=== PATIENT | female | born 1935 | race African-American/Black ===

== ENCOUNTER 2016-12-31 16:08 | Inpatient (IN) | payer MEDICARE, MEDICAID ==
[2016-12-31] MEDS ORDERED: NITROGLYCERIN 50 MG/D5W 250 ML IV PRN (16:37)
[2016-12-31] MEDS ORDERED: BUTALB/ACETAMINOPHEN/CAFFEINE 1 TAB EACH PO PRN (16:50)
--- NOTE | 2016-12-31 17:15 | EKG REPORT ---
SEVERITY:- ABNORMAL ECG - SINUS RHYTHM LEFT VENTRICULAR HYPERTROPHY : Confirmed by: Bre De La Torre MD 31-Dec-2016 17:14:42
[2016-12-31 17:29] LABS: ABSOLUTE EOSINOPHILS # (AUTO) 0.2 10^3/uL (0.0-0.6); ABSOLUTE LYMPHOCYTES (AUTO) 1.4 10^3/uL (0.5-4.7); ABSOLUTE MONOCYTES (AUTO) 0.4 10^3/uL (0.1-1.4); ABSOLUTE NEUT (AUTO) 2.6 10^3/uL (1.7-8.2); EOSINOPHILS % (AUTO) 4.3 % (0-6); HEMATOCRIT 36.1 % (36.0-47.0); HEMOGLOBIN 11.5 g/dL (12.0-15.5); HGB HCT DIFFERENCE -1.6; LYMPHOCYTES % (AUTO) 29.5 % (13-45); MEAN CORPUSCULAR HEMOGLOBIN 30.2 pg (27.0-33.4); MEAN CORPUSCULAR HGB CONC 31.9 g/dL (32.0-36.0); MEAN CORPUSCULAR VOLUME 95 fl (80-97); MONOCYTES % (AUTO) 9.2 % (3-13); RED BLOOD COUNT 3.81 10^6/uL (3.72-5.28); RED CELL DISTRIBUTION WIDTH 14.4 % (11.5-14.0); WHITE BLOOD COUNT 4.7 10^3/uL (4.0-10.5)
[2016-12-31 17:43] LABS: ALANINE AMINOTRANSFERASE 30 U/L (9-52); ALBUMIN 4.3 g/dL (3.5-5.0); ALKALINE PHOSPHATASE 54 U/L (38-126); ANION GAP 14 (5-19); ASPARTATE AMINO TRANSFERASE 25 U/L (14-36); BILIRUBIN,DIRECT 0.3 mg/dL (0.0-0.4); BILIRUBIN,TOTAL 0.6 mg/dL (0.2-1.3); BLOOD UREA NITROGEN 27 mg/dL (7-20); CALCIUM 10.5 mg/dL (8.4-10.2); CARBON DIOXIDE 22 mmol/L (22-30); CHLORIDE 108 mmol/L (98-107); CREATININE RESULT 2.45 mg/dL (0.52-1.25); GLUCOSE 75 mg/dL (75-110); POTASSIUM 5.2 mmol/L (3.6-5.0); SODIUM 143.5 mmol/L (137-145); TOTAL PROTEIN 8.3 g/dL (6.3-8.2)
--- NOTE | 2016-12-31 18:08 | RADIOLOGY REPORT (SQ) ---
EXAM DESCRIPTION: CT HEAD WITHOUT COMPLETED DATE/TIME: 12/31/2016 5:39 pm REASON FOR STUDY: hypertensive emergency COMPARISON: 01/24/2016 TECHNIQUE: Axial images acquired through the brain without intravenous contrast. Images reviewed wi th bone, brain and subdural windows. Images stored on PACS. All CT scanners at this facility use dose modulation, iterative reconstruction, and/or weight based d osing when appropriate to reduce radiation dose to as low as reasonably achievable (ALARA). [facility]: Dose Right [facility]: CareDose [facility]: Dose Right [facility]: Teradose 4D [facility]: [place] RADIATION DOSE: 64.61 mGy. LIMITATIONS: None. FINDINGS: VENTRICLES: The ventricles are prominent, but not disproportionate to the degree of atroph y present. CEREBRUM: Cortical atrophy. There are areas of decreased attenuation in the periventricular white m atter. No masses. No hemorrhage. No midline shift. Normal craig/white matter differentiation. No evidence for acute infarction. CEREBELLUM: No masses. No hemorrhage. No alteration of density. No evidence for acute infarction. EXTRAAXIAL SPACES: No fluid collections. No masses. ORBITS AND GLOBE: No intra- or extraconal masses. Normal contour of globe without masses. CALVARIUM: No fracture. PARANASAL SINUSES: No fluid or mucosal thickening. SOFT TISSUES: No mass or hematoma. OTHER: No other significant finding. IMPRESSION: Involutional changes of aging with microvascular ischemic disease and no acute intracran ial pathology. TECHNICAL DOCUMENTATION: JOB ID: [id number] Quality ID # [id number]: Final reports with documentation of one or more dose reduction techniques (e.g., Au tomated exposure control, adjustment of the mA and/or kV according to patient size, use of iterative reconstruction technique) 2010 [employer]- All Rights Reserved
[2016-12-31] MEDS ORDERED: (PENDING PHARMACY ID) (Tramadol Hcl/Acetaminophen [Tramadol-Acetaminophn 37.5-325] 1 TAB) PO PRN (21:51)
[2016-12-31 22:04] LABS: APPEARANCE,URINE CLEAR; BILIRUBIN,URINE NEGATIVE (NEGATIVE); GLUCOSE, URINE NEGATIVE (NEGATIVE); KETONES,URINE NEGATIVE (NEGATIVE); LEUKOCYTE ESTERASE,URINE NEGATIVE (NEGATIVE); NITRITE,URINE NEGATIVE (NEGATIVE); PROTEIN,URINE 30 mg/dL (NEGATIVE); URINE SPECIFIC GRAVITY 1.006; UROBILINOGEN,URINE NEGATIVE mg/dL (<2.0)
[2016-12-31] MEDS: APIXABAN 2.5 MG TABLET PO SCH (22:28)
[2017-01-01 04:54] LABS: ABSOLUTE EOSINOPHILS # (AUTO) 0.2 10^3/uL (0.0-0.6); ABSOLUTE LYMPHOCYTES (AUTO) 1.3 10^3/uL (0.5-4.7); ABSOLUTE MONOCYTES (AUTO) 0.6 10^3/uL (0.1-1.4); ABSOLUTE NEUT (AUTO) 3.2 10^3/uL (1.7-8.2); BASOPHILS % (AUTO) 0.9 % (0-2); EOSINOPHILS % (AUTO) 3.9 % (0-6); HEMATOCRIT 33.2 % (36.0-47.0); HEMOGLOBIN 10.9 g/dL (12.0-15.5); HGB HCT DIFFERENCE -0.5; LYMPHOCYTES % (AUTO) 24.3 % (13-45); MEAN CORPUSCULAR HEMOGLOBIN 30.5 pg (27.0-33.4); MEAN CORPUSCULAR HGB CONC 32.7 g/dL (32.0-36.0); MEAN CORPUSCULAR VOLUME 93 fl (80-97); MONOCYTES % (AUTO) 10.4 % (3-13); RED BLOOD COUNT 3.57 10^6/uL (3.72-5.28); RED CELL DISTRIBUTION WIDTH 14.7 % (11.5-14.0); SEGMENTED NEUTROPHILS % (AUTO) 60.5 % (42-78); WHITE BLOOD COUNT 5.3 10^3/uL (4.0-10.5)
[2017-01-01 05:10] LABS: ANION GAP 11 (5-19); BLOOD UREA NITROGEN 31 mg/dL (7-20); CALCIUM 9.7 mg/dL (8.4-10.2); CARBON DIOXIDE 20 mmol/L (22-30); CHLORIDE 109 mmol/L (98-107); CREATININE RESULT 2.22 mg/dL (0.52-1.25); GLUCOSE 72 mg/dL (75-110); MAGNESIUM 1.7 mg/dL (1.6-2.3); SODIUM 140.3 mmol/L (137-145)
[2017-01-01] MEDS: METOPROLOL SUCCINATE 50 MG TAB.SR.24H PO SCH (09:37)
[2017-01-01] MEDS: APIXABAN 2.5 MG TABLET PO SCH ×2 (09:38→21:35)
[2017-01-01] MEDS: MEGESTROL ACETATE 20 MG TABLET PO SCH ×2 (09:38→17:20)
[2017-01-01] MEDS: PATIROMER 8.4 GM SUSP PACKET PO SCH (09:39)
--- NOTE | 2017-01-01 16:36 | PDOC H&P ---
History of Present Illness Admission Date/PCP: 12/31/16 16:08 VICTORIANO MATTSON MD History of Present Illness: LOU CLEMENTE is a 81 year old female, she has a history of hypertension, chronic kidney disease stage III, she came to the office with multiple complaints including headache, the blood pressure recorded was 220 systolic, she was admitted directly from the office into the hospital for evaluation of hypertensive emergency. She has no chest pain, there is no shortness of breath , there is no syncope. CT of the head was done, it was negative for any acute stroke. She takes metoprolol succinate for the control blood pressure, she did not tolerate ACEI/ARB because of hyperkalemia. She has difficulty tolerating many of the antihypertensive medication because of side effects from many of the classes. She was admitted and she was started on intravenous nitroglycerin infusion Past Medical History Cardiac Medical History: Reports: Atrial Fibrillation, DVT, Hypertension Pulmonary Medical History: Reports: Chronic Obstructive Pulmonary Disease (COPD) Renal/ Medical History: Reports: Chronic Kidney Disease - Chronic kidney disease stage III Musculoskeltal Medical History: Reports: Arthritis Social History Smoking Status: Former Smoker Frequency of Alcohol Use: None Hx Recreational Drug Use: No Drugs: None Hx Prescription Drug Abuse: No Family History Family History: Reviewed & Not Pertinent Parental Family History Reviewed: Yes Children Family History Reviewed: Yes Sibling(s) Family History Reviewed.: Yes Medication/Allergy Home Medications: Patiromer Calcium Sorbitex [Veltassa] 8.4 gm PO DAILY 12/31/16 RX: Apixaban [Eliquis 2.5 mg Tablet] 2.5 mg PO Q12 12/31/16 RX: Megestrol Acetate [Megace 20 mg Tablet] 20 mg PO BID 12/31/16 RX: Metoprolol Succinate [Toprol Xl 50 mg Tab.sr] 50 mg PO DAILY 12/31/16 RX: Tramadol HCl/Acetaminophen [Tramadol-Acetaminophn 37.5-325] 1 tab PO Q6HP PRN 12/31/16 Ferrous Sulfate [Iron] 325 mg PO DAILY 01/01/17 RX: Sodium Bicarbonate 650 mg PO TID 01/01/17 Vit B Cmplx 3/FA/Vit C/Biotin [Miriam-Michelle Rx Tablet] 1 each PO DAILY 01/01/17 Allergies/Adverse Reactions: No Known Allergies Allergy (Verified 01/13/13 15:37) Review of Systems Constitutional: PRESENT: anorexia, fatigue Eyes: ABSENT: visual disturbances Ears: ABSENT: hearing changes Cardiovascular: ABSENT: as per HPI, chest pain, dyspnea on exertion, edema, orthropnea, palpitations, other Respiratory: ABSENT: cough, hemoptysis Gastrointestinal: ABSENT: abdominal pain, constipation, diarrhea, hematemesis, hematochezia, nausea, vomiting Genitourinary: ABSENT: dysuria, hematuria Musculoskeletal: ABSENT: joint swelling Integumentary: ABSENT: rash, wounds Neurological: PRESENT: dizziness, paresthesias Psychiatric: ABSENT: anxiety, depression, homidical ideation, suicidal ideation Endocrine: ABSENT: cold intolerance, heat intolerance, menstrual abnormalities, polydipsia, polyuria Hematologic/Lymphatic: ABSENT: easy bleeding, easy bruising, lymphadenopathy Physical Exam Vital Signs: Temp Pulse Resp BP Pulse Ox 98.3 F 69 18 164/80 H 100 01/01/17 11:52 01/01/17 14:00 01/01/17 11:52 01/01/17 11:52 01/01/17 11:52 Intake & Output 12/31/16 01/01/17 01/02/17 06:59 06:59 06:59 Intake Total 384 554 Output Total 400 200 Balance -16 354 Weight 49.7 kg 49.4 kg General appearance: PRESENT: no acute distress Eye exam: PRESENT: PERRLA Mouth exam: PRESENT: moist Respiratory exam: PRESENT: clear to auscultation alexandro Cardiovascular exam: PRESENT: irregular rhythm, +S1, +S2 GI/Abdominal exam: PRESENT: soft Neurological exam: PRESENT: alert, CN II-XII grossly intact Results Laboratory Results: 01/01/17 04:09 01/01/17 04:09 12/31/16 12/31/16 12/31/16 17:20 17:20 20:30 WBC 4.7 RBC 3.81 Hgb 11.5 L Hct 36.1 MCV 95 MCH 30.2 MCHC 31.9 L RDW 14.4 H Plt Count 149 L Seg Neutrophils % 56.0 Lymphocytes % 29.5 Monocytes % 9.2 Eosinophils % 4.3 Basophils % 1.0 Absolute Neutrophils 2.6 Absolute Lymphocytes 1.4 Absolute Monocytes 0.4 Absolute Eosinophils 0.2 Absolute Basophils 0.0 Sodium 143.5 Potassium 5.2 H Chloride 108 H Carbon Dioxide 22 Anion Gap 14 BUN 27 H Creatinine 2.45 H Est GFR ( Amer) 23 L Est GFR (Non-Af Amer) 19 L Glucose 75 Calcium 10.5 H Magnesium Total Bilirubin 0.6 AST 25 ALT 30 Alkaline Phosphatase 54 Total Protein 8.3 H Albumin 4.3 Urine Color YELLOW Urine Appearance CLEAR Urine pH 7.0 Ur Specific [place] 1.006 Urine Protein 30 H Urine Glucose (UA) NEGATIVE Urine Ketones NEGATIVE Urine Blood MODERATE H Urine Nitrite NEGATIVE Ur Leukocyte Esterase NEGATIVE Urine WBC (Auto) 3 Urine RBC (Auto) 8 01/01/17 01/01/17 04:09 04:09 WBC 5.3 RBC 3.57 L Hgb 10.9 L Hct 33.2 L MCV 93 MCH 30.5 MCHC 32.7 RDW 14.7 H Plt Count 147 L Seg Neutrophils % 60.5 Lymphocytes % 24.3 Monocytes % 10.4 Eosinophils % 3.9 Basophils % 0.9 Absolute Neutrophils 3.2 Absolute Lymphocytes 1.3 Absolute Monocytes 0.6 Absolute Eosinophils 0.2 Absolute Basophils 0.0 Sodium 140.3 Potassium 5.0 Chloride 109 H Carbon Dioxide 20 L Anion Gap 11 BUN 31 H Creatinine 2.22 H Est GFR ( Amer) 26 L Est GFR (Non-Af Amer) 21 L Glucose 72 L Calcium 9.7 Magnesium 1.7 Total Bilirubin AST ALT Alkaline Phosphatase Total Protein Albumin Urine Color Urine Appearance Urine pH Ur Specific [place] Urine Protein Urine Glucose (UA) Urine Ketones Urine Blood Urine Nitrite Ur Leukocyte Esterase Urine WBC (Auto) Urine RBC (Auto) Impressions: Head CT 12/31/16 00:00 IMPRESSION: Involutional changes of aging with microvascular ischemic disease and no acute intracranial pathology. Assessment & Plan - Diagnosis (1) Hypertensive emergency Is this a current diagnosis for this admission?: YesPlan: Patient is admitted for evaluation of hypertensive emergency, she is started on IV nitroglycerin infusion (2) Chronic atrial fibrillation Is this a current diagnosis for this admission?: Yes (3) Chronic kidney disease, stage 3 Is this a current diagnosis for this admission?: Yes
[2017-01-01] MEDS ORDERED: HYDRALAZINE HCL 25 MG TABLET PO PRN (16:37)
--- NOTE | 2017-01-01 16:40 | PDOC PROGRESS REPORT ---
Subjective Progress Note for:: 01/01/17 Subjective:: The blood pressure is elevated but better controlled than yesterday Physical Exam Vital Signs: Temp Pulse Resp BP Pulse Ox 98.0 F 75 18 178/87 H 100 01/01/17 16:17 01/01/17 16:17 01/01/17 16:17 01/01/17 16:17 01/01/17 16:17 Intake & Output 12/31/16 01/01/17 01/02/17 06:59 06:59 06:59 Intake Total 384 554 Output Total 400 200 Balance -16 354 Weight 49.7 kg 49.4 kg General appearance: PRESENT: no acute distress Eye exam: PRESENT: PERRLA Respiratory exam: PRESENT: clear to auscultation alexandro Cardiovascular exam: PRESENT: +S1, +S2 GI/Abdominal exam: PRESENT: soft Results Laboratory Results: 01/01/17 04:09 01/01/17 04:09 12/31/16 12/31/16 12/31/16 17:20 17:20 20:30 WBC 4.7 RBC 3.81 Hgb 11.5 L Hct 36.1 MCV 95 MCH 30.2 MCHC 31.9 L RDW 14.4 H Plt Count 149 L Seg Neutrophils % 56.0 Lymphocytes % 29.5 Monocytes % 9.2 Eosinophils % 4.3 Basophils % 1.0 Absolute Neutrophils 2.6 Absolute Lymphocytes 1.4 Absolute Monocytes 0.4 Absolute Eosinophils 0.2 Absolute Basophils 0.0 Sodium 143.5 Potassium 5.2 H Chloride 108 H Carbon Dioxide 22 Anion Gap 14 BUN 27 H Creatinine 2.45 H Est GFR ( Amer) 23 L Est GFR (Non-Af Amer) 19 L Glucose 75 Calcium 10.5 H Magnesium Total Bilirubin 0.6 AST 25 ALT 30 Alkaline Phosphatase 54 Total Protein 8.3 H Albumin 4.3 Urine Color YELLOW Urine Appearance CLEAR Urine pH 7.0 Ur Specific [place] 1.006 Urine Protein 30 H Urine Glucose (UA) NEGATIVE Urine Ketones NEGATIVE Urine Blood MODERATE H Urine Nitrite NEGATIVE Ur Leukocyte Esterase NEGATIVE Urine WBC (Auto) 3 Urine RBC (Auto) 8 01/01/17 01/01/17 04:09 04:09 WBC 5.3 RBC 3.57 L Hgb 10.9 L Hct 33.2 L MCV 93 MCH 30.5 MCHC 32.7 RDW 14.7 H Plt Count 147 L Seg Neutrophils % 60.5 Lymphocytes % 24.3 Monocytes % 10.4 Eosinophils % 3.9 Basophils % 0.9 Absolute Neutrophils 3.2 Absolute Lymphocytes 1.3 Absolute Monocytes 0.6 Absolute Eosinophils 0.2 Absolute Basophils 0.0 Sodium 140.3 Potassium 5.0 Chloride 109 H Carbon Dioxide 20 L Anion Gap 11 BUN 31 H Creatinine 2.22 H Est GFR ( Amer) 26 L Est GFR (Non-Af Amer) 21 L Glucose 72 L Calcium 9.7 Magnesium 1.7 Total Bilirubin AST ALT Alkaline Phosphatase Total Protein Albumin Urine Color Urine Appearance Urine pH Ur Specific [place] Urine Protein Urine Glucose (UA) Urine Ketones Urine Blood Urine Nitrite Ur Leukocyte Esterase Urine WBC (Auto) Urine RBC (Auto) Impressions: Head CT 12/31/16 00:00 IMPRESSION: Involutional changes of aging with microvascular ischemic disease and no acute intracranial pathology. Assessment & Plan - Diagnosis (1) Hypertensive emergency Is this a current diagnosis for this admission?: YesPlan: start hydralazine 25mg PO Q 8 Hours ,continue the present medication (2) Chronic atrial fibrillation Is this a current diagnosis for this admission?: Yes (3) Chronic kidney disease, stage 3 Is this a current diagnosis for this admission?: Yes
[2017-01-01] MEDS ORDERED: HYDRALAZINE HCL 25 MG TABLET PO ONE (18:15)
--- NOTE | 2017-01-02 05:26 | Physician Advisory Note ---
Physician Advisor ProgressNote .: [facility], I have reviewed the medical record for this patient. Physician Advisor Statement: Very nice documentation of HTN-lane emergency, chr Afib, CKD-3. Please also consider documentin. "underweight with possible mild protein-calorie malnutrition with BMI 19, __ __[?wt loss, (+)appetite loss, ]" [if possible, give specifics on intake, wt loss, loss of SQ fat & muscle mass, diminished hand miller helper strength, & clinical importance such as (A) nutritional assessment ordered, (B) modified diet or supplements ordered, (C) additional labs ordered, (D) prolonged wound healing time, (E) delayed infxn clearance] Thanks! CK
[2017-01-02] MEDS: HYDRALAZINE HCL 25 MG TABLET PO SCH ×3 (05:58→21:25)
[2017-01-02] MEDS: APIXABAN 2.5 MG TABLET PO SCH ×2 (09:40→21:24)
[2017-01-02] MEDS: METOPROLOL SUCCINATE 50 MG TAB.SR.24H PO SCH (09:40)
[2017-01-02] MEDS: PATIROMER 8.4 GM SUSP PACKET PO SCH (09:41)
[2017-01-02] MEDS: MEGESTROL ACETATE 20 MG TABLET PO SCH ×2 (09:41→17:35)
--- NOTE | 2017-01-02 18:52 | PDOC DISCHARGE SUMMARY ---
General - Admit/Disc Date/PCP Admission Date/Primary Care Provider: 12/31/16 16:08 VICTORIANO MATTSON MD Discharge Date: 01/03/17 - Discharge Diagnosis (1) Hypertensive emergency Is this a current diagnosis for this admission?: Yes (2) Chronic atrial fibrillation Is this a current diagnosis for this admission?: Yes (3) Chronic kidney disease, stage 3 Is this a current diagnosis for this admission?: Yes - Additional Information Home Medications: Apixaban [Eliquis 2.5 mg Tablet] 2.5 mg PO Q12 12/31/16 Megestrol Acetate [Megace 20 mg Tablet] 20 mg PO BID 12/31/16 Metoprolol Succinate [Toprol Xl 50 mg Tab.sr] 50 mg PO DAILY 12/31/16 Patiromer Calcium Sorbitex [Veltassa] 8.4 gm PO DAILY 12/31/16 Tramadol HCl/Acetaminophen [Tramadol-Acetaminophn 37.5-325] 1 tab PO Q6HP PRN Ferrous Sulfate [Iron] 325 mg PO DAILY 01/01/17 Sodium Bicarbonate 650 mg PO TID 01/01/17 Vit B Cmplx 3/FA/Vit C/Biotin [Miriam-Michelle Rx Tablet] 1 each PO DAILY 01/01/17 Dextran 70/Hypromellose [Artificial Tears Eye Drops] 30 ml OP TID #1 drops 01/02 Hydralazine HCl [Apresoline 25 mg Tablet] 25 mg PO Q8 #90 tablet 01/02/17 History of Present Illness History of Present Illness: LOU CLEMENTE is a 81 year old female, she has a history of hypertension, chronic kidney disease stage III, she came to the office with multiple complaints including headache, the blood pressure recorded was 220 systolic, she was admitted directly from the office into the hospital for evaluation of hypertensive emergency. She has no chest pain, there is no shortness of breath , there is no syncope. CT of the head was done, it was negative for any acute stroke. She takes metoprolol succinate for the control blood pressure, she did not tolerate ACEI/ARB because of hyperkalemia. She has difficulty tolerating many of the antihypertensive medication because of side effects from many of the classes. She was admitted and she was started on intravenous nitroglycerin infusion Hospital Course Hospital Course: Patient was admitted because of hypertensive emergency, she was treated intravenous nitroglycerin infusion. Medication was adjusted she normally takes metoprolol succinate for the control of the blood pressure, and hydralazine was added to the drug regimen. Physical Exam Vital Signs: Temp Pulse Resp BP Pulse Ox 98.5 F 92 16 146/83 H 100 01/02/17 16:01 01/02/17 16:01 01/02/17 16:01 01/02/17 16:01 01/02/17 16:01 Intake & Output 01/01/17 01/02/17 01/03/17 06:59 06:59 06:59 Intake Total 384 1394 720 Output Total 400 901 750 Balance -16 493 -30 Weight 49.7 kg 48.7 kg General appearance: PRESENT: no acute distress, well-developed, well-nourished Head exam: PRESENT: atraumatic, normocephalic Eye exam: PRESENT: conjunctiva pink, EOMI, PERRLA Ear exam: PRESENT: normal external ear exam Mouth exam: PRESENT: moist, tongue midline Neck exam: PRESENT: full ROM Respiratory exam: PRESENT: clear to auscultation alexandro Cardiovascular exam: PRESENT: RRR, +S1, +S2 Vascular exam: PRESENT: normal capillary refill GI/Abdominal exam: PRESENT: normal bowel sounds, soft Rectal exam: PRESENT: deferred Neurological exam: PRESENT: alert, awake, oriented to person, oriented to place , oriented to time, oriented to situation, CN II-XII grossly intact Psychiatric exam: PRESENT: appropriate affect, normal mood Skin exam: PRESENT: dry, intact, warm. ABSENT: cyanosis, rash Results Laboratory Results: 01/01/17 04:09 01/01/17 04:09 12/31/16 20:30 Clean Catch Midstream Urine Culture - Final NO GROWTH 2 DAYS Impressions: Head CT 12/31/16 00:00 IMPRESSION: Involutional changes of aging with microvascular ischemic disease and no acute intracranial pathology.
[2017-01-03] MEDS: HYDRALAZINE HCL 25 MG TABLET PO SCH (05:49)
[2017-01-03] MEDS: MEGESTROL ACETATE 20 MG TABLET PO SCH (09:39)
[2017-01-03] MEDS: METOPROLOL SUCCINATE 50 MG TAB.SR.24H PO SCH (09:39)
[2017-01-03] MEDS: APIXABAN 2.5 MG TABLET PO SCH (09:39)
[2017-01-03] MEDS: PATIROMER 8.4 GM SUSP PACKET PO SCH (11:30)
[2017-01-03 12:51] VITALS: BP 132/90
== END 2017-01-03 14:03 | disposition home or self-care (01) | DRG 305 ==
LOC: 3N 16:08
PROVIDERS: ADMIT Internal Medicine; ATTEND Internal Medicine
DX: I16.1 Hypertensive emergency (principal); I12.9 Hypertensive chronic kidney disease with stage 1 through stage 4 chronic kidney disease, or unspecified chronic kidney disease; N18.3 Chronic kidney disease, stage 3 (moderate); I48.2 Chronic atrial fibrillation; Z87.891 Personal history of nicotine dependence; Z79.01 Long term (current) use of anticoagulants; Z79.818 Long term (current) use of other agents affecting estrogen receptors and estrogen levels; Z79.899 Other long term (current) drug therapy
CPT/HCPCS: 36415; 70450; 80048; 80076; 81001; 83735; 85025; 87086; 93005; 93010; J3490

== ENCOUNTER → 2017-01-27 | Outpatient (CLI) | payer MEDICARE, MEDICAID ==
--- NOTE | 2017-01-27 14:51 | RADIOLOGY REPORT (SQ) ---
EXAM DESCRIPTION: CT ORBIT/SELLA WITHOUT COMPLETED DATE/TIME: 01/27/2017 2:42 pm REASON FOR STUDY: ORBITAL MYOSITIS, BILATERAL H05.123 ORBITAL MYOSITIS, BILATERAL COMPARISON: None. TECHNIQUE: Noncontrasted images through the orbits windowed for bone and soft tissue. Additional co jennifer and sagittal reconstructed images reviewed. All images stored on PACS. All CT scanners at this facility use dose modulation, iterative reconstruction, and/or weight based d osing when appropriate to reduce radiation dose to as low as reasonably achievable (ALARA). [facility]: Dose Right [facility]: CareDose [facility]: Dose Right [facility]: Teradose 4D [facility]: [employer] RADIATION DOSE: mGy. LIMITATIONS: None. FINDINGS: FACIAL BONES: No fracture or bone lesion. ORBITS: Intact. No fracture. Symmetric intact globes and retroorbital soft tissues. PARANASAL SINUSES: Clear. Bilateral antrectomies. No significant mucosal thickening, mass or fluid. No nasal polyps. Maxillary sinus outlets are patent. SOFT TISSUES: No mass or edema. INFERIOR BRAIN: Limited view. No acute findings. OTHER: No other significant finding. IMPRESSION: NO ACUTE FINDINGS. TECHNICAL DOCUMENTATION: JOB ID: [id number] Quality ID # [id number]: Final reports with documentation of one or more dose reduction techniques (e.g., Au tomated exposure control, adjustment of the mA and/or kV according to patient size, use of iterative reconstruction technique) 2010 [employer]- All Rights Reserved
== END ==
LOC: RAD 13:43
PROVIDERS: ATTEND Internal Medicine
DX: H05.123 Orbital myositis, bilateral (principal)
CPT/HCPCS: 70480; 82565

== ENCOUNTER 2017-02-18 12:33 | Observation (INO) | payer MEDICARE, MEDICAID ==
[2017-02-18] MEDS ORDERED: NITROGLYCERIN 50 MG/D5W 250 ML IV PRN (13:34)
[2017-02-18 13:43] LABS: HEMATOCRIT 34.9 % (36.0-47.0); HEMOGLOBIN 11.4 g/dL (12.0-15.5); HGB HCT DIFFERENCE -0.7; MEAN CORPUSCULAR HEMOGLOBIN 30.4 pg (27.0-33.4); MEAN CORPUSCULAR HGB CONC 32.7 g/dL (32.0-36.0); MEAN CORPUSCULAR VOLUME 93 fl (80-97); RED BLOOD COUNT 3.76 10^6/uL (3.72-5.28); RED CELL DISTRIBUTION WIDTH 15.3 % (11.5-14.0); WHITE BLOOD COUNT 4.1 10^3/uL (4.0-10.5)
[2017-02-18 14:05] LABS: ALANINE AMINOTRANSFERASE 28 U/L (9-52); ALBUMIN 4.3 g/dL (3.5-5.0); ALKALINE PHOSPHATASE 52 U/L (38-126); ANION GAP 14 (5-19); ASPARTATE AMINO TRANSFERASE 28 U/L (14-36); BILIRUBIN,DIRECT 0.4 mg/dL (0.0-0.4); BILIRUBIN,TOTAL 0.8 mg/dL (0.2-1.3); BLOOD UREA NITROGEN 35 mg/dL (7-20); CARBON DIOXIDE 19 mmol/L (22-30); CHLORIDE 110 mmol/L (98-107); CREATININE RESULT 2.33 mg/dL (0.52-1.25); GLUCOSE 77 mg/dL (75-110); POTASSIUM 4.9 mmol/L (3.6-5.0); SODIUM 142.8 mmol/L (137-145); TOTAL PROTEIN 8.3 g/dL (6.3-8.2)
--- NOTE | 2017-02-18 15:24 | RADIOLOGY REPORT (SQ) ---
EXAM DESCRIPTION: MRI HEAD WITHOUT COMPLETED DATE/TIME: 02/18/2017 2:58 pm REASON FOR STUDY: hypertension urgency COMPARISON: CT dated 12/31/2016. MRI dated 02/20/2015. TECHNIQUE: Multiplanar imaging includes non-contrasted T1, T2, FLAIR, and diffusion with ADC map seq uences. Images stored on PACS. LIMITATIONS: None. FINDINGS: ANATOMY: No anomalies. Normal vascular flow voids. Pituitary fossa normal. CSF SPACES: Atrophy induced prominence of ventricles and CSF spaces. Chronic ex vacuo change of the left lateral ventricle. CEREBRUM: High signal intensity lesions scattered throughout the white matter on FLAIR imaging with d istribution suggesting micro-vascular ischemic changes. No evidence of hemorrhage, mass, or extraaxi al fluid collection. POSTERIOR FOSSA: No signal alteration. No hemorrhage. No edema, masses or mass effect. Internal lyly tory canals, cerebello-pontine angles, mastoids normal. DIFFUSION IMAGING: Negative for acute or sub-acute infarction. ORBITS: No masses. Globes normal. PARANASAL SINUSES: No fluid levels. Mucosa normal. OTHER: No other significant finding. IMPRESSION: STABLE CHRONIC FINDINGS. ATROPHY AND CHRONIC MICRO-VASCULAR ISCHEMIC CHANGES. NO ACUTE FINDINGS. EVIDENCE OF ACUTE STROKE: NO. TECHNICAL DOCUMENTATION: JOB ID: [id number] All Rights Reserved
[2017-02-18] MEDS ORDERED: HYDRALAZINE HCL 25 MG TABLET PO SCH (18:00)
[2017-02-18] MEDS ORDERED: MEGESTROL ACETATE 20 MG TABLET PO SCH (18:00)
[2017-02-18] MEDS ORDERED: SODIUM BICARBONATE 650 MG TABLET PO SCH (18:00)
[2017-02-18] MEDS: METOPROLOL SUCCINATE 50 MG TAB.SR.24H PO SCH (18:23)
[2017-02-18] MEDS: SODIUM BICARBONATE 650 MG TABLET PO SCH (18:23)
[2017-02-18] MEDS: HYDRALAZINE HCL 25 MG TABLET PO SCH (21:06)
[2017-02-18] MEDS: MEGESTROL ACETATE 20 MG TABLET PO SCH (21:06)
[2017-02-18] MEDS: APIXABAN 2.5 MG TABLET PO SCH (21:07)
[2017-02-19] MEDS: HYDRALAZINE HCL 25 MG TABLET PO SCH ×3 (06:15→21:37)
[2017-02-19] MEDS ORDERED: (PENDING PHARMACY ID) (Folic Acid/Vitamin B Comp W-C [Renavit Tablet] 0.8 MG) PO SCH (10:00)
[2017-02-19] MEDS: PATIROMER 8.4 GM SUSP PACKET PO SCH (10:08)
[2017-02-19] MEDS: FOLIC ACID/VITAMIN B COMP W-C CAPSULE PO SCH (10:09)
[2017-02-19] MEDS: APIXABAN 2.5 MG TABLET PO SCH ×2 (10:09→21:37)
[2017-02-19] MEDS: MEGESTROL ACETATE 20 MG TABLET PO SCH ×2 (10:10→21:37)
[2017-02-19] MEDS: FERROUS SULFATE 325 MG TABLET PO SCH (10:10)
[2017-02-19] MEDS: SODIUM BICARBONATE 650 MG TABLET PO SCH ×3 (10:10→17:29)
--- NOTE | 2017-02-19 14:28 | Physician Advisory Note ---
Physician Advisor ProgressNote .: Pursuant to the plan for [facility], I have reviewed the medical record for this patient. Physician Advisor Statement: Please consider documentin. "Chronic Kidney Disease stage 4 associated with HTN" 2. "Atherosclerotic cerebrovascular disease" 3. Medical necessity: Pt coming in for HTN, even hypertensive urgency, typically won't be appropriate for Inpatient status initially unless there is something else very concerning going on acutely that is documented well as to why attending would be very concerned about this pt at this time (such as pt's Cr being significantly worse/ARF). (Literature is now recommending outpatient care for hypertensive urgency if no signs/symptoms of acute end-organ disease, which would make it hypertensive emergency.) - H&P is still pending, but suspect pt may be most appropriate for Obs and d/c today, unless there is something else significant that will be documented today. Thanks! CK
--- NOTE | 2017-02-19 16:50 | PDOC H&P ---
History of Present Illness Admission Date/PCP: 02/18/17 12:33 VICTORIANO MATTSON MD History of Present Illness: LOU CLEMENTE is a 81 year old female,She has a history of hypertension, chronic atrial fibrillation, chronic kidney disease stage III, she came to the office without any appointment because of ocular pain, headache, the blood pressure recorded in the office was 220/120 . She complains of eye pain, pressure like sensation in both eyes, because the blood pressure was severely elevated and the fact that she complained of pain in both eyes she was admitted directly from the office into the hospital for evaluation of her symptoms. 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 She was started on intravenous nitroglycerin to help control blood pressure because she has symptomatic hypertension, consistent with hypertensive emergency. Past Medical History Cardiac Medical History: Reports: Atrial Fibrillation, DVT, Hypertension Denies: Myocardial Infarction Pulmonary Medical History: Reports: Chronic Obstructive Pulmonary Disease (COPD) Denies: Asthma, Tuberculosis Renal/ Medical History: Reports: Chronic Kidney Disease - Chronic kidney disease stage III Musculoskeltal Medical History: Reports: Arthritis Social History Smoking Status: Former Smoker Last Time Smoked: 1981 Frequency of Alcohol Use: None Hx Recreational Drug Use: No Drugs: None Hx Prescription Drug Abuse: No Family History Family History: Reviewed & Not Pertinent Parental Family History Reviewed: Yes Children Family History Reviewed: Yes Sibling(s) Family History Reviewed.: Yes Medication/Allergy Home Medications: Apixaban [Eliquis 2.5 mg Tablet] 2.5 mg PO Q12 02/18/17 Ferrous Sulfate [Feosol 325 mg Tablet] 325 mg PO DAILY 02/18/17 Folic Acid/Vitamin B Comp W-C [Renavit Tablet] 0.8 mg PO DAILY 02/18/17 Hydralazine HCl [Apresoline 25 mg Tablet] 25 mg PO TID 02/18/17 Megestrol Acetate [Megace 20 mg Tablet] 20 mg PO BID 02/18/17 Metoprolol Succinate [Toprol Xl 50 mg Tab.sr] 50 mg PO QPM 02/18/17 Patiromer Calcium Sorbitex [Veltassa] 8.4 gm PO DAILY 02/18/17 Sodium Bicarbonate [Antacid] 650 mg PO TID 02/18/17 Allergies/Adverse Reactions: No Known Allergies Allergy (Verified 01/13/13 15:37) Review of Systems Constitutional: PRESENT: headache(s) Eyes: ABSENT: visual disturbances Ears: ABSENT: hearing changes Cardiovascular: ABSENT: chest pain, dyspnea on exertion, edema, orthropnea, palpitations Respiratory: ABSENT: cough, hemoptysis Gastrointestinal: ABSENT: abdominal pain, constipation, diarrhea, hematemesis, hematochezia, nausea, vomiting Genitourinary: ABSENT: dysuria, hematuria Musculoskeletal: ABSENT: joint swelling Integumentary: ABSENT: rash, wounds Neurological: ABSENT: abnormal gait, abnormal speech, confusion, dizziness, focal weakness, syncope Psychiatric: ABSENT: anxiety, depression, homidical ideation, suicidal ideation Endocrine: ABSENT: cold intolerance, heat intolerance, menstrual abnormalities, polydipsia, polyuria Hematologic/Lymphatic: ABSENT: easy bleeding, easy bruising, lymphadenopathy Physical Exam Vital Signs: Temp Pulse Resp BP Pulse Ox 98.3 F 84 18 167/91 H 100 02/19/17 15:45 02/19/17 15:45 02/19/17 15:45 02/19/17 15:45 02/19/17 15:45 Intake & Output 02/18/17 02/19/17 02/20/17 06:59 06:59 06:59 Intake Total 420 236 Output Total 1050 Balance -630 236 Weight 50.8 kg General appearance: PRESENT: no acute distress, well-developed, well-nourished Head exam: PRESENT: atraumatic, normocephalic Eye exam: PRESENT: conjunctiva pink, EOMI, PERRLA. ABSENT: scleral icterus Ear exam: PRESENT: normal external ear exam Mouth exam: PRESENT: moist, tongue midline Neck exam: PRESENT: full ROM Respiratory exam: PRESENT: clear to auscultation alexandro Cardiovascular exam: PRESENT: irregular rhythm, RRR, +S1, +S2 Pulses: PRESENT: normal dorsalis pedis pul, +2 pedal pulses bilateral Vascular exam: PRESENT: normal capillary refill GI/Abdominal exam: PRESENT: normal bowel sounds, soft Rectal exam: PRESENT: deferred Neurological exam: PRESENT: alert, awake, oriented to person, oriented to place , oriented to time, oriented to situation, CN II-XII grossly intact Psychiatric exam: PRESENT: appropriate affect, normal mood Skin exam: PRESENT: dry, intact, warm Results Laboratory Results: 02/18/17 13:34 02/18/17 13:34 Impressions: Head MRI 02/18/17 13:42 IMPRESSION: STABLE CHRONIC FINDINGS. ATROPHY AND CHRONIC MICRO-VASCULAR ISCHEMIC CHANGES. NO ACUTE FINDINGS. EVIDENCE OF ACUTE STROKE: NO. Assessment & Plan - Diagnosis (1) Hypertensive emergency Is this a current diagnosis for this admission?: YesPlan: She is admitted for the management of hypertensive emergency, she will be treated with intravenous nitroglycerin infusion to maintain adequate blood pressure. (2) Chronic kidney disease, stage 3 Is this a current diagnosis for this admission?: Yes (3) Chronic atrial fibrillation Is this a current diagnosis for this admission?: Yes
--- NOTE | 2017-02-19 16:56 | PDOC PROGRESS REPORT ---
Subjective Progress Note for:: 02/19/17 Subjective:: She was admitted yesterday for the management of hypertensive emergency she was seen by the bedside, she is still complaining of eye pain, the MRI of the brain that was done was negative for any acute pathology. She was taken off the IV nitroglycerin and transition to p.o. medication for the control of blood pressure. Physical Exam Vital Signs: Temp Pulse Resp BP Pulse Ox 98.3 F 84 18 167/91 H 100 02/19/17 15:45 02/19/17 15:45 02/19/17 15:45 02/19/17 15:45 02/19/17 15:45 Intake & Output 02/18/17 02/19/17 02/20/17 06:59 06:59 06:59 Intake Total 420 236 Output Total 1050 Balance -630 236 Weight 50.8 kg General appearance: PRESENT: no acute distress Eye exam: PRESENT: PERRLA Respiratory exam: PRESENT: clear to auscultation alexandro Cardiovascular exam: PRESENT: +S1, +S2 GI/Abdominal exam: PRESENT: soft Neurological exam: PRESENT: alert, CN II-XII grossly intact Results Laboratory Results: 02/18/17 13:34 02/18/17 13:34 Impressions: Head MRI 02/18/17 13:42 IMPRESSION: STABLE CHRONIC FINDINGS. ATROPHY AND CHRONIC MICRO-VASCULAR ISCHEMIC CHANGES. NO ACUTE FINDINGS. EVIDENCE OF ACUTE STROKE: NO. Assessment & Plan - Diagnosis (1) Hypertensive emergency Is this a current diagnosis for this admission?: YesPlan: She is presently on PO anti-hypertensive medications she was weaned off the intravenous nitroglycerin infusion this morning the blood pressure is still ranging about 158 to 160 systolic, she may need further adjustment of her medications for the control of the blood pressure, regarding the eyes symptoms she was seen by the study abroad coordinator outpatient for evaluation of her eye symptoms no concrete diagnosis was established as the cause of her symptoms she will be given eyedrops for allergy (2) Chronic kidney disease, stage 3 Is this a current diagnosis for this admission?: Yes (3) Chronic atrial fibrillation Is this a current diagnosis for this admission?: Yes
[2017-02-19] MEDS: METOPROLOL SUCCINATE 50 MG TAB.SR.24H PO SCH (17:29)
[2017-02-19] MEDS: CYCLOSPORINE 0.05% OPH EMULSIO 0.4 ML DROPERETTE OU SCH (18:15)
[2017-02-20] MEDS: HYDRALAZINE HCL 25 MG TABLET PO SCH ×2 (05:49→13:07)
[2017-02-20] MEDS: CYCLOSPORINE 0.05% OPH EMULSIO 0.4 ML DROPERETTE OU SCH ×2 (05:51→17:33)
[2017-02-20] MEDS ORDERED: OLOPATADINE HCL 0.1% OPH SOLN 5 ML OU SCH (10:00)
[2017-02-20] MEDS: FOLIC ACID/VITAMIN B COMP W-C CAPSULE PO SCH (10:41)
[2017-02-20] MEDS: SODIUM BICARBONATE 650 MG TABLET PO SCH ×3 (10:41→17:32)
[2017-02-20] MEDS: FERROUS SULFATE 325 MG TABLET PO SCH (10:42)
[2017-02-20] MEDS: MEGESTROL ACETATE 20 MG TABLET PO SCH (10:42)
[2017-02-20] MEDS: PATIROMER 8.4 GM SUSP PACKET PO SCH (10:44)
[2017-02-20] MEDS: APIXABAN 2.5 MG TABLET PO SCH (10:44)
[2017-02-20] MEDS: METOPROLOL SUCCINATE 50 MG TAB.SR.24H PO SCH (17:32)
[2017-02-20 18:16] VITALS: BP 158/61
--- NOTE | 2017-02-20 19:33 | PDOC DISCHARGE SUMMARY ---
General - Admit/Disc Date/PCP Admission Date/Primary Care Provider: 02/18/17 12:33 VICTORIANO MATTSON MD Discharge Date: 02/20/17 - Discharge Diagnosis (1) Hypertensive emergency Is this a current diagnosis for this admission?: Yes (2) Chronic kidney disease, stage 3 Is this a current diagnosis for this admission?: Yes (3) Chronic atrial fibrillation Is this a current diagnosis for this admission?: Yes - Additional Information Discharge Activity: Activity As Tolerated Home Medications: Apixaban [Eliquis 2.5 mg Tablet] 2.5 mg PO Q12 02/18/17 Ferrous Sulfate [Feosol 325 mg Tablet] 325 mg PO DAILY 02/18/17 Folic Acid/Vitamin B Comp W-C [Renavit Tablet] 0.8 mg PO DAILY 02/18/17 Megestrol Acetate [Megace 20 mg Tablet] 20 mg PO BID 02/18/17 Patiromer Calcium Sorbitex [Veltassa] 8.4 gm PO DAILY 02/18/17 Sodium Bicarbonate [Antacid] 650 mg PO TID 02/18/17 Hydralazine HCl [Apresoline 25 mg Tablet] 75 mg PO Q8 #90 tablet 02/20/17 Metoprolol Succinate [Toprol Xl] 100 mg PO DAILY #90 tab.sr.24h 02/20/17 History of Present Illness History of Present Illness: LOU CLEMENTE is a 81 year old female,She has a history of hypertension, chronic atrial fibrillation, chronic kidney disease stage III, she came to the office without any appointment because of ocular pain, headache, the blood pressure recorded in the office was 220/120 . She complains of eye pain, pressure like sensation in both eyes, because the blood pressure was severely elevated and the fact that she complained of pain in both eyes she was admitted directly from the office into the hospital for evaluation of her symptoms. 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 She was started on intravenous nitroglycerin to help control blood pressure because she has symptomatic hypertension, consistent with hypertensive emergency. Hospital Course Hospital Course: Patient was admitted for the management of hypertensive emergency, she was treated initially with intravenous nitroglycerin infusion for the first 24 hours , subsequently transitioned to p.o. medication for the control blood pressure. MRI brain was done it was negative for any intracranial pathology. She has underlining chronic kidney disease stage IV. Medication was adjusted for the control blood pressure, the metoprolol was increased from 50 mg p.o. daily to 100mg PO daily Physical Exam Vital Signs: Temp Pulse Resp BP Pulse Ox 97.6 F 102 H 17 158/61 H 98 02/20/17 18:14 02/20/17 18:14 02/20/17 18:14 02/20/17 18:14 02/20/17 18:14 Intake & Output 02/19/17 02/20/17 02/21/17 06:59 06:59 06:59 Intake Total 420 1305 468 Output Total 1050 625 0 Balance -630 680 468 Weight 50.8 kg 49.8 kg General appearance: PRESENT: no acute distress, well-developed, well-nourished Head exam: PRESENT: atraumatic, normocephalic Eye exam: PRESENT: PERRLA Ear exam: PRESENT: normal external ear exam Mouth exam: PRESENT: moist, tongue midline Neck exam: PRESENT: full ROM Respiratory exam: PRESENT: clear to auscultation alexandro Cardiovascular exam: PRESENT: RRR, +S1, +S2 Vascular exam: PRESENT: normal capillary refill GI/Abdominal exam: PRESENT: normal bowel sounds, soft Rectal exam: PRESENT: deferred Neurological exam: PRESENT: alert, awake, oriented to person, oriented to place , oriented to time, oriented to situation, CN II-XII grossly intact Psychiatric exam: PRESENT: appropriate affect, normal mood Results Laboratory Results: 02/18/17 13:34 02/18/17 13:34 Impressions: Head MRI 02/18/17 13:42 IMPRESSION: STABLE CHRONIC FINDINGS. ATROPHY AND CHRONIC MICRO-VASCULAR ISCHEMIC CHANGES. NO ACUTE FINDINGS. EVIDENCE OF ACUTE STROKE: NO.
== END 2017-02-20 19:15 | disposition home or self-care (01) ==
LOC: INTOOBSV 12:33 → 3W 12:33
PROVIDERS: ADMIT Internal Medicine; ATTEND Internal Medicine
DX: I16.1 Hypertensive emergency (principal); I12.9 Hypertensive chronic kidney disease with stage 1 through stage 4 chronic kidney disease, or unspecified chronic kidney disease; N18.3 Chronic kidney disease, stage 3 (moderate); I48.2 Chronic atrial fibrillation; H57.13 Ocular pain, bilateral; Z79.02 Long term (current) use of antithrombotics/antiplatelets; Z79.899 Other long term (current) drug therapy; Z87.891 Personal history of nicotine dependence; Z86.718 Personal history of other venous thrombosis and embolism
CPT/HCPCS: 36415; 85027; 80076; 80048; 70551; A9270 ×14; J3490 ×4; G0378; G0379

== ENCOUNTER 2017-03-01 08:30 | Emergency (ER) | payer MEDICARE, MEDICAID ==
[2017-03-01] MEDS ORDERED: NORMAL SALINE 500 ML IV ONE (09:00)
[2017-03-01] MEDS ORDERED: MORPHINE SULFATE 10 MG/ML INJ IV ONE (09:02)
[2017-03-01] MEDS ORDERED: CLONIDINE HCL 0.2 MG TABLET PO ONE (09:02)
[2017-03-01] MEDS ORDERED: ONDANSETRON HCL INJ/PF 4 MG/2 ML SDV IV ONE (09:03)
--- NOTE | 2017-03-01 09:08 | ER Document Report ---
ED General - General Information source: Patient TRAVEL OUTSIDE OF THE [place] IN LAST 30 DAYS: No - HPI Associated symptoms: Other - see above <WALKER PALACIOS - Last Filed: 03/01/17 09:41> <YUDITH GOYAL - Last Filed: 03/01/17 15:35> - General Stated Complaint: RAPID HEART BEAT Time Seen by Provider: 03/01/17 08:47 Notes: Patient is an 81 year old female with a history of hypertension and stage 4 kidney disease presents to the ED with complaints of palpitations, hypertension and a headache. Patient states her blood pressure has been running high intermittently for the past few days. Patient states her headache was sudden onset yesterday. Patient is on Hydrolozine for her blood pressure. She is also on blood thinners from a DVT in the past. Patient denies any blurred or double vision, difficulty with memory or speech, weakness or difficulty ambulating, abdominal or back pain, nausea, vomiting or diarrhea. Patient states she has had a decrease appetite and oral intake but states her urine output is normal. (WALKER PALACIOS) - Related Data Allergies/Adverse Reactions: No Known Allergies Allergy (Verified 01/13/13 15:37) Past Medical History - General Information source: Patient - Social History Smoking Status: Unknown if Ever Smoked Family History: Reviewed & Not Pertinent - Past Medical History Cardiac Medical History: Reports: Hx Atrial Fibrillation, Hx DVT, Hx Hypertension Denies: Hx Heart Attack Pulmonary Medical History: Reports: Hx COPD Denies: Hx Asthma, Hx Tuberculosis Neurological Medical History: Denies: Hx Cerebrovascular Accident, Hx Seizures Renal/ Medical History: Reports: Hx Renal Insufficiency GI Medical History: Denies: Hx Hepatitis, Hx Hiatal Hernia, Hx Ulcer Musculoskeltal Medical History: Reports Hx Arthritis Psychiatric Medical History: Denies: Hx Depression Infectious Medical History: Denies: Hx Hepatitis Past Surgical History: Denies: Hx Hysterectomy, Hx Mastectomy, Hx Open Heart Surgery, Hx Pacemaker - Immunizations Immunizations up to date: Yes Hx Diphtheria, Pertussis, Tetanus Vaccination: Yes Hx Pneumococcal Vaccination: 08/06/12 <WALKER PALACIOS - Last Filed: 03/01/17 09:41> Review of Systems - Review of Systems Constitutional: No symptoms reported. denies: Weakness EENT: No symptoms reported. denies: Blurred vision, Double vision Cardiovascular: See HPI, Palpitations Respiratory: No symptoms reported Gastrointestinal: See HPI, Poor appetite, Poor fluid intake. denies: Abdominal pain, Diarrhea, Nausea, Constipation Genitourinary: No symptoms reported Female Genitourinary: No symptoms reported Musculoskeletal: No symptoms reported. denies: Back pain Skin: No symptoms reported Hematologic/Lymphatic: No symptoms reported Neurological/Psychological: See HPI, Headaches <WALKER PALACIOS - Last Filed: 03/01/17 09:41> Physical Exam - General General appearance: Appears well, Alert In distress: None - HEENT Head: Normocephalic, Atraumatic Eyes: Normal Extraocular movements intact: Yes Pupils: PERRL - Respiratory Respiratory status: No respiratory distress Breath sounds: Normal - Cardiovascular Rhythm: Regular Heart sounds: Normal auscultation Murmur: No Pulses: Normal: Radial - Abdominal Inspection: Normal Distension: No distension Tenderness: Nontender - Back Back: Normal - Extremities General upper extremity: Normal inspection, Normal ROM General lower extremity: Normal inspection, Normal ROM. No: Edema - Neurological Neuro grossly intact: Yes - Psychological Associated symptoms: Normal affect, Normal mood - Skin Skin Temperature: Warm Skin Moisture: Dry Skin Color: Normal <WALKER PALACIOS - Last Filed: 03/01/17 09:41> Course - Laboratory Result Diagrams: 03/01/17 09:00 03/01/17 09:00 <WALKER PALACIOS - Last Filed: 03/01/17 09:41> - Laboratory Result Diagrams: 03/01/17 09:00 03/01/17 09:00 <YUDITH GOYAL - Last Filed: 03/01/17 15:35> - Re-evaluation Re-evalutation: 03/01/17 10:50 03/01/17 10:50 Patient presents emergency department with her family at the chief complaint of rapid heartbeat headache and elevated blood pressure. Patient is an 81-year- old female patient of Dr. Mattson and has chronic hypertension stage IV kidney disease and atrial fibrillation on Eliquis. She was admitted for hypertensive urgency on 12 31 had an uneventful course and was discharged home on hydralazine. The note says that she had trouble tolerating calcium channel blockers and ANDRIY inhibitors. She states that her blood pressures been running high the past few days denies missing any of her medication. Says she has a gradual onset of a headache which is frontal and throbbing in nature since yesterday. It is not the worst headache of her life not associated with trauma. No blurred vision double vision difficulty speaking talking walking or strokelike symptoms. Her gait is normal and she is not off balance. She also felt that her heart was racing. She has had a history of a TIA in the past but no CVA type symptoms today. She denies any chest pain or pressure nausea vomiting dull pain or diarrhea. When asked why she is on Eliquis she stated she was not sure but notes that she had a history of a DVT. She has been taking her Eliquis faithfully. On examination she is awake alert GCS of 15 with a blood pressure of 212/125 tachycardic at 130 afebrile at 98.5 and respiratory rate of 20 with O2 sats of 96% CT of the head is nonacute. Headache is resolved with medication blood pressure significantly improved with clonidine. EKG shows sinus tachycardia but no acute ST segment elevation or depression. Rechecked at the bedside headache is resolved she is no longer tachycardic she is running about 85. She does not feel that fluttering in her chest any longer. In addition to that her blood pressure is significantly improved. She has had great difficulty controlling outpatient blood pressures and intolerance to certain medications. I am going to have her check her blood pressure 3-4 times a day follow-up with her primary care physician on Friday and specifically discussed reasons for ED return sooner (YUDITH GOYAL) - Vital Signs Vital signs: Temp Pulse Resp BP Pulse Ox 98.2 F 88 16 132/89 H 100 03/01/17 08:50 03/01/17 11:32 03/01/17 11:32 03/01/17 11:32 03/01/17 11:32 - Laboratory Laboratory results interpreted by me: 03/01/17 03/01/17 03/01/17 09:00 09:00 09:00 RDW 14.5 H BUN 24 H Creatinine 2.31 H Est GFR ( Amer) 24 L Est GFR (Non-Af Amer) 20 L Calcium 10.6 H NT-Pro-B Natriuret Pep 1500 H Urine Protein Urine Ketones Urine Blood 03/01/17 09:37 RDW BUN Creatinine Est GFR ( Amer) Est GFR (Non-Af Amer) Calcium NT-Pro-B Natriuret Pep Urine Protein 100 H Urine Ketones 20 H Urine Blood SMALL H - EKG Interpretation by Me Additional EKG results interpreted by me: 03/01/17 10:53 EKG interpreted by myself to reveal a sinus tachycardia at 130 bpm with evidence of left ventricular hypertrophy. No acute ST segment elevation or depression is when compared to previous. (YUDITH GOYAL) Discharge <WALKER PALACIOS - Last Filed: 03/01/17 09:41> <YUDITH GOYAL - Last Filed: 03/01/17 15:35> - Discharge Clinical Impression: Acute hypertensive urgency, Cephalgia resolved, Sinus tachycardia resolved, Chronic renal insufficiency Condition: Stable Disposition: HOME, SELF-CARE Additional Instructions: HIGH BLOOD PRESSURE, NOT TREAT: When your blood pressure was taken today it was elevated. Today's reading was . We do not think you need to have your blood pressure treated today. Sometimes, stress or illness causes a temporary elevation of your blood pressure. We suggest that you get your blood pressure measured again during the next few days to see if this elevated blood pressure is more than a temporary abnormality. If your blood pressure is greater than 150/90 on each occasion, you must have treatment. Some simple things you can do to help are: If you have blood pressure medicine but aren't using it regularly, start taking it again. Get some aerobic exercise for at least 20 minutes on a daily basis. (See your doctor before beginning a new exercise program.) Eat a low-fat diet. Lose excess weight. Avoid salty foods and avoid adding salt to any of the foods you eat. Avoid diet pills, decongestants, "energizing" herbs, and other medicines that elevate blood pressure. If left untreated, hypertension greatly enhances your risk for developing heart disease and strokes. Please don't ignore this problem. HIGH BLOOD PRESSURE REQUIRING TREATMENT: Your blood pressure is high. This is called "hypertension." Today's reading was ___212/125 (normal is less than 140/90). Your history and exam suggest that this is not a temporary problem. You need treatment of your blood pressure. If left untreated, high blood pressure greatly increases your risk of heart attack and stroke. Please don't ignore this problem. If you have blood pressure medicine but aren't using it regularly, start taking it again. Some simple things you can do to help are: Get some aerobic exercise for at least 20 minutes on a daily basis. (See your doctor before beginning any new exercise program.) Eat a low-fat diet. Lose excess weight. Avoid salty foods and avoid adding salt to any of the foods you eat. Avoid diet pills, decongestants, "energizing" herbs, and other medicines that elevate blood pressure. There are many different medicines that treat blood pressure. If your medication causes unpleasant side effects, call your doctor. There are others you can try. Treating hypertension is a life-long investment in your health. Headache The physician does not feel that the headache you are experiencing has a serious underlying cause. Most headaches are due to emotional stress, with resultant muscle tension (tension headache). Occasionally, headaches are secondary to changes in the blood vessels of the scalp (vascular headache and migraine headache). Sometimes, a headache is the first symptom of another developing illness, such as a viral infection. You have no evidence of stroke, bleeding, meningitis, or other serious cause of your headache. The treatment of headaches varies with the severity and cause of the pain. Not all headaches need pain shots. In fact, there is evidence that using narcotics for headaches may make them worse in the long run. The physician will determine the therapy that's in your best interest. If you develop a fever, if the headache is different from any you've previously experienced, or if the headache progressively worsens, then call your physician at once or go to the emergency room. FOLLOW-UP CARE: If you have been referred to a physician for follow-up care, call the physician s office for an appointment as you were instructed or within the next two days. If you experience worsening or a significant change in your symptoms, notify the physician immediately or return to the Emergency Department at any time for re-evaluation. Referrals: VICTORIANO MATTSON MD [Primary Care Provider] - (Call his office on Friday for follow-up on Friday or Friday return for increasing worsening or new symptoms) Scribe Attestation: 03/01/17 10:49 I personally performed the services described in the documentation reviewed the documentation recorded by my scribe in my presence and it accurately and completely records my words and actions (YUDITH GOYAL) Scribe Documentation - Scribe Written by Truman:: truman De León, 03/01/2017, 911 acting as scribe for :: Ryan <WALKER PALACIOS - Last Filed: 03/01/17 09:41>
[2017-03-01 09:19] LABS: ABSOLUTE EOSINOPHILS # (AUTO) 0.1 10^3/uL (0.0-0.6); ABSOLUTE LYMPHOCYTES (AUTO) 0.9 10^3/uL (0.5-4.7); ABSOLUTE MONOCYTES (AUTO) 0.6 10^3/uL (0.1-1.4); ABSOLUTE NEUT (AUTO) 3.2 10^3/uL (1.7-8.2); BASOPHILS % (AUTO) 0.5 % (0-2); EOSINOPHILS % (AUTO) 1.3 % (0-6); HEMATOCRIT 37.5 % (36.0-47.0); HEMOGLOBIN 12.5 g/dL (12.0-15.5); LYMPHOCYTES % (AUTO) 18.3 % (13-45); MEAN CORPUSCULAR HEMOGLOBIN 30.7 pg (27.0-33.4); MEAN CORPUSCULAR HGB CONC 33.2 g/dL (32.0-36.0); MEAN CORPUSCULAR VOLUME 92 fl (80-97); MONOCYTES % (AUTO) 12.2 % (3-13); RED BLOOD COUNT 4.07 10^6/uL (3.72-5.28); RED CELL DISTRIBUTION WIDTH 14.5 % (11.5-14.0); SEGMENTED NEUTROPHILS % (AUTO) 67.7 % (42-78); WHITE BLOOD COUNT 4.8 10^3/uL (4.0-10.5)
[2017-03-01 09:32] LABS: ANION GAP 17 (5-19); BLOOD UREA NITROGEN 24 mg/dL (7-20); CALCIUM 10.6 mg/dL (8.4-10.2); CARBON DIOXIDE 24 mmol/L (22-30); CHLORIDE 101 mmol/L (98-107); CREATININE RESULT 2.31 mg/dL (0.52-1.25); GLUCOSE 91 mg/dL (75-110); SODIUM 141.6 mmol/L (137-145)
[2017-03-01 09:43] LABS: CREATINE KINASE MB 0.92 ng/mL (<4.55)
[2017-03-01 09:45] LABS: TROPONIN I 0.093 ng/mL
--- NOTE | 2017-03-01 10:04 | RADIOLOGY REPORT (SQ) ---
EXAM DESCRIPTION: CT HEAD WITHOUT COMPLETED DATE/TIME: 03/01/2017 9:29 am REASON FOR STUDY: hypertension headache COMPARISON: CT brain 03/24/2011, 12/26/2014, 01/24/2016, 12/31/2016 MRI brain 02/20/2015, 02/18/2017 TECHNIQUE: Axial images acquired through the brain without intravenous contrast. Images reviewed wi th bone, brain and subdural windows. Images stored on PACS. All CT scanners at this facility use dose modulation, iterative reconstruction, and/or weight based d osing when appropriate to reduce radiation dose to as low as reasonably achievable (ALARA). [facility]: Dose Right [facility]: CareDose [facility]: Dose Right [facility]: Teradose 4D [facility]: [employer] RADIATION DOSE: Up-to-date CT equipment and radiation dose reduction techniques were employed. CTDIv ol: 64.6 mGy. DLP: 1163 mGy-cm. mGy. LIMITATIONS: None. FINDINGS: VENTRICLES: There is enlargement of the frontal horn/anterior body left lateral ventricle, and atrium left lateral ventricle, stable over the series of exams. No overt hydrocephalus. CEREBRUM: Moderate spotty small vessel ischemic change in the bifrontal and biparietal white matter, stable. No CT evidence of acute large territory ischemic change, acute intracranial hemorrhage, mass effect, or midline shift. CEREBELLUM: No masses. No hemorrhage. No alteration of density. No evidence for acute infarction. EXTRAAXIAL SPACES: No fluid collections. No masses. ORBITS AND GLOBE: No intra- or extraconal masses. Normal contour of globe without masses. CALVARIUM: No fracture. PARANASAL SINUSES: No fluid or mucosal thickening. SOFT TISSUES: No mass or hematoma. OTHER: No other significant finding. IMPRESSION: No acute findings by CT. TECHNICAL DOCUMENTATION: JOB ID: [id number] Quality ID # [id number]: Final reports with documentation of one or more dose reduction techniques (e.g., Au tomated exposure control, adjustment of the mA and/or kV according to patient size, use of iterative reconstruction technique) 2010 [employer]- All Rights Reserved
[2017-03-01 10:14] LABS: APPEARANCE,URINE CLEAR; BILIRUBIN,URINE NEGATIVE (NEGATIVE); GLUCOSE, URINE NEGATIVE (NEGATIVE); KETONES,URINE 20 mg/dL (NEGATIVE); LEUKOCYTE ESTERASE,URINE NEGATIVE (NEGATIVE); NITRITE,URINE NEGATIVE (NEGATIVE); PROTEIN,URINE 100 mg/dL (NEGATIVE); URINE SPECIFIC GRAVITY 1.005; UROBILINOGEN,URINE NEGATIVE mg/dL (<2.0)
[2017-03-01 11:32] VITALS: BP 132/89
--- NOTE | 2017-03-01 16:39 | EKG REPORT ---
SEVERITY:- ABNORMAL ECG - SINUS TACHYCARDIA ATRIAL AND VENTRICULAR PREMATURE COMPLEX PROBABLE LEFT ATRIAL ABNORMALITY LEFT VENTRICULAR HYPERTROPHY : Confirmed by: Sly Pulido MD 01-Mar-2017 16:38:23
== END 2017-03-01 11:35 | disposition home or self-care (01) ==
LOC: ER 08:30
DX: I16.0 Hypertensive urgency (principal); R51 Headache; R00.0 Tachycardia, unspecified; N18.4 Chronic kidney disease, stage 4 (severe); R00.2 Palpitations; I10 Essential (primary) hypertension; R63.0 Anorexia
CPT/HCPCS: 93005; 99285; 96374; 96375; 36415; 82553; 85025; 80048; 81001; 84484; 83880; 70450; 93010; A9270; J2270; J2405; J7040

== ENCOUNTER 2017-03-01 14:28 | Emergency (ER) | payer MEDICARE, MEDICAID ==
--- NOTE | 2017-03-01 14:35 | ER Document Report ---
ED General - General Mode of Arrival: Wheelchair Information source: Patient TRAVEL OUTSIDE OF THE [place] IN LAST 30 DAYS: No - General Chief Complaint: Blood Pressure Problem Stated Complaint: HIGH BLOOD PRESSURE Time Seen by Provider: 03/01/17 14:31 Notes: Patient is an 81 year old female who presents to the ED for a recheck of her troponin. Patient was in the ED this morning with complaints of hypertension, headache and palpitation. Patient was discharged home, after the patient was discharged, the nurse reported that the lab called with an elevated troponin. Patient was contacted and asked to come in for a repeat troponin. (WALKER PALACIOS) - Related Data Allergies/Adverse Reactions: No Known Allergies Allergy (Verified 01/13/13 15:37) Past Medical History - General Information source: Patient - Social History Smoking Status: Unknown if Ever Smoked Family History: Reviewed & Not Pertinent - Past Medical History Cardiac Medical History: Reports: Hx Atrial Fibrillation, Hx DVT, Hx Hypertension Denies: Hx Heart Attack Pulmonary Medical History: Reports: Hx COPD Denies: Hx Asthma, Hx Tuberculosis Neurological Medical History: Denies: Hx Cerebrovascular Accident, Hx Seizures Renal/ Medical History: Reports: Hx Renal Insufficiency GI Medical History: Denies: Hx Hepatitis, Hx Hiatal Hernia, Hx Ulcer Musculoskeltal Medical History: Reports Hx Arthritis Psychiatric Medical History: Denies: Hx Depression Infectious Medical History: Denies: Hx Hepatitis Past Surgical History: Denies: Hx Hysterectomy, Hx Mastectomy, Hx Open Heart Surgery, Hx Pacemaker - Immunizations Immunizations up to date: Yes Hx Diphtheria, Pertussis, Tetanus Vaccination: Yes Hx Pneumococcal Vaccination: 08/06/12 Review of Systems - Review of Systems Constitutional: No symptoms reported EENT: No symptoms reported Cardiovascular: No symptoms reported Respiratory: No symptoms reported Gastrointestinal: No symptoms reported Genitourinary: No symptoms reported Female Genitourinary: No symptoms reported Musculoskeletal: No symptoms reported Skin: No symptoms reported Hematologic/Lymphatic: No symptoms reported Neurological/Psychological: No symptoms reported Physical Exam - General General appearance: Appears well, Alert In distress: None - HEENT Head: Normocephalic, Atraumatic Eyes: Normal Extraocular movements intact: Yes Pupils: PERRL - Respiratory Respiratory status: No respiratory distress - Cardiovascular Rhythm: Regular - Abdominal Distension: No distension - Back Back: Normal - Extremities General upper extremity: Normal inspection, Normal ROM General lower extremity: Normal inspection, Normal ROM - Neurological Neuro grossly intact: Yes - Psychological Associated symptoms: Normal affect, Normal mood - Skin Skin Temperature: Warm Skin Moisture: Dry Skin Color: Normal Course - Re-evaluation Re-evalutation: 03/01/17 15:32 Patient was seen and evaluated by myself earlier discharged with hypertensive urgency and sinus tachycardia. She also had a headache her symptoms were resolved with medication blood pressure is back down to normal tachycardia resolved she denies any chest pain shortness of breath and had no clinical concerns for GA PE or dissection CT of the head was negative with treatment her headache went away. The nurse stated after she left that she was contacted about an abnormal troponin I called the patient back she said she was not having chest pain or shortness of breath past her to come back to the apartment so I can read draw another troponin level. She is here now pending a troponin level blood pressure is stable she is not complaining of any chest pain or shortness of breath. (YUDITH GOYAL) - Vital Signs Vital signs: Temp Pulse Resp BP Pulse Ox 97.6 F 114 H 16 121/71 100 03/01/17 14:32 03/01/17 14:32 03/01/17 14:32 03/01/17 14:32 03/01/17 14:32 Scribe Documentation - Scribe Written by Truman:: truman De León, 03/01/2017, [id number] acting as scribe for :: Ryan
--- NOTE | 2017-03-01 15:41 | ER Document Report ---
Doctor's Note Notes: 03/01/17 15:41 Since troponin is resulted in is lower than the previous she is not having any chest pain or shortness of breath no clinical concerns for RI PE or dissection. Patient will be discharged home follow primary care physician in 1-2 days and discussed reasons for ED return sooner Diagnosis recheck troponin
[2017-03-01 15:59] VITALS: BP 110/71
== END 2017-03-01 15:59 | disposition home or self-care (01) ==
LOC: ER 14:28
DX: I10 Essential (primary) hypertension (principal); R51 Headache; R00.2 Palpitations
CPT/HCPCS: 36415; 84484; 99283

== ENCOUNTER 2017-03-02 13:21 | Observation (INO) | payer MEDICARE, MEDICAID ==
--- NOTE | 2017-03-02 14:32 | ER Document Report ---
ED Medical Screen (RME) - General Chief Complaint: High Blood Pressure Stated Complaint: BACK/HEAD PAIN Time Seen by Provider: 03/02/17 14:12 Mode of Arrival: Wheelchair Information source: Patient Notes: 81-year-old female who was seen here twice yesterday for concerns of elevated troponin presents with complaints of upper back pain and headache. Patient denies any chest pain shortness breath difficulty breathing I have greeted and performed a rapid initial assessment of this patient. A comprehensive ED assessment and evaluation of the patient, analysis of test results and completion of the medical decision making process will be conducted by additional ED providers. PHYSICAL EXAMINATION: GENERAL: Well-appearing, well-nourished and in no acute distress. HEAD: Atraumatic, normocephalic. EYES: Pupils equal round extraocular movements intact, conjunctiva are normal. ENT: Nares patent NECK: Normal range of motion LUNGS: No respiratory distress Musculoskeletal: Normal range of motion NEUROLOGICAL: Normal speech, normal gait. PSYCH: Normal mood, normal affect. SKIN: Warm, Dry, normal turgor, no rashes or lesions noted. TRAVEL OUTSIDE OF THE [place] IN LAST 30 DAYS: No - HPI Onset: Yesterday Onset/Duration: Persistent Quality of pain: Achy - Related Data Allergies/Adverse Reactions: No Known Allergies Allergy (Verified 03/02/17 13:51) Past Medical History - Past Medical History Cardiac Medical History: Reports: Hx Atrial Fibrillation, Hx DVT, Hx Hypertension Denies: Hx Heart Attack Pulmonary Medical History: Reports: Hx COPD Denies: Hx Asthma, Hx Tuberculosis Neurological Medical History: Denies: Hx Cerebrovascular Accident, Hx Seizures Renal/ Medical History: Reports: Hx Renal Insufficiency. Denies: Hx Peritoneal Dialysis GI Medical History: Denies: Hx Hepatitis, Hx Hiatal Hernia, Hx Ulcer Musculoskeltal Medical History: Reports Hx Arthritis Psychiatric Medical History: Denies: Hx Depression Infectious Medical History: Denies: Hx Hepatitis Past Surgical History: Denies: Hx Hysterectomy, Hx Mastectomy, Hx Open Heart Surgery, Hx Pacemaker - Immunizations Immunizations up to date: Yes Hx Diphtheria, Pertussis, Tetanus Vaccination: Yes Physical Exam - Vital signs Vitals: Temp Pulse Resp BP Pulse Ox 98.4 F 117 H 16 181/99 H 97 03/02/17 13:43 03/02/17 13:43 03/02/17 13:43 03/02/17 13:43 03/02/17 13:43 Course - Vital Signs Vital signs: Temp Pulse Resp BP Pulse Ox 98.4 F 117 H 16 181/99 H 97 03/02/17 13:43 03/02/17 13:43 03/02/17 13:43 03/02/17 13:43 03/02/17 13:43
[2017-03-02 15:20] LABS: ABSOLUTE EOSINOPHILS # (AUTO) 0.1 10^3/uL (0.0-0.6); ABSOLUTE LYMPHOCYTES (AUTO) 0.9 10^3/uL (0.5-4.7); ABSOLUTE MONOCYTES (AUTO) 0.6 10^3/uL (0.1-1.4); ABSOLUTE NEUT (AUTO) 3.9 10^3/uL (1.7-8.2); BASOPHILS % (AUTO) 0.5 % (0-2); EOSINOPHILS % (AUTO) 1.3 % (0-6); HEMATOCRIT 35.6 % (36.0-47.0); HEMOGLOBIN 11.8 g/dL (12.0-15.5); HGB HCT DIFFERENCE -0.2; LYMPHOCYTES % (AUTO) 16.3 % (13-45); MEAN CORPUSCULAR HGB CONC 33.2 g/dL (32.0-36.0); MEAN CORPUSCULAR VOLUME 93 fl (80-97); MONOCYTES % (AUTO) 11.1 % (3-13); RED BLOOD COUNT 3.81 10^6/uL (3.72-5.28); RED CELL DISTRIBUTION WIDTH 14.9 % (11.5-14.0); SEGMENTED NEUTROPHILS % (AUTO) 70.8 % (42-78); WHITE BLOOD COUNT 5.5 10^3/uL (4.0-10.5)
[2017-03-02] MEDS ORDERED: METOPROLOL TARTRATE PF/INJ 5 MG/5 ML SDV IV ONE ×2 (15:21→17:18)
--- NOTE | 2017-03-02 15:26 | ER Document Report ---
ED General - General Chief Complaint: High Blood Pressure Stated Complaint: BACK/HEAD PAIN Time Seen by Provider: 03/02/17 14:12 Mode of Arrival: Wheelchair Information source: Patient Notes: This is an 81-year-old female with a history of chronic atrial fibrillation ( apixaban), chronic kidney disease, hypertension. The patient presents to the emergency room with complaints of "just not feeling well for the past week". She states that she has had an ache in the back of her head and then her whole back for the past week. She states she just has not felt well since starting a new medicine for blood pressure (hydralazine). Patient states she can feel her heart beating fast. She denies fever, chills, shortness of breath. Patient denies any abdominal pain. Patient denies any cough. TRAVEL OUTSIDE OF THE [place] IN LAST 30 DAYS: No - HPI Onset: Last week Onset/Duration: Gradual Quality of pain: No pain - 1 Severity: None Associated symptoms: denies: Chest pain, Fever, Shortness of breath Exacerbated by: Denies Relieved by: Denies Similar symptoms previously: Yes Recently seen / treated by doctor: Yes - Related Data Allergies/Adverse Reactions: No Known Allergies Allergy (Verified 03/02/17 13:51) Past Medical History - General Information source: Patient - Social History Smoking Status: Never Smoker Cigarette use (# per day): No Chew tobacco use (# tins/day): No Frequency of alcohol use: None Drug Abuse: None Lives with: Spouse/Significant other Family History: Reviewed & Not Pertinent Patient has suicidal ideation: No Patient has homicidal ideation: No - Past Medical History Cardiac Medical History: Reports: Hx Atrial Fibrillation, Hx DVT, Hx Hypertension Denies: Hx Heart Attack Pulmonary Medical History: Reports: Hx COPD Denies: Hx Asthma, Hx Tuberculosis Neurological Medical History: Denies: Hx Cerebrovascular Accident, Hx Seizures Renal/ Medical History: Reports: Hx Renal Insufficiency. Denies: Hx Peritoneal Dialysis GI Medical History: Denies: Hx Hepatitis, Hx Hiatal Hernia, Hx Ulcer Musculoskeltal Medical History: Reports Hx Arthritis Psychiatric Medical History: Denies: Hx Depression Infectious Medical History: Denies: Hx Hepatitis Past Surgical History: Denies: Hx Hysterectomy, Hx Mastectomy, Hx Open Heart Surgery, Hx Pacemaker - Immunizations Immunizations up to date: Yes Hx Diphtheria, Pertussis, Tetanus Vaccination: Yes Hx Pneumococcal Vaccination: 08/06/12 Review of Systems - Review of Systems Constitutional: denies: Chills, Fever EENT: No symptoms reported Cardiovascular: See HPI Respiratory: No symptoms reported Gastrointestinal: No symptoms reported Genitourinary: No symptoms reported Female Genitourinary: No symptoms reported Musculoskeletal: See HPI Skin: No symptoms reported Hematologic/Lymphatic: No symptoms reported Neurological/Psychological: No symptoms reported Physical Exam - Vital signs Vitals: Temp Pulse Resp BP Pulse Ox 98.4 F 117 H 16 181/99 H 97 03/02/17 13:43 03/02/17 13:43 03/02/17 13:43 03/02/17 13:43 03/02/17 13:43 Notes: Physical exam: GENERAL: 81-year-old female, alert and oriented 2, ambulates to the bathroom without difficulty, no acute distress. She states she "just does not feel good ". She is tachycardic (117) and hypertensive (181/99). She is afebrile and her oxygen saturation is 97% on room air. HEAD: Atraumatic, normocephalic. EYES: Pupils equal round and reactive to light, extraocular movements intact, sclera anicteric, conjunctiva are normal. ENT: TMs normal, nares patent, oropharynx clear without exudates. Moist mucous membranes. NECK: Normal range of motion, supple without lymphadenopathy or JVD. LUNGS: Breath sounds clear to auscultation bilaterally and equal. No wheezes rales or rhonchi. HEART: Regular rate and rhythm without murmurs, rubs or gallops. ABDOMEN: Soft, normoactive bowel sounds. No tenderness to palpation. No guarding, no rebound. No palpable masses appreciated. EXTREMITIES: Normal range of motion, no pitting or edema. No clubbing or cyanosis. NEUROLOGICAL: Cranial nerves II through XII grossly intact. Normal speech, normal gait. She has no photophobia or neck stiffness. There is no Brudzinski' s or Kernig's. There is no focal weakness. PSYCH: Normal mood, normal affect. SKIN: Warm, Dry, normal turgor, no rashes or lesions noted. Course - Vital Signs Vital signs: Temp Pulse Resp BP Pulse Ox 98.4 F 117 H 23 H 176/101 H 99 03/02/17 13:43 03/02/17 13:43 03/02/17 20:01 03/02/17 20:01 03/02/17 20:01 - Laboratory Result Diagrams: 03/02/17 14:50 03/02/17 16:43 Laboratory results interpreted by me: 03/02/17 03/02/17 14:50 16:43 Hgb 11.8 L Hct 35.6 L RDW 14.9 H BUN 27 H Creatinine 2.78 H Est GFR ( Amer) 20 L Est GFR (Non-Af Amer) 16 L Direct Bilirubin 0.5 H - Diagnostic Test Radiology reviewed: Image reviewed, Reports reviewed - Chest x-ray is clear. CT of the head yesterday showed no acute process - EKG Interpretation by Me Rate: Tachycardia Rhythm: NSR - EKG shows sinus tachycardia with a ventricular rate of 127, there is in the left axis deviation, signs of LVH, no acute ST-T wave changes Critical Care Note - Critical Care Note Total time excluding time spent on procedures (mins): 60 Discharge - Discharge Clinical Impression: Uncontrolled hypertension Condition: Stable Disposition: ADMITTED OBSERVATION Admitting Provider: [facility] Admitted: Telemetry
--- NOTE | 2017-03-02 16:03 | RADIOLOGY REPORT (SQ) ---
EXAM DESCRIPTION: CHEST PA/LAT COMPLETED DATE/TIME: 03/02/2017 3:45 pm REASON FOR STUDY: back pain COMPARISON: 01/24/2016. NUMBER OF VIEWS: Two view. TECHNIQUE: Frontal and lateral radiographic views of the chest acquired. LIMITATIONS: None. FINDINGS: LUNGS AND PLEURA: No opacities, masses or pneumothorax. Incidental nipple shadows. No pl eural effusion. Attenuated blood vessels and flattened josy-diaphragms. MEDIASTINUM AND HILAR STRUCTURES: No masses. No contour abnormalities. HEART AND VASCULAR STRUCTURES: Heart normal in size and contour. No evidence for failure. BONES: No acute findings. HARDWARE: None in the chest. OTHER: No other significant finding. IMPRESSION: COPD. NO ACUTE RADIOGRAPHIC FINDING IN THE CHEST. TECHNICAL DOCUMENTATION: JOB ID: [id number] [employer]- All Rights Reserved
--- NOTE | 2017-03-02 16:52 | EKG REPORT ---
SEVERITY:- ABNORMAL ECG - SINUS TACHYCARDIA ATRIAL PREMATURE COMPLEX PROBABLE LEFT ATRIAL ABNORMALITY LEFT AXIS DEVIATION LEFT VENTRICULAR HYPERTROPHY : Confirmed by: Sly Pulido MD 02-Mar-2017 16:51:42
[2017-03-02 17:18] LABS: ALANINE AMINOTRANSFERASE 21 U/L (9-52); ALBUMIN 4.4 g/dL (3.5-5.0); ALKALINE PHOSPHATASE 57 U/L (38-126); ANION GAP 16 (5-19); ASPARTATE AMINO TRANSFERASE 25 U/L (14-36); BILIRUBIN,DIRECT 0.5 mg/dL (0.0-0.4); BILIRUBIN,TOTAL 0.7 mg/dL (0.2-1.3); BLOOD UREA NITROGEN 27 mg/dL (7-20); CALCIUM 9.9 mg/dL (8.4-10.2); CARBON DIOXIDE 22 mmol/L (22-30); CHLORIDE 102 mmol/L (98-107); CREATINE KINASE 119 U/L (30-135); CREATININE RESULT 2.78 mg/dL (0.52-1.25); GLUCOSE 88 mg/dL (75-110); POTASSIUM 4.2 mmol/L (3.6-5.0); SODIUM 139.8 mmol/L (137-145); TOTAL PROTEIN 8.2 g/dL (6.3-8.2)
[2017-03-02] MEDS ORDERED: OXYCODONE-ACETAMINOPHEN 5-325 MG TABLET PO ONE (17:18)
[2017-03-02 17:33] LABS: CREATINE KINASE MB 0.72 ng/mL (<4.55)
[2017-03-02 17:39] LABS: TROPONIN I 0.026 ng/mL
[2017-03-02 17:41] LABS: FREE T3 3.58 pg/mL (2.77-5.27)
[2017-03-02 17:54] LABS: THYROID STIMULATING HORMONE 2.08 uIU/mL (0.47-4.68)
[2017-03-02] MEDS ORDERED: METOPROLOL TARTRATE 100 MG TABLET PO ONE (19:38)
[2017-03-03] MEDS ORDERED: AMLODIPINE BESYLATE 10 MG TABLET PO ONE (05:00)
[2017-03-03 05:18] LABS: HEMATOCRIT 33.4 % (36.0-47.0); HEMOGLOBIN 11.2 g/dL (12.0-15.5); HGB HCT DIFFERENCE 0.2; MEAN CORPUSCULAR HGB CONC 33.6 g/dL (32.0-36.0); MEAN CORPUSCULAR VOLUME 92 fl (80-97); RED BLOOD COUNT 3.62 10^6/uL (3.72-5.28); RED CELL DISTRIBUTION WIDTH 14.8 % (11.5-14.0); WHITE BLOOD COUNT 5.1 10^3/uL (4.0-10.5)
[2017-03-03] MEDS: HYDRALAZINE HCL 25 MG TABLET PO SCH ×3 (05:28→22:10)
[2017-03-03 05:48] LABS: ANION GAP 12 (5-19); BLOOD UREA NITROGEN 26 mg/dL (7-20); CALCIUM 9.4 mg/dL (8.4-10.2); CARBON DIOXIDE 25 mmol/L (22-30); CHLORIDE 101 mmol/L (98-107); CREATININE RESULT 2.32 mg/dL (0.52-1.25); GLUCOSE 87 mg/dL (75-110); POTASSIUM 4.1 mmol/L (3.6-5.0); SODIUM 137.8 mmol/L (137-145)
[2017-03-03] MEDS ORDERED: NITROGLYCERIN/D5W 250 ML IV PRN (08:30)
[2017-03-03] MEDS ORDERED: (PENDING PHARMACY ID) (Folic Acid/Vitamin B Comp W-C [Renavit Tablet] 0.8 MG) PO SCH (10:00)
[2017-03-03] MEDS: APIXABAN 2.5 MG TABLET PO SCH ×2 (10:13→22:11)
[2017-03-03] MEDS: METOPROLOL SUCCINATE 50 MG TAB.SR.24H PO SCH (10:16)
[2017-03-03] MEDS: FOLIC ACID/VITAMIN B COMP W-C CAPSULE PO SCH (10:18)
[2017-03-03] MEDS: SODIUM BICARBONATE 650 MG TABLET PO SCH ×3 (10:31→17:42)
[2017-03-03] MEDS: MEGESTROL ACETATE 20 MG TABLET PO SCH ×2 (10:37→22:11)
[2017-03-03] MEDS ORDERED: ACETAMINOPHEN 325 MG TABLET PO PRN (17:00)
[2017-03-03] MEDS ORDERED: ALPRAZOLAM 0.25 MG TABLET PO PRN (18:30)
--- NOTE | 2017-03-03 20:01 | PDOC H&P ---
History of Present Illness Admission Date/PCP: 03/03/17 01:20 VICTORIANO MATTSON MD History of Present Illness: LOU CLEMENTE is a 81 year old female, She came to the emergency room because of not feeling well, she has had multiple emergency room visits the last 3 days, she was found to have elevated blood pressure with systolic in over 200 range. The last time she was admitted to the hospital she had hypertensive emergency at that time medications were adjusted, she was started on a new medication hydralazine in addition to metoprolol and losartan. She said since she was started on hydralazine she has not felt well.She complains of nonspecific symptoms of a sensation of hotness and coldness of the left flank of the abdomen . Patient clearly is not compliant with her medication apparently she has not took her medication in couple of days that may explain why the blood pressure is severely elevated Past Medical History Cardiac Medical History: Reports: Atrial Fibrillation, DVT, Hypertension Pulmonary Medical History: Reports: Chronic Obstructive Pulmonary Disease (COPD) Musculoskeltal Medical History: Reports: Arthritis Social History Lives with: Spouse/Significant other Smoking Status: Former Smoker Frequency of Alcohol Use: None Hx Recreational Drug Use: No Drugs: None Hx Prescription Drug Abuse: No Family History Family History: Reviewed & Not Pertinent Parental Family History Reviewed: Yes Children Family History Reviewed: Yes Sibling(s) Family History Reviewed.: Yes Medication/Allergy Home Medications: Apixaban [Eliquis 2.5 mg Tablet] 2.5 mg PO Q12 02/18/17 Megestrol Acetate [Megace 20 mg Tablet] 20 mg PO BID 02/18/17 Sodium Bicarbonate [Antacid] 650 mg PO TID 02/18/17 Hydralazine HCl [Apresoline 25 mg Tablet] 75 mg PO Q8 #90 tablet 02/20/17 Metoprolol Succinate [Toprol Xl] 100 mg PO DAILY #90 tab.sr.24h 02/20/17 Vit B Cmplx 3/FA/Vit C/Biotin [Miriam-Michelle Rx Tablet] 1 each PO DAILY 03/03/17 Allergies/Adverse Reactions: No Known Allergies Allergy (Verified 03/02/17 13:51) Review of Systems Constitutional: PRESENT: fatigue, weakness Cardiovascular: ABSENT: as per HPI, chest pain, dyspnea on exertion, edema, orthropnea, palpitations, other Gastrointestinal: ABSENT: as per HPI, abdominal pain, bloating, coffee ground emesis, constipation, diarrhea, dysphagia, heartburn, hematemesis, hematochezia , melena, nausea, vomiting, other Neurological: PRESENT: paresthesias Psychiatric: PRESENT: anxiety Physical Exam Vital Signs: Temp Pulse Resp BP Pulse Ox 98.1 F 84 16 136/70 H 96 03/03/17 16:36 03/03/17 16:36 03/03/17 16:36 03/03/17 16:36 03/03/17 16:36 Intake & Output 03/02/17 03/03/17 03/04/17 06:59 06:59 06:59 Intake Total 5 300 Balance 5 300 Weight 48.8 kg General appearance: PRESENT: no acute distress Eye exam: PRESENT: PERRLA Respiratory exam: PRESENT: clear to auscultation alexandro Cardiovascular exam: PRESENT: +S1, +S2 GI/Abdominal exam: PRESENT: soft Neurological exam: PRESENT: alert, CN II-XII grossly intact Results Laboratory Results: 03/03/17 04:55 03/03/17 04:55 03/03/17 03/03/17 04:55 04:55 WBC 5.1 RBC 3.62 L Hgb 11.2 L Hct 33.4 L MCV 92 MCH 31.0 MCHC 33.6 RDW 14.8 H Plt Count 186 Sodium 137.8 Potassium 4.1 Chloride 101 Carbon Dioxide 25 Anion Gap 12 BUN 26 H Creatinine 2.32 H Est GFR ( Amer) 24 L Est GFR (Non-Af Amer) 20 L Glucose 87 Calcium 9.4 Impressions: Chest X-Ray 03/02/17 14:32 IMPRESSION: COPD. NO ACUTE RADIOGRAPHIC FINDING IN THE CHEST. Assessment & Plan - Diagnosis (1) Hypertensive emergency Plan: The blood pressure is severely elevated most likely due to poor medication adherence. She has non-specific complaint of malaise, paresthesia. The patient is admitted for observation and management
[2017-03-03] MEDS: GABAPENTIN 300 MG CAPSULE PO SCH (22:10)
[2017-03-04] MEDS: GABAPENTIN 300 MG CAPSULE PO SCH ×3 (05:19→22:49)
[2017-03-04] MEDS: HYDRALAZINE HCL 25 MG TABLET PO SCH ×3 (05:20→22:47)
--- NOTE | 2017-03-04 08:27 | Physician Advisory Note ---
Physician Advisor ProgressNote .: Pursuant to the plan for [facility], I have reviewed the medical record for this patient. Physician Advisor Statement: Please consider documentin. "Hypertensive urgency" or "Hypertensive emergency with associated ARF" 2. "ARF - baseline Cr =2.3's" 3. "CKD stage 4, with anemia of chronic kidney dz" 4. Medical necessity - each night pt is kept in hospital needs explicit documentation of clinical reason she still needs to be here / what attending is concerned about. See below. Status: 81yo Medicare pt w/chronic Afib, COPD, CKD stage 4, HTN presented 8/6 PM feeling poorly w/ARF & BPs in HTN urgency/emergency range, up to 206/125. ED gave metoprolol, IV & po. H&P has been begun, but Imp/Plan not yet completed at time of this review. HTN cases are typically most appropriate to start as Outpt Obs (may only take a few hrs to stabilize BP). - This Medicare pt had already required 1MN in ED tx by this time, but it was not clear in AM that she wouldn't be able to be safely d/c'd later in the day. At 00:04, attg ordered hydralazine 75mg q8h (begun as of 06:00) & metoprolol 100mg daily (begun as of 10:00AM). BP was 191/97, & manually 200/100, at 4AM. At 04:21, attg ordered amlodipine 10mg daily (was started @ 05:00). When BP was still high, attg ordered, at 08:30, a NTG gtt. As of 11:44, BP was down to 105/73, which could be rather concerning to attending given the rapidity of the drop in such an elderly pt, who is used to high BPs and likely has stiff arteries, so could develop hypoperfusion of vital organs with such a tremendous acute drop in BP. - If this attending was concerned for this or other ongoing clinical issue, requiring him to keep pt closely monitored in hospital the night of 03/03 to make sure she was hemodynamically stable before she was d/c'd, please document these concerns & may then be appropriate for Inpatient status. Since then, her systolic BP has been mostly reasonable, in the mid 100s, though on 8/8 AM BP is back down to 105/58. Thanks! CK
[2017-03-04] MEDS: APIXABAN 2.5 MG TABLET PO SCH ×2 (11:40→22:49)
[2017-03-04] MEDS: FOLIC ACID/VITAMIN B COMP W-C CAPSULE PO SCH (11:41)
[2017-03-04] MEDS: METOPROLOL SUCCINATE 50 MG TAB.SR.24H PO SCH (11:42)
[2017-03-04] MEDS: AMLODIPINE BESYLATE 10 MG TABLET PO SCH (11:42)
[2017-03-04] MEDS: SODIUM BICARBONATE 650 MG TABLET PO SCH ×3 (11:43→18:32)
[2017-03-04] MEDS: MEGESTROL ACETATE 20 MG TABLET PO SCH ×2 (11:43→22:49)
[2017-03-04 20:52] LABS: ANION GAP 11 (5-19); BLOOD UREA NITROGEN 31 mg/dL (7-20); CALCIUM 9.3 mg/dL (8.4-10.2); CARBON DIOXIDE 25 mmol/L (22-30); CHLORIDE 99 mmol/L (98-107); CREATININE RESULT 2.46 mg/dL (0.52-1.25); GLUCOSE 131 mg/dL (75-110); POTASSIUM 4.4 mmol/L (3.6-5.0)
[2017-03-05] MEDS: HYDRALAZINE HCL 25 MG TABLET PO SCH ×2 (05:23→13:39)
[2017-03-05] MEDS: GABAPENTIN 300 MG CAPSULE PO SCH ×2 (05:26→13:38)
[2017-03-05] MEDS: APIXABAN 2.5 MG TABLET PO SCH (10:10)
[2017-03-05] MEDS: MEGESTROL ACETATE 20 MG TABLET PO SCH (10:11)
[2017-03-05] MEDS: FOLIC ACID/VITAMIN B COMP W-C CAPSULE PO SCH (10:11)
[2017-03-05] MEDS: SODIUM BICARBONATE 650 MG TABLET PO SCH ×3 (10:11→18:06)
[2017-03-05] MEDS: METOPROLOL SUCCINATE 50 MG TAB.SR.24H PO SCH (10:12)
[2017-03-05] MEDS: AMLODIPINE BESYLATE 10 MG TABLET PO SCH (10:13)
[2017-03-05 16:17] LABS: ABSOLUTE EOSINOPHILS # (AUTO) 0.1 10^3/uL (0.0-0.6); ABSOLUTE MONOCYTES (AUTO) 0.7 10^3/uL (0.1-1.4); BASOPHILS % (AUTO) 0.4 % (0-2); HEMATOCRIT 34.1 % (36.0-47.0); HEMOGLOBIN 11.3 g/dL (12.0-15.5); HGB HCT DIFFERENCE -0.2; LYMPHOCYTES % (AUTO) 16.5 % (13-45); MEAN CORPUSCULAR HEMOGLOBIN 30.6 pg (27.0-33.4); MEAN CORPUSCULAR VOLUME 93 fl (80-97); MONOCYTES % (AUTO) 12.8 % (3-13); RED BLOOD COUNT 3.68 10^6/uL (3.72-5.28); RED CELL DISTRIBUTION WIDTH 14.8 % (11.5-14.0); SEGMENTED NEUTROPHILS % (AUTO) 68.3 % (42-78); WHITE BLOOD COUNT 5.8 10^3/uL (4.0-10.5)
[2017-03-05 16:33] LABS: ALANINE AMINOTRANSFERASE 23 U/L (9-52); ALBUMIN 3.9 g/dL (3.5-5.0); ALKALINE PHOSPHATASE 49 U/L (38-126); ANION GAP 12 (5-19); ASPARTATE AMINO TRANSFERASE 20 U/L (14-36); BILIRUBIN,DIRECT 0.5 mg/dL (0.0-0.4); BILIRUBIN,TOTAL 0.5 mg/dL (0.2-1.3); BLOOD UREA NITROGEN 29 mg/dL (7-20); CALCIUM 9.7 mg/dL (8.4-10.2); CARBON DIOXIDE 27 mmol/L (22-30); CHLORIDE 98 mmol/L (98-107); CREATININE RESULT 2.32 mg/dL (0.52-1.25); GLUCOSE 110 mg/dL (75-110); POTASSIUM 4.1 mmol/L (3.6-5.0); SODIUM 137.1 mmol/L (137-145); TOTAL PROTEIN 7.4 g/dL (6.3-8.2)
[2017-03-05 17:32] VITALS: BP 136/72
--- NOTE | 2017-03-05 17:32 | PDOC DISCHARGE SUMMARY ---
General - Admit/Disc Date/PCP Admission Date/Primary Care Provider: 03/03/17 01:20 VICTORIANO MATTSON MD Discharge Date: 03/05/17 - Discharge Diagnosis (1) Hypertensive emergency Is this a current diagnosis for this admission?: Yes (2) Chronic kidney disease, stage 3 Is this a current diagnosis for this admission?: Yes - Additional Information Home Medications: Megestrol Acetate [Megace 20 mg Tablet] 20 mg PO BID 02/18/17 Vit B Cmplx 3/FA/Vit C/Biotin [Miriam-Michelle Rx Tablet] 1 each PO DAILY 03/03/17 Apixaban [Eliquis 2.5 mg Tablet] 2.5 mg PO Q12 #60 tablet 03/05/17 Gabapentin [Neurontin 300 mg Capsule] 300 mg PO Q8 #90 capsule 03/05/17 Hydralazine HCl [Apresoline 25 mg Tablet] 75 mg PO Q8 #90 tablet 03/05/17 Metoprolol Succinate [Toprol Xl] 100 mg PO DAILY #90 tab.sr.24h 03/05/17 Sodium Bicarbonate [Antacid] 650 mg PO TID #90 tablet 03/05/17 History of Present Illness History of Present Illness: LOU CLEMENTE is a 81 year old female, She came to the emergency room because of not feeling well, she has had multiple emergency room visits the last 3 days, she was found to have elevated blood pressure with systolic in over 200 range. The last time she was admitted to the hospital she had hypertensive emergency at that time medications were adjusted, she was started on a new medication hydralazine in addition to metoprolol and losartan. She said since she was started on hydralazine she has not felt well.She complains of nonspecific symptoms of a sensation of hotness and coldness of the left flank of the abdomen Patient clearly is not compliant with her medication apparently she has not took her medication in couple of days that may explain why the blood pressure is severely elevated Hospital Course Hospital Course: Patient was admitted for the management of hypertensive emergency, she complained of a sensation of hotness in the left flank, she has neuropathy this was treated with Neurontin with good result. Part of the problem with this patient is compliant with medication. The blood pressure was well-controlled on p.o. medication in the hospital. She has poor medication adherence at home and that is the problem with the patient Physical Exam Vital Signs: Temp Pulse Resp BP Pulse Ox 98.5 F 85 24 H 103/63 95 03/05/17 03:49 03/05/17 14:00 03/05/17 03:49 03/05/17 03:49 03/05/17 03:49 Intake & Output 03/04/17 03/05/17 03/06/17 06:59 06:59 06:59 Intake Total 310 1635 Output Total 200 1000 Balance 110 635 Weight 47.2 kg 46.8 kg General appearance: PRESENT: no acute distress Head exam: PRESENT: atraumatic, normocephalic Eye exam: PRESENT: conjunctiva pink, EOMI, PERRLA Neck exam: PRESENT: full ROM Respiratory exam: PRESENT: clear to auscultation alexandro Cardiovascular exam: PRESENT: RRR, +S1, +S2 Vascular exam: PRESENT: normal capillary refill GI/Abdominal exam: PRESENT: normal bowel sounds, soft Rectal exam: PRESENT: deferred Neurological exam: PRESENT: alert Psychiatric exam: PRESENT: appropriate affect, normal mood Skin exam: PRESENT: dry, intact, warm Results Laboratory Results: 03/05/17 16:08 03/05/17 16:08 03/04/17 03/05/17 03/05/17 20:33 16:08 16:08 WBC 5.8 RBC 3.68 L Hgb 11.3 L Hct 34.1 L MCV 93 MCH 30.6 MCHC 33.0 RDW 14.8 H Plt Count 197 Seg Neutrophils % 68.3 Lymphocytes % 16.5 Monocytes % 12.8 Eosinophils % 2.0 Basophils % 0.4 Absolute Neutrophils 4.0 Absolute Lymphocytes 1.0 Absolute Monocytes 0.7 Absolute Eosinophils 0.1 Absolute Basophils 0.0 Sodium 135.0 L 137.1 Potassium 4.4 4.1 Chloride 99 98 Carbon Dioxide 25 27 Anion Gap 11 12 BUN 31 H 29 H Creatinine 2.46 H 2.32 H Est GFR ( Amer) 23 L 24 L Est GFR (Non-Af Amer) 19 L 20 L Glucose 131 H 110 Calcium 9.3 9.7 Total Bilirubin 0.5 AST 20 ALT 23 Alkaline Phosphatase 49 Total Protein 7.4 Albumin 3.9 Impressions: Chest X-Ray 03/02/17 14:32 IMPRESSION: COPD. NO ACUTE RADIOGRAPHIC FINDING IN THE CHEST.
== END 2017-03-05 18:27 | disposition home or self-care (01) ==
LOC: ER 13:21 → INTOOBSV 19:43 → EH 19:43 → UNDOADMOB 19:43 → OBSVTOIN 19:43 → EH 22:11 → 3S 22:11 → EH 03-03 01:20 → INTOOBSV 03-03 01:20 → OBSVTOIN 03-03 01:20 → 3S 03-03 01:20
PROVIDERS: ADMIT Internal Medicine; ATTEND Internal Medicine
DX: I16.1 Hypertensive emergency (principal); I48.2 Chronic atrial fibrillation; I12.9 Hypertensive chronic kidney disease with stage 1 through stage 4 chronic kidney disease, or unspecified chronic kidney disease; N18.3 Chronic kidney disease, stage 3 (moderate); F41.9 Anxiety disorder, unspecified; Z79.02 Long term (current) use of antithrombotics/antiplatelets; Z91.14 Patient's other noncompliance with medication regimen; Z86.718 Personal history of other venous thrombosis and embolism; Z87.891 Personal history of nicotine dependence
CPT/HCPCS: 93005; 96376; 99291; 96374; 36415 ×4; 84439; 82553; 82550; 84443; 85025 ×2; 85027; 80048 ×2; 80053 ×2; 84484; 84481; 71020; 93010; G0378 ×4; A9270 ×24; J3490

== ENCOUNTER 2017-03-06 18:20 | Emergency (ER) | payer MEDICARE, MEDICAID ==
--- NOTE | 2017-03-06 19:34 | ER Document Report ---
ED Medical Screen (RME) - General Chief Complaint: Flank Pain Stated Complaint: FLANK PAIN Time Seen by Provider: 03/06/17 19:32 Notes: Patient is complaining of "burning" in her left side for at least the past 2 weeks. She says it will not go away. She was seen here in this emergency department about a week ago because of high blood pressure and she was having that burning pain then. She recalls no injury or unusual activity. It hurts to move or touch the area. Denies any other symptoms, however. Denies nausea or vomiting. Denies urinary tract symptoms or blood in urine. Denies any shortness of breath or difficulty breathing. Denies fever. TRAVEL OUTSIDE OF THE [place] IN LAST 30 DAYS: No - Related Data Allergies/Adverse Reactions: No Known Allergies Allergy (Verified 03/06/17 18:31) Past Medical History - Social History Chew tobacco use (# tins/day): No Frequency of alcohol use: None Drug Abuse: None - Past Medical History Cardiac Medical History: Reports: Hx Atrial Fibrillation, Hx DVT, Hx Hypertension Denies: Hx Heart Attack Pulmonary Medical History: Reports: Hx COPD Denies: Hx Asthma, Hx Tuberculosis Neurological Medical History: Denies: Hx Cerebrovascular Accident, Hx Seizures Renal/ Medical History: Reports: Hx Renal Insufficiency. Denies: Hx Peritoneal Dialysis GI Medical History: Denies: Hx Hepatitis, Hx Hiatal Hernia, Hx Ulcer Musculoskeltal Medical History: Reports Hx Arthritis Psychiatric Medical History: Denies: Hx Depression Infectious Medical History: Denies: Hx Hepatitis Past Surgical History: Denies: Hx Hysterectomy, Hx Mastectomy, Hx Open Heart Surgery, Hx Pacemaker - Immunizations Immunizations up to date: Yes Hx Diphtheria, Pertussis, Tetanus Vaccination: Yes Physical Exam - Vital signs Vitals: Temp Pulse Resp BP Pulse Ox 98.5 F 98 20 139/70 H 97 03/06/17 18:31 03/06/17 18:31 03/06/17 18:31 03/06/17 18:31 03/06/17 18:31 Course - Vital Signs Vital signs: Temp Pulse Resp BP Pulse Ox 98.5 F 98 20 148/80 H 98 03/06/17 18:31 03/06/17 18:31 03/06/17 18:31 03/06/17 21:01 03/06/17 22:00 - Laboratory Result Diagrams: 03/06/17 20:10 03/06/17 19:55 Laboratory results interpreted by me: 03/06/17 03/06/17 19:55 20:10 Hgb 11.9 L RDW 14.4 H Band Neutrophils % 1 L Lymphocytes % (Manual) 7 L Chloride 97 L BUN 37 H Creatinine 2.66 H Est GFR ( Amer) 21 L Est GFR (Non-Af Amer) 17 L Glucose 123 H Direct Bilirubin 0.6 H Total Protein 8.6 H Lipase 451.4 H Doctor's Discharge - Discharge Clinical Impression: Neuropathic pain, Chronic kidney disease, stage 3 Condition: Stable Disposition: HOME, SELF-CARE Additional Instructions: Please use the gabapentin for the burning pain on the left-hand side. You have been given 1 dose tonight, take 2 doses tomorrow and then start taking 3 doses a day on the . We have also put a Lidoderm patch on your left side. Leave it on for 12 hours and then take it off for 12 hours. If you are not feeling any better within 3 days please follow-up with Dr. Mattson. Prescriptions: Lidocaine [Lidoderm 5% (700 mg) Transdermal Patch] 1 patch TP DAILY #14 adh..patch Referrals: VICTORIANO MATTSON MD [Primary Care Provider] - Follow up as needed
[2017-03-06 20:41] LABS: HEMATOCRIT 36.4 % (36.0-47.0); HEMOGLOBIN 11.9 g/dL (12.0-15.5); HGB HCT DIFFERENCE -0.7; MEAN CORPUSCULAR HEMOGLOBIN 30.7 pg (27.0-33.4); MEAN CORPUSCULAR HGB CONC 32.7 g/dL (32.0-36.0); MEAN CORPUSCULAR VOLUME 94 fl (80-97); RED BLOOD COUNT 3.88 10^6/uL (3.72-5.28); RED CELL DISTRIBUTION WIDTH 14.4 % (11.5-14.0); WHITE BLOOD COUNT 6.5 10^3/uL (4.0-10.5)
[2017-03-06 20:54] LABS: BAND NEUTROPHILS % (MANUAL) 1 % (3-5); BASOPHILS % (MANUAL) 0 % (0-2); EOSINOPHILS % (MANUAL) 2 % (0-6); LYMPHOCYTES % (MANUAL) 7 % (13-45); TOTAL CELLS COUNTED 100
[2017-03-06 20:56] LABS: ANISOCYTOSIS SLIGHT; POIKILOCYTOSIS SLIGHT; SCHISTOCYTES SLIGHT
[2017-03-06 21:03] LABS: APPEARANCE,URINE CLEAR; BILIRUBIN,URINE NEGATIVE (NEGATIVE); GLUCOSE, URINE NEGATIVE (NEGATIVE); KETONES,URINE NEGATIVE (NEGATIVE); LEUKOCYTE ESTERASE,URINE NEGATIVE (NEGATIVE); NITRITE,URINE NEGATIVE (NEGATIVE); PROTEIN,URINE NEGATIVE (NEGATIVE); URINE SPECIFIC GRAVITY 1.004; UROBILINOGEN,URINE NEGATIVE mg/dL (<2.0)
[2017-03-06 21:09] LABS: ALANINE AMINOTRANSFERASE 27 U/L (9-52); ALBUMIN 4.4 g/dL (3.5-5.0); ALKALINE PHOSPHATASE 57 U/L (38-126); ANION GAP 14 (5-19); ASPARTATE AMINO TRANSFERASE 30 U/L (14-36); BILIRUBIN,DIRECT 0.6 mg/dL (0.0-0.4); BILIRUBIN,TOTAL 0.6 mg/dL (0.2-1.3); BLOOD UREA NITROGEN 37 mg/dL (7-20); CALCIUM 9.8 mg/dL (8.4-10.2); CARBON DIOXIDE 26 mmol/L (22-30); CHLORIDE 97 mmol/L (98-107); CREATININE RESULT 2.66 mg/dL (0.52-1.25); GLUCOSE 123 mg/dL (75-110); LIPASE 451.4 U/L (23-300); SODIUM 137.3 mmol/L (137-145); TOTAL PROTEIN 8.6 g/dL (6.3-8.2)
--- NOTE | 2017-03-06 21:13 | ER Document Report ---
ED General - General Information source: Patient TRAVEL OUTSIDE OF THE [place] IN LAST 30 DAYS: No - HPI Onset: Other - see above Similar symptoms previously: Yes Recently seen / treated by doctor: Yes <STEPHANIE HARRELL - Last Filed: 03/06/17 23:44> <JEFFERSON ZAPATA - Last Filed: 03/07/17 00:40> - General Chief Complaint: Flank Pain Stated Complaint: FLANK PAIN Time Seen by Provider: 03/06/17 19:32 Notes: Patient is an 81 year old female that presents to the emergency department today with complaints of her "left side burning". Patient states that her pain goes from the top of the left hip and up to the middle of her left flank. Patient was prescribed gabapentin for this by her PCP however she has neglected to take any of this yet. Patient denies any urinary symptoms, change with bowel movements, or any rash. (STEPHANIE HARRELL) - Related Data Allergies/Adverse Reactions: No Known Allergies Allergy (Verified 03/06/17 18:31) Past Medical History - General Information source: Patient - Social History Smoking Status: Former Smoker Cigarette use (# per day): No Chew tobacco use (# tins/day): No Frequency of alcohol use: None Drug Abuse: None Lives with: Family Family History: Reviewed & Not Pertinent Patient has suicidal ideation: No Patient has homicidal ideation: No - Past Medical History Cardiac Medical History: Reports: Hx Atrial Fibrillation, Hx DVT, Hx Hypertension Pulmonary Medical History: Reports: Hx COPD Renal/ Medical History: Reports: Hx Renal Insufficiency Musculoskeltal Medical History: Reports Hx Arthritis Surgical Hx: Negative - Immunizations Immunizations up to date: Yes Hx Diphtheria, Pertussis, Tetanus Vaccination: Yes Hx Pneumococcal Vaccination: 08/06/12 <STEPHANIE HARRELL - Last Filed: 03/06/17 23:44> Review of Systems - Review of Systems Constitutional: No symptoms reported EENT: No symptoms reported Cardiovascular: No symptoms reported Respiratory: No symptoms reported Gastrointestinal: No symptoms reported Genitourinary: Flank pain - Left sided "burning". denies: Dysuria Female Genitourinary: No symptoms reported Musculoskeletal: No symptoms reported Skin: No symptoms reported Hematologic/Lymphatic: No symptoms reported Neurological/Psychological: No symptoms reported -: Yes All other systems reviewed and negative <STEPHANIE HARRELL - Last Filed: 03/06/17 23:44> Physical Exam <STEPHANIE HARRELL - Last Filed: 03/06/17 23:44> <JEFFERSON ZAPATA - Last Filed: 03/07/17 00:40> - Vital signs Vitals: Temp Pulse Resp BP Pulse Ox 98.5 F 98 20 139/70 H 97 03/06/17 18:31 03/06/17 18:31 03/06/17 18:31 03/06/17 18:31 03/06/17 18:31 - Notes Notes: Physical Exam: General: Alert. HEENT: normocephalic. Atraumatic. PERRL, circulus senilis. Extraocular movements intact. Oropharynx clear. Neck: Supple. Non-tender. Respiratory: No respiratory distress. Clear and equal breath sounds bilaterally. Cardiovascular: Regular rate and rhythm. Abdominal: Normal Inspection. Non-tender. No distension. Normal Bowel Sounds. Pain is not reproducible with palpation. Back: Non-tender. No deformity or step off. Extremities: Moves all four extremities. Upper extremities: Normal inspection. Normal ROM. Lower extremities: Normal inspection. No edema. Normal ROM. Pain is not reproducible with movement of LLE. Neurological: Normal cognition. AAOx4. Normal speech. Psychological: Normal affect. Normal Mood. Skin: Warm. Dry. Normal color. No rashes or lesions over area of pain. (STEPHANIE HARRELL) Course - Laboratory Result Diagrams: 03/06/17 20:10 03/06/17 19:55 <STEPHANIE HARRELL - Last Filed: 03/06/17 23:44> - Laboratory Result Diagrams: 03/06/17 20:10 03/06/17 19:55 <JEFFERSON ZAPATA - Last Filed: 03/07/17 00:40> - Re-evaluation Re-evalutation: 03/06/17 21:50 CBC shows mild anemia with a hemoglobin 11.9 otherwise not significant, CMP shows stable renal failure with a BUN of 37 creatinine 2.66, lipase minimally elevated at 451.4, no clinical evidence of pancreatitis, urinalysis unremarkable. Cardiac enzymes negative, EKG nonischemic. This is quite consistent with irritation of a nerve, patient may have shingles without actual lesions or she may have a cutaneous nerve that is irritated either way Lidoderm patch and gabapentin as prescribed by her primary care physician should improve this. Patient will be discharged home with these medications. (JEFFERSON ZAPATA) - Vital Signs Vital signs: Temp Pulse Resp BP Pulse Ox 98.5 F 98 20 148/80 H 98 03/06/17 18:31 03/06/17 18:31 03/06/17 18:31 03/06/17 21:01 03/06/17 22:00 - Laboratory Laboratory results interpreted by me: 03/06/17 03/06/17 19:55 20:10 Hgb 11.9 L RDW 14.4 H Band Neutrophils % 1 L Lymphocytes % (Manual) 7 L Chloride 97 L BUN 37 H Creatinine 2.66 H Est GFR ( Amer) 21 L Est GFR (Non-Af Amer) 17 L Glucose 123 H Direct Bilirubin 0.6 H Total Protein 8.6 H Lipase 451.4 H Discharge <STEPHANIE HARRELL - Last Filed: 03/06/17 23:44> <JEFFERSON ZAPATA - Last Filed: 03/07/17 00:40> - Discharge Clinical Impression: Neuropathic pain, Chronic kidney disease, stage 3 Condition: Stable Disposition: HOME, SELF-CARE Additional Instructions: Please use the gabapentin for the burning pain on the left-hand side. You have been given 1 dose tonight, take 2 doses tomorrow and then start taking 3 doses a day on the . We have also put a Lidoderm patch on your left side. Leave it on for 12 hours and then take it off for 12 hours. If you are not feeling any better within 3 days please follow-up with Dr. Mattson. Prescriptions: Lidocaine [Lidoderm 5% (700 mg) Transdermal Patch] 1 patch TP DAILY #14 adh..patch Referrals: VICTORIANO MATTSON MD [Primary Care Provider] - Follow up as needed Scribe Attestation: 03/07/17 00:40 I personally performed the services described in the documentation, reviewed and edited the documentation which was dictated to the scribe in my presence, and it accurately records my words and actions. (JEFFERSON ZAPATA) Scribe Documentation - Scribe Written by Scribe:: Radha Mishra, 03/06/2017 [id number] acting as scribe for :: Pallavi <STEPHANIE HARRELL - Last Filed: 03/06/17 23:44>
[2017-03-06 21:14] LABS: TROPONIN I < 0.012 ng/mL
[2017-03-06] MEDS ORDERED: GABAPENTIN 300 MG CAPSULE PO ONE (21:48)
[2017-03-06] MEDS ORDERED: LIDOCAINE 5% (700 MG) TRANSDERMAL ADH..PATCH TP ONE (21:48)
[2017-03-06 23:10] VITALS: BP 148/80
--- NOTE | 2017-03-07 12:49 | EKG REPORT ---
SEVERITY:- ABNORMAL ECG - SINUS RHYTHM MULTIPLE VENTRICULAR PREMATURE COMPLEXES LEFT ATRIAL ABNORMALITY LEFT VENTRICULAR HYPERTROPHY : Confirmed by: Taylor Landaverde 07-Mar-2017 12:48:25
== END 2017-03-06 23:10 | disposition home or self-care (01) ==
LOC: ER 18:20
DX: M79.2 Neuralgia and neuritis, unspecified (principal); T42.6X6A Underdosing of other antiepileptic and sedative-hypnotic drugs, initial encounter; Z91.14 Patient's other noncompliance with medication regimen; I12.9 Hypertensive chronic kidney disease with stage 1 through stage 4 chronic kidney disease, or unspecified chronic kidney disease; N18.3 Chronic kidney disease, stage 3 (moderate); J44.9 Chronic obstructive pulmonary disease, unspecified; D64.9 Anemia, unspecified
CPT/HCPCS: 93005; 99284; 36415; 87086; 82553; 83690; 85025; 80053; 81001; 84484; 93010; A9270

== ENCOUNTER 2017-03-09 02:05 | Emergency (ER) | payer MEDICARE, MEDICAID ==
[2017-03-09 02:31] LABS: ABSOLUTE EOSINOPHILS # (AUTO) 0.2 10^3/uL (0.0-0.6); ABSOLUTE LYMPHOCYTES (AUTO) 0.8 10^3/uL (0.5-4.7); ABSOLUTE MONOCYTES (AUTO) 0.7 10^3/uL (0.1-1.4); ABSOLUTE NEUT (AUTO) 4.7 10^3/uL (1.7-8.2); BASOPHILS % (AUTO) 0.4 % (0-2); EOSINOPHILS % (AUTO) 2.4 % (0-6); HEMATOCRIT 31.8 % (36.0-47.0); HEMOGLOBIN 10.7 g/dL (12.0-15.5); HGB HCT DIFFERENCE 0.3; LYMPHOCYTES % (AUTO) 13.1 % (13-45); MEAN CORPUSCULAR HGB CONC 33.5 g/dL (32.0-36.0); MEAN CORPUSCULAR VOLUME 93 fl (80-97); MONOCYTES % (AUTO) 10.3 % (3-13); RED BLOOD COUNT 3.43 10^6/uL (3.72-5.28); RED CELL DISTRIBUTION WIDTH 14.9 % (11.5-14.0); SEGMENTED NEUTROPHILS % (AUTO) 73.8 % (42-78); WHITE BLOOD COUNT 6.4 10^3/uL (4.0-10.5)
[2017-03-09 02:46] LABS: ALANINE AMINOTRANSFERASE 26 U/L (9-52); ALKALINE PHOSPHATASE 55 U/L (38-126); ANION GAP 14 (5-19); ASPARTATE AMINO TRANSFERASE 21 U/L (14-36); BILIRUBIN,DIRECT 0.6 mg/dL (0.0-0.4); BILIRUBIN,TOTAL 0.8 mg/dL (0.2-1.3); BLOOD UREA NITROGEN 29 mg/dL (7-20); CALCIUM 10.3 mg/dL (8.4-10.2); CARBON DIOXIDE 24 mmol/L (22-30); CHLORIDE 100 mmol/L (98-107); CREATININE RESULT 2.26 mg/dL (0.52-1.25); GLUCOSE 94 mg/dL (75-110); POTASSIUM 3.8 mmol/L (3.6-5.0); TOTAL PROTEIN 7.6 g/dL (6.3-8.2)
[2017-03-09 02:58] LABS: CREATINE KINASE MB < 0.22 ng/mL (<4.55); TROPONIN I < 0.012 ng/mL
[2017-03-09 02:59] LABS: APPEARANCE,URINE CLEAR; BILIRUBIN,URINE NEGATIVE (NEGATIVE); GLUCOSE, URINE NEGATIVE (NEGATIVE); KETONES,URINE NEGATIVE (NEGATIVE); LEUKOCYTE ESTERASE,URINE NEGATIVE (NEGATIVE); NITRITE,URINE NEGATIVE (NEGATIVE); PROTEIN,URINE NEGATIVE (NEGATIVE); URINE SPECIFIC GRAVITY 1.003; UROBILINOGEN,URINE NEGATIVE mg/dL (<2.0)
--- NOTE | 2017-03-09 03:10 | RADIOLOGY REPORT (SQ) ---
EXAM DESCRIPTION: RIBS LEFT W/PA CHEST COMPLETED DATE/TIME: 03/09/2017 3:01 am REASON FOR STUDY: rib pain with breathing COMPARISON: Chest radiograph 03/02/2017 TECHNIQUE: Frontal view of the chest and additional views of the left ribs acquired. NUMBER OF VIEWS: Three view. LIMITATIONS: None. FINDINGS: FRONTAL CXR: No pneumothorax. No pleural effusion. No atelectasis or infiltrates. RIBS: No displaced rib fractures. No lytic or blastic bony lesions. OTHER: No other significant finding. IMPRESSION: NO PNEUMOTHORAX. NO DISPLACED RIB FRACTURES. COMMENT: SITE OF TRAUMA/COMPLAINT MARKED/STAMP COMPLETED: No TECHNICAL DOCUMENTATION: JOB ID: [id number] [employer]- All Rights Reserved
[2017-03-09] MEDS ORDERED: ACETAMINOPHEN 325 MG TABLET PO ONE (04:03)
--- NOTE | 2017-03-09 06:26 | ER Document Report ---
ED General - General Mode of Arrival: Medic Information source: Patient TRAVEL OUTSIDE OF THE [place] IN LAST 30 DAYS: No <NICHOLE MSAON - Last Filed: 03/09/17 06:27> <TJ RODRIGUEZ - Last Filed: 03/09/17 09:19> - General Chief Complaint: Flank Pain Stated Complaint: FLANK PAIN Time Seen by Provider: 03/09/17 02:20 Notes: Patient is an 81-year-old female who presents to the ER today for left sided pressure under her ribs that began 2 hours ago while she was trying to sleep. Patient states that it came on all of a sudden and she was unable to sleep through it. She denies chest pain otherwise, shortness of breath, but does state that it hurts worse to take a deep breath. 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 She denies any hormone use or recent long travel, surgery. She also complains of left flank pain but is uncertain if she is trying to say that the pain is radiating into the flank (NICHOLE MASON) - Related Data Allergies/Adverse Reactions: No Known Allergies Allergy (Verified 03/06/17 18:31) Past Medical History - General Information source: Patient - Social History Smoking Status: Unknown if Ever Smoked Family History: Reviewed & Not Pertinent - Past Medical History Cardiac Medical History: Reports: Hx Atrial Fibrillation, Hx DVT, Hx Hypertension Denies: Hx Heart Attack Pulmonary Medical History: Reports: Hx COPD Denies: Hx Asthma, Hx Tuberculosis Neurological Medical History: Denies: Hx Cerebrovascular Accident, Hx Seizures Renal/ Medical History: Reports: Hx Renal Insufficiency. Denies: Hx Peritoneal Dialysis GI Medical History: Denies: Hx Hepatitis, Hx Hiatal Hernia, Hx Ulcer Musculoskeltal Medical History: Reports Hx Arthritis Psychiatric Medical History: Denies: Hx Depression Infectious Medical History: Denies: Hx Hepatitis Past Surgical History: Denies: Hx Hysterectomy, Hx Mastectomy, Hx Open Heart Surgery, Hx Pacemaker - Immunizations Immunizations up to date: Yes Hx Diphtheria, Pertussis, Tetanus Vaccination: Yes Hx Pneumococcal Vaccination: 08/06/12 <NICHOLE MASON - Last Filed: 03/09/17 06:27> Review of Systems - Review of Systems Constitutional: No symptoms reported EENT: No symptoms reported Cardiovascular: See HPI Respiratory: See HPI Gastrointestinal: No symptoms reported Genitourinary: See HPI Female Genitourinary: No symptoms reported Musculoskeletal: No symptoms reported Skin: No symptoms reported Hematologic/Lymphatic: No symptoms reported Neurological/Psychological: No symptoms reported <NICHOLE MASON - Last Filed: 03/09/17 06:27> Physical Exam <NICHOLE MASON - Last Filed: 03/09/17 06:27> <TJ RODRIGUEZ - Last Filed: 03/09/17 09:19> - Vital signs Vitals: Temp Pulse Resp Pulse Ox 98.4 F 110 H 18 97 03/09/17 02:14 03/09/17 02:14 03/09/17 02:14 03/09/17 02:14 - Notes Notes: PHYSICAL EXAMINATION: GENERAL: Elderly, chronically ill-appearing, frail, but in no acute distress. HEAD: Atraumatic, normocephalic. EYES: Pupils equal round and reactive to light, extraocular movements intact, sclera anicteric, conjunctiva are normal. NECK: Normal range of motion, supple without lymphadenopathy LUNGS: nontender over left ribs, CTAB and equal. No wheezes rales or rhonchi. HEART: Tachycardic with regular rhythm without murmurs ABDOMEN: Soft, no tenderness. No guarding, no rebound BACK: no vertebral tenderness, normal ROM GI/: no CVA tenderness EXTREMITIES: Normal range of motion, no pitting edema. No cyanosis. NEUROLOGICAL: Cranial nerves grossly intact. Normal sensory/motor exams. PSYCH: Normal mood, normal affect. SKIN: Warm, Dry, normal turgor, no rashes or lesions noted (NICHOLE MASON) Course - Laboratory Result Diagrams: 03/09/17 02:10 03/09/17 02:10 <NICHOLE MASON - Last Filed: 03/09/17 06:27> - Laboratory Result Diagrams: 03/09/17 02:10 03/09/17 02:10 - Diagnostic Test Radiology reviewed: Image reviewed, Reports reviewed <TJ RODRIGUEZ - Last Filed: 03/09/17 09:19> - Re-evaluation Re-evalutation: 03/09/17 06:25 Patient is nontender to exam, urinalysis does not reveal infection or blood. Patient is tachycardic, sometimes up into the 120s, due to her history of blood clots even though she is on Eliquis and VQ scan was ordered because patient's creatinine is 2.26 and she cannot handle IV dye for CAT scan angiogram.. I am unsure if this is the same pain as what she is describing as flank pain, she is a poor historian. EKG reveals sinus tachycardia without evidence of acute ischemia. 03/09/17 06:27 2 troponins are negative today. (NICHOLE MASON) 03/09/17 08:37 VQ was negative, pt at rest has intermittnet tachycardia, sinus rhythm, Dr Hummel pagedesmond 03/09/17 09:10 Dr Shaheed almeida again 03/09/17 09:12 He states patient is stable , does not wish to admit, notes the tachycardia is chronic , controlled with beta blockets which she refuses to take After performing a Medical Screening Examination, I estimate there is LOW risk for INTRACRANIAL HEMORRHAGE, ISCHEMIC CVA, MALIGNANT DYSRHYTHMIA, ACUTE CORONARY SYNDROME, MENINGITIS, PULMONARY EMBOLISM, or SEPSIS thus I consider the discharge disposition reasonable. I have reevaluated this patient multiple times and no significant life threatening changes are noted. The patient and I have discussed the diagnosis and risks, and we agree with discharging home with close follow-up with the understanding that symptoms and presentations can change. We also discussed returning to the Emergency Department immediately if new or worsening symptoms occur. We have discussed the symptoms which are most concerning (e.g., changing or worsening pain, weakness, vomiting, fever) that necessitate immediate return. (TJ RODRIGUEZ) - Vital Signs Vital signs: Temp Pulse Resp BP Pulse Ox 99.0 F 102 H 12 142/84 H 95 03/09/17 04:05 03/09/17 04:05 03/09/17 07:01 03/09/17 07:01 03/09/17 07:01 - Laboratory Laboratory results interpreted by me: 03/09/17 03/09/17 03/09/17 02:10 02:10 02:29 RBC 3.43 L Hgb 10.7 L Hct 31.8 L RDW 14.9 H BUN 29 H Creatinine 2.26 H Est GFR ( Amer) 25 L Est GFR (Non-Af Amer) 21 L Calcium 10.3 H Direct Bilirubin 0.6 H Lipase 308.1 H Discharge <NICHOLE MASON - Last Filed: 03/09/17 06:27> <TJ RODRIGUEZ - Last Filed: 03/09/17 09:19> - Discharge Clinical Impression: Chronic atrial fibrillation, Tachycardia, Flank pain Condition: Stable Instructions: Abdominal Pain ([facility]) Referrals: VICTORIANO MATTSON MD [Primary Care Provider] - 03/10/17
[2017-03-09] MEDS ORDERED: NORMAL SALINE 1000 ML 1,000 ML IV ONE (06:46)
--- NOTE | 2017-03-09 08:24 | RADIOLOGY REPORT (SQ) ---
EXAM DESCRIPTION: NM LUNG VENT/PERF SCAN COMPLETED DATE/TIME: 03/09/2017 6:29 am REASON FOR STUDY: tachycardia, chest pain, pain with breathing COMPARISON: None. RADIONUCLIDE AND DOSE: 5.37 millicuries TC-99m MAA Intravenous 32.3 millicuries TC-99m DTPA Inhaled aerosol TECHNIQUE: Eight views of the lungs acquired post ventilation of DTPA aerosol. Eight matching views of the lungs acquired following injection of MAA. LIMITATIONS: None. FINDINGS: VENTILATION: Ventilation study is nondiagnostic. Tracer accumulated in the oral cavity. PERFUSION: There is minimal inhomogeneity of the distribution of tracer activity. OTHER: No other significant finding. IMPRESSION: Ventilation study is nondiagnostic. Perfusion study demonstrates low probability for pu lmonary embolic disease TECHNICAL DOCUMENTATION: JOB ID: [id number] [employer]- All Rights Reserved
[2017-03-09 09:17] VITALS: BP 150/84
--- NOTE | 2017-03-09 23:04 | EKG REPORT ---
SEVERITY:- ABNORMAL ECG - SINUS TACHYCARDIA PROBABLE LEFT ATRIAL ABNORMALITY LEFT VENTRICULAR HYPERTROPHY CONSIDER ANTERIOR INFARCT : Confirmed by: Talyor Landaverde 09-Mar-2017 23:04:17
== END 2017-03-09 09:43 | disposition home or self-care (01) ==
LOC: ER 02:05
DX: R10.9 Unspecified abdominal pain (principal); I48.2 Chronic atrial fibrillation; R00.0 Tachycardia, unspecified; T50.996A Underdosing of other drugs, medicaments and biological substances, initial encounter; Z91.128 Patient's intentional underdosing of medication regimen for other reason; Z91.14 Patient's other noncompliance with medication regimen; I10 Essential (primary) hypertension; J44.9 Chronic obstructive pulmonary disease, unspecified; Z86.718 Personal history of other venous thrombosis and embolism; Z79.01 Long term (current) use of anticoagulants
CPT/HCPCS: 93005; 99285; 96360; 36415; 82553; 82550; 83690; 85025; 80053; 81001; 84484; 71101; 78582; 93010; A9540; A9567; A9270; J7030; Q9969

== ENCOUNTER 2017-03-09 17:34 | Emergency (ER) | payer MEDICARE, MEDICAID ==
[2017-03-09 17:40] VITALS: BP 140/85
--- NOTE | 2017-03-09 18:20 | ER Document Report ---
ED General - General Chief Complaint: Flank Pain Stated Complaint: ABDOMINAL PAIN Time Seen by Provider: 03/09/17 18:08 Notes: The patient is an 81-year-old female, past medical history A. fib, presents with 1 week of left flank and upper leg burning sensation. She saw her primary care physician, Dr. Mattson and was started on gabapentin. She was seen in the ER 3 days ago and lidocaine patches were added she did not fill her lidocaine script and she only took one gabapentin. Patient was also seen in the emergency room this morning and had a VQ scan for mild tachypnea and tachycardia, which was negative. She also had urine and lab work, which did not show any acute processes. Patient denies rash, cough, nausea, vomiting, shortness of breath, chest pain, fevers, urinary symptoms or back pain. TRAVEL OUTSIDE OF THE [place] IN LAST 30 DAYS: No - Related Data Allergies/Adverse Reactions: No Known Allergies Allergy (Verified 03/06/17 18:31) Past Medical History - General Information source: Patient - Social History Smoking Status: Never Smoker Family History: Reviewed & Not Pertinent - Past Medical History Cardiac Medical History: Reports: Hx Atrial Fibrillation, Hx DVT, Hx Hypertension Denies: Hx Heart Attack Pulmonary Medical History: Reports: Hx COPD Denies: Hx Asthma, Hx Tuberculosis Neurological Medical History: Denies: Hx Cerebrovascular Accident, Hx Seizures Renal/ Medical History: Reports: Hx Renal Insufficiency. Denies: Hx Peritoneal Dialysis GI Medical History: Denies: Hx Hepatitis, Hx Hiatal Hernia, Hx Ulcer Musculoskeltal Medical History: Reports Hx Arthritis Psychiatric Medical History: Denies: Hx Depression Infectious Medical History: Denies: Hx Hepatitis Past Surgical History: Denies: Hx Hysterectomy, Hx Mastectomy, Hx Open Heart Surgery, Hx Pacemaker - Immunizations Immunizations up to date: Yes Hx Diphtheria, Pertussis, Tetanus Vaccination: Yes Hx Pneumococcal Vaccination: 08/06/12 Review of Systems - Review of Systems Notes: REVIEW OF SYSTEMS: CONSTITUTIONAL: -fevers, -chills EENT: -eye pain, -difficulty swallowing, -nasal congestion CARDIOVASCULAR:-chest pain, -syncope. RESPIRATORY: -cough, -SOB GASTROINTESTINAL: -abdominal pain, - nausea, -vomiting, -diarrhea GENITOURINARY: -dysuria, -hematuria MUSCULOSKELETAL: -back pain, -neck pain SKIN: -rash or skin lesions. HEMATOLOGIC: -easy bruising or bleeding. LYMPHATIC: -swollen, enlarged glands. NEUROLOGICAL: +left flank burning sensation, -altered mental status or loss of consciousness, -headache PSYCHIATRIC: -anxiety, -depression. ALL OTHER SYSTEMS REVIEWED AND NEGATIVE. Physical Exam - Vital signs Vitals: Temp Pulse Resp BP Pulse Ox 98.6 F 100 24 H 140/85 H 96 03/09/17 17:37 03/09/17 17:37 03/09/17 17:37 03/09/17 17:37 03/09/17 17:37 - Notes Notes: PHYSICAL EXAMINATION: GENERAL: Well-appearing, well-nourished and in no acute distress. HEAD: Atraumatic, normocephalic. EYES: Pupils equal round and reactive to light, extraocular movements intact, sclera anicteric, conjunctiva are normal. ENT: nares patent, oropharynx clear without exudates. Moist mucous membranes. NECK: Normal range of motion, supple without lymphadenopathy LUNGS: Breath sounds clear to auscultation bilaterally and equal. No wheezes rales or rhonchi. HEART: Irregularly irregular rhythm ABDOMEN: Soft, nontender, normoactive bowel sounds. No guarding, no rebound. No masses appreciated. EXTREMITIES: Normal range of motion, no pitting or edema. No cyanosis. NEUROLOGICAL: Cranial nerves grossly intact. Normal speech, normal gait. Normal sensory and motor exams. PSYCH: Normal mood, normal affect. SKIN: Warm, Dry, normal turgor, no rashes or lesions noted. Course - Re-evaluation Re-evalutation: Patient seen by her primary care physician last week and twice this week in the emergency room for similar symptoms. She is not taking her gabapentin as prescribed and has not filled her Lidoderm patches for the suspected neuropathy or early shingles. Family at bedside and emphasized the importance of taking the gabapentin and using the Lidoderm patches and they understand. Her labs, urine and VQ scan from this morning are unremarkable. Given return precautions and they understand. - Vital Signs Vital signs: Temp Pulse Resp BP Pulse Ox 98.6 F 100 24 H 140/85 H 96 03/09/17 17:37 03/09/17 17:37 03/09/17 17:37 03/09/17 17:37 03/09/17 17:37 Discharge - Discharge Clinical Impression: Neuropathy Condition: Stable Disposition: HOME, SELF-CARE Additional Instructions: Use the lidocaine patches as instructed. You must take the gabapentin as prescribed to help with your nerve pain and irritation. Follow-up with your primary care physician this week for further evaluation and treatment. Neuropathy Your symptoms are due to neuropathy. Neuropathy is nerve damage. There are many causes, including diabetes, immune disease, alcohol, blood vessel disease, and vitamin deficiency. The usual symptoms are pain and numbness. Neuropathy can occur anywhere, but it's most likely in the "longest" nerves. That's why the feet are most often affected. Sometimes the nerve damage can heal. But if the symptoms have lasted more than a few months, the damage is permanent. To avoid further damage, treat your underlying health problems carefully. If you have diabetes, keep the blood sugar as normal as possible. Avoid alcohol. Treat high blood pressure and high cholesterol. Treating chronic pain can be a problem. Obviously, you don't want to become addicted to pain medicine. Work closely with your doctor on pain management. Your options include antiinflammatory medicine, anti seizure medicine, antidepressants, and pain clinic management. Contact the doctor if there is a significant change. Prescriptions: Lidocaine [Lidoderm 5% (700 mg) Transdermal Patch] 1 patch TP DAILY #30 adh..patch Referrals: VICTORIANO MATTSON MD [ACTIVE STAFF] - Follow up as needed
== END 2017-03-09 18:25 | disposition home or self-care (01) ==
LOC: ER 17:34
DX: G62.9 Polyneuropathy, unspecified (principal); T41.3X6A Underdosing of local anesthetics, initial encounter; T42.6X6A Underdosing of other antiepileptic and sedative-hypnotic drugs, initial encounter; Z91.14 Patient's other noncompliance with medication regimen; I10 Essential (primary) hypertension; J44.9 Chronic obstructive pulmonary disease, unspecified
CPT/HCPCS: 99284

== ENCOUNTER 2017-03-11 02:26 | Emergency (ER) | payer MEDICARE, MEDICAID ==
--- NOTE | 2017-03-11 04:26 | ER Document Report ---
HPI - HPI Pain Level: 4 Notes: Patient is an 81-year-old female with a history of A. fib and hypertension who presents to the ED complaining of weakness and feeling "bad" along with left- sided chest pain with deep inspiration 1 day. Patient states that she was still eating and drinking without any difficulties. Patient states that she is ambulating without any difficulties as well. Patient complains of increased urinary frequency without any burning or hematuria. Patient states that her head feels a little foggy, but denies any other vision changes or changes in mentation. Patient denies any other pains. Her PCM is Dr. Price. Denies any headache, fever, head injury, neck pain/stiffness, changes in vision/speech/ mentation/hearing, URI, sore throat, palpitations, syncope, cough, shortness of breath, wheeze, dyspnea, abdominal pain, nausea/vomiting/diarrhea, urinary retention, dysuria, hematuria, numbness/tingling, muscle paralysis/weakness, or rash. Patient is a former smoker and denies any other illicit drug use. - ROS Notes: REVIEW OF SYSTEMS: CONSTITUTIONAL : Denies fever, chills, or sweats. Denies recent illness. EENT: Denies eye, ear, throat, or mouth pain or symptoms. Denies nasal or sinus congestion or discharge. Denies throat, tongue, or mouth swelling or difficulty swallowing. CARDIOVASCULAR: see hpi RESPIRATORY: Denies cough, cold, or chest congestion. Denies shortness of breath, difficulty breathing, or wheezing. GASTROINTESTINAL: Denies abdominal pain or distention. Denies nausea, vomiting , or diarrhea. Denies blood in vomitus, stools, or per rectum. Denies black, tarry stools. Denies constipation. GENITOURINARY: Denies difficulty urinating, painful urination, burning, frequency, blood in urine, or discharge. MUSCULOSKELETAL: Denies back or neck pain or stiffness. Denies joint pain or swelling. SKIN: Denies rash, lesions or sores. NEUROLOGICAL: Denies confusion or altered mental status. Denies passing out or loss of consciousness. Denies dizziness or lightheadedness. Denies headache. Denies weakness or paralysis or loss of use of either side. Denies problems with gait or speech. Denies sensory loss, numbness, or tingling. Denies seizures. PSYCHIATRIC: Denies anxiety or stress. Denies depression, suicidal ideation, or homicidal ideation. ALL OTHER SYSTEMS REVIEWED AND NEGATIVE. Dictation was performed using [employer] voice recognition software - REPRODUCTIVE Reproductive: DENIES: : - DERM Skin Color: Normal Past Medical History - Social History Smoking Status: Former Smoker Family History: Reviewed & Not Pertinent - Past Medical History Cardiac Medical History: Reports: Hx Atrial Fibrillation, Hx DVT, Hx Hypertension Denies: Hx Heart Attack Pulmonary Medical History: Reports: Hx COPD Denies: Hx Asthma, Hx Tuberculosis Neurological Medical History: Denies: Hx Cerebrovascular Accident, Hx Seizures Renal/ Medical History: Reports: Hx Renal Insufficiency. Denies: Hx Peritoneal Dialysis GI Medical History: Denies: Hx Hepatitis, Hx Hiatal Hernia, Hx Ulcer Musculoskeltal Medical History: Reports Hx Arthritis Psychiatric Medical History: Denies: Hx Depression Infectious Medical History: Denies: Hx Hepatitis Past Surgical History: Denies: Hx Hysterectomy, Hx Mastectomy, Hx Open Heart Surgery, Hx Pacemaker - Immunizations Immunizations up to date: Yes Hx Diphtheria, Pertussis, Tetanus Vaccination: Yes Hx Pneumococcal Vaccination: 08/06/12 Vertical Provider Document - CONSTITUTIONAL Agree With Documented VS: Yes Notes: PHYSICAL EXAMINATION: GENERAL: Well-appearing, well-nourished and in no acute distress. A&Ox3. very communicative. HEAD: Atraumatic, normocephalic. EYES: Pupils equal round and reactive to light, extraocular movements intact, sclera anicteric, conjunctiva are normal. ENT: EAC clear b/l. TM's intact b/l without erythema, fluid, or perforation. Nares patent and without discharge. oropharynx clear without exudates. No tonsilar hypertrophy or erythema. Moist mucous membranes. No sinus tenderness. NECK: Normal range of motion, supple without lymphadenopathy. No rigidity/ meningismus. LUNGS: Breath sounds clear to auscultation bilaterally and equal. No wheezes rales or rhonchi. HEART: Tachycardic and regular rhythm without murmurs, rubs, gallops. ABDOMEN: Soft, nontender, nondistended abdomen. No guarding, no rebound. No masses appreciated. Normal bowel sounds present. No CVA tenderness bilaterally. Musculoskeletal: Ext b/l: FROM to passive/active. Strength 5+/5. No focal deficits noted Extremities: No cyanosis, clubbing, or edema b/l. Peripheral pulses 2+. Capillary refill less than 3 seconds. NEUROLOGICAL: MMSE intact. Cranial nerves grossly intact. Normal speech, normal gait. Normal sensory, motor exams. PSYCH: Normal mood, normal affect. SKIN: Warm, Dry, normal turgor, no rashes or lesions noted. - INFECTION CONTROL TRAVEL OUTSIDE OF THE [place] IN LAST 30 DAYS: No Course - Re-evaluation Re-evalutation: 03/11/17 07:02 Patient is an afebrile, well-hydrated, 81-year-old female who presents the ED with suspected pneumonia on chest x-ray. Vitals showed tachycardia and hypertension with a regular rhythm. PE otherwise unremarkable for any focal neurological deficits. CBC unremarkable. CMP showed stable chronic kidney disease. Cardiac enzymes and urinalysis were unremarkable. EKG was unremarkable for any acute ST-T changes. Rocephin 1 g given in ED today. Reviewed case with Dr. Barragan who recommended patient to be admitted. Consulted with Dr. Lorenzana who is ED admitting provider who declined admission and stated to give medication in the ED and treated as an outpatient. Dr. Barragan/Rhianna do not agree, but we will get another chest XR with pa/lat and give her Hydralazine 25mg PO to see if that helps with her pressure and HR. 03/11/17 07:21 It has been noted that the patient has not frequented the ED needlessly in the past (2-3 times) in 6 years and then in the last 10 days has been to the ED 7 times with a new finding on CXR (small left basilar opacity). Pt continues to say that she "feels bad" but is not able to elaborate beyond that. She c/o mild weakness without any new sob, beyer, abd pain, n/v, or cp at rest. She does continue to have mild CP with deep inspiration to the left side. Reviewed again with Dr. Moctezuma who then recommended Lopressor 5mg IV. Her BP is still 166/106 s /p hydralazine. 03/11/17 08:[address] Moctezuma again as well: Lopressor 5mg IV given. HR improved to 107 and BP 147/94. Reviewed case again with Dr. Lorenzana. I requested admission, but Dr. Lorenzana declined stating that medicare will not cover due to the normal WBC and afebrile. Dr. Lorenzana states that she has a h/o noncompliance with her medications and she runs tachycardic regularly. Pt is also on eliquis. I then requested that he come to the ED to discharge himself, and he declined. I then asked for an appointment for her with him in his office, to which he replied that she can see him tomorrow for a consult but not today. Risks/ benefits understood. EKG x2 negative. 2nd cardiac enzyme pending. Svitlana Gibson PA-C will review prior to discharge (plan to discharge if negative). Pt has not had any recent antibiotics. With her CKD, I will place her on Doxy 100mg PO BID x10 days. Thoroughly reviewed the situation with the patient and that she needs to be taking her home medications as directed. Conservative measures for symptoms otherwise. Recheck tomorrow with Dr. Lorenzana. Return to the ED with any worsening/concerning symptoms otherwise as reviewed discharge. Patient is in agreement. Low suspicion for any ACS, PE, pneumothorax, pericarditis, dissection, sepsis, meningitis, or other systemic urgent/emergent condition at this time. Patient is aware that condition can change from initial presentation and she needs to monitor symptoms closely and seek medical attention if any acute changes. - Laboratory Result Diagrams: 03/11/17 04:31 03/11/17 04:31 Discharge - Discharge Clinical Impression: Opacity of lung on imaging study, Tachycardia Condition: Stable Disposition: HOME, SELF-CARE Instructions: Pneumonia ([facility]), Sinus Tachycardia ([facility]) Additional Instructions: Maintain adequate fluid intake Take home medications as directed Monitor blood pressure closely Low sodium/fat diet. tylenol/ibuprofen as needed over the counter cold medication as needed for symptoms Humidified air may help F/u: with Dr. Lorenzana in his office tomorrow Return to the ED with any worsening symptoms and/or development of fever, changes in mentation/speech/vision/balance, headache, chest pain, palpitations, syncope, shortness of breath, trouble breathing, abdominal pain, n/v/d, blood in stool/urine, loss of control of bowel/bladder, urinary retention, muscle weakness/paralysis, numbness/tingling, or other worsening symptoms that are concerning to you. Prescriptions: Doxycycline Hyclate 100 mg PO BID #20 capsule Forms: Elevated Blood Pressure Referrals: OJEBUOBOH,IBIKUNLE, MD [Primary Care Provider] - Follow up as needed ANGUS LORENZANA MD [ACTIVE STAFF] - Follow up tomorrow
[2017-03-11 05:08] LABS: ABSOLUTE EOSINOPHILS # (AUTO) 0.1 10^3/uL (0.0-0.6); ABSOLUTE LYMPHOCYTES (AUTO) 0.6 10^3/uL (0.5-4.7); ABSOLUTE MONOCYTES (AUTO) 0.6 10^3/uL (0.1-1.4); ABSOLUTE NEUT (AUTO) 5.4 10^3/uL (1.7-8.2); BASOPHILS % (AUTO) 0.4 % (0-2); EOSINOPHILS % (AUTO) 1.7 % (0-6); HEMATOCRIT 31.5 % (36.0-47.0); HEMOGLOBIN 10.4 g/dL (12.0-15.5); HGB HCT DIFFERENCE -0.3; LYMPHOCYTES % (AUTO) 9.4 % (13-45); MEAN CORPUSCULAR HEMOGLOBIN 30.9 pg (27.0-33.4); MEAN CORPUSCULAR HGB CONC 32.9 g/dL (32.0-36.0); MEAN CORPUSCULAR VOLUME 94 fl (80-97); MONOCYTES % (AUTO) 9.1 % (3-13); RED BLOOD COUNT 3.35 10^6/uL (3.72-5.28); RED CELL DISTRIBUTION WIDTH 14.7 % (11.5-14.0); SEGMENTED NEUTROPHILS % (AUTO) 79.4 % (42-78); WHITE BLOOD COUNT 6.7 10^3/uL (4.0-10.5)
[2017-03-11 05:19] LABS: ALANINE AMINOTRANSFERASE 20 U/L (9-52); ALKALINE PHOSPHATASE 59 U/L (38-126); ANION GAP 14 (5-19); ASPARTATE AMINO TRANSFERASE 19 U/L (14-36); BILIRUBIN,DIRECT 0.6 mg/dL (0.0-0.4); BILIRUBIN,TOTAL 0.8 mg/dL (0.2-1.3); BLOOD UREA NITROGEN 27 mg/dL (7-20); CALCIUM 10.2 mg/dL (8.4-10.2); CARBON DIOXIDE 24 mmol/L (22-30); CHLORIDE 102 mmol/L (98-107); CREATINE KINASE 56 U/L (30-135); CREATININE RESULT 2.34 mg/dL (0.52-1.25); GLUCOSE 99 mg/dL (75-110); SODIUM 139.6 mmol/L (137-145); TOTAL PROTEIN 7.9 g/dL (6.3-8.2)
[2017-03-11 05:31] LABS: CREATINE KINASE MB 0.4 ng/mL (<4.55); TROPONIN I 0.015 ng/mL
--- NOTE | 2017-03-11 05:41 | RADIOLOGY REPORT (SQ) ---
EXAM DESCRIPTION: CHEST SINGLE VIEW COMPLETED DATE/TIME: 03/11/2017 5:10 am REASON FOR STUDY: left chest pain with deep breath COMPARISON: None. EXAM PARAMETERS: NUMBER OF VIEWS: One view. TECHNIQUE: Single frontal radiographic view of the chest acquired. RADIATION DOSE: NA LIMITATIONS: None. FINDINGS: LUNGS AND PLEURA: Small streakiness of the left lower lobe. Mildly diminished left lung v olume. MEDIASTINUM AND HILAR STRUCTURES: No masses. Contour normal. HEART AND VASCULAR STRUCTURES: Borderline cardiac silhouette size. BONES: No acute findings. HARDWARE: None in the chest. OTHER: No other significant finding. IMPRESSION: Small-moderate left lower lobar pneumonia and/or atelectasis. TECHNICAL DOCUMENTATION: JOB ID: [id number]
[2017-03-11] MEDS ORDERED: CEFTRIAXONE 1 GM/D5W RTU 50 ML IV ONE (05:59)
[2017-03-11] MEDS ORDERED: HYDRALAZINE HCL 25 MG TABLET PO ONE (06:11)
[2017-03-11] MEDS ORDERED: NORMAL SALINE 500 ML IV ONE ×2 (06:11→07:58)
[2017-03-11 06:40] LABS: APPEARANCE,URINE CLEAR; BILIRUBIN,URINE NEGATIVE (NEGATIVE); GLUCOSE, URINE NEGATIVE (NEGATIVE); KETONES,URINE TRACE mg/dL (NEGATIVE); LEUKOCYTE ESTERASE,URINE NEGATIVE (NEGATIVE); NITRITE,URINE NEGATIVE (NEGATIVE); PROTEIN,URINE NEGATIVE (NEGATIVE); URINE SPECIFIC GRAVITY 1.004; UROBILINOGEN,URINE NEGATIVE mg/dL (<2.0)
--- NOTE | 2017-03-11 07:16 | RADIOLOGY REPORT (SQ) ---
EXAM DESCRIPTION: CHEST PA/LAT COMPLETED DATE/TIME: 03/11/2017 7:07 am REASON FOR STUDY: suspected LLL pneumonia, would like better image COMPARISON: 03/02/2017. EXAM PARAMETERS: NUMBER OF VIEWS: two views TECHNIQUE: Digital Frontal and Lateral radiographic views of the chest acquired. RADIATION DOSE: NA LIMITATIONS: none FINDINGS: LUNGS AND PLEURA: Small left basilar opacity -effusion. Moderate emphysematous hyperinfla tion. MEDIASTINUM AND HILAR STRUCTURES: No masses or contour abnormalities. HEART AND VASCULAR STRUCTURES: Heart normal size. No evidence for failure. BONES: No acute findings. HARDWARE: None in the chest. OTHER: No other significant finding. IMPRESSION: New small left basilar opacity -effusion. TECHNICAL DOCUMENTATION: JOB ID: [id number] [employer]- All Rights Reserved
[2017-03-11] MEDS ORDERED: METOPROLOL TARTRATE PF/INJ 5 MG/5 ML SDV IV ONE (07:33)
--- NOTE | 2017-03-11 07:44 | EKG REPORT ---
SEVERITY:- ABNORMAL ECG - SINUS TACHYCARDIA PROBABLE LEFT ATRIAL ABNORMALITY LEFT VENTRICULAR HYPERTROPHY : Confirmed by: Sly Pulido MD 11-Mar-2017 07:43:20
[2017-03-11 11:26] VITALS: BP 147/93
--- NOTE | 2017-03-11 14:08 | EKG REPORT ---
SEVERITY:- ABNORMAL ECG - SINUS TACHYCARDIA MULTIFORM VENTRICULAR PREMATURE COMPLEXES PROBABLE LEFT ATRIAL ABNORMALITY LEFT VENTRICULAR HYPERTROPHY : Confirmed by: Sly Pulido MD 11-Mar-2017 14:07:59
== END 2017-03-11 11:54 | disposition home or self-care (01) ==
LOC: ER 02:26
DX: R91.8 Other nonspecific abnormal finding of lung field (principal); R00.0 Tachycardia, unspecified; R53.1 Weakness; J44.9 Chronic obstructive pulmonary disease, unspecified; I48.91 Unspecified atrial fibrillation; I10 Essential (primary) hypertension; Z87.891 Personal history of nicotine dependence
CPT/HCPCS: 93005; 99285; 36415; 82553; 82550; 85025; 80053; 81001; 84484; 71020; 71010; 93010; A9270; J3490; J7040; J0696

== ENCOUNTER 2017-03-13 10:02 | Inpatient (IN) | payer MEDICARE, MEDICAID ==
--- NOTE | 2017-03-13 10:25 | ER Document Report ---
ED Medical Screen (RME) - General Chief Complaint: Weakness Stated Complaint: WEAKNESS Time Seen by Provider: 03/13/17 10:24 Notes: Patient is complaining of feeling weak. No other complaints although she does indicate she has some pain in her left side when questioned about it. She is been here several times in the past 10 days and says that she was diagnosed with a pneumonia, treated with an antibiotic as an outpatient. She has slight cough but no phlegm production. No vomiting or diarrhea. Denies UTI symptoms. Patient has a heart rate of 120 and her blood pressure slightly elevated. This is the patient's fifth visit to this emergency department thus far in the month of February. TRAVEL OUTSIDE OF THE [place] IN LAST 30 DAYS: No - Related Data Allergies/Adverse Reactions: No Known Allergies Allergy (Verified 03/13/17 10:11) Past Medical History - Past Medical History Cardiac Medical History: Reports: Hx Atrial Fibrillation, Hx DVT, Hx Hypertension Denies: Hx Heart Attack Pulmonary Medical History: Reports: Hx COPD Denies: Hx Asthma, Hx Tuberculosis Neurological Medical History: Denies: Hx Cerebrovascular Accident, Hx Seizures Renal/ Medical History: Reports: Hx Renal Insufficiency. Denies: Hx Peritoneal Dialysis GI Medical History: Denies: Hx Hepatitis, Hx Hiatal Hernia, Hx Ulcer Musculoskeltal Medical History: Reports Hx Arthritis Psychiatric Medical History: Denies: Hx Depression Infectious Medical History: Denies: Hx Hepatitis Past Surgical History: Denies: Hx Hysterectomy, Hx Mastectomy, Hx Open Heart Surgery, Hx Pacemaker - Immunizations Immunizations up to date: Yes Hx Diphtheria, Pertussis, Tetanus Vaccination: Yes Physical Exam - Vital signs Vitals: Temp Pulse Resp BP Pulse Ox 98.6 F 120 H 20 169/101 H 97 03/13/17 10:09 03/13/17 10:03/13/17 10:03/13/17 10:03/13/17 10:09 Course - Vital Signs Vital signs: Temp Pulse Resp BP Pulse Ox 98.6 F 120 H 20 169/101 H 97 03/13/17 10:09 03/13/17 10:09 03/13/17 10:03/13/17 10:03/13/17 10:09
[2017-03-13 11:11] LABS: ABSOLUTE EOSINOPHILS # (AUTO) 0.1 10^3/uL (0.0-0.6); ABSOLUTE LYMPHOCYTES (AUTO) 0.5 10^3/uL (0.5-4.7); ABSOLUTE MONOCYTES (AUTO) 0.5 10^3/uL (0.1-1.4); ABSOLUTE NEUT (AUTO) 5.9 10^3/uL (1.7-8.2); BASOPHILS % (AUTO) 0.6 % (0-2); EOSINOPHILS % (AUTO) 0.9 % (0-6); HEMATOCRIT 33.7 % (36.0-47.0); HEMOGLOBIN 11.2 g/dL (12.0-15.5); HGB HCT DIFFERENCE -0.1; LYMPHOCYTES % (AUTO) 7.2 % (13-45); MEAN CORPUSCULAR HEMOGLOBIN 30.7 pg (27.0-33.4); MEAN CORPUSCULAR HGB CONC 33.2 g/dL (32.0-36.0); MEAN CORPUSCULAR VOLUME 92 fl (80-97); MONOCYTES % (AUTO) 6.7 % (3-13); RED BLOOD COUNT 3.66 10^6/uL (3.72-5.28); RED CELL DISTRIBUTION WIDTH 14.3 % (11.5-14.0); SEGMENTED NEUTROPHILS % (AUTO) 84.6 % (42-78)
[2017-03-13] MEDS ORDERED: DILTIAZEM HCL INJ 25 MG/5 ML VIAL IV ONE ×2 (11:24→12:17)
[2017-03-13] MEDS ORDERED: DILTIAZEM HCL/D5W 125 MG/125 ML RTUINJ IV PRN (11:24)
--- NOTE | 2017-03-13 11:25 | ER Document Report ---
ED General - General Information source: Patient TRAVEL OUTSIDE OF THE [place] IN LAST 30 DAYS: No - HPI Onset: This morning Associated symptoms: Weakness <WALKER PALACIOS - Last Filed: 03/13/17 11:44> <EDGARD JOHNSON - Last Filed: 03/13/17 16:22> - General Chief Complaint: Weakness Stated Complaint: WEAKNESS Time Seen by Provider: 03/13/17 10:24 Notes: Patient is an 81 year old female who presents to the ED with complaints of generalized weakness and not feeling well with onset this morning. Patient denies any associated chest pain. She states she has been taking all of her daily medication. Patient has been in the ED 8 times since 03/01/17 with 2 visits on 03/01/17, a hospitalization on 03/03/17, a visit on 03/06/17, 2 visits on and the last visit being 03/11/17. She is known to be non compliant with her medication. (WALKER PALACIOS) - Related Data Allergies/Adverse Reactions: No Known Allergies Allergy (Verified 03/13/17 10:11) Past Medical History - General Information source: Patient - Social History Smoking Status: Former Smoker Chew tobacco use (# tins/day): No Frequency of alcohol use: None Drug Abuse: None Family History: Reviewed & Not Pertinent - Past Medical History Cardiac Medical History: Reports: Hx Atrial Fibrillation, Hx DVT, Hx Hypertension Pulmonary Medical History: Reports: Hx COPD Neurological Medical History: Reports: None Endocrine Medical History: Reports: None Renal/ Medical History: Reports: Hx Renal Insufficiency Malignancy Medical History: Reports: None GI Medical History: Reports: None Musculoskeltal Medical History: Reports Hx Arthritis Skin Medical History: Reports None Psychiatric Medical History: Reports: None Traumatic Medical History: Reports: None Infectious Medical History: Reports: None Past Surgical History: Reports: None - Immunizations Immunizations up to date: Yes Hx Diphtheria, Pertussis, Tetanus Vaccination: Yes Hx Pneumococcal Vaccination: 08/06/12 <WALKER PALACIOS - Last Filed: 03/13/17 11:44> Review of Systems - Review of Systems Constitutional: See HPI, Weakness EENT: No symptoms reported Cardiovascular: See HPI. denies: Chest pain Respiratory: No symptoms reported Gastrointestinal: No symptoms reported Genitourinary: No symptoms reported Female Genitourinary: No symptoms reported Musculoskeletal: No symptoms reported Skin: No symptoms reported Hematologic/Lymphatic: No symptoms reported Neurological/Psychological: See HPI, Weakness <WALKER PALACIOS - Last Filed: 03/13/17 11:44> Physical Exam - General General appearance: Alert In distress: None - HEENT Head: Normocephalic, Atraumatic Eyes: Normal Extraocular movements intact: Yes Pupils: PERRL - Respiratory Respiratory status: No respiratory distress Breath sounds: Normal - Cardiovascular Rhythm: Tachycardia Heart sounds: Normal auscultation Murmur: Yes - Abdominal Inspection: Normal Distension: No distension Bowel sounds: Normal Tenderness: Nontender - Back Back: Normal - Extremities General upper extremity: Normal inspection, Normal ROM General lower extremity: Normal inspection, Normal ROM - Neurological Neuro grossly intact: Yes - Psychological Associated symptoms: Normal affect, Normal mood - Skin Skin Temperature: Warm Skin Moisture: Dry Skin Color: Normal <SUZANNEWALKER - Last Filed: 03/13/17 11:44> - Vital signs Vitals: Temp Pulse Resp BP Pulse Ox 98.6 F 120 H 20 169/101 H 97 03/13/17 10:09 03/13/17 10:09 03/13/17 10:09 03/13/17 10:09 03/13/17 10:09 Course - Laboratory Result Diagrams: 03/13/17 10:47 03/13/17 10:47 <WALKER PALACIOS - Last Filed: 03/13/17 11:44> - Laboratory Result Diagrams: 03/13/17 10:47 03/13/17 10:47 - Diagnostic Test Radiology reviewed: Image reviewed, Reports reviewed - Chest x-ray shows stable cardiomegaly nothing acute. - EKG Interpretation by [facility] EKG shows normal: Sinus rhythm, [place], Intervals, QRS Complexes, ST-T Waves Rate: Tachycardia - 146 Rhythm: A.Fib Voltage: Consistant with [facility] - Consults Dr. Lorenzana Time consulted: 16:20 Consulted provider: will see as inpatient - Admit to [facility] to Dr. Price and Dr. Lorenzana will manage her until discharge or Albert returns. <EDGARD JOHNSON - Last Filed: 03/13/17 16:22> - Vital Signs Vital signs: Temp Pulse Resp BP Pulse Ox 98.6 F 120 H 23 H 140/87 H 98 03/13/17 10:09 03/13/17 10:09 03/13/17 16:00 03/13/17 16:00 03/13/17 16:00 - Laboratory Laboratory results interpreted by me: 03/13/17 03/13/17 03/13/17 10:47 10:47 10:47 RBC 3.66 L Hgb 11.2 L Hct 33.7 L RDW 14.3 H Seg Neutrophils % 84.6 H Lymphocytes % 7.2 L BUN 29 H Creatinine 2.27 H Est GFR ( Amer) 25 L Est GFR (Non-Af Amer) 21 L Calcium 10.6 H Direct Bilirubin 0.9 H AST 39 H Total Protein 8.9 H Free T4 2.52 H Urine Protein Urine Ketones 03/13/17 11:10 RBC Hgb Hct RDW Seg Neutrophils % Lymphocytes % BUN Creatinine Est GFR ( Amer) Est GFR (Non-Af Amer) Calcium Direct Bilirubin AST Total Protein Free T4 Urine Protein 100 H Urine Ketones 20 H Critical Care Note - Critical Care Note Total time excluding time spent on procedures (mins): 40 <EDGARD JOHNSON - Last Filed: 03/13/17 16:22> Discharge <WALKER PALACIOS - Last Filed: 03/13/17 11:44> - Discharge Admitting Provider: Albert - Dr. Lorenzana is covering <EDGARD JOHNSON - Last Filed: 03/13/17 16:22> - Discharge Clinical Impression: Chronic atrial fibrillation with RVR, Weakness, Noncompliance with medication regimen, Chronic kidney disease, stage 3 High blood pressure Qualifiers: Hypertension type: essential hypertension Qualified Code(s): I10 - Essential ( primary) hypertension Condition: Stable Disposition: ADMITTED INPATIENT Scribe Attestation: 03/13/17 16:20 I personally performed the services described in the documentation, reviewed and edited the documentation which was dictated to the scribe in my presence, and it accurately records my words and actions. (EDGARD JOHNSON) Scribe Documentation - Scribe Written by Ernstibe:: truman De León, 03/13/2017, 1128 acting as scribe for :: Rhianna <WALKER PALACIOS - Last Filed: 03/13/17 11:44>
[2017-03-13 11:35] LABS: ALANINE AMINOTRANSFERASE 18 U/L (9-52); ALBUMIN 4.4 g/dL (3.5-5.0); ALKALINE PHOSPHATASE 66 U/L (38-126); ANION GAP 15 (5-19); ASPARTATE AMINO TRANSFERASE 39 U/L (14-36); BILIRUBIN,DIRECT 0.9 mg/dL (0.0-0.4); BILIRUBIN,TOTAL 0.9 mg/dL (0.2-1.3); BLOOD UREA NITROGEN 29 mg/dL (7-20); CALCIUM 10.6 mg/dL (8.4-10.2); CARBON DIOXIDE 25 mmol/L (22-30); CHLORIDE 99 mmol/L (98-107); CREATININE RESULT 2.27 mg/dL (0.52-1.25); GLUCOSE 102 mg/dL (75-110); LIPASE 132.1 U/L (23-300); POTASSIUM 3.8 mmol/L (3.6-5.0); SODIUM 138.7 mmol/L (137-145); TOTAL PROTEIN 8.9 g/dL (6.3-8.2)
[2017-03-13 11:45] LABS: CREATINE KINASE MB 0.74 ng/mL (<4.55); TROPONIN I 0.025 ng/mL
[2017-03-13 11:58] LABS: APPEARANCE,URINE CLEAR; BILIRUBIN,URINE NEGATIVE (NEGATIVE); GLUCOSE, URINE NEGATIVE (NEGATIVE); KETONES,URINE 20 mg/dL (NEGATIVE); LEUKOCYTE ESTERASE,URINE NEGATIVE (NEGATIVE); NITRITE,URINE NEGATIVE (NEGATIVE); PROTEIN,URINE 100 mg/dL (NEGATIVE); URINE SPECIFIC GRAVITY 1.015; UROBILINOGEN,URINE NEGATIVE mg/dL (<2.0)
[2017-03-13 12:04] LABS: THYROID STIMULATING HORMONE 1.7 uIU/mL (0.47-4.68)
--- NOTE | 2017-03-13 13:53 | EKG REPORT ---
SEVERITY:- ABNORMAL ECG - ATRIAL FLUTTER/FIBRILLATION, A-RATE 273 LEFT VENTRICULAR HYPERTROPHY : Confirmed by: Sly Pulido MD 13-Mar-2017 13:53:01
[2017-03-13] MEDS ORDERED: APIXABAN 2.5 MG TABLET PO ONE (16:08)
[2017-03-13] MEDS ORDERED: DILTIAZEM HCL INJ 25 MG/5 ML VIAL ONE (16:23)
[2017-03-13 17:50] LABS: CREATINE KINASE MB 0.72 ng/mL (<4.55); TROPONIN I 0.021 ng/mL
--- NOTE | 2017-03-13 17:58 | PDOC H&P ---
History of Present Illness Admission Date/PCP: VICTORIANO MATTSON MD Patient complains of: Generalized weakness History of Present Illness: LOU CLEMENTE is a 81 year old female This is a 81-year-old female with a significant history of the chronic A. fib history of the hypertensions and chronic kidney disease with a very noncompliance of the medicationsWith a several hospital admissions in the several ER visit and patients came in the ER since last several times for the last several weeksAnd came today with the same problem with the weakness not feeling well and patient heart rate was high and patient was put on a Cardizem dripPatient usually taking the Eliquis. And a metro propanolol but as per the mortise patient is a noncompliance and I do not think so patients taking the medication even the son does not know much. Patient's at this point other workup is pretty stable the last ER visit is the concerns about's possible some pneumonia but patient's currently denied any cough or congestionsPatients denied any chest pain Patient heart rate under control with a Cardizem drip will be to admit in the IMCU and further evaluate His blood pressures always running high and according to the pathology but was not patient was very noncompliance with the medications Patients denied any blurry visions no headache Past Medical History Cardiac Medical History: Reports: Atrial Fibrillation, DVT, Hypertension Denies: Myocardial Infarction Pulmonary Medical History: Reports: Chronic Obstructive Pulmonary Disease (COPD) Denies: Asthma, Tuberculosis Neurological Medical History: Reports: None Denies: Seizures Endocrine Medical History: Reports: None Malignancy Medical History: Reports: None GI Medical History: Reports: None Denies: Hepatitis, Hiatal Hernia Musculoskeltal Medical History: Reports: Arthritis Skin Medical History: Reports: None Psychiatric Medical History: Reports: None Denies: Depression Traumatic Medical History: Reports: None Hematology: Denies: Anemia, Sickle Cell Disease Infectious Medical History: Reports: None Past Surgical History Past Surgical History: Reports: None Denies: Amputation, Hysterectomy, Mastectomy, Pacemaker Social History Smoking Status: Former Smoker Frequency of Alcohol Use: None Hx Recreational Drug Use: No Drugs: None Hx Prescription Drug Abuse: No Family History Family History: Reviewed & Not Pertinent Parental Family History Reviewed: Yes Children Family History Reviewed: Yes Sibling(s) Family History Reviewed.: Yes Medication/Allergy Home Medications: Apixaban [Eliquis 2.5 mg Tablet] 2.5 mg PO Q12 #60 tablet 03/05/17 Gabapentin [Neurontin 300 mg Capsule] 300 mg PO Q8 #90 capsule 03/05/17 Sodium Bicarbonate [Antacid] 650 mg PO TID #90 tablet 03/05/17 Hydralazine HCl 25 mg PO TID 03/09/17 Lidocaine [Lidoderm 5% (700 mg) Transdermal Patch] 1 patch TP DAILY #30 adh..patch 03/09/17 Doxycycline Hyclate 100 mg PO BID #20 capsule 03/11/17 Allergies/Adverse Reactions: No Known Allergies Allergy (Verified 03/13/17 10:11) Review of Systems Constitutional: PRESENT: fatigue, weakness. ABSENT: chills, fever(s), headache( s), weight gain, weight loss Eyes: ABSENT: visual disturbances Ears: ABSENT: hearing changes Cardiovascular: ABSENT: chest pain, dyspnea on exertion, edema, orthropnea, palpitations Respiratory: ABSENT: cough, hemoptysis Gastrointestinal: ABSENT: abdominal pain, constipation, diarrhea, hematemesis, hematochezia, nausea, vomiting Genitourinary: ABSENT: dysuria, hematuria Musculoskeletal: ABSENT: joint swelling Integumentary: ABSENT: rash, wounds Neurological: ABSENT: abnormal gait, abnormal speech, confusion, dizziness, focal weakness, syncope Psychiatric: ABSENT: anxiety, depression, homidical ideation, suicidal ideation Endocrine: ABSENT: cold intolerance, heat intolerance, menstrual abnormalities, polydipsia, polyuria Hematologic/Lymphatic: ABSENT: easy bleeding, easy bruising, lymphadenopathy Physical Exam Vital Signs: Temp Pulse Resp BP Pulse Ox 98.6 F 120 H 23 H 140/87 H 98 03/13/17 10:09 03/13/17 10:09 03/13/17 16:00 03/13/17 16:00 03/13/17 16:00 Intake & Output 03/12/17 03/13/17 03/14/17 06:59 06:59 06:59 Weight 46.3 kg General appearance: PRESENT: no acute distress, well-developed, well-nourished Head exam: PRESENT: atraumatic, normocephalic Eye exam: PRESENT: conjunctiva pink, EOMI, PERRLA. ABSENT: scleral icterus Ear exam: PRESENT: normal external ear exam Mouth exam: PRESENT: moist, tongue midline Neck exam: PRESENT: full ROM. ABSENT: carotid bruit, JVD, lymphadenopathy, thyromegaly Respiratory exam: PRESENT: clear to auscultation alexandro Cardiovascular exam: PRESENT: irregular rhythm, +S1, +S2, tachycardia Pulses: PRESENT: normal dorsalis pedis pul, +2 pedal pulses bilateral Vascular exam: PRESENT: normal capillary refill GI/Abdominal exam: PRESENT: normal bowel sounds, soft. ABSENT: distended, guarding, mass, organolmegaly, rebound, tenderness Rectal exam: PRESENT: deferred Neurological exam: PRESENT: alert, awake, oriented to person, oriented to place , oriented to time, oriented to situation. ABSENT: motor sensory deficit Psychiatric exam: PRESENT: appropriate affect, normal mood. ABSENT: homicidal ideation, suicidal ideation Skin exam: PRESENT: dry, intact, warm. ABSENT: cyanosis, rash Results Laboratory Results: 03/13/17 10:47 03/13/17 10:47 03/13/17 03/13/17 03/13/17 10:47 10:47 10:47 WBC 7.0 RBC 3.66 L Hgb 11.2 L Hct 33.7 L MCV 92 MCH 30.7 MCHC 33.2 RDW 14.3 H Plt Count 227 Seg Neutrophils % 84.6 H Lymphocytes % 7.2 L Monocytes % 6.7 Eosinophils % 0.9 Basophils % 0.6 Absolute Neutrophils 5.9 Absolute Lymphocytes 0.5 Absolute Monocytes 0.5 Absolute Eosinophils 0.1 Absolute Basophils 0.0 Sodium 138.7 Potassium 3.8 Chloride 99 Carbon Dioxide 25 Anion Gap 15 BUN 29 H Creatinine 2.27 H Est GFR ( Amer) 25 L Est GFR (Non-Af Amer) 21 L Glucose 102 Calcium 10.6 H Total Bilirubin 0.9 AST 39 H ALT 18 Alkaline Phosphatase 66 Total Protein 8.9 H Albumin 4.4 Lipase 132.1 TSH 1.70 Free T4 2.52 H Urine Color Urine Appearance Urine pH Ur Specific [place] Urine Protein Urine Glucose (UA) Urine Ketones Urine Blood Urine Nitrite Ur Leukocyte Esterase Urine WBC (Auto) Urine RBC (Auto) 03/13/17 11:10 WBC RBC Hgb Hct MCV MCH MCHC RDW Plt Count Seg Neutrophils % Lymphocytes % Monocytes % Eosinophils % Basophils % Absolute Neutrophils Absolute Lymphocytes Absolute Monocytes Absolute Eosinophils Absolute Basophils Sodium Potassium Chloride Carbon Dioxide Anion Gap BUN Creatinine Est GFR ( Amer) Est GFR (Non-Af Amer) Glucose Calcium Total Bilirubin AST ALT Alkaline Phosphatase Total Protein Albumin Lipase TSH Free T4 Urine Color YELLOW Urine Appearance CLEAR Urine pH 6.0 Ur Specific [place] 1.015 Urine Protein 100 H Urine Glucose (UA) NEGATIVE Urine Ketones 20 H Urine Blood NEGATIVE Urine Nitrite NEGATIVE Ur Leukocyte Esterase NEGATIVE Urine WBC (Auto) 2 Urine RBC (Auto) 10 03/13/17 10:47 CK-MB (CK-2) 0.74 Troponin I 0.025 Assessment & Plan - Diagnosis (1) Chronic atrial fibrillation with RVR Is this a current diagnosis for this admission?: Yes Plan: Start the patient on Cardizem drip and continues to Eliquis and consult the cardiology (3) Hypertension Qualifiers: Hypertension type: essential hypertension Qualified Code(s): I10 - Essential (primary) hypertension Is this a current diagnosis for this admission?: Yes Plan: Patient is very noncompliance while the patient in the hospital patient's blood pressure is always under well control and the patient's go home patient's blood pressures go up I think patients need a 7th grade social studies teacher needs to be worked out about the home situations were consult the financial planner (4) Noncompliance with medication regimen Is this a current diagnosis for this admission?: Yes Plan: Discussed with the son about the compliance of the medications (5) Weakness Is this a current diagnosis for this admission?: Yes Plan: We rule out any infectious process get the CT of the head - Time Time Spent: 30 to 50 Minutes Medications reviewed and adjusted accordingly: Yes Anticipated discharge: Home Within: Other - Inpatient Certification Medical Necessity: Need Close Monitoring Due to Risk of Patient Decompensation Post Hospital Care: D/C Call Center Coordinator Documentation - Plan Summary Plan Summary: Admit the patient in IMCU see the MD orders discussed with the patient's family
[2017-03-13] MEDS ORDERED: DEXTROSE 5%-WATER 500 ML with AMIODARONE HCL 900 MG IV PRN ×2 (19:25)
--- NOTE | 2017-03-13 19:37 | PDOC CONSULTATION ---
Consultation Consult Date: 03/13/17 Attending physician:: ANGUS JACOBS Consult reason:: Atrial fibrillation History of Present Illness Admission Date/PCP: 03/13/17 16:17 VICTORIANO MATTSON MD Patient complains of: Shortness of breath and palpitations History of Present Illness: LOU CLEMENTE is a 81 year old female This is a 81-year-old female with a significant history of the paroxysmal A. fib history of the hypertensions and chronic kidney disease with a very noncompliance of the medications with several hospital admissions and several ER visit. patients came in the ER since last several times for the last several weeksAnd came today with the same problem with the weakness not feeling well and patient heart rate was high and patient was put on a Cardizem drip Patient usually taking the Eliquis and metoprolol but as per patient's , the patient is a noncompliance. Patient's at this point other workup is pretty stable. on the last ER visit there is concerns about's possible some pneumonia but patient's currently denied any cough or congestions. Patients denied any chest pain Patient heart rate under control with a Cardizem drip will be to admit in the IMCU and further evaluate Patient's blood pressures always running high and according to the pathology but was not patient was very noncompliance with the medications Patients denied any blurry visions no headache. Patient's previous chart reviewed. Last EKG just 2 days ago showed sinus tachycardia. This history was reviewed, supplemented and confirmed. Past Medical History Cardiac Medical History: Reports: Atrial Fibrillation, DVT, Hypertension Denies: Myocardial Infarction Pulmonary Medical History: Reports: Chronic Obstructive Pulmonary Disease (COPD) Denies: Asthma, Tuberculosis Neurological Medical History: Reports: None Denies: Seizures Endocrine Medical History: Reports: None Malignancy Medical History: Reports: None GI Medical History: Reports: None Denies: Hepatitis, Hiatal Hernia Musculoskeltal Medical History: Reports: Arthritis Skin Medical History: Reports: None Psychiatric Medical History: Reports: None Denies: Depression Traumatic Medical History: Reports: None Hematology: Denies: Anemia, Sickle Cell Disease Infectious Medical History: Reports: None Past Surgical History Past Surgical History: Reports: None Denies: Amputation, Hysterectomy, Mastectomy, Pacemaker Social History Information Source: Patient Smoking Status: Former Smoker Frequency of Alcohol Use: None Hx Recreational Drug Use: No Drugs: None Hx Prescription Drug Abuse: No - Advance Directive Resuscitation Status: Full Code Surrogate healthcare decision maker:: Patient's at the surrogate decision-maker Family History Family History: Reviewed & Not Pertinent Parental Family History Reviewed: Yes Children Family History Reviewed: Yes Sibling(s) Family History Reviewed.: Yes - Negative for premature coronary artery disease or sudden cardiac in the family amongst first degree relatives. Medication/Allergy Home Medications: Apixaban [Eliquis 2.5 mg Tablet] 2.5 mg PO Q12 03/13/17 Doxycycline Hyclate [Vibramycin] 100 mg PO Q12 03/13/17 Hydralazine HCl [Apresoline 25 mg Tablet] 75 mg PO Q8 03/13/17 Megestrol Acetate [Megace 20 mg Tablet] 20 mg PO BID 03/13/17 Metoprolol Succinate [Toprol Xl 50 mg Tab.sr] 50 mg PO QHS 03/13/17 Vit B Cmplx 3/FA/Vit C/Biotin [Vol-Care Rx Tablet] 1 tab PO DAILY 03/13/17 Acetaminophen with Codeine [Tylenol #3 Tablet] 1 each PO Q6HP PRN 03/15/17 Ferrous Sulfate [Iron] 325 mg PO DAILY 03/15/17 Gabapentin [Gabapentin] 300 mg PO Q8 03/15/17 Sodium Bicarbonate [Sodium Bicarbonate 650 mg Tablet] 650 mg PO Q8 03/15/17 Tramadol HCl/Acetaminophen [Tramadol-Acetaminophn 37.5-325] 1 each PO Q8 PRN Allergies/Adverse Reactions: No Known Allergies Allergy (Verified 03/13/17 10:11) Review of Systems Review of Systems: Please see history of present illness and past medical history as wall. Constitutional: No fever or chills reported. Patient describes recent ER visit because of pneumonia. Head : No recent chronic headaches, recent head injury. Eyes: No recent eye pain, diplopia, redness, discharge, acute visual changes. Ears: No recent chronic ear pain, acute hearing loss, ear discharge. Oral cavity: No recent ulcerations, bleeding, oral cavity discomfort. Neck: No recent acute neck pain reported. Hematologic: No recent easy bruising or bleeding or hematologic malignancy reported. Lymphatic: No recent lymphatic malignancy, chronic lymphadenopathy reported yet Cardiovascular system review: See history of present illness. Intermittent palpitations noted but no overt syncope or near syncope. No prior history of myocardial infarction, angina Respiratory system review: No recent chronic cough, hemoptysis, blood clots in the lungs reported. Mild Shortness of breath on exertion Gastrointestinal system review: Negative for any recent acute or chronic abdominal pain, hematemesis, melena, recent change in bowel habits. Genitourinary system review: No recent acute or chronic hematuria, flank pain, UTI etc. reported. Skin system review: Negative for any recent abnormal bruising, no rash, no pruritus reported. Neurologic: No prior history of strokes, mini strokes, seizure disorder. Psychologic: No history of major psychosis or major depression reported. Musculoskeletal: Minor aches and pains reported. No acute joint swelling reported. Endocrine: No recent polyuria, polydipsia, recent heat or cold intolerance. Physical Exam Vital Signs: Temp Pulse Resp BP Pulse Ox 98.6 F 120 H 23 H 140/87 H 98 03/13/17 10:09 03/13/17 10:09 03/13/17 16:00 03/13/17 16:00 03/13/17 16:00 Exam: GENERAL: Thin built and in no acute distress. Alert and oriented x3 HEAD: Atraumatic, normocephalic. EYES: Pupils equal round and reactive to light, extraocular movements intact, sclera anicteric, conjunctiva are normal. ENT: TMs normal, nares patent, oropharynx clear without exudates. Moist mucous membranes. No oral ulcerations or bleeding gums noted NECK: supple without lymphadenopathy. Trachea is central. No cervical or axillary lymphadenopathy noted. Carotids are 2+, JVD WNL LUNGS: Respiration seems nonlabored, no significant accessory muscle action noted. Breath sounds clear to auscultation bilaterally and equal noted. No wheezes rales or rhonchi noted. No significant dullness noted on percussion. CHEST: Palpation of the chest wall shows no significant chest wall tenderness. No other significant abnormalities noted. HEART: [place] [employer]ISTANT, No PSH, 1/6 JAISON aortic area, 1/6 eric systolic murmur mitral area, no rubs, no gallops. ABDOMEN: Soft, no significant tenderness appreciated, normoactive bowel sounds. No guarding, no rebound. No rigidity noted . No masses appreciated. EXTREMITIES: Pedal pulses are 1-2+, no calf tenderness noted. No clubbing or cyanosis.trace pedal edema noted NEUROLOGICAL: Focused neurological exam showed no significant neurologic deficit. Normal speech, no focal weakness appreciated. PSYCH: Normal mood, normal affect. Judgment and insight within normal limits. SKIN: No significant ecchymosis, rash, ulcerations or signs of pruritus noted. MUSCULOSKELETAL EXAM: No significant joint swelling noted. Results Laboratory Results: 03/13/17 03/13/17 17:04 17:04 Creatine Kinase 95 CK-MB (CK-2) 0.72 Troponin I 0.021 EKG Comments: Twelve-lead EKG shows atrial fibrillation with rapid ventricular response. Assessment & Plan - Diagnosis (1) Paroxysmal atrial fibrillation Is this a current diagnosis for this admission?: Yes (2) Chronic kidney disease (CKD) Qualifiers: Chronic kidney disease stage: stage 3 (moderate) Qualified Code(s): N18.3 - Chronic kidney disease, stage 3 (moderate) Is this a current diagnosis for this admission?: Yes (3) Hypertension Qualifiers: Hypertension type: essential hypertension Qualified Code(s): I10 - Essential (primary) hypertension Is this a current diagnosis for this admission?: Yes (4) Congestive heart failure Qualifiers: Congestive heart failure type: unspecified congestive heart failure type Congestive heart failure chronicity: acute on chronic Qualified Code(s): I50.9 - Heart failure, unspecified Is this a current diagnosis for this admission?: Yes - Notes Notes: Paroxysmal atrial fibrillation: Patient seems to be in mild CHF. Will obtain a BNP level. Feel that patient may benefit from maintenance of sinus rhythm. Will start patient on amiodarone. Chronic kidney disease: Currently is stable. May consider nephrology consultation. Hypertension: Blood pressure was high on presentation but currently stable. CHF: Most likely precipitated by atrial fibrillation. Continue to monitor. - Time Time Spent: 30 to 50 Minutes - CODE STATUS was discussed, patient remains full code. Surrogate decision-maker unchanged. Multiple medical problems were addressed. More than 50% of the time spent coordinating care, discussing management plans with involved caregivers. Management plans discussed with involved personnels. Medical decision making was of moderate to high complexity , patient's has multiple comorbidities. Medications reviewed and adjusted accordingly: Yes
[2017-03-13] MEDS ORDERED: AMIODARONE HCL 150 MG in DEXTROSE 5%-WATER 100 ML IV ONE (20:30)
[2017-03-13 23:15] LABS: CREATINE KINASE MB 0.83 ng/mL (<4.55); TROPONIN I 0.026 ng/mL
[2017-03-13] MEDS: CEFTRIAXONE 1 GM/D5W RTU 1 GM/50 ML RTUPB IV SCH (23:48)
[2017-03-14 03:53] LABS: APPEARANCE,URINE CLEAR; BILIRUBIN,URINE NEGATIVE (NEGATIVE); GLUCOSE, URINE NEGATIVE (NEGATIVE); KETONES,URINE NEGATIVE (NEGATIVE); LEUKOCYTE ESTERASE,URINE NEGATIVE (NEGATIVE); NITRITE,URINE NEGATIVE (NEGATIVE); PROTEIN,URINE NEGATIVE (NEGATIVE); URINE SPECIFIC GRAVITY 1.008; UROBILINOGEN,URINE NEGATIVE mg/dL (<2.0)
[2017-03-14 05:04] LABS: ABSOLUTE EOSINOPHILS # (AUTO) 0.2 10^3/uL (0.0-0.6); ABSOLUTE LYMPHOCYTES (AUTO) 0.6 10^3/uL (0.5-4.7); ABSOLUTE MONOCYTES (AUTO) 0.5 10^3/uL (0.1-1.4); ABSOLUTE NEUT (AUTO) 4.3 10^3/uL (1.7-8.2); BASOPHILS % (AUTO) 0.4 % (0-2); EOSINOPHILS % (AUTO) 3.2 % (0-6); HEMATOCRIT 30.1 % (36.0-47.0); HEMOGLOBIN 10.2 g/dL (12.0-15.5); HGB HCT DIFFERENCE 0.5; LYMPHOCYTES % (AUTO) 11.2 % (13-45); MEAN CORPUSCULAR HEMOGLOBIN 30.7 pg (27.0-33.4); MEAN CORPUSCULAR HGB CONC 33.9 g/dL (32.0-36.0); MEAN CORPUSCULAR VOLUME 91 fl (80-97); MONOCYTES % (AUTO) 9.4 % (3-13); RED BLOOD COUNT 3.32 10^6/uL (3.72-5.28); RED CELL DISTRIBUTION WIDTH 14.6 % (11.5-14.0); SEGMENTED NEUTROPHILS % (AUTO) 75.8 % (42-78); WHITE BLOOD COUNT 5.7 10^3/uL (4.0-10.5)
[2017-03-14 05:23] LABS: ANION GAP 10 (5-19); BLOOD UREA NITROGEN 21 mg/dL (7-20); CALCIUM 9.8 mg/dL (8.4-10.2); CARBON DIOXIDE 26 mmol/L (22-30); CHLORIDE 104 mmol/L (98-107); CREATINE KINASE 83 U/L (30-135); CREATININE RESULT 1.87 mg/dL (0.52-1.25); GLUCOSE 103 mg/dL (75-110); MAGNESIUM 1.4 mg/dL (1.6-2.3); POTASSIUM 3.8 mmol/L (3.6-5.0); SODIUM 139.9 mmol/L (137-145)
[2017-03-14 05:31] LABS: CREATINE KINASE MB 0.55 ng/mL (<4.55); TROPONIN I 0.024 ng/mL
[2017-03-14] MEDS: METOPROLOL SUCCINATE 25 MG TAB.SR.24H PO SCH ×2 (09:53→22:02)
--- NOTE | 2017-03-14 15:02 | PDOC PROGRESS REPORT ---
Subjective Progress Note for:: 03/14/17 Subjective:: Patient is currently doing fair patients denied any chest pain that any shortness of the breathPatient was put on amiodarone drip and currently still heart rate is up Physical Exam Vital Signs: Temp Pulse Resp BP Pulse Ox 98.3 F 113 H 18 148/90 H 96 03/14/17 11:06 03/14/17 11:06 03/14/17 11:06 03/14/17 13:00 03/14/17 11:06 Intake & Output 03/13/17 03/14/17 03/15/17 06:59 06:59 06:59 Intake Total 738 375 Output Total 1256 Balance -518 375 Weight 46.3 kg General appearance: PRESENT: no acute distress, well-developed, well-nourished Head exam: PRESENT: atraumatic, normocephalic Eye exam: PRESENT: conjunctiva pink, EOMI, PERRLA. ABSENT: scleral icterus Ear exam: PRESENT: normal external ear exam Mouth exam: PRESENT: moist, tongue midline Neck exam: PRESENT: full ROM. ABSENT: carotid bruit, JVD, lymphadenopathy, thyromegaly Cardiovascular exam: PRESENT: irregular rhythm, tachycardia. ABSENT: diastolic murmur, rubs, systolic murmur Pulses: PRESENT: normal dorsalis pedis pul, +2 pedal pulses bilateral Vascular exam: PRESENT: normal capillary refill GI/Abdominal exam: PRESENT: normal bowel sounds, soft. ABSENT: distended, guarding, mass, organolmegaly, rebound, tenderness Rectal exam: PRESENT: deferred Neurological exam: PRESENT: alert, awake, oriented to person, oriented to place , oriented to time, oriented to situation, CN II-XII grossly intact. ABSENT: motor sensory deficit Psychiatric exam: PRESENT: appropriate affect, normal mood. ABSENT: homicidal ideation, suicidal ideation Skin exam: PRESENT: dry, intact, warm. ABSENT: cyanosis, rash Results Laboratory Results: 03/14/17 04:43 03/14/17 04:43 03/14/17 03/14/17 03/14/17 03:00 04:43 04:43 WBC 5.7 RBC 3.32 L Hgb 10.2 L Hct 30.1 L MCV 91 MCH 30.7 MCHC 33.9 RDW 14.6 H Plt Count 205 Seg Neutrophils % 75.8 Lymphocytes % 11.2 L Monocytes % 9.4 Eosinophils % 3.2 Basophils % 0.4 Absolute Neutrophils 4.3 Absolute Lymphocytes 0.6 Absolute Monocytes 0.5 Absolute Eosinophils 0.2 Absolute Basophils 0.0 Sodium 139.9 Potassium 3.8 Chloride 104 Carbon Dioxide 26 Anion Gap 10 BUN 21 H Creatinine 1.87 H Est GFR ( Amer) 31 L Est GFR (Non-Af Amer) 26 L Glucose 103 Calcium 9.8 Magnesium 1.4 L Urine Color YELLOW Urine Appearance CLEAR Urine pH 7.0 Ur Specific [place] 1.008 Urine Protein NEGATIVE Urine Glucose (UA) NEGATIVE Urine Ketones NEGATIVE Urine Blood SMALL H Urine Nitrite NEGATIVE Ur Leukocyte Esterase NEGATIVE Urine WBC (Auto) 3 Urine RBC (Auto) 3 03/13/17 03/13/17 03/13/17 17:04 17:04 17:04 Creatine Kinase 95 CK-MB (CK-2) 0.72 Troponin I 0.021 NT-Pro-B Natriuret Pep 1560 H 03/13/17 03/13/17 03/14/17 22:38 22:38 04:43 Creatine Kinase 98 83 CK-MB (CK-2) 0.83 Troponin I 0.026 NT-Pro-B Natriuret Pep 03/14/17 04:43 Creatine Kinase CK-MB (CK-2) 0.55 Troponin I 0.024 NT-Pro-B Natriuret Pep Assessment & Plan - Diagnosis (1) Chronic atrial fibrillation with RVR Is this a current diagnosis for this admission?: Yes Plan: Continues to amiodarone drips and restart the metro propanolol (2) Chronic kidney disease, stage 3 Plan: Currently stable (3) Hypertension Qualifiers: Hypertension type: essential hypertension Qualified Code(s): I10 - Essential (primary) hypertension Is this a current diagnosis for this admission?: Yes Plan: Patient is very noncompliance while the patient in the hospital patient's blood pressure is always under well control and the patient's go home patient's blood pressures go up I think patients need a social services specialist needs to be worked out about the home situations were consult the corporate planner (4) Noncompliance with medication regimen Is this a current diagnosis for this admission?: Yes Plan: Discussed with the son about the compliance of the medications (5) Weakness Is this a current diagnosis for this admission?: Yes Plan: We rule out any infectious process get the CT of the head - Time Time Spent with patient: 15-24 minutes Medications reviewed and adjusted accordingly: Yes Anticipated discharge: Home Within: Other - Inpatient Certification Medical Necessity: Need Close Monitoring Due to Risk of Patient Decompensation Post Hospital Care: D/[facility] [employer] Documentation - Plan Summary Plan Summary: Continues current medications
--- NOTE | 2017-03-14 15:06 | RADIOLOGY REPORT (SQ) ---
EXAM DESCRIPTION: CHEST SINGLE VIEW COMPLETED DATE/TIME: 03/13/2017, 1218 hours REASON FOR STUDY: Atrial fibrillation, rapid ventricular rate response COMPARISON: 03/11/2017, 03/02/2017, 01/24/2016 chest films TECHNIQUE: AP portable chest 03/13/2017, 1218 hours LIMITATIONS: None FINDINGS: Minimal left basilar atelectasis or scarring. Lungs are otherwise well inflated and clear . No pleural effusions. No pneumothorax. No pulmonary edema. Stable mild to moderate cardiomegaly. No hilar enlargement. No acute bony changes. IMPRESSION: No acute infiltrates or pulmonary edema. No pleural effusion. Stable mild cardiomegaly
--- NOTE | 2017-03-14 17:07 | RADIOLOGY REPORT (SQ) ---
EXAM DESCRIPTION: CT HEAD WITHOUT COMPLETED DATE/TIME: 03/13/2017 6:33 pm REASON FOR STUDY: weakness COMPARISON: 03/01/2017 EXAM PARAMETERS: TECHNIQUE: Axial images acquired through the brain without intravenous contrast. I mages reviewed with bone, brain and subdural windows. Images stored on PACS. All CT scanners at this facility use dose modulation, iterative reconstruction, and/or weight based d osing when appropriate to reduce radiation dose to as low as reasonably achievable (ALARA). [facility]: Dose Right [facility]: SureCare [facility]: Dose Right [facility]: Teradose 4D [facility]: Dekko RADIATION DOSE: mGy. LIMITATIONS: None. FINDINGS: VENTRICLES: Stable in size and contour. CEREBRUM: No masses. No hemorrhage. No midline shift. Areas of low density in the white matter mos t likely due to chronic micro-vascular ischemic change. No evidence for acute infarction. CEREBELLUM: No masses. No hemorrhage. No alteration of density. No evidence for acute infarction. EXTRAAXIAL SPACES: Age-related involutional change. No fluid collections. No masses. ORBITS AND GLOBE: No intra- or extraconal masses. Normal contour of globe without masses. CALVARIUM: No fracture. PARANASAL SINUSES: No fluid or mucosal thickening. SOFT TISSUES: No mass or hematoma. OTHER: No other significant finding. IMPRESSION: NO ACUTE INTRACRANIAL PROCESS. NO SIGNIFICANT CHANGE FROM PRIOR STUDY PER TECHNICAL DOCUMENTATION: JOB ID: [id number] [facility] [id number]: Final reports with documentation of one or more dose reduction techniques (e.g., Automate d exposure control, adjustment of the mA and/or kV according to patient size, use of iterative recons truction technique) 2010 [employer]- All Rights Reserved
[2017-03-14] MEDS: CEFTRIAXONE 1 GM/D5W RTU 1 GM/50 ML RTUPB IV SCH (18:56)
[2017-03-14] MEDS: AMIODARONE HCL 200 MG TABLET PO SCH (22:01)
--- NOTE | 2017-03-15 00:20 | XCELERA REPORT ---
[address] [address] Transthoracic Echocardiogram Report Name: LOU CLEMENTE Age: 81 yrs Gender: Female : 1935 Patient Status: Inpatient Patient Location: [address] [place] [address] Study Date: 03/14/2017 09:06 AM Height: 63 in Weight: 102 lb BSA: 1.5 m2 Procedure: A complete two-dimensional transthoracic echocardiogram was performed (2D, M-mode, spectral and color flow Doppler). The study was technically adequate with some images being suboptimal in quality. Reason For Study: Gina. [email or web address] Ordering Physician: TAYLOR SORTO Performed By: Charline Loaiza Interpretation Summary The left ventricular ejection fraction is within normal limits. There is mild concentric left ventricular hypertrophy. Doppler measurements suggest pseudonormalized left ventricular relaxation, which is associated with grade II/IV or mild to moderate diastolic dysfunction The left ventricle is grossly normal size. Wall motion cannot be accurately commented on, but no definite regional wall motion abnormalities noted. The right ventricular systolic function is normal. The left atrial size is normal. The right atrium is normal in size There is a mild amount of mitral regurgitation There is no mitral valve stenosis. There is a mild amount of aortic regurgitation There is no aortic valve stenosis There is a trace to mild amount of tricuspid regurgitation There is mild pulmonary hypertension by echo Right ventricular systolic pressure is estimated to be elevated at 30- 40mmHg. The aortic root is not well visualized. The inferior vena cava appeared normal and decreased > 50% with respiration (RAP 5-10 mmHg) Minimal pericardial effusion. MMode/2D Measurements & Calculations RVDd: 2.4 cm LVIDd: 3.9 cm FS: 34.7 % Ao root diam: 3.5 cm IVSd: 1.1 cm LVIDs: 2.6 cm EDV(Teich): 67.2 ml LVPWd: 1.1 cm ESV(Teich): 23.9 ml Ao root area: 9.4 cm2 EF(Teich): 64.5 % LA dimension: 2.6 cm LVOT diam: 1.9 cm LVOT area: 3.0 cm2 Doppler Measurements & Calculations MV E max elizabeth: MV P1/2t max elizabeth: Ao V2 max: AI max elizabeth: 94.8 cm/sec 93.8 cm/sec 119.9 cm/sec 373.3 cm/sec MV P1/2t: 28.0 msec Ao max PG: AI max PG: MVA(P1/2t): 7.9 cm2 5.7 mmHg 55.7 mmHg MV dec slope: ARMANDO(V,D): 2.9 cm2 AI dec slope: 981.3 cm/sec2 289.1 cm/sec2 AI P1/2t: 378.1 msec LV V1 max PG: PA V2 max: TR max elizabeth: 5.4 mmHg 81.4 cm/sec 268.8 cm/sec LV V1 max: PA max P.7 mmHg TR max P.3 cm/sec 28.9 mmHg Left Ventricle The left ventricle is grossly normal size. There is mild concentric left ventricular hypertrophy. The left ventricular ejection fraction is within normal limits. Doppler measurements suggest pseudonormalized left ventricular relaxation, which is associated with grade II/IV or mild to moderate diastolic dysfunction. Wall motion cannot be accurately commented on, but no definite regional wall motion abnormalities noted. Right Ventricle The right ventricle is grossly normal size. There is normal right ventricular wall thickness. The right ventricular systolic function is normal. Atria The right atrium is normal in size. The left atrial size is normal. Interarterial septum not well visualized and not well dopplered. Cannot comment on ASD/PFO presence. Mitral Valve The mitral valve leaflets are sclerotic, but show no functional abnormalities. There is no mitral valve stenosis. There is a mild amount of mitral regurgitation. Aortic Valve The aortic valve is sclerotic, but shows no functional abnormality. There is no aortic valve stenosis. There is a mild amount of aortic regurgitation. Tricuspid Valve The tricuspid valve is not well visualized, but is grossly normal. There is no tricuspid stenosis. There is a trace to mild amount of tricuspid regurgitation. There is mild pulmonary hypertension by echo. Right ventricular systolic pressure is estimated to be elevated at 30-40mmHg. Pulmonic Valve The pulmonic valve is not well visualized. Great Vessels The aortic root is not well visualized. The inferior vena cava appeared normal and decreased > 50% with respiration (RAP 5-10 mmHg). Effusions Minimal pericardial effusion. : TAYLOR SORTO > Taylor Sorto
[2017-03-15 04:51] LABS: ABSOLUTE BASOPHILS # (AUTO) 0.1 10^3/uL (0.0-0.2); ABSOLUTE EOSINOPHILS # (AUTO) 0.2 10^3/uL (0.0-0.6); ABSOLUTE LYMPHOCYTES (AUTO) 0.7 10^3/uL (0.5-4.7); ABSOLUTE MONOCYTES (AUTO) 0.6 10^3/uL (0.1-1.4); ABSOLUTE NEUT (AUTO) 4.5 10^3/uL (1.7-8.2); EOSINOPHILS % (AUTO) 3.2 % (0-6); HEMATOCRIT 31.4 % (36.0-47.0); HEMOGLOBIN 10.3 g/dL (12.0-15.5); HGB HCT DIFFERENCE -0.5; MEAN CORPUSCULAR HEMOGLOBIN 30.2 pg (27.0-33.4); MEAN CORPUSCULAR HGB CONC 32.9 g/dL (32.0-36.0); MEAN CORPUSCULAR VOLUME 92 fl (80-97); MONOCYTES % (AUTO) 9.4 % (3-13); RED BLOOD COUNT 3.42 10^6/uL (3.72-5.28); RED CELL DISTRIBUTION WIDTH 14.3 % (11.5-14.0); SEGMENTED NEUTROPHILS % (AUTO) 74.4 % (42-78)
[2017-03-15 05:11] LABS: ANION GAP 10 (5-19); BLOOD UREA NITROGEN 23 mg/dL (7-20); CALCIUM 10.2 mg/dL (8.4-10.2); CARBON DIOXIDE 24 mmol/L (22-30); CHLORIDE 102 mmol/L (98-107); CREATININE RESULT 1.91 mg/dL (0.52-1.25); GLUCOSE 92 mg/dL (75-110); MAGNESIUM 1.4 mg/dL (1.6-2.3); POTASSIUM 4.2 mmol/L (3.6-5.0); SODIUM 136.4 mmol/L (137-145)
[2017-03-15] MEDS: AMIODARONE HCL 200 MG TABLET PO SCH ×2 (09:50→22:24)
[2017-03-15] MEDS: METOPROLOL SUCCINATE 25 MG TAB.SR.24H PO SCH ×2 (09:51→22:24)
[2017-03-15] MEDS: GABAPENTIN 100 MG CAPSULE PO SCH ×2 (09:51→22:24)
--- NOTE | 2017-03-15 11:51 | PDOC PROGRESS REPORT ---
Subjective Progress Note for:: 03/14/17 Subjective:: Patient was seen yesterday and orders were written in the chart, verbal orders also given to the nurses but somehow note was probably not saved or in advertently deleted. Patient was still noted to be tachycardic. She was on Cardizem drip. Patient to be continued on amiodarone drip. Patient switched over to p.o. amiodarone once drip protocol is over. Patient also was started on Toprol-XL 25 mg p.o. twice daily, to be increased as tolerated. Patient did have a 2D echocardiogram , results were reviewed. Patient does have renal dysfunction. Physical Exam Vital Signs: Temp Pulse Resp BP Pulse Ox 98.1 F 95 20 167/86 H 100 03/15/17 08:00 03/15/17 08:00 03/15/17 08:00 03/15/17 08:00 03/15/17 08:00 Intake & Output 03/14/17 03/15/17 03/16/17 06:59 06:59 06:59 Intake Total 738 1297 Output Total 1256 600 Balance -518 697 Weight 46.3 kg 46.7 kg Exam: GENERAL: well-nourished and in no acute distress. Alert and oriented x3 HEAD: Atraumatic, normocephalic. EYES: Pupils equal round and reactive to light, extraocular movements intact, sclera anicteric, conjunctiva are normal. ENT: TMs normal, nares patent, oropharynx clear without exudates. Moist mucous membranes. No oral ulcerations or bleeding gums noted NECK: supple without lymphadenopathy. Trachea is central. No cervical or axillary lymphadenopathy noted. Carotids are 2+, JVD WNL LUNGS: Respiration seems nonlabored, no significant accessory muscle action noted. Breath sounds clear to auscultation bilaterally and equal noted. No wheezes rales or rhonchi noted. No significant dullness noted on percussion. CHEST: Palpation of the chest wall shows no significant chest wall tenderness. No other significant abnormalities noted. 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 ABDOMEN: Soft, no significant tenderness appreciated, normoactive bowel sounds. No guarding, no rebound. No rigidity noted . No masses appreciated. EXTREMITIES: Pedal pulses are 1-2+, no calf tenderness noted. No clubbing or cyanosis.trace pedal edema noted NEUROLOGICAL: Focused neurological exam showed no significant neurologic deficit. Normal speech, no focal weakness appreciated. PSYCH: Normal mood, normal affect. Judgment and insight within normal limits. SKIN: No significant ecchymosis, rash, ulcerations or signs of pruritus noted. MUSCULOSKELETAL EXAM: No significant joint swelling noted. Results Laboratory Results: 03/15/17 04:29 03/15/17 04:29 03/15/17 03/15/17 04:29 04:29 WBC 6.0 RBC 3.42 L Hgb 10.3 L Hct 31.4 L MCV 92 MCH 30.2 MCHC 32.9 RDW 14.3 H Plt Count 213 Seg Neutrophils % 74.4 Lymphocytes % 12.0 L Monocytes % 9.4 Eosinophils % 3.2 Basophils % 1.0 Absolute Neutrophils 4.5 Absolute Lymphocytes 0.7 Absolute Monocytes 0.6 Absolute Eosinophils 0.2 Absolute Basophils 0.1 Sodium 136.4 L Potassium 4.2 Chloride 102 Carbon Dioxide 24 Anion Gap 10 BUN 23 H Creatinine 1.91 H Est GFR ( Amer) 30 L Est GFR (Non-Af Amer) 25 L Glucose 92 Calcium 10.2 Magnesium 1.4 L 03/13/17 03/13/17 03/13/17 17:04 17:04 17:04 Creatine Kinase 95 CK-MB (CK-2) 0.72 Troponin I 0.021 NT-Pro-B Natriuret Pep 1560 H 03/13/17 03/13/17 03/14/17 22:38 22:38 04:43 Creatine Kinase 98 83 CK-MB (CK-2) 0.83 Troponin I 0.026 NT-Pro-B Natriuret Pep 03/14/17 04:43 Creatine Kinase CK-MB (CK-2) 0.55 Troponin I 0.024 NT-Pro-B Natriuret Pep Impressions: Head CT 03/13/17 00:00 IMPRESSION: NO ACUTE INTRACRANIAL PROCESS. NO SIGNIFICANT CHANGE FROM PRIOR STUDY PER Chest X-Ray 03/13/17 12:08 IMPRESSION: No acute infiltrates or pulmonary edema. No pleural effusion. Stable mild cardiomegaly Assessment & Plan - Diagnosis (1) Paroxysmal atrial fibrillation Is this a current diagnosis for this admission?: Yes (2) Chronic kidney disease (CKD) Qualifiers: Chronic kidney disease stage: stage 3 (moderate) Qualified Code(s): N18.3 - Chronic kidney disease, stage 3 (moderate) Is this a current diagnosis for this admission?: Yes (3) Hypertension Qualifiers: Hypertension type: essential hypertension Qualified Code(s): I10 - Essential (primary) hypertension Is this a current diagnosis for this admission?: Yes (4) Congestive heart failure Qualifiers: Congestive heart failure type: unspecified congestive heart failure type Congestive heart failure chronicity: acute on chronic Qualified Code(s): I50.9 - Heart failure, unspecified Is this a current diagnosis for this admission?: Yes - Notes Notes: Paroxysmal atrial fibrillation: Patient seems to be in mild CHF. Will obtain a BNP level. Feel that patient may benefit from maintenance of sinus rhythm. Will start patient on amiodarone p.o. Will discontinue Cardizem and start patient on metoprolol XL 25 p.o. twice daily. Chronic kidney disease: Currently is stable. May consider nephrology consultation. Hypertension: Blood pressure was high on presentation but currently stable. CHF: Most likely precipitated by atrial fibrillation. Continue to monitor. Symptomatically improved. - Time Time with patient: 15-25 minutes - CODE STATUS was discussed, patient remains full code. Surrogate decision-maker unchanged. Multiple medical problems were addressed. More than 50% of the time spent coordinating care, discussing management plans with involved caregivers. Management plans discussed with involved personnels. Medical decision making was of moderate to high complexity , patient's has multiple comorbidities. Medications reviewed and adjusted accordingly: Yes
--- NOTE | 2017-03-15 11:54 | PDOC PROGRESS REPORT ---
Subjective Progress Note for:: 03/15/17 Subjective:: Patient seems to be doing better with gradual improvement. Pt is denying any chest arm or neck discomfort. Patient denying any PND, orthopnea. Patient denied any sustained palpitations, dizziness, syncope, near syncope. Patient denying any fever chills. Patient denying any other significant discomfort. Patient describes some burning sensation in the left flank area. Patient is maintaining sinus rhythm. Review of systems: Rest review of systems negative. Medications: Medications have been reviewed. Physical Exam Vital Signs: Temp Pulse Resp BP Pulse Ox 98.1 F 95 20 167/86 H 100 03/15/17 08:00 03/15/17 08:00 03/15/17 08:00 03/15/17 08:00 03/15/17 08:00 Intake & Output 03/14/17 03/15/17 03/16/17 06:59 06:59 06:59 Intake Total 738 1297 Output Total 1256 600 Balance -518 697 Weight 46.3 kg 46.7 kg Exam: GENERAL: Thin built and in no acute distress. Alert and oriented x3 HEAD: Atraumatic, normocephalic. EYES: Pupils equal round and reactive to light, extraocular movements intact, sclera anicteric, conjunctiva are normal. ENT: TMs normal, nares patent, oropharynx clear without exudates. Moist mucous membranes. No oral ulcerations or bleeding gums noted NECK: supple without lymphadenopathy. Trachea is central. No cervical or axillary lymphadenopathy noted. Carotids are 2+, JVD WNL LUNGS: Respiration seems nonlabored, no significant accessory muscle action noted. Breath sounds clear to auscultation bilaterally and equal noted. No wheezes rales or rhonchi noted. No significant dullness noted on percussion. CHEST: Palpation of the chest wall shows no significant chest wall tenderness. No other significant abnormalities noted. 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 ABDOMEN: Soft, no significant tenderness appreciated, normoactive bowel sounds. No guarding, no rebound. No rigidity noted . No masses appreciated. EXTREMITIES: Pedal pulses are 1-2+, no calf tenderness noted. No clubbing or cyanosis.trace pedal edema noted NEUROLOGICAL: Focused neurological exam showed no significant neurologic deficit. Normal speech, no focal weakness appreciated. PSYCH: Normal mood, normal affect. Judgment and insight within normal limits. SKIN: No significant ecchymosis, rash, ulcerations or signs of pruritus noted. MUSCULOSKELETAL EXAM: No significant joint swelling noted. Results Laboratory Results: 03/15/17 04:29 03/15/17 04:29 03/15/17 03/15/17 04:29 04:29 WBC 6.0 RBC 3.42 L Hgb 10.3 L Hct 31.4 L MCV 92 MCH 30.2 MCHC 32.9 RDW 14.3 H Plt Count 213 Seg Neutrophils % 74.4 Lymphocytes % 12.0 L Monocytes % 9.4 Eosinophils % 3.2 Basophils % 1.0 Absolute Neutrophils 4.5 Absolute Lymphocytes 0.7 Absolute Monocytes 0.6 Absolute Eosinophils 0.2 Absolute Basophils 0.1 Sodium 136.4 L Potassium 4.2 Chloride 102 Carbon Dioxide 24 Anion Gap 10 BUN 23 H Creatinine 1.91 H Est GFR ( Amer) 30 L Est GFR (Non-Af Amer) 25 L Glucose 92 Calcium 10.2 Magnesium 1.4 L 03/13/17 03/13/17 03/13/17 17:04 17:04 17:04 Creatine Kinase 95 CK-MB (CK-2) 0.72 Troponin I 0.021 NT-Pro-B Natriuret Pep 1560 H 03/13/17 03/13/17 03/14/17 22:38 22:38 04:43 Creatine Kinase 98 83 CK-MB (CK-2) 0.83 Troponin I 0.026 NT-Pro-B Natriuret Pep 03/14/17 04:43 Creatine Kinase CK-MB (CK-2) 0.55 Troponin I 0.024 NT-Pro-B Natriuret Pep EKG Comments: Shows sinus rhythm with intermittent sinus tachycardia Impressions: Head CT 03/13/17 00:00 IMPRESSION: NO ACUTE INTRACRANIAL PROCESS. NO SIGNIFICANT CHANGE FROM PRIOR STUDY PER Chest X-Ray 03/13/17 12:08 IMPRESSION: No acute infiltrates or pulmonary edema. No pleural effusion. Stable mild cardiomegaly Assessment & Plan - Diagnosis (1) Paroxysmal atrial fibrillation Is this a current diagnosis for this admission?: Yes (2) Chronic kidney disease (CKD) Qualifiers: Chronic kidney disease stage: stage 3 (moderate) Qualified Code(s): N18.3 - Chronic kidney disease, stage 3 (moderate) Is this a current diagnosis for this admission?: Yes (3) Hypertension Qualifiers: Hypertension type: essential hypertension Qualified Code(s): I10 - Essential (primary) hypertension Is this a current diagnosis for this admission?: Yes (4) Congestive heart failure Qualifiers: Congestive heart failure type: unspecified congestive heart failure type Congestive heart failure chronicity: acute on chronic Qualified Code(s): I50.9 - Heart failure, unspecified Is this a current diagnosis for this admission?: Yes - Notes Notes: Paroxysmal atrial fibrillation: Currently on amiodarone 200 p.o. twice daily. May consider lowering the dose to 100 milligrams twice daily. Patient told the nurse that there were some vague side effects to amiodarone, this may need to be evaluated further. Other option in view of renal dysfunction is to switch patient to Multaq therapy. Chronic kidney disease: Currently is stable. May consider nephrology consultation. Hypertension: Blood pressure was high on presentation, blood pressure has trended high. Toprol-XL increased to 50 p.o. twice daily. CHF: Most likely precipitated by atrial fibrillation. Currently seems euvolemic and controlled. Paresthesia in left flank, patient started on Neurontin by dispatch specialist. - Time Time with patient: Greater than 35 minutes - CODE STATUS was discussed, patient remains full code. Surrogate decision-maker unchanged. Multiple medical problems were addressed. More than 50% of the time spent coordinating care, discussing management plans with involved caregivers. Management plans discussed with involved personnels. Medical decision making was of moderate to high complexity, patient's has multiple comorbidities. Medications reviewed and adjusted accordingly: Yes
[2017-03-15] MEDS ORDERED: (PENDING PHARMACY ID) (Tramadol Hcl/Acetaminophen [Tramadol-Acetaminophn 37.5-325] 1 EACH) PO PRN (12:19)
[2017-03-15] MEDS ORDERED: DOXYCYCLINE HYCLATE 100 MG TABLET PO ONE (14:00)
[2017-03-15] MEDS: GABAPENTIN 300 MG CAPSULE PO SCH ×2 (14:14→22:24)
[2017-03-15] MEDS: HYDRALAZINE HCL 25 MG TABLET PO SCH ×2 (14:15→22:26)
[2017-03-15] MEDS: SODIUM BICARBONATE 650 MG TABLET PO SCH ×2 (14:19→22:27)
[2017-03-15] MEDS ORDERED: MEGESTROL ACETATE 20 MG TABLET PO SCH (18:00)
[2017-03-15] MEDS: CEFTRIAXONE 1 GM/D5W RTU 1 GM/50 ML RTUPB IV SCH (18:03)
[2017-03-15] MEDS ORDERED: (PENDING PHARMACY ID) (Doxycycline Hyclate [Vibramycin] 100 MG) PO SCH (22:00)
[2017-03-15] MEDS: APIXABAN 2.5 MG TABLET PO SCH (22:28)
[2017-03-15] MEDS: DOXYCYCLINE HYCLATE 100 MG TABLET PO SCH (22:29)
[2017-03-16] MEDS ORDERED: NORMAL SALINE 500 ML IV ONE (00:30)
--- NOTE | 2017-03-16 01:04 | RADIOLOGY REPORT (SQ) ---
EXAM DESCRIPTION: CT HEAD WITHOUT COMPLETED DATE/TIME: 03/16/2017 12:50 am REASON FOR STUDY: Change in Mental Status COMPARISON: CT brain 03/13/2017, 03/01/2017, MRI head 02/18/2017. TECHNIQUE: Axial images acquired through the brain without intravenous contrast. Images reviewed wi th bone, brain and subdural windows. Images stored on PACS. All CT scanners at this facility use dose modulation, iterative reconstruction, and/or weight based d osing when appropriate to reduce radiation dose to as low as reasonably achievable (ALARA). [facility]: Dose Right [facility]: CareDose [facility]: Dose Right [facility]: Teradose 4D [facility]: Smart Fantrotter RADIATION DOSE: Up-to-date CT equipment and radiation dose reduction techniques were employed. CTDIv ol: 64.6 mGy. DLP: 1163 mGy-cm.mGy. LIMITATIONS: None. FINDINGS: VENTRICLES: Prominent. CEREBRUM: No mass effect. No hemorrhage. No midline shift. Areas of low density in the white matte r most likely due to chronic micro-vascular ischemic change. No evidence for acute territorial infar ction. CEREBELLUM: No hemorrhage. No alteration of density. No evidence for acute infarction. EXTRAAXIAL SPACES: Age-related involutional change. No fluid collections. ORBITS AND GLOBE: Symmetrical contour of the globes. CALVARIUM: No depressed fracture. PARANASAL SINUSES: No air-fluid level. SOFT TISSUES: No hematoma. IMPRESSION: No acute intracranial hemorrhage or acute territorial infarct. Chronic changes of atrop hy and microvascular ischemia. TECHNICAL DOCUMENTATION: JOB ID: [id number] [facility] Quality ID # [id number]: Final reports with documentation of one or more dose reduction techniques (e.g., Au tomated exposure control, adjustment of the mA and/or kV according to patient size, use of iterative reconstruction technique) 2010 [employer] ([employer])- All Rights Reserved
[2017-03-16 05:01] LABS: ABSOLUTE BASOPHILS # (AUTO) 0.1 10^3/uL (0.0-0.2); ABSOLUTE EOSINOPHILS # (AUTO) 0.1 10^3/uL (0.0-0.6); ABSOLUTE LYMPHOCYTES (AUTO) 0.6 10^3/uL (0.5-4.7); ABSOLUTE MONOCYTES (AUTO) 0.7 10^3/uL (0.1-1.4); BASOPHILS % (AUTO) 0.8 % (0-2); EOSINOPHILS % (AUTO) 0.8 % (0-6); HEMATOCRIT 31.3 % (36.0-47.0); HEMOGLOBIN 10.3 g/dL (12.0-15.5); HGB HCT DIFFERENCE -0.4; LYMPHOCYTES % (AUTO) 7.2 % (13-45); MEAN CORPUSCULAR HEMOGLOBIN 30.3 pg (27.0-33.4); MEAN CORPUSCULAR HGB CONC 32.9 g/dL (32.0-36.0); MEAN CORPUSCULAR VOLUME 92 fl (80-97); MONOCYTES % (AUTO) 8.5 % (3-13); RED BLOOD COUNT 3.41 10^6/uL (3.72-5.28); RED CELL DISTRIBUTION WIDTH 14.4 % (11.5-14.0); SEGMENTED NEUTROPHILS % (AUTO) 82.7 % (42-78); WHITE BLOOD COUNT 8.5 10^3/uL (4.0-10.5)
[2017-03-16 05:20] LABS: ANION GAP 9 (5-19); BLOOD UREA NITROGEN 27 mg/dL (7-20); CALCIUM 9.7 mg/dL (8.4-10.2); CARBON DIOXIDE 24 mmol/L (22-30); CHLORIDE 101 mmol/L (98-107); CREATININE RESULT 2.01 mg/dL (0.52-1.25); GLUCOSE 94 mg/dL (75-110); MAGNESIUM 1.3 mg/dL (1.6-2.3); SODIUM 134.1 mmol/L (137-145)
[2017-03-16] MEDS: SODIUM BICARBONATE 650 MG TABLET PO SCH ×3 (05:46→21:06)
[2017-03-16] MEDS: GABAPENTIN 300 MG CAPSULE PO SCH ×3 (06:12→21:06)
[2017-03-16] MEDS: HYDRALAZINE HCL 25 MG TABLET PO SCH (06:13)
[2017-03-16] MEDS: FERROUS SULFATE 325 MG TABLET PO SCH (09:20)
[2017-03-16] MEDS: DOXYCYCLINE HYCLATE 100 MG TABLET PO SCH ×2 (09:20→21:06)
[2017-03-16] MEDS: METOPROLOL SUCCINATE 25 MG TAB.SR.24H PO SCH ×2 (09:20→21:05)
[2017-03-16] MEDS: APIXABAN 2.5 MG TABLET PO SCH ×2 (09:21→21:07)
[2017-03-16] MEDS: MAGNESIUM SULFATE/D5W 1 GM/100 ML RTUPB IV SCH ×2 (09:22→10:30)
[2017-03-16] MEDS: AMIODARONE HCL 200 MG TABLET PO SCH (09:25)
--- NOTE | 2017-03-16 09:42 | PDOC PROGRESS REPORT ---
Subjective Progress Note for:: 03/16/17 Subjective:: pt was diaphrotic last night and bp was low and ct head was done and was neg for any acute events pt denied any chest pain no sob Physical Exam Vital Signs: Temp Pulse Resp BP Pulse Ox 99.0 F 83 20 138/73 H 98 03/16/17 03:34 03/16/17 03:34 03/16/17 03:34 03/16/17 03:34 03/16/17 03:34 Intake & Output 03/15/17 03/16/17 03/17/17 06:59 06:59 06:59 Intake Total 1297 1088 Output Total 600 500 Balance 697 588 Weight 46.7 kg 47.9 kg General appearance: PRESENT: no acute distress, well-developed, well-nourished Head exam: PRESENT: atraumatic, normocephalic Eye exam: PRESENT: conjunctiva pink, EOMI, PERRLA. ABSENT: scleral icterus Ear exam: PRESENT: normal external ear exam Mouth exam: PRESENT: moist, tongue midline Neck exam: PRESENT: full ROM. ABSENT: carotid bruit, JVD, lymphadenopathy, thyromegaly Cardiovascular exam: PRESENT: RRR. ABSENT: diastolic murmur, rubs, systolic murmur Pulses: PRESENT: normal dorsalis pedis pul, +2 pedal pulses bilateral Vascular exam: PRESENT: normal capillary refill GI/Abdominal exam: PRESENT: normal bowel sounds, soft. ABSENT: distended, guarding, mass, organolmegaly, rebound, tenderness Rectal exam: PRESENT: deferred Neurological exam: PRESENT: alert, awake, oriented to person, oriented to place , oriented to time, oriented to situation, CN II-XII grossly intact. ABSENT: motor sensory deficit Psychiatric exam: PRESENT: appropriate affect, normal mood. ABSENT: homicidal ideation, suicidal ideation Skin exam: PRESENT: dry, intact, warm. ABSENT: cyanosis, rash Results Laboratory Results: 03/16/17 04:39 03/16/17 04:39 03/16/17 03/16/17 04:39 04:39 WBC 8.5 RBC 3.41 L Hgb 10.3 L Hct 31.3 L MCV 92 MCH 30.3 MCHC 32.9 RDW 14.4 H Plt Count 204 Seg Neutrophils % 82.7 H Lymphocytes % 7.2 L Monocytes % 8.5 Eosinophils % 0.8 Basophils % 0.8 Absolute Neutrophils 7.0 Absolute Lymphocytes 0.6 Absolute Monocytes 0.7 Absolute Eosinophils 0.1 Absolute Basophils 0.1 Sodium 134.1 L Potassium 4.0 Chloride 101 Carbon Dioxide 24 Anion Gap 9 BUN 27 H Creatinine 2.01 H Est GFR ( Amer) 29 L Est GFR (Non-Af Amer) 24 L Glucose 94 Calcium 9.7 Magnesium 1.3 L 03/13/17 03/13/17 03/13/17 17:04 17:04 17:04 Creatine Kinase 95 CK-MB (CK-2) 0.72 Troponin I 0.021 NT-Pro-B Natriuret Pep 1560 H 03/13/17 03/13/17 03/14/17 22:38 22:38 04:43 Creatine Kinase 98 83 CK-MB (CK-2) 0.83 Troponin I 0.026 NT-Pro-B Natriuret Pep 03/14/17 04:43 Creatine Kinase CK-MB (CK-2) 0.55 Troponin I 0.024 NT-Pro-B Natriuret Pep Impressions: Chest X-Ray 03/13/17 12:08 IMPRESSION: No acute infiltrates or pulmonary edema. No pleural effusion. Stable mild cardiomegaly Head CT 03/16/17 00:00 IMPRESSION: No acute intracranial hemorrhage or acute territorial infarct. Chronic changes of atrophy and microvascular ischemia. Assessment & Plan - Diagnosis (1) Chronic atrial fibrillation with RVR Is this a current diagnosis for this admission?: Yes Plan: cont curr med (2) Chronic kidney disease, stage 3 Plan: Currently stable (3) Hypertension Qualifiers: Hypertension type: essential hypertension Qualified Code(s): I10 - Essential (primary) hypertension Is this a current diagnosis for this admission?: Yes Plan: Patient is very noncompliance while the patient in the hospital patient's blood pressure is always under well control and the patient's go home patient's blood pressures go up I think patients need a high school social studies teacher needs to be worked out about the home situations were consult the mission planner (4) Noncompliance with medication regimen Is this a current diagnosis for this admission?: Yes Plan: Discussed with the son about the compliance of the medications (5) Weakness Is this a current diagnosis for this admission?: Yes - Time Time Spent with patient: 15-24 minutes Medications reviewed and adjusted accordingly: Yes Anticipated discharge: Home - Inpatient Certification Medical Necessity: Need Close Monitoring Due to Risk of Patient Decompensation Post Hospital Care: D/C Receiver Bulk System Documentation - Plan Summary Plan Summary: cont f/u with cardilogy
[2017-03-16] MEDS ORDERED: BIOTIN PO SCH (10:00)
[2017-03-16] MEDS ORDERED: VIT B CMPLX PO SCH (10:00)
[2017-03-16] MEDS ORDERED: [UNRECOGNIZED DRUG - OTHER] PO SCH (10:00)
--- NOTE | 2017-03-16 13:03 | PDOC PROGRESS REPORT ---
Subjective Progress Note for:: 03/16/17 Subjective:: No significant change in patient's condition. Patient was noted to be somewhat hypotensive and diaphoretic last night. Patient's medications has been adjusted. Has been placed on hold. Hydralazine with discontinued. Patient is maintaining sinus rhythm. Review of systems: Rest review of systems negative. Medications: Medications have been reviewed. Physical Exam Vital Signs: Temp Pulse Resp BP Pulse Ox 98.8 F 74 19 124/67 100 03/16/17 11:46 03/16/17 11:46 03/16/17 11:46 03/16/17 11:46 03/16/17 11:46 Intake & Output 03/15/17 03/16/17 03/17/17 06:59 06:59 06:59 Intake Total 1297 1088 Output Total 600 500 Balance 697 588 Weight 46.7 kg 47.9 kg Exam: GENERAL: Thin built and in no acute distress. Alert and oriented x3 HEAD: Atraumatic, normocephalic. EYES: Pupils equal round and reactive to light, extraocular movements intact, sclera anicteric, conjunctiva are normal. ENT: TMs normal, nares patent, oropharynx clear without exudates. Moist mucous membranes. No oral ulcerations or bleeding gums noted NECK: supple without lymphadenopathy. Trachea is central. No cervical or axillary lymphadenopathy noted. Carotids are 2+, JVD WNL LUNGS: Respiration seems nonlabored, no significant accessory muscle action noted. Breath sounds clear to auscultation bilaterally and equal noted. No wheezes rales or rhonchi noted. No significant dullness noted on percussion. CHEST: Palpation of the chest wall shows no significant chest wall tenderness. No other significant abnormalities noted. HEART: [place] [employer]ER, No PSH, 1/6 JAISON aortic area, 1/6 eric systolic murmur mitral area, no rubs, no gallops. ABDOMEN: Soft, no significant tenderness appreciated, normoactive bowel sounds. No guarding, no rebound. No rigidity noted . No masses appreciated. EXTREMITIES: Pedal pulses are 1-2+, no calf tenderness noted. No clubbing or cyanosis.trace pedal edema noted NEUROLOGICAL: Focused neurological exam showed no significant neurologic deficit. Normal speech, no focal weakness appreciated. PSYCH: Normal mood, normal affect. Judgment and insight within normal limits. SKIN: No significant ecchymosis, rash, ulcerations or signs of pruritus noted. MUSCULOSKELETAL EXAM: No significant joint swelling noted. Results Laboratory Results: 03/16/17 04:39 03/16/17 04:39 03/16/17 03/16/17 04:39 04:39 WBC 8.5 RBC 3.41 L Hgb 10.3 L Hct 31.3 L MCV 92 MCH 30.3 MCHC 32.9 RDW 14.4 H Plt Count 204 Seg Neutrophils % 82.7 H Lymphocytes % 7.2 L Monocytes % 8.5 Eosinophils % 0.8 Basophils % 0.8 Absolute Neutrophils 7.0 Absolute Lymphocytes 0.6 Absolute Monocytes 0.7 Absolute Eosinophils 0.1 Absolute Basophils 0.1 Sodium 134.1 L Potassium 4.0 Chloride 101 Carbon Dioxide 24 Anion Gap 9 BUN 27 H Creatinine 2.01 H Est GFR ( Amer) 29 L Est GFR (Non-Af Amer) 24 L Glucose 94 Calcium 9.7 Magnesium 1.3 L 03/13/17 03/13/17 03/13/17 17:04 17:04 17:04 Creatine Kinase 95 CK-MB (CK-2) 0.72 Troponin I 0.021 NT-Pro-B Natriuret Pep 1560 H 03/13/17 03/13/17 03/14/17 22:38 22:38 04:43 Creatine Kinase 98 83 CK-MB (CK-2) 0.83 Troponin I 0.026 NT-Pro-B Natriuret Pep 03/14/17 04:43 Creatine Kinase CK-MB (CK-2) 0.55 Troponin I 0.024 NT-Pro-B Natriuret Pep EKG Comments: Telemetry strips shows sinus rhythm. Impressions: Chest X-Ray 03/13/17 12:08 IMPRESSION: No acute infiltrates or pulmonary edema. No pleural effusion. Stable mild cardiomegaly Head CT 03/16/17 00:00 IMPRESSION: No acute intracranial hemorrhage or acute territorial infarct. Chronic changes of atrophy and microvascular ischemia. Assessment & Plan - Diagnosis (1) Paroxysmal atrial fibrillation Is this a current diagnosis for this admission?: Yes (2) Chronic kidney disease (CKD) Qualifiers: Chronic kidney disease stage: stage 3 (moderate) Qualified Code(s): N18.3 - Chronic kidney disease, stage 3 (moderate) Is this a current diagnosis for this admission?: Yes (3) Hypertension Qualifiers: Hypertension type: essential hypertension Qualified Code(s): I10 - Essential (primary) hypertension Is this a current diagnosis for this admission?: Yes (4) Congestive heart failure Qualifiers: Congestive heart failure type: unspecified congestive heart failure type Congestive heart failure chronicity: acute on chronic Qualified Code(s): I50.9 - Heart failure, unspecified Is this a current diagnosis for this admission?: Yes - Notes Notes: Paroxysmal atrial fibrillation: Currently off amiodarone because of perceived side effects by the patient. Continue with Toprol-XL and chronic anticoagulation. Chronic kidney disease: Currently is stable. May consider nephrology consultation. Hypertension: Blood pressure noted to be low yesterday, hydralazine was stopped. Toprol-XL increased to 50 p.o. twice daily. CHF: Most likely precipitated by atrial fibrillation. Currently seems euvolemic and controlled. Paresthesia in left flank, patient started on Neurontin by oil filters inspector yesterday and today patient did not complain of. - Time Time with patient: 15-25 minutes - CODE STATUS was discussed, patient remains full code. Surrogate decision-maker unchanged. Multiple medical problems were addressed. More than 50% of the time spent coordinating care, discussing management plans with involved caregivers. Management plans discussed with involved personnels. Medical decision making was of moderate to high complexity , patient's has multiple comorbidities. Patient reasonably stable from cardiac standpoint. After discussion with Dr. Lorenzana, will sign off. Please reconsult if needed. Medications reviewed and adjusted accordingly: Yes
[2017-03-16] MEDS: CEFTRIAXONE 1 GM/D5W RTU 1 GM/50 ML RTUPB IV SCH (18:09)
[2017-03-17 05:29] LABS: ABSOLUTE EOSINOPHILS # (AUTO) 0.2 10^3/uL (0.0-0.6); ABSOLUTE MONOCYTES (AUTO) 0.8 10^3/uL (0.1-1.4); ABSOLUTE NEUT (AUTO) 4.9 10^3/uL (1.7-8.2); BASOPHILS % (AUTO) 0.6 % (0-2); EOSINOPHILS % (AUTO) 2.9 % (0-6); HEMATOCRIT 28.4 % (36.0-47.0); HEMOGLOBIN 9.5 g/dL (12.0-15.5); HGB HCT DIFFERENCE 0.1; LYMPHOCYTES % (AUTO) 13.8 % (13-45); MEAN CORPUSCULAR HEMOGLOBIN 30.8 pg (27.0-33.4); MEAN CORPUSCULAR HGB CONC 33.6 g/dL (32.0-36.0); MEAN CORPUSCULAR VOLUME 92 fl (80-97); MONOCYTES % (AUTO) 11.2 % (3-13); RED CELL DISTRIBUTION WIDTH 14.4 % (11.5-14.0); SEGMENTED NEUTROPHILS % (AUTO) 71.5 % (42-78); WHITE BLOOD COUNT 6.9 10^3/uL (4.0-10.5)
[2017-03-17 05:58] LABS: ANION GAP 9 (5-19); BLOOD UREA NITROGEN 28 mg/dL (7-20); CALCIUM 9.7 mg/dL (8.4-10.2); CARBON DIOXIDE 23 mmol/L (22-30); CHLORIDE 103 mmol/L (98-107); GLUCOSE 88 mg/dL (75-110); POTASSIUM 4.4 mmol/L (3.6-5.0); SODIUM 135.1 mmol/L (137-145)
[2017-03-17] MEDS: GABAPENTIN 300 MG CAPSULE PO SCH ×3 (06:00→21:06)
[2017-03-17] MEDS: ACETAMINOPHEN 325 MG TABLET PO PRN ×3 (06:03→18:21)
[2017-03-17] MEDS: SODIUM BICARBONATE 650 MG TABLET PO SCH ×3 (06:03→21:07)
--- NOTE | 2017-03-17 08:37 | EKG REPORT ---
SEVERITY:- ABNORMAL ECG - SINUS RHYTHM LEFT VENTRICULAR HYPERTROPHY : Confirmed by: Taylor Landaverde 17-Mar-2017 08:36:45
[2017-03-17] MEDS: DOXYCYCLINE HYCLATE 100 MG TABLET PO SCH (09:35)
[2017-03-17] MEDS: APIXABAN 2.5 MG TABLET PO SCH ×2 (09:35→21:06)
[2017-03-17] MEDS: FERROUS SULFATE 325 MG TABLET PO SCH (09:35)
[2017-03-17] MEDS: METOPROLOL SUCCINATE 25 MG TAB.SR.24H PO SCH ×2 (09:36→21:08)
--- NOTE | 2017-03-17 12:46 | PDOC PROGRESS REPORT ---
Subjective Progress Note for:: 03/17/17 Subjective:: Patient is currently doing well. Patient's denied any chest pain denied any shortness of the breath.Patient's blood pressures under well control and a heart rate is also under control Physical Exam Vital Signs: Temp Pulse Resp BP Pulse Ox 98.3 F 73 16 139/61 H 99 03/17/17 07:26 03/17/17 07:26 03/17/17 07:26 03/17/17 07:26 03/17/17 07:26 Intake & Output 03/16/17 03/17/17 03/18/17 06:59 06:59 06:59 Intake Total 1088 1523 Output Total 500 600 Balance 588 923 Weight 47.9 kg 47.4 kg General appearance: PRESENT: no acute distress, well-developed, well-nourished Head exam: PRESENT: atraumatic, normocephalic Eye exam: PRESENT: conjunctiva pink, EOMI, PERRLA. ABSENT: scleral icterus Ear exam: PRESENT: normal external ear exam Mouth exam: PRESENT: moist, tongue midline Neck exam: PRESENT: full ROM. ABSENT: carotid bruit, JVD, lymphadenopathy, thyromegaly Respiratory exam: PRESENT: clear to auscultation alexandro Cardiovascular exam: PRESENT: RRR. ABSENT: diastolic murmur, rubs, systolic murmur Pulses: PRESENT: normal dorsalis pedis pul, +2 pedal pulses bilateral Vascular exam: PRESENT: normal capillary refill GI/Abdominal exam: PRESENT: normal bowel sounds, soft. ABSENT: distended, guarding, mass, organolmegaly, rebound, tenderness Rectal exam: PRESENT: deferred Neurological exam: PRESENT: alert, awake, oriented to person, oriented to place , oriented to time, oriented to situation, CN II-XII grossly intact. ABSENT: motor sensory deficit Psychiatric exam: PRESENT: appropriate affect, normal mood. ABSENT: homicidal ideation, suicidal ideation Skin exam: PRESENT: dry, intact, warm. ABSENT: cyanosis, rash Results Laboratory Results: 03/17/17 04:45 03/17/17 04:45 03/17/17 03/17/17 04:45 04:45 WBC 6.9 RBC 3.10 L Hgb 9.5 L Hct 28.4 L MCV 92 MCH 30.8 MCHC 33.6 RDW 14.4 H Plt Count 214 Seg Neutrophils % 71.5 Lymphocytes % 13.8 Monocytes % 11.2 Eosinophils % 2.9 Basophils % 0.6 Absolute Neutrophils 4.9 Absolute Lymphocytes 1.0 Absolute Monocytes 0.8 Absolute Eosinophils 0.2 Absolute Basophils 0.0 Sodium 135.1 L Potassium 4.4 Chloride 103 Carbon Dioxide 23 Anion Gap 9 BUN 28 H Creatinine 2.00 H Est GFR ( Amer) 29 L Est GFR (Non-Af Amer) 24 L Glucose 88 Calcium 9.7 03/13/17 03/13/17 03/13/17 17:04 17:04 17:04 Creatine Kinase 95 CK-MB (CK-2) 0.72 Troponin I 0.021 NT-Pro-B Natriuret Pep 1560 H 03/13/17 03/13/17 03/14/17 22:38 22:38 04:43 Creatine Kinase 98 83 CK-MB (CK-2) 0.83 Troponin I 0.026 NT-Pro-B Natriuret Pep 03/14/17 04:43 Creatine Kinase CK-MB (CK-2) 0.55 Troponin I 0.024 NT-Pro-B Natriuret Pep Impressions: Chest X-Ray 03/13/17 12:08 IMPRESSION: No acute infiltrates or pulmonary edema. No pleural effusion. Stable mild cardiomegaly Head CT 03/16/17 00:00 IMPRESSION: No acute intracranial hemorrhage or acute territorial infarct. Chronic changes of atrophy and microvascular ischemia. Assessment & Plan - Diagnosis (1) Chronic atrial fibrillation with RVR Is this a current diagnosis for this admission?: Yes Plan: Currently all stable with the beta-breanna and currently on Eliquis (2) Chronic kidney disease, stage 3 Plan: Currently stable (3) Hypertension Qualifiers: Hypertension type: essential hypertension Qualified Code(s): I10 - Essential (primary) hypertension Is this a current diagnosis for this admission?: Yes Plan: Currently well under control (4) Noncompliance with medication regimen Is this a current diagnosis for this admission?: Yes Plan: Discussed with the son about the compliance of the medications (5) Weakness Is this a current diagnosis for this admission?: Yes - Time Time Spent with patient: 15-24 minutes Medications reviewed and adjusted accordingly: Yes Anticipated discharge: Home Within: within 24 hours - Inpatient Certification Medical Necessity: Need Close Monitoring Due to Risk of Patient Decompensation Post Hospital Care: D/C Group Art Supervisor Documentation - Plan Summary Plan Summary: Patient is currently doing well if he remained stable for next 24 hours patient will be discharged
[2017-03-17] MEDS: TRAMADOL HCL 50 MG TABLET PO PRN (21:07)
[2017-03-18] MEDS: GABAPENTIN 300 MG CAPSULE PO SCH ×3 (05:11→21:18)
[2017-03-18] MEDS: SODIUM BICARBONATE 650 MG TABLET PO SCH ×3 (05:11→21:17)
[2017-03-18 05:52] LABS: ANION GAP 9 (5-19); BLOOD UREA NITROGEN 35 mg/dL (7-20); CARBON DIOXIDE 22 mmol/L (22-30); CHLORIDE 103 mmol/L (98-107); CREATININE RESULT 1.85 mg/dL (0.52-1.25); GLUCOSE 82 mg/dL (75-110); POTASSIUM 4.5 mmol/L (3.6-5.0); SODIUM 134.2 mmol/L (137-145)
[2017-03-18] MEDS: APIXABAN 2.5 MG TABLET PO SCH ×2 (09:38→21:18)
[2017-03-18] MEDS: FERROUS SULFATE 325 MG TABLET PO SCH (09:39)
[2017-03-18] MEDS: METOPROLOL SUCCINATE 25 MG TAB.SR.24H PO SCH ×2 (09:39→21:17)
--- NOTE | 2017-03-18 13:09 | PDOC PROGRESS REPORT ---
Subjective Progress Note for:: 03/18/17 Subjective:: Patient is currently doing well denied any chest pain denied any shortness of the breath patient heart rate under well control Physical Exam Vital Signs: Temp Pulse Resp BP Pulse Ox 98.5 F 67 19 136/80 H 100 03/18/17 11:32 03/18/17 11:32 03/18/17 11:32 03/18/17 11:32 03/18/17 11:32 Intake & Output 03/17/17 03/18/17 03/19/17 06:59 06:59 06:59 Intake Total 1523 707 200 Output Total 600 750 Balance 923 -43 200 Weight 47.4 kg 47 kg General appearance: PRESENT: no acute distress, well-developed, well-nourished Head exam: PRESENT: atraumatic, normocephalic Eye exam: PRESENT: conjunctiva pink, EOMI, PERRLA. ABSENT: scleral icterus Ear exam: PRESENT: normal external ear exam Mouth exam: PRESENT: moist, tongue midline Neck exam: PRESENT: full ROM. ABSENT: carotid bruit, JVD, lymphadenopathy, thyromegaly Respiratory exam: PRESENT: clear to auscultation alexandro Cardiovascular exam: PRESENT: RRR. ABSENT: diastolic murmur, rubs, systolic murmur Pulses: PRESENT: normal dorsalis pedis pul, +2 pedal pulses bilateral Vascular exam: PRESENT: normal capillary refill GI/Abdominal exam: PRESENT: normal bowel sounds, soft. ABSENT: distended, guarding, mass, organolmegaly, rebound, tenderness Rectal exam: PRESENT: deferred Neurological exam: PRESENT: alert, awake, oriented to person, oriented to place , oriented to time, oriented to situation, CN II-XII grossly intact. ABSENT: motor sensory deficit Psychiatric exam: PRESENT: appropriate affect, normal mood. ABSENT: homicidal ideation, suicidal ideation Skin exam: PRESENT: dry, intact, warm. ABSENT: cyanosis, rash Results Laboratory Results: 03/17/17 04:45 03/18/17 05:00 03/18/17 05:00 Sodium 134.2 L Potassium 4.5 Chloride 103 Carbon Dioxide 22 Anion Gap 9 BUN 35 H Creatinine 1.85 H Est GFR ( Amer) 32 L Est GFR (Non-Af Amer) 26 L Glucose 82 Calcium 10.0 03/13/17 03/13/1703/13/17 17:04 17:04 17:04 Creatine Kinase 95 CK-MB (CK-2) 0.72 Troponin I 0.021 NT-Pro-B Natriuret Pep 1560 H 03/13/17 03/13/17 03/14/17 22:38 22:38 04:43 Creatine Kinase 98 83 CK-MB (CK-2) 0.83 Troponin I 0.026 NT-Pro-B Natriuret Pep 03/14/17 04:43 Creatine Kinase CK-MB (CK-2) 0.55 Troponin I 0.024 NT-Pro-B Natriuret Pep Impressions: Chest X-Ray 03/13/17 12:08 IMPRESSION: No acute infiltrates or pulmonary edema. No pleural effusion. Stable mild cardiomegaly Head CT 03/16/17 00:00 IMPRESSION: No acute intracranial hemorrhage or acute territorial infarct. Chronic changes of atrophy and microvascular ischemia. Assessment & Plan - Diagnosis (1) Chronic atrial fibrillation with RVR Is this a current diagnosis for this admission?: Yes Plan: Currently all stable with the beta-breanna and currently on Eliquis (2) Chronic kidney disease, stage 3 Plan: Currently stable (3) Hypertension Qualifiers: Hypertension type: essential hypertension Qualified Code(s): I10 - Essential (primary) hypertension Is this a current diagnosis for this admission?: Yes Plan: Currently well under control (4) Noncompliance with medication regimen Is this a current diagnosis for this admission?: Yes Plan: Discussed with the son about the compliance of the medications (5) Weakness Is this a current diagnosis for this admission?: Yes - Time Time Spent with patient: 15-24 minutes Medications reviewed and adjusted accordingly: Yes Anticipated discharge: Home Within: within 24 hours - Inpatient Certification Medical Necessity: Need Close Monitoring Due to Risk of Patient Decompensation Post Hospital Care: D/C Research Laboratory Specialist Documentation - Plan Summary Plan Summary: Continues current medication
[2017-03-18] MEDS: TRAMADOL HCL 50 MG TABLET PO PRN (23:51)
[2017-03-19] MEDS: GABAPENTIN 300 MG CAPSULE PO SCH ×2 (05:00→13:15)
[2017-03-19] MEDS: SODIUM BICARBONATE 650 MG TABLET PO SCH ×2 (05:00→13:15)
[2017-03-19 05:15] LABS: ANION GAP 12 (5-19); BLOOD UREA NITROGEN 35 mg/dL (7-20); CALCIUM 9.6 mg/dL (8.4-10.2); CARBON DIOXIDE 24 mmol/L (22-30); CHLORIDE 101 mmol/L (98-107); CREATININE RESULT 1.75 mg/dL (0.52-1.25); GLUCOSE 85 mg/dL (75-110); POTASSIUM 4.6 mmol/L (3.6-5.0); SODIUM 136.5 mmol/L (137-145)
[2017-03-19] MEDS: APIXABAN 2.5 MG TABLET PO SCH (09:29)
[2017-03-19] MEDS: METOPROLOL SUCCINATE 25 MG TAB.SR.24H PO SCH (09:29)
[2017-03-19] MEDS: FERROUS SULFATE 325 MG TABLET PO SCH (09:29)
--- NOTE | 2017-03-19 16:25 | PDOC DISCHARGE SUMMARY ---
General - Admit/Disc Date/PCP Admission Date/Primary Care Provider: 03/13/17 16:17 VICTORIANO MATTSON MD Discharge Date: 03/19/17 - Discharge Diagnosis (1) Hypertensive emergency Is this a current diagnosis for this admission?: Yes (2) Neuropathy Is this a current diagnosis for this admission?: Yes (3) Chronic atrial fibrillation Is this a current diagnosis for this admission?: Yes (4) Chronic kidney disease, stage 3 Is this a current diagnosis for this admission?: Yes (5) Urinary tract infection Is this a current diagnosis for this admission?: Yes - Additional Information Resuscitation Status: Full Code Discharge Diet: As Tolerated, Cardiac Discharge Activity: Activity As Tolerated, Balance Activity w/Rest Home Medications: Apixaban [Eliquis 2.5 mg Tablet] 2.5 mg PO Q12 03/13/17 Megestrol Acetate [Megace 20 mg Tablet] 20 mg PO BID 03/13/17 Vit B Cmplx 3/FA/Vit C/Biotin [Vol-Care Rx Tablet] 1 tab PO DAILY 03/13/17 Ferrous Sulfate [Iron] 325 mg PO DAILY 03/15/17 Doxepin HCl [Silenor] 3 mg PO QHS #30 tablet 03/19/17 Gabapentin 300 mg PO Q8 #90 capsule 03/19/17 Hydralazine HCl [Apresoline 25 mg Tablet] 75 mg PO Q8 #90 tablet 03/19/17 Metoprolol Succinate [Toprol Xl] 100 mg PO DAILY #90 tab.sr.24h 03/19/17 Sodium Bicarbonate [Sodium Bicarbonate 650 mg Tablet] 650 mg PO Q8 #90 tablet History of Present Illness History of Present Illness: LOU CLEMENTE is a 81 year old female, she presented to the emergency room for evaluation of uncontrolled hypertension, unspecified burning sensation of the left flank and concern for urinary tract infection. Hospital Course Hospital Course: Patient was admitted into the hospital for the management of hypertensive emergency, urinary tract infection and unspecified neuropathy affecting the left flank of the abdomen. She was empirically treated with IV antibiotic Rocephin for UTI, she also had p.o. medication for the control blood pressure, part of the problem for the elevated blood pressure is the fact that patient is not compliant with her medication. She usually will stop her medication for the control blood pressure whenever she experiences any symptom, she tends to attribute as symptom to the medication that she uses for the control blood pressure. When she was admitted the systolic blood pressure was over 200 and she was symptomatic with a headache and flank pain. The last time she was admitted in the hospital that was for observation at that time she also presented in a similar fashion, this time she was admitted by Dr. Lorenzana. She also complained of insomnia. She has a history of chronic kidney disease stage III she did not tolerate ACEI/ARB because of hyperkalemia, she is presently on beta-breanna metoprolol succinate and also hydralazine. Physical Exam Vital Signs: Temp Pulse Resp BP Pulse Ox 98.8 F 64 19 162/73 H 100 03/19/17 15:09 03/19/17 15:09 03/19/17 15:09 03/19/17 15:09 03/19/17 15:09 Intake & Output 03/18/17 03/19/17 03/20/17 06:59 06:59 06:59 Intake Total 707 817 237 Output Total 750 750 150 Balance -43 67 87 Weight 47 kg 48.3 kg General appearance: PRESENT: no acute distress Head exam: PRESENT: atraumatic, normocephalic Eye exam: PRESENT: conjunctiva pink, EOMI, PERRLA Neck exam: PRESENT: full ROM Respiratory exam: PRESENT: clear to auscultation alexandro Cardiovascular exam: PRESENT: RRR, +S1, +S2 Pulses: PRESENT: normal dorsalis pedis pul, +2 pedal pulses bilateral Vascular exam: PRESENT: normal capillary refill GI/Abdominal exam: PRESENT: normal bowel sounds, soft Rectal exam: PRESENT: deferred Neurological exam: PRESENT: alert, awake, oriented to person, oriented to place , oriented to time, oriented to situation, CN II-XII grossly intact Psychiatric exam: PRESENT: appropriate affect, normal mood Skin exam: PRESENT: dry, intact, warm Results Laboratory Results: 03/17/17 04:45 03/19/17 04:10 03/19/17 04:10 Sodium 136.5 L Potassium 4.6 Chloride 101 Carbon Dioxide 24 Anion Gap 12 BUN 35 H Creatinine 1.75 H Est GFR ( Amer) 34 L Est GFR (Non-Af Amer) 28 L Glucose 85 Calcium 9.6 03/13/17 03/13/17 03/13/17 17:04 17:04 17:04 Creatine Kinase 95 CK-MB (CK-2) 0.72 Troponin I 0.021 NT-Pro-B Natriuret Pep 1560 H 03/13/17 03/13/17 03/14/17 22:38 22:38 04:43 Creatine Kinase 98 83 CK-MB (CK-2) 0.83 Troponin I 0.026 NT-Pro-B Natriuret Pep 03/14/17 04:43 Creatine Kinase CK-MB (CK-2) 0.55 Troponin I 0.024 NT-Pro-B Natriuret Pep Impressions: Chest X-Ray 03/13/17 12:08 IMPRESSION: No acute infiltrates or pulmonary edema. No pleural effusion. Stable mild cardiomegaly Head CT 03/16/17 00:00 IMPRESSION: No acute intracranial hemorrhage or acute territorial infarct. Chronic changes of atrophy and microvascular ischemia.
[2017-03-19 16:37] VITALS: BP 152/72
== END 2017-03-19 17:08 | disposition home or self-care (01) | DRG 305 ==
LOC: ER 10:02 → EH 16:17 → UNDOADMIN 17:36 → 3W 20:19
PROVIDERS: ADMIT Internal Medicine; ATTEND Internal Medicine
DX: I16.1 Hypertensive emergency (principal); N39.0 Urinary tract infection, site not specified; I13.0 Hypertensive heart and chronic kidney disease with heart failure and stage 1 through stage 4 chronic kidney disease, or unspecified chronic kidney disease; I50.9 Heart failure, unspecified; N18.3 Chronic kidney disease, stage 3 (moderate); I48.2 Chronic atrial fibrillation; E87.5 Hyperkalemia; J44.9 Chronic obstructive pulmonary disease, unspecified; G62.9 Polyneuropathy, unspecified; M19.90 Unspecified osteoarthritis, unspecified site; G47.00 Insomnia, unspecified; Z79.899 Other long term (current) drug therapy; Z79.02 Long term (current) use of antithrombotics/antiplatelets; Z86.718 Personal history of other venous thrombosis and embolism; Z91.14 Patient's other noncompliance with medication regimen
CPT/HCPCS: 36415; 70450; 71010; 71020; 80048; 80053; 81001; 82550; 82553; 82962; 83690; 83735; 83880; 84439; 84443; 84484; 85025; 87040; 87086; 93005; 93010; 93306; 96374; 96376; 99291; G8978-GP; G8979-GP; G8980-GP; J0282; J0696; J3475; J3490; J7060

== ENCOUNTER 2017-03-20 22:29 | Emergency (ER) | payer MEDICARE, MEDICAID ==
--- NOTE | 2017-03-20 22:53 | ER Document Report ---
ED General - General Chief Complaint: left side pain Stated Complaint: LEFT SIDE FEELS HOT Time Seen by Provider: 03/20/17 22:32 TRAVEL OUTSIDE OF THE [place] IN LAST 30 DAYS: No - HPI Similar symptoms previously: Yes Notes: 81-year-old female history of chronic kidney disease, neuropathy per records as well as atrial fibrillation and hypertension presents with persisting left- sided upper/mid back pain she describes as a "hot feeling. This is been ongoing , she is been seen approximately 8 times in the emergency department in the last month and has had admissions for hypertensive issues during this period of time. She apparently is taking the gabapentin but still is having the persisting problem. She has refused the Lidoderm patches as they do not help. There really is no change at all but she is bewildered that no one can tell her what the cause is though she has been told it is neuropathic in nature. She denies a history of rash in this region or shingles. She does have some similar feeling tingling in her feet as well. No other new symptoms. No dysuria or hematuria. No cough cold symptoms rhinorrhea or sore throat. She has been a little constipated but last bowel movement has been in the last day or so. Denies abdominal pain. Pain is isolated to her left posterior thoracic region. - Related Data Allergies/Adverse Reactions: No Known Allergies Allergy (Verified 03/13/17 10:11) Past Medical History - Social History Smoking Status: Unknown if Ever Smoked Family History: Reviewed & Not Pertinent Patient has suicidal ideation: No Patient has homicidal ideation: No - Past Medical History Cardiac Medical History: Reports: Hx Atrial Fibrillation, Hx DVT, Hx Hypertension Denies: Hx Heart Attack Pulmonary Medical History: Reports: Hx COPD Denies: Hx Asthma, Hx Tuberculosis Neurological Medical History: Denies: Hx Cerebrovascular Accident, Hx Seizures Renal/ Medical History: Reports: Hx Renal Insufficiency. Denies: Hx Peritoneal Dialysis GI Medical History: Denies: Hx Hepatitis, Hx Hiatal Hernia, Hx Ulcer Musculoskeltal Medical History: Reports Hx Arthritis Psychiatric Medical History: Denies: Hx Depression Infectious Medical History: Denies: Hx Hepatitis Past Surgical History: Denies: Hx Hysterectomy, Hx Mastectomy, Hx Open Heart Surgery, Hx Pacemaker - Immunizations Immunizations up to date: Yes Hx Diphtheria, Pertussis, Tetanus Vaccination: Yes Hx Pneumococcal Vaccination: 08/06/12 Review of Systems - Review of Systems -: Yes All other systems reviewed and negative Physical Exam - Vital signs Vitals: Temp Pulse Resp BP Pulse Ox 98.9 F 85 18 135/58 H 96 03/20/17 22:34 03/20/17 22:34 03/20/17 22:34 03/20/17 22:34 03/20/17 22:34 Interpretation: Hypertensive - Notes Notes: GENERAL: VS as per nursing doc. Well-appearing, thin female in no acute distress. HEAD: Atraumatic, normocephalic. EYES: Pupils equal round and reactive to light, extraocular movements intact, sclera anicteric, no conjunctival injection or discharge. ENT: Nares patent, oropharynx clear without exudates, moist mucous membranes. NECK: Normal range of motion, supple without lymphadenopathy. LUNGS: Breath sounds clear to auscultation bilaterally and equal. No wheezes rales or rhonchi. HEART: Regular rate and rhythm without murmurs. ABDOMEN: Soft, non-tender, normoactive bowel sounds. No masses noted BACK: No CVA tenderness. Area of pain appears to be above the left CVA region more left posterior thoracic region approximately of the left lateral scapular region to the left lower ribs. There is no rash or deformity and noted but she does apparently have scoliosis by exam. EXTREMITIES: Normal range of motion, no calf tenderness, no edema. NEUROLOGICAL: Cranial nerves grossly intact. Normal speech. No overlying decreased sensation PSYCH: Normal mood, normal affect. SKIN: Warm, dry, no shingles rash. Course - Re-evaluation Re-evalutation: 03/21/17 00:04 I reviewed findings with the patient. She has had a slow decrease in her hemoglobin but she is not having any bleeding. Her kidney function continues to be fairly poor and will need another recheck. Her GFR is still in the 20s though. No signs of UTI though. I suspect a lot of this is her chronic kidney disease though her pain does not seem related to her kidney. I discussed with her the need for follow-up with her primary care physician for further management of this chronic condition as well as recheck of her laboratory studies. - Vital Signs Vital signs: Temp Pulse Resp BP Pulse Ox 98.9 F 85 18 135/58 H 96 03/20/17 22:34 03/20/17 22:34 03/20/17 22:34 03/20/17 22:34 03/20/17 22:34 - Laboratory Result Diagrams: 03/20/17 23:06 03/20/17 23:06 Laboratory results interpreted by me: 03/20/17 03/20/17 23:06 23:06 RBC 2.95 L Hgb 9.1 L Hct 26.7 L RDW 14.9 H Seg Neutrophils % 81.8 H Lymphocytes % 10.7 L Sodium 134.5 L BUN 40 H Creatinine 2.33 H Est GFR ( Amer) 24 L Est GFR (Non-Af Amer) 20 L Discharge - Discharge Clinical Impression: Back pain, Anemia, Chronic kidney disease (CKD) Condition: Good Disposition: HOME, SELF-CARE Additional Instructions: Please contact your primary care physician for recheck next week as well as follow-up on your chronic lab abnormalities including anemia and kidney function. Return otherwise for emergency. Referrals: VICTORIANO MATTSON MD [ACTIVE STAFF] - Follow up in 3-5 days
[2017-03-20 23:31] LABS: APPEARANCE,URINE SLIGHTLY-CLOUDY; BILIRUBIN,URINE NEGATIVE (NEGATIVE); GLUCOSE, URINE NEGATIVE (NEGATIVE); KETONES,URINE NEGATIVE (NEGATIVE); LEUKOCYTE ESTERASE,URINE NEGATIVE (NEGATIVE); NITRITE,URINE NEGATIVE (NEGATIVE); PROTEIN,URINE NEGATIVE (NEGATIVE); URINE SPECIFIC GRAVITY 1.011; UROBILINOGEN,URINE NEGATIVE mg/dL (<2.0)
[2017-03-20 23:34] LABS: ABSOLUTE EOSINOPHILS # (AUTO) 0.1 10^3/uL (0.0-0.6); ABSOLUTE LYMPHOCYTES (AUTO) 0.7 10^3/uL (0.5-4.7); ABSOLUTE MONOCYTES (AUTO) 0.3 10^3/uL (0.1-1.4); ABSOLUTE NEUT (AUTO) 5.1 10^3/uL (1.7-8.2); BASOPHILS % (AUTO) 0.3 % (0-2); EOSINOPHILS % (AUTO) 1.8 % (0-6); HEMATOCRIT 26.7 % (36.0-47.0); HEMOGLOBIN 9.1 g/dL (12.0-15.5); HGB HCT DIFFERENCE 0.6; LYMPHOCYTES % (AUTO) 10.7 % (13-45); MEAN CORPUSCULAR HGB CONC 34.2 g/dL (32.0-36.0); MEAN CORPUSCULAR VOLUME 91 fl (80-97); MONOCYTES % (AUTO) 5.4 % (3-13); RED BLOOD COUNT 2.95 10^6/uL (3.72-5.28); RED CELL DISTRIBUTION WIDTH 14.9 % (11.5-14.0); SEGMENTED NEUTROPHILS % (AUTO) 81.8 % (42-78); WHITE BLOOD COUNT 6.3 10^3/uL (4.0-10.5)
[2017-03-20 23:44] LABS: ANION GAP 11 (5-19); BLOOD UREA NITROGEN 40 mg/dL (7-20); CALCIUM 9.8 mg/dL (8.4-10.2); CARBON DIOXIDE 23 mmol/L (22-30); CHLORIDE 101 mmol/L (98-107); CREATININE RESULT 2.33 mg/dL (0.52-1.25); GLUCOSE 98 mg/dL (75-110); POTASSIUM 4.3 mmol/L (3.6-5.0); SODIUM 134.5 mmol/L (137-145)
[2017-03-21 00:42] VITALS: BP 149/67
== END 2017-03-21 00:30 | disposition home or self-care (01) ==
LOC: ER 22:29
DX: M54.9 Dorsalgia, unspecified (principal); N18.9 Chronic kidney disease, unspecified; D64.9 Anemia, unspecified; I48.91 Unspecified atrial fibrillation; I10 Essential (primary) hypertension; Z79.899 Other long term (current) drug therapy
CPT/HCPCS: 36415; 80048; 81001; 85025; 99283

== ENCOUNTER 2017-04-01 15:29 | Inpatient (IN) | payer MEDICARE, MEDICAID ==
[2017-04-01 16:04] LABS: ABSOLUTE EOSINOPHILS # (AUTO) 0.2 10^3/uL (0.0-0.6); ABSOLUTE LYMPHOCYTES (AUTO) 0.7 10^3/uL (0.5-4.7); ABSOLUTE MONOCYTES (AUTO) 0.5 10^3/uL (0.1-1.4); ABSOLUTE NEUT (AUTO) 3.9 10^3/uL (1.7-8.2); BASOPHILS % (AUTO) 0.6 % (0-2); EOSINOPHILS % (AUTO) 3.3 % (0-6); HEMATOCRIT 28.1 % (36.0-47.0); HEMOGLOBIN 9.5 g/dL (12.0-15.5); HGB HCT DIFFERENCE 0.4; LYMPHOCYTES % (AUTO) 12.8 % (13-45); MEAN CORPUSCULAR HEMOGLOBIN 30.4 pg (27.0-33.4); MEAN CORPUSCULAR HGB CONC 33.7 g/dL (32.0-36.0); MEAN CORPUSCULAR VOLUME 90 fl (80-97); MONOCYTES % (AUTO) 9.4 % (3-13); RED BLOOD COUNT 3.12 10^6/uL (3.72-5.28); RED CELL DISTRIBUTION WIDTH 15.3 % (11.5-14.0); SEGMENTED NEUTROPHILS % (AUTO) 73.9 % (42-78); WHITE BLOOD COUNT 5.3 10^3/uL (4.0-10.5)
[2017-04-01] MEDS ORDERED: NORMAL SALINE 1000 ML 1,000 ML IV ONE ×2 (16:09→18:48)
[2017-04-01 16:10] LABS: APPEARANCE,URINE CLEAR; BILIRUBIN,URINE NEGATIVE (NEGATIVE); GLUCOSE, URINE NEGATIVE (NEGATIVE); KETONES,URINE NEGATIVE (NEGATIVE); LEUKOCYTE ESTERASE,URINE NEGATIVE (NEGATIVE); NITRITE,URINE NEGATIVE (NEGATIVE); PROTEIN,URINE NEGATIVE (NEGATIVE); URINE SPECIFIC GRAVITY 1.008; UROBILINOGEN,URINE NEGATIVE mg/dL (<2.0)
[2017-04-01 16:25] LABS: ALANINE AMINOTRANSFERASE 18 U/L (9-52); ALKALINE PHOSPHATASE 65 U/L (38-126); ANION GAP 13 (5-19); ASPARTATE AMINO TRANSFERASE 29 U/L (14-36); BILIRUBIN,DIRECT 0.7 mg/dL (0.0-0.4); BILIRUBIN,TOTAL 0.7 mg/dL (0.2-1.3); BLOOD UREA NITROGEN 20 mg/dL (7-20); CALCIUM 10.2 mg/dL (8.4-10.2); CARBON DIOXIDE 23 mmol/L (22-30); CHLORIDE 103 mmol/L (98-107); CREATININE RESULT 2.28 mg/dL (0.52-1.25); GLUCOSE 93 mg/dL (75-110); POTASSIUM 4.5 mmol/L (3.6-5.0); SODIUM 138.9 mmol/L (137-145)
[2017-04-01] MEDS ORDERED: METOPROLOL TARTRATE 25 MG TABLET PO ONE ×2 (16:44→17:47)
[2017-04-01] MEDS ORDERED: HYDRALAZINE HCL 50 MG TABLET PO ONE (17:47)
--- NOTE | 2017-04-01 18:56 | ER Document Report ---
ED General - General Chief Complaint: General Weakness Stated Complaint: BODY WEAKNESS Time Seen by Provider: 04/01/17 15:42 TRAVEL OUTSIDE OF THE [place] IN LAST 30 DAYS: No - HPI Patient complains to provider of: Generalized fatigue Notes: Patient is coming in for generalized fatigue and not feeling well. States ongoing for greater than a week. Patient has had multiple recent visits to the ER for similar complaints. Denies any recent infections or antibiotic use. Patient states that she has not been eating all that well for the last few weeks. Patient also has not been compliant with her medication states that her son may or not I gave her all of her medication today. Is noted patient is tachycardic with elevated blood pressure. Patient is on metoprolol and other antihypertensive. Upon my evaluation patient alert and oriented 3 moving all 4 extremities no signs of obvious distress. - Related Data Allergies/Adverse Reactions: No Known Allergies Allergy (Verified 03/13/17 10:11) Home Medications: Current Home Medications Olopatadine HCl [Pataday] 1 drop OU DAILY 04/01/17 [History] Valacyclovir HCl [Valtrex] 1,000 mg PO Q12 04/01/17 [History] Past Medical History - Social History Smoking Status: Unknown if Ever Smoked Family History: Reviewed & Not Pertinent - Past Medical History Cardiac Medical History: Reports: Hx Atrial Fibrillation, Hx DVT, Hx Hypertension Denies: Hx Heart Attack Pulmonary Medical History: Reports: Hx COPD Denies: Hx Asthma, Hx Tuberculosis Neurological Medical History: Denies: Hx Cerebrovascular Accident, Hx Seizures Renal/ Medical History: Reports: Hx Renal Insufficiency. Denies: Hx Peritoneal Dialysis GI Medical History: Denies: Hx Hepatitis, Hx Hiatal Hernia, Hx Ulcer Musculoskeltal Medical History: Reports Hx Arthritis Psychiatric Medical History: Denies: Hx Depression Infectious Medical History: Denies: Hx Hepatitis Past Surgical History: Denies: Hx Hysterectomy, Hx Mastectomy, Hx Open Heart Surgery, Hx Pacemaker - Immunizations Immunizations up to date: Yes Hx Diphtheria, Pertussis, Tetanus Vaccination: Yes Hx Pneumococcal Vaccination: 08/06/12 Review of Systems - Review of Systems Constitutional: Weakness EENT: No symptoms reported Cardiovascular: No symptoms reported Respiratory: No symptoms reported Gastrointestinal: No symptoms reported Genitourinary: No symptoms reported Female Genitourinary: No symptoms reported Musculoskeletal: No symptoms reported Skin: No symptoms reported Hematologic/Lymphatic: No symptoms reported Neurological/Psychological: No symptoms reported -: Yes All other systems reviewed and negative Physical Exam - Vital signs Vitals: Temp Pulse Resp BP Pulse Ox 98.7 F 121 H 16 188/94 H 99 04/01/17 15:55 04/01/17 15:55 04/01/17 15:55 04/01/17 15:55 04/01/17 15:55 Interpretation: Hypertensive, Tachycardic - General General appearance: Appears well, Alert - HEENT Head: Normocephalic, Atraumatic Eyes: Normal Pupils: PERRL - Respiratory Respiratory status: No respiratory distress Chest status: Nontender Breath sounds: Normal Chest palpation: Normal - Cardiovascular Rhythm: Tachycardia Heart sounds: Normal auscultation Murmur: No - Abdominal Inspection: Normal Distension: No distension Bowel sounds: Normal Tenderness: Nontender Organomegaly: No organomegaly - Back Back: Normal, Nontender - Extremities General upper extremity: Normal inspection, Nontender, Normal color, Normal ROM , Normal temperature General lower extremity: Normal inspection, Nontender, Normal color, Normal ROM , Normal temperature, Normal weight bearing. No: Galina's sign - Neurological Neuro grossly intact: Yes Cognition: Normal Orientation: AAOx4 Abran Coma Scale Eye Opening: Spontaneous Abran Coma Scale Verbal: Oriented Abran Coma Scale Motor: Obeys Commands Abran Coma Scale Total: 15 Speech: Normal Motor strength normal: LUE, RUE, LLE, RLE Sensory: Normal - Psychological Associated symptoms: Normal affect, Normal mood - Skin Skin Temperature: Warm Skin Moisture: Dry Skin Color: Normal Course - Re-evaluation Re-evalutation: 04/01/17 22:37 Lab work does not show any acute abnormalities. Discussed with PCP concern is that the patient although vital signs have improved not taking her medication appropriately and basically having failure to thrive. Requesting admission to medical floor for further evaluation. Discussed with family members - Vital Signs Vital signs: Temp Pulse Resp BP Pulse Ox 97.9 F 97 18 178/95 H 100 04/01/17 22:05 04/01/17 22:05 04/01/17 22:05 04/01/17 22:05 04/01/17 22:05 - Laboratory Result Diagrams: 04/01/17 15:42 04/01/17 15:42 Laboratory results interpreted by me: 04/01/17 04/01/17 15:42 15:42 RBC 3.12 L Hgb 9.5 L Hct 28.1 L RDW 15.3 H Lymphocytes % 12.8 L Creatinine 2.28 H Est GFR ( Amer) 25 L Est GFR (Non-Af Amer) 21 L Direct Bilirubin 0.7 H Discharge - Discharge Clinical Impression: Chronic kidney disease, stage 3, Weakness, Uncontrolled hypertension Condition: Good Disposition: ADMITTED INPATIENT [facility]mitting [facility] Unit Admitted: Medical Floor
--- NOTE | 2017-04-01 19:11 | EKG REPORT ---
SEVERITY:- ABNORMAL ECG - SINUS TACHYCARDIA MULTIPLE VENTRICULAR PREMATURE COMPLEXES PROBABLE LEFT ATRIAL ABNORMALITY LEFT AXIS DEVIATION LEFT VENTRICULAR HYPERTROPHY CONSIDER ANTERIOR INFARCT : Confirmed by: Sly Pulido MD 01-Apr-2017 19:10:41
[2017-04-01] MEDS ORDERED: NITROGLYCERIN/D5W 50 MG/250 ML RTUINJ IV PRN (20:00)
[2017-04-01] MEDS: NORMAL SALINE 1000 ML 1,000 ML IV PRN (21:05)
[2017-04-01 21:30] LABS: PROTHROMBIN TIME 13.5 SEC (11.4-15.4)
[2017-04-01 21:31] LABS: PARTIAL THROMBOPLASTIN TIME 33.6 SEC (23.5-35.8)
[2017-04-01 21:54] LABS: CREATINE KINASE MB 0.74 ng/mL (<4.55); TROPONIN I 0.02 ng/mL
[2017-04-01 22:13] LABS: LIPASE 156.9 U/L (23-300); MAGNESIUM 1.6 mg/dL (1.6-2.3); PHOSPHORUS 2.9 mg/dL (2.5-4.5); THYROID STIMULATING HORMONE 2.75 uIU/mL (0.47-4.68)
[2017-04-02] MEDS: HEPARIN SOD (PORCINE) 5,000 UNIT/ML 1 ML SYRINGE SUBCUT SCH ×4 (00:16→22:07)
[2017-04-02 00:27] LABS: APPEARANCE,URINE CLEAR; BILIRUBIN,URINE NEGATIVE (NEGATIVE); GLUCOSE, URINE NEGATIVE (NEGATIVE); KETONES,URINE NEGATIVE (NEGATIVE); LEUKOCYTE ESTERASE,URINE NEGATIVE (NEGATIVE); NITRITE,URINE NEGATIVE (NEGATIVE); PROTEIN,URINE NEGATIVE (NEGATIVE); URINE SPECIFIC GRAVITY 1.005; UROBILINOGEN,URINE NEGATIVE mg/dL (<2.0)
[2017-04-02 00:48] LABS: URINE BARBITURATES SCREEN NEGATIVE; URINE METHADONE SCREEN NEGATIVE; URINE OPIATES LOW NEGATIVE; URINE PHENCYCLIDINE SCREEN NEGATIVE
[2017-04-02 03:41] LABS: CREATINE KINASE MB 0.69 ng/mL (<4.55); TROPONIN I 0.016 ng/mL
[2017-04-02 10:54] LABS: CREATINE KINASE MB 0.65 ng/mL (<4.55); TROPONIN I 0.014 ng/mL
--- NOTE | 2017-04-02 17:14 | PDOC H&P ---
History of Present Illness Admission Date/PCP: 04/01/17 19:56 VICTORIANO MATTSON MD History of Present Illness: LOU CLEMENTE is a 81 year old female, she has a history of hypertension, chronic kidney disease stage IV she came to the emergency room for evaluation of generalized weakness, she was found to have severely elevated blood pressure , she was recently discharged from this hospital on 03/19/2017 when she presented in a similar fashion. She is not compliant with her medications she lives with family, spouse and son, decision was supposed to ensure compliance with medication but is seems that this is not happening. She has had many ED visits recently and also many office visit and urgent care visits. She also have a history of chronic atrial fibrillation on anticoagulation, because of the severely elevated blood pressure on because she was symptomatic in the setting of chronic kidney disease stage IV hospital admission was advised for this patient. Hospital Past Medical History Cardiac Medical History: Reports: Atrial Fibrillation, DVT, Hypertension Pulmonary Medical History: Reports: Chronic Obstructive Pulmonary Disease (COPD) Musculoskeltal Medical History: Reports: Arthritis Social History Smoking Status: Former Smoker Last Time Smoked: 35 years ago Frequency of Alcohol Use: None Hx Recreational Drug Use: No Drugs: None Hx Prescription Drug Abuse: No - Advance Directive Resuscitation Status: Full Code Family History Family History: Reviewed & Not Pertinent Parental Family History Reviewed: Yes Children Family History Reviewed: Yes Sibling(s) Family History Reviewed.: Yes Medication/Allergy Home Medications: Apixaban [Eliquis 2.5 mg Tablet] 2.5 mg PO Q12 03/13/17 Megestrol Acetate [Megace 20 mg Tablet] 20 mg PO BID 03/13/17 Vit B Cmplx 3/FA/Vit C/Biotin [Vol-Care Rx Tablet] 1 tab PO DAILY 03/13/17 Gabapentin 300 mg PO Q8 #90 capsule 03/19/17 Hydralazine HCl [Apresoline 25 mg Tablet] 75 mg PO Q8 #90 tablet 03/19/17 Metoprolol Succinate [Toprol Xl] 100 mg PO DAILY #90 tab.sr.24h 03/19/17 Sodium Bicarbonate [Sodium Bicarbonate 650 mg Tablet] 650 mg PO Q8 #90 tablet Olopatadine HCl [Pataday] 1 drop OU DAILY 04/01/17 Valacyclovir HCl [Valtrex] 1,000 mg PO DAILY 04/01/17 Patiromer Calcium Sorbitex [Veltassa] 8.4 gm PO DAILY 04/02/17 Allergies/Adverse Reactions: No Known Allergies Allergy (Verified 03/13/17 10:11) Review of Systems Constitutional: PRESENT: anorexia Eyes: PRESENT: visual disturbances Ears: PRESENT: hearing changes Cardiovascular: ABSENT: chest pain, dyspnea on exertion, edema, orthropnea, palpitations Respiratory: ABSENT: cough, hemoptysis Gastrointestinal: ABSENT: abdominal pain, constipation, diarrhea, hematemesis, hematochezia, nausea, vomiting Genitourinary: ABSENT: dysuria, hematuria Musculoskeletal: ABSENT: joint swelling Integumentary: ABSENT: rash, wounds Neurological: ABSENT: as per HPI, abnormal gait, abnormal movements, abnormal speech, confusion, convulsions, dizziness, focal weakness, frequent falls, lack of coordination, memory loss, numbness, paresthesias, restless legs, syncope, tingling, tremor(s), vertigo, weakness, other Psychiatric: ABSENT: anxiety, depression, homidical ideation, suicidal ideation Endocrine: ABSENT: cold intolerance, heat intolerance, menstrual abnormalities, polydipsia, polyuria Hematologic/Lymphatic: ABSENT: easy bleeding, easy bruising, lymphadenopathy Physical Exam Vital Signs: Temp Pulse Resp BP Pulse Ox 98.7 F 90 19 126/80 H 100 04/02/17 15:56 04/02/17 15:56 04/02/17 15:56 04/02/17 16:00 04/02/17 15:56 Intake & Output 04/01/17 04/02/17 04/03/17 06:59 06:59 06:59 Intake Total 210 358 Output Total 250 Balance -40 358 Weight 48.3 kg General appearance: PRESENT: no acute distress Head exam: PRESENT: atraumatic, normocephalic Eye exam: PRESENT: conjunctiva pink, EOMI, PERRLA Ear exam: PRESENT: normal external ear exam Mouth exam: PRESENT: moist, tongue midline Neck exam: PRESENT: full ROM Respiratory exam: PRESENT: clear to auscultation alexandro Cardiovascular exam: PRESENT: RRR, +S1, +S2 Pulses: PRESENT: normal dorsalis pedis pul, +2 pedal pulses bilateral Vascular exam: PRESENT: normal capillary refill GI/Abdominal exam: PRESENT: normal bowel sounds, soft Rectal exam: PRESENT: deferred Neurological exam: PRESENT: alert, CN II-XII grossly intact Psychiatric exam: PRESENT: appropriate affect, normal mood Skin exam: PRESENT: dry, intact, warm Results Laboratory Results: 04/01/17 04/01/17 04/01/17 21:10 21:10 21:10 Phosphorus 2.9 Magnesium 1.6 Ammonia 13.9 Amylase 111 H Lipase 156.9 TSH 2.75 Free T4 1.76 Urine Color Urine Appearance Urine pH Ur Specific [place] Urine Protein Urine Glucose (UA) Urine Ketones Urine Blood Urine Nitrite Ur Leukocyte Esterase Urine WBC (Auto) Urine RBC (Auto) 04/01/17 23:50 Phosphorus Magnesium Ammonia Amylase Lipase TSH Free T4 Urine Color STRAW Urine Appearance CLEAR Urine pH 8.0 Ur Specific [place] 1.005 Urine Protein NEGATIVE Urine Glucose (UA) NEGATIVE Urine Ketones NEGATIVE Urine Blood SMALL H Urine Nitrite NEGATIVE Ur Leukocyte Esterase NEGATIVE Urine WBC (Auto) 1 Urine RBC (Auto) 7 04/01/17 04/01/17 04/01/17 21:10 21:10 21:10 Creatine Kinase 67 CK-MB (CK-2) 0.74 Troponin I 0.020 NT-Pro-B Natriuret Pep 999 H 04/02/17 04/02/17 04/02/17 03:05 03:05 09:32 Creatine Kinase 67 68 CK-MB (CK-2) 0.69 Troponin I 0.016 NT-Pro-B Natriuret Pep 04/02/17 09:32 Creatine Kinase CK-MB (CK-2) 0.65 Troponin I 0.014 NT-Pro-B Natriuret Pep Assessment & Plan - Diagnosis (1) Hypertensive emergency Is this a current diagnosis for this admission?: Yes Plan: Patient is admitted for the management of hypertensive emergency, she be started on intravenous nitroglycerin infusion. (2) Chronic kidney disease, stage 4 (severe) Is this a current diagnosis for this admission?: Yes
[2017-04-03 05:28] LABS: ABSOLUTE EOSINOPHILS # (AUTO) 0.2 10^3/uL (0.0-0.6); ABSOLUTE LYMPHOCYTES (AUTO) 1.1 10^3/uL (0.5-4.7); ABSOLUTE MONOCYTES (AUTO) 0.5 10^3/uL (0.1-1.4); ABSOLUTE NEUT (AUTO) 2.5 10^3/uL (1.7-8.2); BASOPHILS % (AUTO) 0.7 % (0-2); EOSINOPHILS % (AUTO) 5.4 % (0-6); HEMATOCRIT 25.3 % (36.0-47.0); HEMOGLOBIN 8.2 g/dL (12.0-15.5); HGB HCT DIFFERENCE -0.7; LYMPHOCYTES % (AUTO) 25.1 % (13-45); MEAN CORPUSCULAR HEMOGLOBIN 29.8 pg (27.0-33.4); MEAN CORPUSCULAR HGB CONC 32.4 g/dL (32.0-36.0); MEAN CORPUSCULAR VOLUME 92 fl (80-97); MONOCYTES % (AUTO) 11.5 % (3-13); RED BLOOD COUNT 2.74 10^6/uL (3.72-5.28); SEGMENTED NEUTROPHILS % (AUTO) 57.3 % (42-78); WHITE BLOOD COUNT 4.4 10^3/uL (4.0-10.5)
[2017-04-03] MEDS: HEPARIN SOD (PORCINE) 5,000 UNIT/ML 1 ML SYRINGE SUBCUT SCH (05:38)
[2017-04-03 05:47] LABS: ANION GAP 9 (5-19); BLOOD UREA NITROGEN 20 mg/dL (7-20); CALCIUM 9.5 mg/dL (8.4-10.2); CARBON DIOXIDE 22 mmol/L (22-30); CHLORIDE 106 mmol/L (98-107); CREATININE RESULT 2.02 mg/dL (0.52-1.25); GLUCOSE 81 mg/dL (75-110); POTASSIUM 4.3 mmol/L (3.6-5.0); SODIUM 137.1 mmol/L (137-145)
[2017-04-03] MEDS: NORMAL SALINE 1000 ML 1,000 ML IV PRN (06:07)
--- NOTE | 2017-04-03 09:39 | Physician Advisory Note ---
Physician Advisor ProgressNote .: Pursuant to the plan for [facility], I have reviewed the medical record for this patient. Physician Advisor Statement: Please consider documentin. Signs/symptoms that support dx of Hypertensive Emergency [?"ARF" or ...] - without signs/symptoms caused by the high BP, pt would have "Hypertensive Urgency", but not "Hypertensive Emergency". 2. ? - "ARF, likely due to , w/baseline Cr of ___" [HTN-lane Emergency?] 3. Medical Necessity: Pt was brought in with Hypertensive Emergency/Urgency range BPs & generalized weakness, adult FTT. H&P explains need for 1st night of hospital care (04/01), but chart needs attending documentation of reason pt still needed hospital care & monitoring the 2nd night, 04/02, & any further nights. 4. "Weakness, likely due to ____" 5. ?"Underweight w/___ [mild/mod/sev] Malnutrition"? Thanks! CK
[2017-04-03] MEDS ORDERED: APIXABAN 2.5 MG TABLET PO ONE (12:15)
[2017-04-03] MEDS ORDERED: METOPROLOL SUCCINATE 50 MG TAB.SR.24H PO ONE (12:30)
[2017-04-03] MEDS: HYDRALAZINE HCL 25 MG TABLET PO SCH ×2 (13:19→21:13)
[2017-04-03] MEDS: SODIUM BICARBONATE 650 MG TABLET PO SCH ×2 (13:21→21:13)
[2017-04-03] MEDS: GABAPENTIN 300 MG CAPSULE PO SCH ×2 (13:22→21:13)
[2017-04-03] MEDS: MEGESTROL ACETATE 20 MG TABLET PO SCH (18:34)
[2017-04-03] MEDS: APIXABAN 2.5 MG TABLET PO SCH (21:13)
--- NOTE | 2017-04-03 21:15 | PDOC PROGRESS REPORT ---
Subjective Progress Note for:: 04/03/17 Subjective:: Patient was seen by the bedside, she was admitted yesterday because of severely elevated blood pressure, hypertensive emergency, CKD stage IV acute on chronic kidney disease. She is also on IV fluid, kidney function slightly improved suggesting a prerenal component of the worsening serum creatinine Physical Exam Vital Signs: Temp Pulse Resp BP Pulse Ox 97.5 F 84 19 140/73 H 100 04/03/17 19:37 04/03/17 19:37 04/03/17 19:37 04/03/17 19:37 04/03/17 19:37 Intake & Output 04/02/17 04/03/17 04/04/17 06:59 06:59 06:59 Intake Total 210 1653 504 Output Total 250 400 250 Balance -40 1253 254 Weight 48.3 kg General appearance: PRESENT: no acute distress Eye exam: PRESENT: PERRLA Respiratory exam: PRESENT: clear to auscultation alexandro Cardiovascular exam: PRESENT: +S1, +S2 GI/Abdominal exam: PRESENT: soft Neurological exam: PRESENT: alert Results Laboratory Results: 04/03/17 04:30 04/03/17 04:30 04/03/17 04/03/17 04:30 04:30 WBC 4.4 RBC 2.74 L Hgb 8.2 L Hct 25.3 L MCV 92 MCH 29.8 MCHC 32.4 RDW 15.0 H Plt Count 190 Seg Neutrophils % 57.3 Lymphocytes % 25.1 Monocytes % 11.5 Eosinophils % 5.4 Basophils % 0.7 Absolute Neutrophils 2.5 Absolute Lymphocytes 1.1 Absolute Monocytes 0.5 Absolute Eosinophils 0.2 Absolute Basophils 0.0 Sodium 137.1 Potassium 4.3 Chloride 106 Carbon Dioxide 22 Anion Gap 9 BUN 20 Creatinine 2.02 H Est GFR ( Amer) 29 L Est GFR (Non-Af Amer) 24 L Glucose 81 Calcium 9.5 04/01/17 04/01/17 04/01/17 21:10 21:10 21:10 Creatine Kinase 67 CK-MB (CK-2) 0.74 Troponin I 0.020 NT-Pro-B Natriuret Pep 999 H 04/02/17 04/02/17 04/02/17 03:05 03:05 09:32 Creatine Kinase 67 68 CK-MB (CK-2) 0.69 Troponin I 0.016 NT-Pro-B Natriuret Pep 04/02/17 09:32 Creatine Kinase CK-MB (CK-2) 0.65 Troponin I 0.014 NT-Pro-B Natriuret Pep Assessment & Plan - Diagnosis (1) Hypertensive emergency Is this a current diagnosis for this admission?: Yes (2) Chronic kidney disease, stage 4 (severe) Is this a current diagnosis for this admission?: Yes (3) Acute kidney injury Is this a current diagnosis for this admission?: Yes
[2017-04-04 04:55] LABS: ABSOLUTE BASOPHILS # (AUTO) 0.1 10^3/uL (0.0-0.2); ABSOLUTE EOSINOPHILS # (AUTO) 0.2 10^3/uL (0.0-0.6); ABSOLUTE LYMPHOCYTES (AUTO) 0.8 10^3/uL (0.5-4.7); ABSOLUTE MONOCYTES (AUTO) 0.5 10^3/uL (0.1-1.4); ABSOLUTE NEUT (AUTO) 4.1 10^3/uL (1.7-8.2); BASOPHILS % (AUTO) 1.1 % (0-2); EOSINOPHILS % (AUTO) 3.9 % (0-6); HEMATOCRIT 29.2 % (36.0-47.0); HEMOGLOBIN 9.8 g/dL (12.0-15.5); HGB HCT DIFFERENCE 0.2; MEAN CORPUSCULAR HEMOGLOBIN 30.8 pg (27.0-33.4); MEAN CORPUSCULAR HGB CONC 33.6 g/dL (32.0-36.0); MEAN CORPUSCULAR VOLUME 92 fl (80-97); MONOCYTES % (AUTO) 9.3 % (3-13); RED BLOOD COUNT 3.19 10^6/uL (3.72-5.28); RED CELL DISTRIBUTION WIDTH 15.2 % (11.5-14.0); SEGMENTED NEUTROPHILS % (AUTO) 71.7 % (42-78); WHITE BLOOD COUNT 5.8 10^3/uL (4.0-10.5)
[2017-04-04 05:16] LABS: ANION GAP 11 (5-19); BLOOD UREA NITROGEN 19 mg/dL (7-20); CALCIUM 9.5 mg/dL (8.4-10.2); CARBON DIOXIDE 24 mmol/L (22-30); CHLORIDE 103 mmol/L (98-107); CREATININE RESULT 1.94 mg/dL (0.52-1.25); GLUCOSE 141 mg/dL (75-110); POTASSIUM 3.8 mmol/L (3.6-5.0); SODIUM 138.3 mmol/L (137-145)
[2017-04-04] MEDS: HYDRALAZINE HCL 25 MG TABLET PO SCH ×3 (05:30→22:08)
[2017-04-04] MEDS: GABAPENTIN 300 MG CAPSULE PO SCH ×3 (05:30→22:09)
[2017-04-04] MEDS: SODIUM BICARBONATE 650 MG TABLET PO SCH ×3 (05:30→22:08)
[2017-04-04] MEDS ORDERED: [UNRECOGNIZED DRUG - OTHER] PO SCH (10:00)
[2017-04-04] MEDS ORDERED: PATIROMER 8.4 GM SUSP PACKET PO SCH (10:00)
[2017-04-04] MEDS ORDERED: BIOTIN PO SCH (10:00)
[2017-04-04] MEDS ORDERED: VIT B CMPLX PO SCH (10:00)
[2017-04-04] MEDS ORDERED: (PENDING PHARMACY ID) (Valacyclovir Hcl [Valtrex] 1,000 MG) PO SCH (10:00)
[2017-04-04] MEDS ORDERED: VALACYCLOVIR HCL 500 MG TABLET PO SCH (10:00)
[2017-04-04] MEDS: METOPROLOL SUCCINATE 50 MG TAB.SR.24H PO SCH (10:39)
[2017-04-04] MEDS: MEGESTROL ACETATE 20 MG TABLET PO SCH ×2 (10:41→18:17)
[2017-04-04] MEDS: PRENATAL VITAMIN W-O CA NO5/FE FUMARATE/FA CAPSULE PO SCH (10:41)
[2017-04-04] MEDS: APIXABAN 2.5 MG TABLET PO SCH ×2 (10:43→22:08)
[2017-04-04] MEDS: PATIROMER 8.4 GM SUSP PACKET PO SCH (18:21)
--- NOTE | 2017-04-04 21:19 | PDOC PROGRESS REPORT ---
Subjective Progress Note for:: 04/04/17 Subjective:: I explained to the patient and the patient's son that she we need to be transferred to the long term for rehabilitation after discharge from the hospital Physical Exam Vital Signs: Temp Pulse Resp BP Pulse Ox 98.9 F 79 18 141/75 H 100 04/04/17 19:27 04/04/17 19:27 04/04/17 19:27 04/04/17 19:27 04/04/17 19:27 Intake & Output 04/03/17 04/04/17 04/05/17 06:59 06:59 06:59 Intake Total 1653 1391 1107 Output Total 400 250 525 Balance 1253 1141 582 Weight 48.2 kg General appearance: PRESENT: no acute distress Eye exam: PRESENT: PERRLA Respiratory exam: PRESENT: clear to auscultation alexandro Cardiovascular exam: PRESENT: +S1, +S2 GI/Abdominal exam: PRESENT: soft Results Laboratory Results: 04/04/17 04:14 04/04/17 04:14 04/04/17 04/04/17 04:14 04:14 WBC 5.8 RBC 3.19 L Hgb 9.8 L Hct 29.2 L MCV 92 MCH 30.8 MCHC 33.6 RDW 15.2 H Plt Count 232 Seg Neutrophils % 71.7 Lymphocytes % 14.0 Monocytes % 9.3 Eosinophils % 3.9 Basophils % 1.1 Absolute Neutrophils 4.1 Absolute Lymphocytes 0.8 Absolute Monocytes 0.5 Absolute Eosinophils 0.2 Absolute Basophils 0.1 Sodium 138.3 Potassium 3.8 Chloride 103 Carbon Dioxide 24 Anion Gap 11 BUN 19 Creatinine 1.94 H Est GFR ( Amer) 30 L Est GFR (Non-Af Amer) 25 L Glucose 141 H Calcium 9.5 04/01/17 23:50 Clean Catch Midstream Urine Culture - Final Enterococcus Faecalis(Group D) 04/01/17 04/01/17 04/01/17 21:10 21:10 21:10 Creatine Kinase 67 CK-MB (CK-2) 0.74 Troponin I 0.020 NT-Pro-B Natriuret Pep 999 H 04/02/17 04/02/17 04/02/17 03:05 03:05 09:32 Creatine Kinase 67 68 CK-MB (CK-2) 0.69 Troponin I 0.016 NT-Pro-B Natriuret Pep 04/02/17 09:32 Creatine Kinase CK-MB (CK-2) 0.65 Troponin I 0.014 NT-Pro-B Natriuret Pep Assessment & Plan - Diagnosis (1) Hypertensive emergency Is this a current diagnosis for this admission?: Yes (2) Chronic kidney disease, stage 4 (severe) Is this a current diagnosis for this admission?: Yes (3) Acute kidney injury Is this a current diagnosis for this admission?: Yes
[2017-04-05] MEDS: NORMAL SALINE 1000 ML 1,000 ML IV PRN (00:55)
[2017-04-05] MEDS: HYDRALAZINE HCL 25 MG TABLET PO SCH ×3 (05:15→21:36)
[2017-04-05] MEDS: GABAPENTIN 300 MG CAPSULE PO SCH ×3 (05:16→21:36)
[2017-04-05] MEDS: SODIUM BICARBONATE 650 MG TABLET PO SCH ×3 (05:16→21:36)
[2017-04-05] MEDS: MEGESTROL ACETATE 20 MG TABLET PO SCH ×2 (09:55→17:30)
[2017-04-05] MEDS: METOPROLOL SUCCINATE 50 MG TAB.SR.24H PO SCH (09:56)
[2017-04-05] MEDS: PRENATAL VITAMIN W-O CA NO5/FE FUMARATE/FA CAPSULE PO SCH (09:56)
[2017-04-05] MEDS: APIXABAN 2.5 MG TABLET PO SCH ×2 (09:58→21:36)
--- NOTE | 2017-04-05 15:33 | PDOC PROGRESS REPORT ---
Subjective Progress Note for:: 04/05/17 Subjective:: Recommended that patient should go to the long-term for rehabilitation but she refused she wants to go home. She has had multiple hospital admission for uncontrolled hypertension but whenever she is admitted the blood pressure is controlled in the hospital suggesting that she is not adherent with medication at home. She will be discharged home with home health for medication management and also physical therapy in the morning. Physical Exam Vital Signs: Temp Pulse Resp BP Pulse Ox 98.3 F 79 16 121/67 97 04/05/17 12:29 04/05/17 14:00 04/05/17 12:29 04/05/17 12:29 04/05/17 12:29 Intake & Output 04/04/17 04/05/17 04/06/17 06:59 06:59 06:59 Intake Total 1391 2152 250 Output Total 250 675 300 Balance 1141 1477 -50 Weight 48.2 kg 50.7 kg General appearance: PRESENT: no acute distress Eye exam: PRESENT: PERRLA Respiratory exam: PRESENT: clear to auscultation alexandro Cardiovascular exam: PRESENT: +S1, +S2 GI/Abdominal exam: PRESENT: soft Neurological exam: PRESENT: alert Results Laboratory Results: 04/04/17 04:14 04/04/17 04:14 04/01/17 04/01/17 04/01/17 21:10 21:10 21:10 Creatine Kinase 67 CK-MB (CK-2) 0.74 Troponin I 0.020 NT-Pro-B Natriuret Pep 999 H 04/02/17 04/02/17 04/02/17 03:05 03:05 09:32 Creatine Kinase 67 68 CK-MB (CK-2) 0.69 Troponin I 0.016 NT-Pro-B Natriuret Pep 04/02/17 09:32 Creatine Kinase CK-MB (CK-2) 0.65 Troponin I 0.014 NT-Pro-B Natriuret Pep Assessment & Plan - Diagnosis (1) Hypertensive emergency Is this a current diagnosis for this admission?: Yes (2) Chronic kidney disease, stage 4 (severe) Is this a current diagnosis for this admission?: Yes (3) Acute kidney injury Is this a current diagnosis for this admission?: Yes
[2017-04-05] MEDS: PATIROMER 8.4 GM SUSP PACKET PO SCH (17:30)
[2017-04-06] MEDS: HYDRALAZINE HCL 25 MG TABLET PO SCH (05:54)
[2017-04-06] MEDS: SODIUM BICARBONATE 650 MG TABLET PO SCH (05:54)
[2017-04-06] MEDS: GABAPENTIN 300 MG CAPSULE PO SCH (05:55)
[2017-04-06 08:10] VITALS: BP 152/76
[2017-04-06] MEDS: PRENATAL VITAMIN W-O CA NO5/FE FUMARATE/FA CAPSULE PO SCH (09:40)
[2017-04-06] MEDS: MEGESTROL ACETATE 20 MG TABLET PO SCH (09:40)
[2017-04-06] MEDS: METOPROLOL SUCCINATE 50 MG TAB.SR.24H PO SCH (09:41)
[2017-04-06] MEDS: APIXABAN 2.5 MG TABLET PO SCH (09:41)
--- NOTE | 2017-04-06 15:23 | PDOC DISCHARGE SUMMARY ---
General - Admit/Disc Date/PCP Admission Date/Primary Care Provider: 04/01/17 19:56 VICTORIANO MATTSON MD Discharge Date: 04/06/17 - Discharge Diagnosis (1) Hypertensive emergency Is this a current diagnosis for this admission?: Yes (2) Chronic kidney disease, stage 4 (severe) Is this a current diagnosis for this admission?: Yes (3) Acute kidney injury Is this a current diagnosis for this admission?: Yes - Additional Information Resuscitation Status: Full Code Discharge Diet: Cardiac Discharge Activity: Activity As Tolerated Home Medications: Apixaban [Eliquis 2.5 mg Tablet] 2.5 mg PO Q12 03/13/17 Megestrol Acetate [Megace 20 mg Tablet] 20 mg PO BID 03/13/17 Vit B Cmplx 3/FA/Vit C/Biotin [Vol-Care Rx Tablet] 1 tab PO DAILY 03/13/17 Gabapentin 300 mg PO Q8 #90 capsule 03/19/17 Hydralazine HCl [Apresoline 25 mg Tablet] 75 mg PO Q8 #90 tablet 03/19/17 Metoprolol Succinate [Toprol Xl] 100 mg PO DAILY #90 tab.sr.24h 03/19/17 Sodium Bicarbonate [Sodium Bicarbonate 650 mg Tablet] 650 mg PO Q8 #90 tablet Olopatadine HCl [Pataday] 1 drop OU DAILY 04/01/17 Patiromer Calcium Sorbitex [Veltassa] 8.4 gm PO DAILY 04/02/17 History of Present Illness History of Present Illness: LOU CLEMENTE is a 81 year old female, she has a history of hypertension, chronic kidney disease stage IV she came to the emergency room for evaluation of generalized weakness, she was found to have severely elevated blood pressure , she was recently discharged from this hospital on 03/19/2017 when she presented in a similar fashion. She is not compliant with her medications she lives with family, spouse and son, decision was supposed to ensure compliance with medication but is seems that this is not happening. She has had many ED visits recently and also many office visit and urgent care visits. She also have a history of chronic atrial fibrillation on anticoagulation, because of the severely elevated blood pressure on because she was symptomatic in the setting of chronic kidney disease stage IV hospital admission was advised for this patient. Hospital Hospital Course Hospital Course: Patient was admitted because of uncontrolled hypertension, acute kidney injury on a pre-existing chronic kidney disease therefore, headache and generalized weakness. Patient is not compliant with her medication intake, she was admitted and treated initially with intravenous nitro glycerin infusion this was ultimately transitioned to p.o. medications for the control blood pressure. I suggested to the patient and thw son about rehab in the half-way but they declined. Patient has recently had multiple hospital admission for same medication of poorly controlled hypertension, symptomatic with acute kidney injury. Physical Exam Vital Signs: Temp Pulse Resp BP Pulse Ox 99.1 F 76 18 152/76 H 95 04/06/17 08:08 04/06/17 08:08 04/06/17 08:08 04/06/17 08:08 04/06/17 08:08 Intake & Output 04/05/17 04/06/17 04/07/17 06:59 06:59 06:59 Intake Total 2152 2042 Output Total 675 300 Balance 1477 1742 Weight 50.7 kg 49 kg General appearance: PRESENT: no acute distress Eye exam: PRESENT: PERRLA Respiratory exam: PRESENT: clear to auscultation alexandro Cardiovascular exam: PRESENT: +S1, +S2 GI/Abdominal exam: PRESENT: soft Neurological exam: PRESENT: alert, CN II-XII grossly intact Results Laboratory Results: 04/04/17 04:14 04/04/17 04:14 04/01/17 04/01/17 04/01/17 21:10 21:10 21:10 Creatine Kinase 67 CK-MB (CK-2) 0.74 Troponin I 0.020 NT-Pro-B Natriuret Pep 999 H 04/02/17 04/02/17 04/02/17 03:05 03:05 09:32 Creatine Kinase 67 68 CK-MB (CK-2) 0.69 Troponin I 0.016 NT-Pro-B Natriuret Pep 04/02/17 09:32 Creatine Kinase CK-MB (CK-2) 0.65 Troponin I 0.014 NT-Pro-B Natriuret Pep
== END 2017-04-06 10:00 | disposition home health service (06) | DRG 305 ==
LOC: ER 15:29 → UNDOADMIN 19:22 → EH 19:22 → 5 21:30 → 3W 22:57
PROVIDERS: ADMIT Internal Medicine; ATTEND Internal Medicine
DX: I16.1 Hypertensive emergency (principal); N18.4 Chronic kidney disease, stage 4 (severe); N17.9 Acute kidney failure, unspecified; I12.9 Hypertensive chronic kidney disease with stage 1 through stage 4 chronic kidney disease, or unspecified chronic kidney disease; I48.91 Unspecified atrial fibrillation; J44.9 Chronic obstructive pulmonary disease, unspecified; M19.90 Unspecified osteoarthritis, unspecified site; Z79.01 Long term (current) use of anticoagulants; Z79.899 Other long term (current) drug therapy; Z86.718 Personal history of other venous thrombosis and embolism; Z87.891 Personal history of nicotine dependence; Z91.14 Patient's other noncompliance with medication regimen
CPT/HCPCS: 36415; 80048; 80053; 80307; 81001; 82140; 82150; 82550; 82553; 83605; 83690; 83735; 83880; 84100; 84439; 84443; 84484; 85025; 85610; 85730; 87040; 87086; 87088; 87186; 93005; 93010; 96360; 99285; J1644; J3490; J7030

== ENCOUNTER → 2017-10-01 | Outpatient (CLI) | payer MEDICARE, MEDICAID ==
--- NOTE | 2017-10-01 12:14 | RADIOLOGY REPORT (SQ) ---
EXAM DESCRIPTION: MRI HEAD WITHOUT COMPLETED DATE/TIME: 10/01/2017 11:46 am REASON FOR STUDY: HEADACHE R51 HEADACHE COMPARISON: 03/16/2017. TECHNIQUE: Multiplanar imaging includes non-contrasted T1, T2, FLAIR, and diffusion with ADC map seq uences. Images stored on PACS. LIMITATIONS: None. FINDINGS: ANATOMY: No anomalies. Normal vascular flow voids. Pituitary fossa normal. CSF SPACES: Atrophy induced prominence of ventricles and CSF spaces. CEREBRUM: High signal intensity lesions scattered throughout the white matter on FLAIR imaging with d istribution suggesting micro-vascular ischemic changes. Focal encephalomalacia in the white matter o f the left frontal lobe with ex vacuo change in the lateral ventricle. Similar findings in the left occipital lobe. 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 No evidence of hemorrhage, mass, or extraaxial fluid col lection. POSTERIOR FOSSA: No signal alteration. No hemorrhage. No edema, masses or mass effect. Internal lyly tory canals, cerebello-pontine angles, mastoids normal. DIFFUSION IMAGING: Negative for acute or sub-acute infarction. ORBITS: No masses. Globes normal. PARANASAL SINUSES: No fluid levels. Mucosa normal. OTHER: No other significant finding. IMPRESSION: ATROPHY AND CHRONIC MICRO-VASCULAR ISCHEMIC CHANGES. 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 NO ACUTE FINDINGS. EVIDENCE OF ACUTE STROKE: NO. TECHNICAL DOCUMENTATION: JOB ID: [id number] [employer]- All Rights Reserved Reading location - IP/workstation name: [facility]-[email or web address]
== END ==
LOC: RAD 10:57
PROVIDERS: ATTEND Internal Medicine
DX: R51 Headache (principal); G31.9 Degenerative disease of nervous system, unspecified
CPT/HCPCS: 70551

== ENCOUNTER 2018-02-20 09:11 | Emergency (ER) | payer MEDICARE, MEDICAID ==
[2018-02-20] MEDS ORDERED: KETOROLAC TROMETHAMINE INJ/PF 30 MG/1 ML SDV IV ONE (09:54)
[2018-02-20] MEDS ORDERED: MAGNESIUM SULFATE/D5W 1 GM/100 ML RTUPB IV ONE (09:55)
[2018-02-20] MEDS ORDERED: FENTANYL CITRATE INJ/PF 100 MCG/2 ML AMPUL IV ONE (09:58)
[2018-02-20] MEDS ORDERED: CLONIDINE HCL 0.1 MG TABLET PO ONE (09:59)
--- NOTE | 2018-02-20 09:59 | ER Document Report ---
ED Headache - General Chief Complaint: Headache Stated Complaint: STIFF NECK Time Seen by Provider: 02/20/18 09:37 Notes: 82-year-old female patient to the emergency department complaining of neck pain. States that 3 days ago she began to have some pain on the right side of her neck. Radiates down into her right trapezius muscle. Occasional headache. Most of the pain is in her neck. States that she "slept wrong". Has frequent headaches. Has high blood pressure. Followed by Dr. Mattson. Took some of her headache medication but it did not help. Denies any fever, chills, sweats. Denies any nausea or vomiting. Headache is described as mild. Most of the pain is on the neck and shoulder area. The right side. TRAVEL OUTSIDE OF THE [place] IN LAST 30 DAYS: No - HPI Patient complains to provider of: Headache, Other - Neck pain Patient reports: Hx chronic headaches Onset: Other - 3 days ago Onset was: Gradual. denies: Abrupt, Cannot pinpoint, Thunderclap, While turning head Timing: Worse Quality of pain: Cramping, Dull Severity: Moderate Pain Level: 3 - Related Data Allergies/Adverse Reactions: No Known Allergies Allergy (Verified 02/20/18 09:39) Past Medical History - General Information source: Patient, Relative - Social History Smoking Status: Never Smoker Chew tobacco use (# tins/day): No Frequency of alcohol use: None Drug Abuse: None Lives with: Family Family History: Reviewed & Not Pertinent Patient has suicidal ideation: No Patient has homicidal ideation: No - Past Medical History Cardiac Medical History: Reports: Hx Atrial Fibrillation, Hx DVT, Hx Hypertension Denies: Hx Heart Attack Pulmonary Medical History: Reports: Hx COPD Denies: Hx Asthma, Hx Tuberculosis Neurological Medical History: Denies: Hx Cerebrovascular Accident, Hx Seizures Renal/ Medical History: Reports: Hx Renal Insufficiency. Denies: Hx Peritoneal Dialysis GI Medical History: Denies: Hx Hepatitis, Hx Hiatal Hernia, Hx Ulcer Musculoskeletal Medical History: Reports Hx Arthritis Psychiatric Medical History: Denies: Hx Depression Infectious Medical History: Denies: Hx Hepatitis Past Surgical History: Denies: Hx Hysterectomy, Hx Mastectomy, Hx Open Heart Surgery, Hx Pacemaker - Immunizations Immunizations up to date: Yes Hx Diphtheria, Pertussis, Tetanus Vaccination: Yes Hx Pneumococcal Vaccination: 08/06/12 Review of Systems - Review of Systems Constitutional: denies: Fever, Malaise, Weakness EENT: denies: Blurred vision, Difficulty swallowing, Mouth pain Cardiovascular: denies: Chest pain, Palpitations, Heart racing Respiratory: denies: Cough, Hurts to breathe, Short of breath, Wheezing Gastrointestinal: denies: Abdominal pain, Diarrhea, Nausea, Vomiting Genitourinary: denies: Dysuria, Discharge, Urgency Musculoskeletal: Muscle pain, Muscle stiffness, Neck pain. denies: Back pain, Joint pain, Deformity, Leg swelling Skin: denies: Change in color, Dryness, Lesions, Lumps, Rash Hematologic/Lymphatic: denies: Anemia, Blood clots, Easy bleeding, Easy bruising Neurological/Psychological: denies: Confusion, Weakness, Numbness Physical Exam - Vital signs Vitals: Temp Pulse Resp BP Pulse Ox 98.8 F 100 16 183/101 H 98 02/20/18 09:16 02/20/18 09:16 02/20/18 09:16 02/20/18 09:16 02/20/18 09:16 Interpretation: Hypertensive, Tachycardic - General General appearance: Alert In distress: None - HEENT Head: Normocephalic, Atraumatic Eyes: Normal Pupils: PERRL Neck: Supple. No: Brudzinski, Lymphadenopathy, Meningismus, Neck mass, Subcutaneous emphysema, Thyromegally - Respiratory Respiratory status: No respiratory distress Chest status: Nontender Breath sounds: Normal Chest palpation: Normal - Cardiovascular Rhythm: Regular Heart sounds: Normal auscultation Murmur: No - Abdominal Inspection: Normal Distension: No distension Bowel sounds: Normal Tenderness: Nontender Organomegaly: No organomegaly - Extremities General upper extremity: Normal inspection, Nontender, Normal color, Normal ROM , Normal temperature General lower extremity: Normal inspection, Nontender, Normal color, Normal ROM , Normal temperature, Normal weight bearing. No: Galina's sign - Neurological Neuro grossly intact: Yes Cognition: Normal Orientation: AAOx4 [place] Coma Scale Eye Opening: Spontaneous Abran Coma Scale Verbal: Oriented [place] Coma Scale Motor: Obeys Commands [place] Coma Scale Total: 15 Speech: Normal Motor strength normal: LUE, RUE, LLE, RLE Sensory: Normal - Skin Skin Temperature: Warm Skin Moisture: Dry Skin Color: Normal Course - Re-evaluation Re-evalutation: 02/20/18 10:04 Patient complaining of neck pain. Not necessarily at this time complaining of headache but does have a headache. Describes most of the pain in her neck is located on the right sternocleidomastoid area radiating down into the right trapezius area. Hurts to turn her head to the left. At this time will give some pain medication. Does have some hypertension so we will give her some clonidine at this time as well. 02/20/18 12:54 Patient feeling much better at this time. Able to move her neck freely. Still do not think this represents a stroke or worsening conditions. Patient would like to try to go home. Blood pressure is slightly elevated but better than before. Will DC at this time. Strict instructions were given to patient as well as patient's family member to return if symptoms are getting worse. - Vital Signs Vital signs: Temp Pulse Resp BP Pulse Ox 98.8 F 100 16 183/101 H 98 02/20/18 09:16 02/20/18 09:16 02/20/18 09:16 02/20/18 09:16 02/20/18 09:16 - Laboratory Result Diagrams: 02/20/18 11:11 02/20/18 11:11 Laboratory results interpreted by me: 02/20/18 02/20/18 11:11 11:11 WBC 3.9 L Hgb 11.7 L Hct 34.4 L RDW 15.2 H Sodium 145.2 H BUN 27 H Creatinine 2.32 H Est GFR ( Amer) 24 L Est GFR (Non-Af Amer) 20 L Discharge - Discharge Clinical Impression: Right torticollis Condition: Good Disposition: HOME, SELF-CARE Instructions: Torticollis ([facility]) Prescriptions: Tramadol HCl [Ultram 50 mg Tablet] 50 mg PO Q6HP PRN 5 Days #20 tablet PRN Reason: Referrals: VICTORIANO MATTSON MD [Primary Care Provider] - Follow up in 3-5 days
[2018-02-20 11:31] LABS: ABSOLUTE EOSINOPHILS # (AUTO) 0.1 10^3/uL (0.0-0.6); ABSOLUTE LYMPHOCYTES (AUTO) 0.8 10^3/uL (0.5-4.7); ABSOLUTE MONOCYTES (AUTO) 0.4 10^3/uL (0.1-1.4); ABSOLUTE NEUT (AUTO) 2.5 10^3/uL (1.7-8.2); BASOPHILS % (AUTO) 0.8 % (0-2); EOSINOPHILS % (AUTO) 3.7 % (0-6); HEMATOCRIT 34.4 % (36.0-47.0); HEMOGLOBIN 11.7 g/dL (12.0-15.5); LYMPHOCYTES % (AUTO) 20.5 % (13-45); MEAN CORPUSCULAR HEMOGLOBIN 29.8 pg (27.0-33.4); MEAN CORPUSCULAR VOLUME 88 fl (80-97); MONOCYTES % (AUTO) 9.4 % (3-13); PLATELET COUNT 171 10^3/uL (150-450); RED BLOOD COUNT 3.92 10^6/uL (3.72-5.28); RED CELL DISTRIBUTION WIDTH 15.2 % (11.5-14.0); SEGMENTED NEUTROPHILS % (AUTO) 65.6 % (42-78); TOTAL CELLS COUNTED % (AUTO) 100 %; WHITE BLOOD COUNT 3.9 10^3/uL (4.0-10.5)
[2018-02-20 11:55] LABS: ANION GAP 14 (5-19); BLOOD UREA NITROGEN 27 mg/dL (7-20); CALCIUM 9.6 mg/dL (8.4-10.2); CARBON DIOXIDE 24 mmol/L (22-30); CHLORIDE 107 mmol/L (98-107); GLUCOSE 75 mg/dL (75-110); POTASSIUM 3.8 mmol/L (3.6-5.0); SODIUM 145.2 mmol/L (137-145)
[2018-02-20 13:15] VITALS: BP 183/90
== END 2018-02-20 13:19 | disposition home or self-care (01) ==
LOC: ER 09:11
DX: M43.6 Torticollis (principal); I10 Essential (primary) hypertension; M54.2 Cervicalgia; R51 Headache; M25.519 Pain in unspecified shoulder
CPT/HCPCS: 99283; 96375; 96365; 36415; 85025; 80048; A9270; J3010; J1885; J3475

== ENCOUNTER 2018-03-26 12:17 | Emergency (ER) | payer MEDICARE, MEDICAID ==
[2018-03-26] MEDS ORDERED: HYDROCODONE/ACETAMINOPHEN 5-325 MG TABLET PO ONE (12:44)
[2018-03-26] MEDS ORDERED: BACLOFEN 20 MG TABLET PO ONE (12:44)
--- NOTE | 2018-03-26 13:00 | ER Document Report ---
ED Neck/Back Problem - General Chief Complaint: Neck and Upper Back Pain Stated Complaint: NECK PAIN Time Seen by Provider: 03/26/18 12:44 Mode of Arrival: Ambulatory Information source: Patient Notes: Chief complaint: Neck pain History of complain:( obtained from----patient) 82 years old female presents today with right sided neck pain for the last 2-3 days. Woke up 3 days ago with pain. Since then pain is persistent. Each time she moves her neck the pain is increased in intensity. Denies any obvious injury. Denies any constitutional symptoms 3 days ago Onset: 3 days ago Duration: Gradual Severity: Moderate Quality: Sharp Context: Sprain Exacerbating factor and relieving factors: Movement of the neck REVIEW OF SYSTEMS: CONSTITUTIONAL : Denies fever, chills, or sweats. Denies recent illness. EENT: Denies eye, ear, throat, or mouth pain or symptoms. Denies nasal or sinus congestion or discharge. Denies throat, tongue, or mouth swelling or difficulty swallowing. CARDIOVASCULAR: Denies chest pain. Denies palpitations or racing or irregular heart beat. Denies ankle edema. RESPIRATORY: Denies cough, cold, or chest congestion. Denies shortness of breath, difficulty breathing, or wheezing. GASTROINTESTINAL: Denies distention. Denies nausea, vomiting, or diarrhea. Denies blood in vomitus, stools, or per rectum. Denies black, tarry stools. Denies constipation. GENITOURINARY: Denies difficulty urinating, painful urination, burning, frequency, blood in urine, or discharge. FEMALE GENITOURINARY: Denies vaginal bleeding, heavy or abnormal periods, irregular periods. Denies vaginal discharge or odor. MUSCULOSKELETAL: Denies back or neck pain or stiffness. Denies joint pain or swelling. SKIN: Denies rash, lesions or sores. HEMATOLOGIC : Denies easy bruising or bleeding. LYMPHATIC: Denies swollen, enlarged glands. NEUROLOGICAL: Denies confusion or altered mental status. Denies passing out or loss of consciousness. Denies dizziness or lightheadedness. Denies headache. Denies weakness or paralysis or loss of use of either side. Denies problems with gait or speech. Denies sensory loss, numbness, or tingling. Denies seizures. PSYCHIATRIC: Denies anxiety or stress. Denies depression, suicidal ideation, or homicidal ideation. ALL OTHER SYSTEMS REVIEWED AND NEGATIVE. PHYSICAL EXAMINATION: GENERAL: Well-appearing, well-nourished and in no acute distress. Lean female HEAD: Atraumatic, normocephalic. EYES: Pupils equal round and reactive to light, extraocular movements intact, conjunctiva are normal. ENT: Right-sided paraspinal muscles and sternocleidomastoid muscles were extremely tender on palpation. She could not do right lateral movement of the neck due to pain. Nares patent, oropharynx clear without exudates. Moist mucous membranes. NECK: Normal range of motion, supple without lymphadenopathy LUNGS: Breath sounds clear to auscultation bilaterally and equal. No wheezes rales or rhonchi. HEART: Regular rate and rhythm without murmurs ABDOMEN: Soft, nontender, nondistended abdomen. No guarding, no rebound. No masses appreciated. Examination of genitals-deferred Musculoskeletal: Normal range of motion, no pitting or edema. No cyanosis. NEUROLOGICAL: Cranial nerves grossly intact. Normal speech, normal gait. Normal sensory, motor exams PSYCH: Normal mood, normal affect. SKIN: Warm, Dry, normal turgor, no rashes or lesions noted. Dictation was performed using [employer] voice recognition software TRAVEL OUTSIDE OF THE [place] IN LAST 30 DAYS: No - Related Data Allergies/Adverse Reactions: No Known Allergies Allergy (Verified 03/26/18 12:21) Past Medical History - Social History Smoking Status: Former Smoker Frequency of alcohol use: None Drug Abuse: None Family History: Reviewed & Not Pertinent Patient has suicidal ideation: No Patient has homicidal ideation: No - Past Medical History Cardiac Medical History: Reports: Hx Atrial Fibrillation, Hx DVT, Hx Hypertension Denies: Hx Heart Attack Pulmonary Medical History: Reports: Hx COPD Denies: Hx Asthma, Hx Tuberculosis Neurological Medical History: Denies: Hx Cerebrovascular Accident, Hx Seizures Renal/ Medical History: Reports: Hx Renal Insufficiency. Denies: Hx Peritoneal Dialysis GI Medical History: Denies: Hx Hepatitis, Hx Hiatal Hernia, Hx Ulcer Musculoskeletal Medical History: Reports Hx Arthritis Psychiatric Medical History: Denies: Hx Depression Infectious Medical History: Denies: Hx Hepatitis Past Surgical History: Denies: Hx Hysterectomy, Hx Mastectomy, Hx Open Heart Surgery, Hx Pacemaker - Immunizations Immunizations up to date: Yes Hx Diphtheria, Pertussis, Tetanus Vaccination: Yes Hx Pneumococcal Vaccination: 08/06/12 Review of Systems - Review of Systems Notes: Dictated Physical Exam - Vital signs Vitals: Temp Pulse Resp BP Pulse Ox 98.5 F 113 H 18 178/96 H 98 03/26/18 12:31 03/26/18 12:31 03/26/18 12:31 03/26/18 12:31 03/26/18 12:31 - Notes Notes: Dictated Course - Re-evaluation Re-evalutation: 03/26/18 13:49 Given pain medication - Vital Signs Vital signs: Temp Pulse Resp BP Pulse Ox 98.5 F 113 H 18 178/96 H 98 03/26/18 12:31 03/26/18 12:31 03/26/18 12:31 03/26/18 12:31 03/26/18 12:31 - Diagnostic Test Radiology reviewed: Reports reviewed - X-ray of the cervical spine shows spondylosis, Discharge - Discharge Clinical Impression: Sprain of cervical neck Qualifiers: Encounter type: initial encounter Qualified Code(s): S13.9XXA - Sprain of joints and ligaments of unspecified parts of neck, initial encounter Condition: Fair Disposition: HOME, SELF-CARE Instructions: Sprain ([facility]) Prescriptions: Baclofen [Baclofen 10 mg Tablet] 10 mg PO TID #30 tab Hydrocodone/Acetaminophen [Hydrocodon-Acetaminophen 5-325] 1 each PO TID #14 tablet Referrals: VICTORIANO MATTSON MD [Primary Care Provider] - Follow up as needed
--- NOTE | 2018-03-26 13:26 | RADIOLOGY REPORT (SQ) ---
EXAM DESCRIPTION: CERV SP 4 OR 5 VIEWS COMPLETED DATE/TIME: 03/26/2018 1:16 pm REASON FOR STUDY: Neck pain COMPARISON: None. NUMBER OF VIEWS: Five views including obliques. TECHNIQUE: AP, lateral, obliques and odontoid radiographic images acquired of the cervical spine. LIMITATIONS: None. FINDINGS: MINERALIZATION: Normal. SEGMENTATION: Normal. ALIGNMENT: Normal. VERTEBRAE: Maintained height. No fracture or worrisome bone lesion. DISCS: Multilevel disc space narrowing with osteophytes. POSTERIOR ELEMENTS: Pedicles and facets are intact. No posterior arch defects. Facet arthropathy is present. FORAMINA: Narrowed at the levels of maximal disc and facet disease. HARDWARE: None in the spine. PARASPINAL SOFT TISSUES: Normal. OTHER: No other significant finding. IMPRESSION: SPONDYLOSIS WITHOUT BONE LESION OR FRACTURE. TECHNICAL DOCUMENTATION: JOB ID: [id number] [employer]- All Rights Reserved Reading location - IP/workstation name: [email or web address]
[2018-03-26 14:07] VITALS: BP 187/101
== END 2018-03-26 14:00 | disposition home or self-care (01) ==
LOC: ER 12:17
DX: S13.9XXA Sprain of joints and ligaments of unspecified parts of neck, initial encounter (principal); X58.XXXA Exposure to other specified factors, initial encounter; M47.9 Spondylosis, unspecified; M54.2 Cervicalgia; I10 Essential (primary) hypertension; J44.9 Chronic obstructive pulmonary disease, unspecified; Z87.891 Personal history of nicotine dependence
CPT/HCPCS: 99283; 72050; A9270 ×2; J3490

== ENCOUNTER 2018-04-15 23:29 | Inpatient (IN) | payer MEDICARE, MEDICAID ==
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
--- NOTE | 2018-04-16 00:54 | RADIOLOGY REPORT (SQ) ---
EXAM DESCRIPTION: Single view chest COMPLETED DATE/TME: 04/16/2018 00:00 CLINICAL HISTORY: 83 years Female AMS COMPARISON: 03/13/2017. FINDINGS: The cardiomediastinal silhouette appears unremarkable. No consolidating infiltrates or pleural effusions. No pneumothorax. IMPRESSION: No acute abnormality is identified.
[2018-04-16 01:25] LABS: ABSOLUTE EOSINOPHILS # (AUTO) 0.1 10^3/uL (0.0-0.6); ABSOLUTE LYMPHOCYTES (AUTO) 0.8 10^3/uL (0.5-4.7); ABSOLUTE MONOCYTES (AUTO) 0.7 10^3/uL (0.1-1.4); ABSOLUTE NEUT (AUTO) 5.5 10^3/uL (1.7-8.2); BASOPHILS % (AUTO) 0.4 % (0-2); EOSINOPHILS % (AUTO) 1.1 % (0-6); HEMOGLOBIN 11.6 g/dL (12.0-15.5); LYMPHOCYTES % (AUTO) 11.2 % (13-45); MEAN CORPUSCULAR HEMOGLOBIN 29.1 pg (27.0-33.4); MEAN CORPUSCULAR HGB CONC 33.2 g/dL (32.0-36.0); MEAN CORPUSCULAR VOLUME 88 fl (80-97); MONOCYTES % (AUTO) 10.4 % (3-13); PLATELET COUNT 151 10^3/uL (150-450); RED CELL DISTRIBUTION WIDTH 15.7 % (11.5-14.0); SEGMENTED NEUTROPHILS % (AUTO) 76.9 % (42-78); TOTAL CELLS COUNTED % (AUTO) 100 %; WHITE BLOOD COUNT 7.1 10^3/uL (4.0-10.5)
[2018-04-16 01:38] LABS: ALANINE AMINOTRANSFERASE 12 U/L (9-52); ALBUMIN 3.9 g/dL (3.5-5.0); ALKALINE PHOSPHATASE 52 U/L (38-126); ANION GAP 12 (5-19); ASPARTATE AMINO TRANSFERASE 24 U/L (14-36); BILIRUBIN,DIRECT 0.6 mg/dL (0.0-0.4); BLOOD UREA NITROGEN 33 mg/dL (7-20); CALCIUM 10.2 mg/dL (8.4-10.2); CARBON DIOXIDE 19 mmol/L (22-30); CHLORIDE 106 mmol/L (98-107); GLUCOSE 98 mg/dL (75-110); POTASSIUM 4.6 mmol/L (3.6-5.0); SODIUM 136.5 mmol/L (137-145)
[2018-04-16 01:39] LABS: ALCOHOL < 10 mg/dL (NONE DETECTED)
--- NOTE | 2018-04-16 01:45 | RADIOLOGY REPORT (SQ) ---
EXAM DESCRIPTION: CT HEAD WITHOUT IV CONTRAST COMPLETED DATE/TME: 04/16/2018 00:00 CLINICAL HISTORY: confusion, on eliquis COMPARISON: None available TECHNIQUE: Axial CT of the head obtained from the skull apex to the skull base without contrast. FINDINGS: No acute intracranial hemorrhage identified. No mass, mass effect, shift of the midline, abnormal extra-axial fluid collection or CT evidence of acute ischemic change identified. The ventricular system and sulcal spaces are mildly enlarged compatible with mild cerebral atrophy. Scattered areas of hypodensity throughout the supratentorial white matter are nonspecific and may be related to chronic small vessel ischemic change. Encephalomalacia involving the left cerebral hemisphere likely related to remote infarction. The visualized paranasal sinuses and the mastoids are clear. No skull fracture identified. Visualized orbits and globes are unremarkable. Atherosclerotic calcification of the intracranial internal carotid arteries. DLP: 910.77 mGy-cm IMPRESSION: 1. No acute intracranial abnormality by CT criteria. This exam was performed according to our departmental dose-optimization program, which includes automated exposure control, adjustment of the mA and/or kV according to patient size and/or use of iterative reconstruction technique.
[2018-04-16] MEDS ORDERED: NORMAL SALINE 1000 ML 500 ML IV ONE (02:26)
[2018-04-16] MEDS ORDERED: NORMAL SALINE 1000 ML 1,000 ML IV PRN (02:27)
[2018-04-16 03:34] LABS: APPEARANCE,URINE CLEAR; BILIRUBIN,URINE NEGATIVE (NEGATIVE); COLOR,URINE YELLOW; GLUCOSE, URINE NEGATIVE (NEGATIVE); KETONES,URINE NEGATIVE (NEGATIVE); LEUKOCYTE ESTERASE,URINE NEGATIVE (NEGATIVE); NITRITE,URINE NEGATIVE (NEGATIVE); PROTEIN,URINE 100 mg/dL (NEGATIVE); URINE SPECIFIC GRAVITY 1.012; UROBILINOGEN,URINE NEGATIVE mg/dL (<2.0)
[2018-04-16 10:03] LABS: CREATINE KINASE MB 0.61 ng/mL (<4.55); TROPONIN I 0.033 ng/mL
--- NOTE | 2018-04-16 13:44 | EKG REPORT ---
SEVERITY:- ABNORMAL ECG - SINUS RHYTHM LEFT VENTRICULAR HYPERTROPHY : Confirmed by: Bre De La Torre MD 16-Apr-2018 13:44:02
[2018-04-16] MEDS ORDERED: HEPARIN SOD (PORCINE) 5,000 UNIT/ML 1 ML SYRINGE SUBCUT SCH (14:00)
[2018-04-16] MEDS: NORMAL SALINE 1000 ML 1,000 ML IV PRN (15:13)
[2018-04-16 15:25] LABS: CREATINE KINASE MB 0.64 ng/mL (<4.55); TROPONIN I 0.032 ng/mL
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
[2018-04-16] MEDS ORDERED: BEPOTASTINE BESILATE OU SCH (21:00)
[2018-04-16 21:45] LABS: CREATINE KINASE MB 0.58 ng/mL (<4.55); TROPONIN I 0.033 ng/mL
[2018-04-16] MEDS: HYDRALAZINE HCL 25 MG TABLET PO SCH (21:49)
[2018-04-16] MEDS: SODIUM BICARBONATE 650 MG TABLET PO SCH (21:49)
[2018-04-16] MEDS: APIXABAN 2.5 MG TABLET PO SCH (21:52)
[2018-04-17] MEDS: NORMAL SALINE 1000 ML 1,000 ML IV PRN ×2 (03:35→17:10)
[2018-04-17 06:39] LABS: ABSOLUTE EOSINOPHILS # (AUTO) 0.1 10^3/uL (0.0-0.6); ABSOLUTE LYMPHOCYTES (AUTO) 0.8 10^3/uL (0.5-4.7); ABSOLUTE MONOCYTES (AUTO) 0.5 10^3/uL (0.1-1.4); ABSOLUTE NEUT (AUTO) 3.3 10^3/uL (1.7-8.2); EOSINOPHILS % (AUTO) 2.9 % (0-6); HEMATOCRIT 32.1 % (36.0-47.0); HEMOGLOBIN 10.9 g/dL (12.0-15.5); LYMPHOCYTES % (AUTO) 17.6 % (13-45); MEAN CORPUSCULAR HEMOGLOBIN 28.9 pg (27.0-33.4); MEAN CORPUSCULAR HGB CONC 33.9 g/dL (32.0-36.0); MEAN CORPUSCULAR VOLUME 85 fl (80-97); MONOCYTES % (AUTO) 10.2 % (3-13); PLATELET COUNT 150 10^3/uL (150-450); RED BLOOD COUNT 3.77 10^6/uL (3.72-5.28); RED CELL DISTRIBUTION WIDTH 15.7 % (11.5-14.0); SEGMENTED NEUTROPHILS % (AUTO) 68.3 % (42-78); TOTAL CELLS COUNTED % (AUTO) 100 %; WHITE BLOOD COUNT 4.8 10^3/uL (4.0-10.5)
[2018-04-17 06:58] LABS: ALANINE AMINOTRANSFERASE 19 U/L (9-52); ALBUMIN 3.2 g/dL (3.5-5.0); ALKALINE PHOSPHATASE 55 U/L (38-126); ANION GAP 7 (5-19); ASPARTATE AMINO TRANSFERASE 17 U/L (14-36); BILIRUBIN,DIRECT 0.4 mg/dL (0.0-0.4); BILIRUBIN,TOTAL 0.6 mg/dL (0.2-1.3); BLOOD UREA NITROGEN 22 mg/dL (7-20); CALCIUM 9.8 mg/dL (8.4-10.2); CARBON DIOXIDE 23 mmol/L (22-30); CHLORIDE 109 mmol/L (98-107); GLUCOSE 91 mg/dL (75-110); POTASSIUM 3.8 mmol/L (3.6-5.0); SODIUM 139.2 mmol/L (137-145); TOTAL PROTEIN 6.6 g/dL (6.3-8.2)
[2018-04-17] MEDS: APIXABAN 2.5 MG TABLET PO SCH ×2 (09:32→17:08)
[2018-04-17] MEDS: SODIUM BICARBONATE 650 MG TABLET PO SCH ×3 (09:32→17:08)
[2018-04-17] MEDS: HYDRALAZINE HCL 25 MG TABLET PO SCH ×3 (09:32→17:08)
[2018-04-17] MEDS ORDERED: ADENOSINE INJ/PF 6 MG/2 ML SDV IV ONE (10:40)
[2018-04-17] MEDS ORDERED: DILTIAZEM HCL INJ 25 MG/5 ML VIAL ONE (10:42)
[2018-04-17] MEDS ORDERED: DILTIAZEM HCL INJ 25 MG/5 ML VIAL IV ONE (12:15)
[2018-04-17] MEDS: DILTIAZEM HCL/D5W 125 MG/125 ML RTUINJ IV PRN ×2 (14:55→21:32)
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
[2018-04-17] MEDS: METOPROLOL SUCCINATE 50 MG TAB.SR.24H PO SCH (21:27)
[2018-04-18 05:49] LABS: ABSOLUTE EOSINOPHILS # (AUTO) 0.1 10^3/uL (0.0-0.6); ABSOLUTE LYMPHOCYTES (AUTO) 0.6 10^3/uL (0.5-4.7); ABSOLUTE MONOCYTES (AUTO) 0.6 10^3/uL (0.1-1.4); ABSOLUTE NEUT (AUTO) 3.5 10^3/uL (1.7-8.2); BASOPHILS % (AUTO) 0.6 % (0-2); EOSINOPHILS % (AUTO) 2.7 % (0-6); HEMATOCRIT 29.7 % (36.0-47.0); HEMOGLOBIN 10.1 g/dL (12.0-15.5); LYMPHOCYTES % (AUTO) 13.1 % (13-45); MEAN CORPUSCULAR HEMOGLOBIN 29.2 pg (27.0-33.4); MEAN CORPUSCULAR VOLUME 86 fl (80-97); MONOCYTES % (AUTO) 11.5 % (3-13); PLATELET COUNT 144 10^3/uL (150-450); RED BLOOD COUNT 3.46 10^6/uL (3.72-5.28); RED CELL DISTRIBUTION WIDTH 16.2 % (11.5-14.0); SEGMENTED NEUTROPHILS % (AUTO) 72.1 % (42-78); TOTAL CELLS COUNTED % (AUTO) 100 %; WHITE BLOOD COUNT 4.8 10^3/uL (4.0-10.5)
[2018-04-18] MEDS: DILTIAZEM HCL/D5W 125 MG/125 ML RTUINJ IV PRN (06:02)
[2018-04-18] MEDS: NORMAL SALINE 1000 ML 1,000 ML IV PRN ×2 (06:02→21:07)
[2018-04-18] MEDS: SODIUM BICARBONATE 650 MG TABLET PO SCH ×3 (10:13→17:19)
[2018-04-18] MEDS: METOPROLOL SUCCINATE 50 MG TAB.SR.24H PO SCH (10:13)
[2018-04-18] MEDS: HYDRALAZINE HCL 25 MG TABLET PO SCH ×3 (10:13→17:18)
[2018-04-18] MEDS: APIXABAN 2.5 MG TABLET PO SCH ×2 (10:20→17:18)
[2018-04-18] MEDS: MEGESTROL ACETATE 20 MG TABLET PO SCH (17:19)
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
[2018-04-18] MEDS ORDERED: MONTELUKAST SODIUM 10 MG TABLET PO SCH (18:00)
[2018-04-19 06:15] LABS: ABSOLUTE EOSINOPHILS # (AUTO) 0.2 10^3/uL (0.0-0.6); ABSOLUTE LYMPHOCYTES (AUTO) 0.8 10^3/uL (0.5-4.7); ABSOLUTE MONOCYTES (AUTO) 0.5 10^3/uL (0.1-1.4); ABSOLUTE NEUT (AUTO) 3.8 10^3/uL (1.7-8.2); BASOPHILS % (AUTO) 0.8 % (0-2); EOSINOPHILS % (AUTO) 3.6 % (0-6); HEMATOCRIT 31.6 % (36.0-47.0); HEMOGLOBIN 10.7 g/dL (12.0-15.5); LYMPHOCYTES % (AUTO) 15.1 % (13-45); MEAN CORPUSCULAR HEMOGLOBIN 29.3 pg (27.0-33.4); MEAN CORPUSCULAR VOLUME 86 fl (80-97); MONOCYTES % (AUTO) 9.6 % (3-13); PLATELET COUNT 139 10^3/uL (150-450); RED BLOOD COUNT 3.66 10^6/uL (3.72-5.28); SEGMENTED NEUTROPHILS % (AUTO) 70.9 % (42-78); TOTAL CELLS COUNTED % (AUTO) 100 %; WHITE BLOOD COUNT 5.4 10^3/uL (4.0-10.5)
[2018-04-19 08:46] LABS: ANION GAP 8 (5-19); BLOOD UREA NITROGEN 16 mg/dL (7-20); CALCIUM 9.6 mg/dL (8.4-10.2); CARBON DIOXIDE 22 mmol/L (22-30); CHLORIDE 110 mmol/L (98-107); GLUCOSE 94 mg/dL (75-110); POTASSIUM 3.7 mmol/L (3.6-5.0); SODIUM 139.6 mmol/L (137-145)
[2018-04-19] MEDS: HYDRALAZINE HCL 25 MG TABLET PO SCH ×2 (09:14→13:44)
[2018-04-19] MEDS: METOPROLOL SUCCINATE 50 MG TAB.SR.24H PO SCH (09:15)
[2018-04-19] MEDS: MEGESTROL ACETATE 20 MG TABLET PO SCH (09:15)
[2018-04-19] MEDS: SODIUM BICARBONATE 650 MG TABLET PO SCH ×2 (09:15→13:44)
[2018-04-19] MEDS: APIXABAN 2.5 MG TABLET PO SCH (09:15)
[2018-04-19] MEDS: NORMAL SALINE 1000 ML 1,000 ML IV PRN (13:29)
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
[2018-04-19 17:00] VITALS: BP 166/90
== END 2018-04-19 17:04 | disposition home or self-care (01) | DRG 684 ==
LOC: ER 23:29 → EH 04-16 04:04 → UNDOADMOB 04-16 04:04 → 3S 04-16 14:55 → EH 04-16 14:55 → OBSVTOIN 04-18 13:25
PROVIDERS: ADMIT Internal Medicine; ATTEND Internal Medicine
DX: N17.9 Acute kidney failure, unspecified (principal); E86.0 Dehydration; I48.2 Chronic atrial fibrillation; I12.9 Hypertensive chronic kidney disease with stage 1 through stage 4 chronic kidney disease, or unspecified chronic kidney disease; T42.75XA Adverse effect of unspecified antiepileptic and sedative-hypnotic drugs, initial encounter; N18.3 Chronic kidney disease, stage 3 (moderate); M19.90 Unspecified osteoarthritis, unspecified site; J44.9 Chronic obstructive pulmonary disease, unspecified; F44.9 Dissociative and conversion disorder, unspecified; G62.9 Polyneuropathy, unspecified; Z79.01 Long term (current) use of anticoagulants; Z79.899 Other long term (current) drug therapy; Z65.5 Exposure to disaster, war and other hostilities; Z86.718 Personal history of other venous thrombosis and embolism
CPT/HCPCS: 36415; 70450; 71045; 80048; 80053; 80307; 81001; 82550; 82553; 84484; 85025; 93005; 93010; 96360; 96361; 96372; 99285; G0378; J0153; J1644; J3490

== ENCOUNTER 2018-04-24 18:17 | Emergency (ER) | payer MEDICARE, MEDICAID ==
[2018-04-24] MEDS ORDERED: CLONIDINE HCL 0.2 MG TABLET PO ONE (18:55)
[2018-04-24 20:12] LABS: ABSOLUTE EOSINOPHILS # (AUTO) 0.1 10^3/uL (0.0-0.6); ABSOLUTE LYMPHOCYTES (AUTO) 0.7 10^3/uL (0.5-4.7); ABSOLUTE MONOCYTES (AUTO) 0.5 10^3/uL (0.1-1.4); BASOPHILS % (AUTO) 0.5 % (0-2); EOSINOPHILS % (AUTO) 1.4 % (0-6); HEMOGLOBIN 9.8 g/dL (12.0-15.5); MEAN CORPUSCULAR HEMOGLOBIN 29.2 pg (27.0-33.4); MEAN CORPUSCULAR HGB CONC 33.7 g/dL (32.0-36.0); MEAN CORPUSCULAR VOLUME 87 fl (80-97); MONOCYTES % (AUTO) 9.4 % (3-13); PLATELET COUNT 172 10^3/uL (150-450); RED BLOOD COUNT 3.35 10^6/uL (3.72-5.28); RED CELL DISTRIBUTION WIDTH 16.3 % (11.5-14.0); SEGMENTED NEUTROPHILS % (AUTO) 75.7 % (42-78); TOTAL CELLS COUNTED % (AUTO) 100 %; WHITE BLOOD COUNT 5.3 10^3/uL (4.0-10.5)
--- NOTE | 2018-04-24 20:14 | RADIOLOGY REPORT (SQ) ---
EXAM DESCRIPTION: CHEST SINGLE VIEW COMPLETED DATE/TIME: 04/24/2018 7:58 pm REASON FOR STUDY: sob COMPARISON: 04/16/2018 EXAM PARAMETERS: NUMBER OF VIEWS: One view. TECHNIQUE: Single frontal radiographic view of the chest acquired. RADIATION DOSE: NA LIMITATIONS: None. FINDINGS: LUNGS AND PLEURA: No opacities, masses or pneumothorax. No pleural effusion. MEDIASTINUM AND HILAR STRUCTURES: No masses. Contour normal. HEART AND VASCULAR STRUCTURES: Borderline cardiomegaly. Normal vasculature. BONES: No acute findings. HARDWARE: None in the chest. OTHER: No other significant finding. IMPRESSION: NO ACUTE RADIOGRAPHIC FINDING IN THE CHEST. TECHNICAL DOCUMENTATION: JOB ID: [id number] [employer]- All Rights Reserved Reading location - IP/workstation name: [email or web address]
[2018-04-24 20:28] LABS: APPEARANCE,URINE CLEAR; BILIRUBIN,URINE NEGATIVE (NEGATIVE); COLOR,URINE YELLOW; GLUCOSE, URINE NEGATIVE (NEGATIVE); KETONES,URINE TRACE mg/dL (NEGATIVE); LEUKOCYTE ESTERASE,URINE NEGATIVE (NEGATIVE); NITRITE,URINE NEGATIVE (NEGATIVE); PROTEIN,URINE 100 mg/dL (NEGATIVE); URINE SPECIFIC GRAVITY 1.019; UROBILINOGEN,URINE NEGATIVE mg/dL (<2.0)
[2018-04-24 20:28] LABS: ANION GAP 8 (5-19); BLOOD UREA NITROGEN 26 mg/dL (7-20); CALCIUM 9.4 mg/dL (8.4-10.2); CARBON DIOXIDE 26 mmol/L (22-30); CHLORIDE 104 mmol/L (98-107); GLUCOSE 103 mg/dL (75-110); POTASSIUM 3.3 mmol/L (3.6-5.0); SODIUM 137.6 mmol/L (137-145)
--- NOTE | 2018-04-24 20:51 | ER Document Report ---
ED General - General Chief Complaint: High Blood Pressure Stated Complaint: BLURRY VISION Time Seen by Provider: 04/24/18 18:55 Notes: Patient is an 83-year-old female with a past medical history of chronic kidney disease, chronic anemia, essential hypertension who presents with concerns of 3 days of blurred vision as well as hypertension. She was seen in her primary care doctor's office today, referred to the emergency department due to her elevated blood pressure. She reports that she has been compliant with her blood pressure medications. She describes a blurring of vision as being constant although states this resolved when she wears her glasses that are prescribed. She denies any chest pain, shortness of breath, headache, neck pain , focal weakness or numbness. Nothing has been noted to worsen or improve her blood pressure. She denies a history of such severe hypertension in the past. She does note that she has been under a large amount of stress recently related to the of her and son. She currently denies any symptoms of any kind, states she feels quite well. TRAVEL OUTSIDE OF THE [place] IN LAST 30 DAYS: No - Related Data Allergies/Adverse Reactions: No Known Allergies Allergy (Verified 04/24/18 18:19) Past Medical History - General Information source: Patient - Social History Smoking Status: Never Smoker Chew tobacco use (# tins/day): No Frequency of alcohol use: None Drug Abuse: None Lives with: Family Family History: Reviewed & Not Pertinent Patient has suicidal ideation: No Patient has homicidal ideation: No - Past Medical History Cardiac Medical History: Reports: Hx Atrial Fibrillation, Hx DVT, Hx Hypertension Denies: Hx Heart Attack Pulmonary Medical History: Reports: Hx COPD Denies: Hx Asthma, Hx Tuberculosis Neurological Medical History: Denies: Hx Cerebrovascular Accident, Hx Seizures Renal/ Medical History: Reports: Hx Renal Insufficiency. Denies: Hx Peritoneal Dialysis GI Medical History: Denies: Hx Hepatitis, Hx Hiatal Hernia, Hx Ulcer Musculoskeletal Medical History: Reports Hx Arthritis Psychiatric Medical History: Denies: Hx Depression Infectious Medical History: Denies: Hx Hepatitis Past Surgical History: Denies: Hx Hysterectomy, Hx Mastectomy, Hx Open Heart Surgery, Hx Pacemaker - Immunizations Immunizations up to date: Yes Hx Diphtheria, Pertussis, Tetanus Vaccination: Yes Hx Pneumococcal Vaccination: 08/06/12 Review of Systems - Review of Systems Notes: Constitutional: Negative for fever. HENT: Negative for sore throat. Eyes: Positive for visual changes. Cardiovascular: Negative for chest pain. Respiratory: Negative for shortness of breath. Gastrointestinal: Negative for abdominal pain, vomiting or diarrhea. Genitourinary: Negative for dysuria. Musculoskeletal: Negative for back pain. Skin: Negative for rash. Neurological: Negative for headaches, weakness or numbness. 10 point ROS negative except as marked above and in HPI. Physical Exam - Vital signs Vitals: Temp Pulse Resp BP Pulse Ox 98.7 F 105 H 18 184/92 H 99 04/24/18 18:45 04/24/18 18:45 04/24/18 18:45 04/24/18 18:45 04/24/18 18:45 Interpretation: Tachycardic Notes: PHYSICAL EXAMINATION: GENERAL: Well-appearing, well-nourished and in no acute distress. HEAD: Atraumatic, normocephalic. EYES: Pupils equal round and reactive to light, extraocular movements intact, sclera anicteric, conjunctiva are normal. ENT: nares patent, oropharynx clear without exudates. Moist mucous membranes. NECK: Normal range of motion, supple without lymphadenopathy LUNGS: Breath sounds clear to auscultation bilaterally and equal. No wheezes rales or rhonchi. HEART: Regular rate and rhythm without murmurs ABDOMEN: Soft, nontender, normoactive bowel sounds. No guarding, no rebound. No masses appreciated. EXTREMITIES: Normal range of motion, no pitting or edema. No cyanosis. NEUROLOGICAL: Face symmetric. Tongue protrudes midline. Extraocular motions intact. Pupils are 2 mm and equally reactive. Normal speech, normal gait. 5 out of 5 strength in both the distal and proximal upper and lower extremities bilaterally. Sensation is grossly intact throughout. Finger to nose testing normal. Pronator drift normal. PSYCH: Normal mood, normal affect. SKIN: Warm, Dry, normal turgor, no rashes or lesions noted. Course - Re-evaluation Re-evalutation: 04/24/18 20:48 Patient is an 83-year-old female who presents due to essential hypertension. The patient reports that she is also had 3 days of blurring of vision although this does go away when she wears her glasses that are prescribed to her. The patient denies any complaints, states she feels quite well. She has no focal neurology deficits on examination. She denies any chest pain or shortness of breath. No headache, neck pain or confusion. Family states she is acting at her baseline. Her labs today show chronic kidney disease, relatively consistent with when she was discharged although slightly worse of which the patient and family have been informed. Her anemia is likewise chronic in nature , similar to labs obtained throughout the summer. I do not see an indication for hospitalization at this point. Patient is already on multiple blood pressure medications, has been dealing with the of both a son and her within the past 2 weeks. I have advised that they should follow closely with the primary care physician for determination of any additional blood pressure medication adjustments should be made. Family is in agreement with this plan. At this time will discharge with return precautions and follow- up recommendations. Verbal discharge instructions given a the bedside and opportunity for questions given. Medication warnings reviewed. Patient is in agreement with this plan and has verbalized understanding of return precautions and the need for primary care follow-up in the next 24-72 hours. - Vital Signs Vital signs: Temp Pulse Resp BP Pulse Ox 97.7 F 105 H 22 H 137/79 H 99 04/24/18 21:02 04/24/18 18:45 04/24/18 21:00 04/24/18 21:00 04/24/18 21:00 - Laboratory Result Diagrams: 04/24/18 19:56 04/24/18 19:56 Laboratory results interpreted by me: 04/24/18 04/24/18 04/24/18 19:56 19:56 20:10 RBC 3.35 L Hgb 9.8 L Hct 29.0 L RDW 16.3 H Potassium 3.3 L BUN 26 H Creatinine 2.08 H Est GFR ( Amer) 27 L Est GFR (Non-Af Amer) 23 L Urine Protein 100 H Urine Ketones TRACE H Urine Blood MODERATE H - Diagnostic Test Radiology reviewed: Image reviewed, Reports reviewed Radiology results interpreted by me: 04/24/18 20:49 Chest x-ray: No acute infiltrate or pneumothorax Discharge - Discharge Clinical Impression: Essential hypertension, Chronic kidney disease, stage 3, Blurred vision Condition: Stable Disposition: HOME, SELF-CARE Additional Instructions: Please follow-up with your general doctor regarding your chronic blood pressure management. Your kidney functions are overall consistent with how they have been in the past although are slightly higher than when you were discharged home. I would not make any immediate blood pressure medication changes at this time. Please return to the emergency room immediately if you experience any concerning symptoms including high fevers, severe headache, chest pain, difficulty breathing, abdominal pain, slurred speech, numbness or weakness in your arms or legs, or any other symptom that concerns you. Referrals: VICTORIANO MATTSON MD [Primary Care Provider] - Follow up tomorrow
--- NOTE | 2018-04-24 20:53 | EKG REPORT ---
SEVERITY:- ABNORMAL ECG - SINUS RHYTHM LEFT VENTRICULAR HYPERTROPHY : Confirmed by: Bre De La Torre MD 24-Apr-2018 20:53:02
[2018-04-24 21:02] VITALS: BP 137/79
== END 2018-04-24 21:13 | disposition home or self-care (01) ==
LOC: ER 18:17
DX: I12.9 Hypertensive chronic kidney disease with stage 1 through stage 4 chronic kidney disease, or unspecified chronic kidney disease (principal); N18.3 Chronic kidney disease, stage 3 (moderate); H53.8 Other visual disturbances; I48.91 Unspecified atrial fibrillation
CPT/HCPCS: 93005; 99284; 36415; 85025; 80048; 81001; 84484; 71045; 93010; A9270

== ENCOUNTER 2018-06-15 13:22 | Emergency (ER) | payer MEDICARE, MEDICAID ==
--- NOTE | 2018-06-15 14:11 | ER Document Report ---
ED Medical Screen (RME) - General Chief Complaint: Eye Problem Stated Complaint: EYE PAIN Time Seen by Provider: 06/15/18 13:56 Notes: Patient is a 83-year-old female that presents to the emergency department for chief complaint of left eye pain. Patient reports that for 2 weeks she has had foreign body sensation in her left eye. ROS: Other than noted above, the 12 point review of systems was reviewed with the patient and were negative, all pertinent findings are included in the HPI. PHYSICAL EXAMINATION: Vital signs reviewed. GENERAL: Well-appearing, well-nourished and in no acute distress. HEAD: Atraumatic, normocephalic. EYES: Pupils equal round extraocular movements intact, mild left conjunctival injection. ENT: Nares patent NECK: Normal range of motion CV: Heart regular rate and rhythm LUNGS: No respiratory distress Musculoskeletal: Normal range of motion NEUROLOGICAL: Normal speech PSYCH: Normal mood, normal affect. MDM: Patient seen and examined for rapid initial assessment. Vital signs reviewed. A comprehensive ED assessment and evaluation of the patient, analysis of test results and completion of the medical decision making process will be conducted by additional ED providers. *Note is created using voice recognition software and may contain spelling, syntax or grammatical errors. TRAVEL OUTSIDE OF THE [place] IN LAST 30 DAYS: No - Related Data Allergies/Adverse Reactions: No Known Allergies Allergy (Verified 04/24/18 18:19) Past Medical History - Social History Chew tobacco use (# tins/day): No Frequency of alcohol use: None Drug Abuse: None - Past Medical History Cardiac Medical History: Reports: Hx Atrial Fibrillation, Hx DVT, Hx Hypertension Denies: Hx Heart Attack Pulmonary Medical History: Reports: Hx COPD Denies: Hx Asthma, Hx Tuberculosis Neurological Medical History: Denies: Hx Cerebrovascular Accident, Hx Seizures Renal/ Medical History: Reports: Hx Renal Insufficiency. Denies: Hx Peritoneal Dialysis GI Medical History: Denies: Hx Hepatitis, Hx Hiatal Hernia, Hx Ulcer Musculoskeltal Medical History: Reports Hx Arthritis Psychiatric Medical History: Denies: Hx Depression Infectious Medical History: Denies: Hx Hepatitis Past Surgical History: Denies: Hx Hysterectomy, Hx Mastectomy, Hx Open Heart Surgery, Hx Pacemaker - Immunizations Immunizations up to date: Yes Hx Diphtheria, Pertussis, Tetanus Vaccination: Yes Physical Exam - Vital signs Vitals: Temp Pulse Resp BP Pulse Ox 98.2 F 114 H 16 144/92 H 100 06/15/18 13:39 06/15/18 13:39 06/15/18 13:39 06/15/18 13:39 06/15/18 13:39 Course - Vital Signs Vital signs: Temp Pulse Resp BP Pulse Ox 98.2 F 114 H 16 144/92 H 100 06/15/18 13:39 06/15/18 13:39 06/15/18 13:39 06/15/18 13:39 06/15/18 13:39 Doctor's Discharge - Discharge Referrals: VICTORIANO MATTSON MD [Primary Care Provider] - Follow up as needed
[2018-06-15] MEDS ORDERED: TETRACAINE HCL 0.5% OPH SOLN 4 ML OS ONE (14:51)
[2018-06-15] MEDS ORDERED: POLYMYXIN B SULFATE/TMP OPH SOLN (10 ML/ER DISP) OS PRN (16:33)
--- NOTE | 2018-06-15 17:08 | ER Document Report ---
ED General - General Chief Complaint: Eye Problem Stated Complaint: EYE PAIN Time Seen by Provider: 06/15/18 13:56 TRAVEL OUTSIDE OF THE [place] IN LAST 30 DAYS: No - HPI Patient complains to provider of: Left eye discomfort Notes: Patient coming in for left eye discomfort ongoing for the last 2 weeks. Patient states feels like something is in her eye. Patient does endorse a minimal amount of purulent drainage in her left eye early in the morning. Patient states she also having decreased vision does have a history of cataract surgery performed by Dr. Horowitz patient otherwise denies any trauma to the eye patient otherwise resting comfortably upon my evaluation patient does not have her glasses with her - Related Data Allergies/Adverse Reactions: No Known Allergies Allergy (Verified 04/24/18 18:19) Past Medical History - Social History Smoking Status: Never Smoker Chew tobacco use (# tins/day): No Frequency of alcohol use: None Drug Abuse: None Family History: Reviewed & Not Pertinent Patient has suicidal ideation: No Patient has homicidal ideation: No - Past Medical History Cardiac Medical History: Reports: Hx Atrial Fibrillation, Hx DVT, Hx Hypertension Denies: Hx Heart Attack Pulmonary Medical History: Reports: Hx COPD Denies: Hx Asthma, Hx Tuberculosis Neurological Medical History: Denies: Hx Cerebrovascular Accident, Hx Seizures Renal/ Medical History: Reports: Hx Renal Insufficiency. Denies: Hx Peritoneal Dialysis GI Medical History: Denies: Hx Hepatitis, Hx Hiatal Hernia, Hx Ulcer Musculoskeletal Medical History: Reports Hx Arthritis Psychiatric Medical History: Denies: Hx Depression Infectious Medical History: Denies: Hx Hepatitis Past Surgical History: Denies: Hx Hysterectomy, Hx Mastectomy, Hx Open Heart Surgery, Hx Pacemaker - Immunizations Immunizations up to date: Yes Hx Diphtheria, Pertussis, Tetanus Vaccination: Yes Hx Pneumococcal Vaccination: 08/06/12 Review of Systems - Review of Systems Constitutional: No symptoms reported EENT: Eye pain, Eye discharge Cardiovascular: No symptoms reported Respiratory: No symptoms reported Gastrointestinal: No symptoms reported Genitourinary: No symptoms reported Female Genitourinary: No symptoms reported Musculoskeletal: No symptoms reported Skin: No symptoms reported Hematologic/Lymphatic: No symptoms reported Neurological/Psychological: No symptoms reported -: Yes All other systems reviewed and negative Physical Exam - Vital signs Vitals: Temp Pulse Resp BP Pulse Ox 98.2 F 114 H 16 144/92 H 100 06/15/18 13:39 06/15/18 13:39 06/15/18 13:39 06/15/18 13:39 06/15/18 13:39 Interpretation: Normal - General General appearance: Appears well, Alert - HEENT Head: Normocephalic, Atraumatic Eyes: Normal Conjunctiva: Injected, Purulent discharge - Scant amount Cornea: Normal Pupils: PERRL Visual acuity- Right eye: 20-100 Visual acuity- Left eye: 20-200 Visual acuity- Both eyes: 20*100 Corrective lenses worn: No Left intraocular pressure: 16 and 20 Anterior chamber: Normal Fundascopic: Normal - Respiratory Respiratory status: No respiratory distress Chest status: Nontender Breath sounds: Normal Chest palpation: Normal - Cardiovascular Rhythm: Regular Heart sounds: Normal auscultation Murmur: No - Abdominal Inspection: Normal Distension: No distension Bowel sounds: Normal Tenderness: Nontender Organomegaly: No organomegaly - Back Back: Normal, Nontender - Extremities General upper extremity: Normal inspection, Nontender, Normal color, Normal ROM , Normal temperature General lower extremity: Normal inspection, Nontender, Normal color, Normal ROM , Normal temperature, Normal weight bearing. No: Galina's sign - Neurological Neuro grossly intact: Yes Cognition: Normal Orientation: AAOx4 Woden Coma Scale Eye Opening: Spontaneous Woden Coma Scale Verbal: Oriented Abran Coma Scale Motor: Obeys Commands Abran Coma Scale Total: 15 Speech: Normal Motor strength normal: LUE, RUE, LLE, RLE Sensory: Normal - Psychological Associated symptoms: Normal affect, Normal mood - Skin Skin Temperature: Warm Skin Moisture: Dry Skin Color: Normal Course - Re-evaluation Re-evalutation: 06/15/18 22:59 Patient evaluation does show a 20/200 vision vision in the left with 2100 both eyes. Patient does not have a corrective lenses available. Patient had tetracaine instilled with floor seen to look for any concerns or corneal abrasions which was negative. The discussed the patient's patient was scant amount of purulent drainage possible early conjunctivitis will give the patient Polytrim drops. 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 Otherwise your eye pressures were normal funduscopic exam or examination of the back your eye is normal I do not see any signs of any foreign body. I highly recommend she follow-up with your restaurant crew person for further evaluation. Please use the eyedrops that we gave you here in the ER 1 drop in the left eye 4 times a day Referrals: VICTORIANO MATTSON MD [Primary Care Provider] - Follow up as needed
[2018-06-15 17:11] VITALS: BP 174/98
== END 2018-06-15 17:25 | disposition home or self-care (01) ==
LOC: ER 13:22
DX: H57.12 Ocular pain, left eye (principal)
CPT/HCPCS: 99283; J3490 ×2

== ENCOUNTER → 2018-07-10 | Outpatient (CLI) | payer MEDICARE, MEDICAID ==
--- NOTE | 2018-07-10 15:30 | RADIOLOGY REPORT (SQ) ---
EXAM DESCRIPTION: MRI HEAD WITHOUT COMPLETED DATE/TIME: 07/10/2018 2:49 pm REASON FOR STUDY: CEREBROVASCULAR DISEASE (I67.9) I67.9 CEREBROVASCULAR DISEASE, UNSPECIFIED COMPARISON: CT brain 04/16/2018, 03/16/2017 MRI brain 10/01/2017, 02/18/2017, 02/20/2015, 03/20/2011 TECHNIQUE: Multiplanar imaging includes non-contrasted T1, T2, FLAIR, and diffusion with ADC map seq uences. Images stored on PACS. LIMITATIONS: None. FINDINGS: ANATOMY: No developmental anomalies. Normal vascular flow voids. Pituitary fossa normal. CSF SPACES: Normal in size and contour. No hemorrhage. CEREBRUM: No MR evidence of acute ischemic change. No acute intracranial hemorrhage, mass effect, or midline shift. FLAIR and T2 weighted images demonstrate an old left frontal deep periventricular white matter infarc t with enlargement of the frontal horn left ventricle, and mild to moderate spotty bifrontal and bipa rietal small vessel ischemic change with increased FLAIR/ T2 signal in the white matter. POSTERIOR FOSSA: No signal alteration. No hemorrhage. No edema, masses or mass effect. Internal lyly tory canals, cerebello-pontine angles, mastoids normal. DIFFUSION IMAGING: Negative for acute or sub-acute infarction. ORBITS: Bilateral cataract surgery PARANASAL SINUSES: No fluid levels. Mucosa normal. OTHER: No other significant finding. IMPRESSION: Old white matter disease. No acute findings. EVIDENCE OF ACUTE STROKE: NO. TECHNICAL DOCUMENTATION: JOB ID: [id number] [employer]- All Rights Reserved Reading location - IP/workstation name: [email or web address]
== END ==
LOC: RAD 12:57
PROVIDERS: ATTEND Internal Medicine
DX: I67.9 Cerebrovascular disease, unspecified (principal); B37.0 Candidal stomatitis
CPT/HCPCS: 70551

== ENCOUNTER 2018-08-21 14:20 | Inpatient (IN) | payer MEDICARE ==
[2018-08-21 15:41] LABS: ABSOLUTE EOSINOPHILS # (AUTO) 0.2 10^3/uL (0.0-0.6); ABSOLUTE LYMPHOCYTES (AUTO) 1.1 10^3/uL (0.5-4.7); ABSOLUTE MONOCYTES (AUTO) 0.4 10^3/uL (0.1-1.4); ABSOLUTE NEUT (AUTO) 3.6 10^3/uL (1.7-8.2); BASOPHILS % (AUTO) 0.6 % (0-2); EOSINOPHILS % (AUTO) 2.9 % (0-6); HEMATOCRIT 28.7 % (36.0-47.0); HEMOGLOBIN 9.6 g/dL (12.0-15.5); LYMPHOCYTES % (AUTO) 20.4 % (13-45); MEAN CORPUSCULAR HEMOGLOBIN 29.1 pg (27.0-33.4); MEAN CORPUSCULAR HGB CONC 33.4 g/dL (32.0-36.0); MEAN CORPUSCULAR VOLUME 87 fl (80-97); MONOCYTES % (AUTO) 7.2 % (3-13); PLATELET COUNT 222 10^3/uL (150-450); RED BLOOD COUNT 3.29 10^6/uL (3.72-5.28); RED CELL DISTRIBUTION WIDTH 16.3 % (11.5-14.0); SEGMENTED NEUTROPHILS % (AUTO) 68.9 % (42-78); TOTAL CELLS COUNTED % (AUTO) 100 %; WHITE BLOOD COUNT 5.2 10^3/uL (4.0-10.5)
[2018-08-21 15:43] LABS: INTERNATIONAL RATION (INR) 1.16; PROTHROMBIN TIME 15.4 SEC (11.4-15.4)
[2018-08-21 15:44] LABS: PARTIAL THROMBOPLASTIN TIME 36.8 SEC (23.5-35.8)
--- NOTE | 2018-08-21 15:50 | RADIOLOGY REPORT (SQ) ---
EXAM DESCRIPTION: CHEST SINGLE VIEW COMPLETED DATE/TIME: 08/21/2018 3:40 pm REASON FOR STUDY: blurry vision, dizziness COMPARISON: Chest films 03/11/2017, 03/02/2017, 01/24/2016 EXAM PARAMETERS: NUMBER OF VIEWS: One view. TECHNIQUE: Single frontal radiographic view of the chest acquired. RADIATION DOSE: NA LIMITATIONS: None. FINDINGS: LUNGS AND PLEURA: 2 cm nodule at the left lung base just above the hemidiaphragm. CT ches t is recommended for followup. Lungs are otherwise well inflated and free of focal infiltrates. No pleural effusion or pneumothorax . MEDIASTINUM AND HILAR STRUCTURES: No masses. Contour normal. HEART AND VASCULAR STRUCTURES: Stable mild cardiomegaly BONES: No acute findings. HARDWARE: None in the chest. OTHER: No other significant finding. IMPRESSION: 2 cm left basilar lung nodule. Chest CT recommended for follow-up TECHNICAL DOCUMENTATION: JOB ID: [id number] [employer]- All Rights Reserved Reading location - IP/workstation name: [email or web address]
--- NOTE | 2018-08-21 15:53 | RADIOLOGY REPORT (SQ) ---
EXAM DESCRIPTION: CT HEAD WITHOUT COMPLETED DATE/TIME: 08/21/2018 3:42 pm REASON FOR STUDY: blurry vision, dizziness COMPARISON: MRI brain 07/10/2018 CT brain 04/16/2018, 03/16/2017, 01/24/2016, 12/26/2014, 01/24/2014 TECHNIQUE: Axial images acquired through the brain without intravenous contrast. Images reviewed wi th bone, brain and subdural windows. Additional sagittal and coronal reconstructions were generated. Images stored on PACS. All CT scanners at this facility use dose modulation, iterative reconstruction, and/or weight based d osing when appropriate to reduce radiation dose to as low as reasonably achievable (ALARA). [facility]: Dose Right [facility]: CareDose [facility]: Dose Right [facility]: Teradose 4D [facility]: Altar RADIATION DOSE: CT Rad equipment meets quality standard of care and radiation dose reduction techniq ues were employed. CTDIvol: 53.2 mGy. DLP: 911 mGy-cm. mGy. LIMITATIONS: None. FINDINGS: VENTRICLES: Stable dilatation of left frontal horn lateral ventricle as compared to the pr evious exams. CEREBRUM: No masses. No hemorrhage. No midline shift. No evidence for acute infarction. Mild bifro ntal and biparietal age-appropriate small vessel ischemic change in the hemispheric white matter. CEREBELLUM: No masses. No hemorrhage. No alteration of density. No evidence for acute infarction. EXTRAAXIAL SPACES: No fluid collections. No masses. ORBITS AND GLOBE: No intra- or extraconal masses. Post bilateral cataract surgery. CALVARIUM: No fracture. PARANASAL SINUSES: No fluid or mucosal thickening. SOFT TISSUES: No mass or hematoma. OTHER: No other significant finding. IMPRESSION: No acute findings. EVIDENCE OF ACUTE STROKE: NO. COMMENT: Quality ID # [id number]: Final reports with documentation of one or more dose reduction techniques (e.g., Automated exposure control, adjustment of the mA and/or kV according to patient size, use of iterative reconstruction technique) TECHNICAL DOCUMENTATION: JOB ID: [id number] [employer]- All Rights Reserved Reading location - IP/workstation name: [email or web address]-
[2018-08-21] MEDS ORDERED: NORMAL SALINE 1000 ML 1,000 ML IV ONE (15:55)
--- NOTE | 2018-08-21 15:55 | ER Document Report ---
ED General - General Chief Complaint: Dizziness Stated Complaint: DIZZINES/BLURRED VISION Time Seen by Provider: 08/21/18 15:06 Primary Care Provider: DMITRY MANJARREZ JR, MD [NO LOCAL MD] - Follow up as needed TRAVEL OUTSIDE OF THE [place] IN LAST 30 DAYS: No - HPI Notes: Patient is an 83-year-old female with a history of hypertension, A. fib (on Eliquis), chronic anemia, chronic kidney disease who presents emergency department complaining of left eye blurriness over the last several weeks as well as some dizziness and lightheadedness which began over the last week. Patient states that she is still able to ambulate without difficulties. Patient states that her dizziness is worse in the mornings and improves throughout the day. She is eating and drinking without difficulties. She is urinating normally and having normal bowel movements. Patient states that she did have cataract surgery in the past and was recently evaluated about a few months ago with her eye doctor. Denies any drug allergies. She has no other concerns or complaints. Denies any headache, fever, head injury, neck pain, changes in speech/mentation/hearing, URI, sore throat, chest pain, palpitations, syncope, cough, shortness of breath, wheeze, dyspnea, abdominal pain, nausea/vomiting/diarrhea, urinary retention, dysuria, hematuria, loss of control of bowel or bladder, numbness/tingling, saddle anesthesia, muscle paralysis/weakness, or rash. - Related Data Allergies/Adverse Reactions: No Known Allergies Allergy (Verified 08/21/18 14:22) Past Medical History - Social History Smoking Status: Former Smoker Family History: Reviewed & Not Pertinent Patient has suicidal ideation: No Patient has homicidal ideation: No - Past Medical History Cardiac Medical History: Reports: Hx Atrial Fibrillation, Hx DVT, Hx Hypertension Denies: Hx Heart Attack Pulmonary Medical History: Reports: Hx COPD Denies: Hx Asthma, Hx Tuberculosis Neurological Medical History: Denies: Hx Cerebrovascular Accident, Hx Seizures Renal/ Medical History: Reports: Hx Renal Insufficiency. Denies: Hx Peritoneal Dialysis GI Medical History: Denies: Hx Hepatitis, Hx Hiatal Hernia, Hx Ulcer Musculoskeletal Medical History: Reports Hx Arthritis Psychiatric Medical History: Denies: Hx Depression Infectious Medical History: Denies: Hx Hepatitis Past Surgical History: Denies: Hx Hysterectomy, Hx Mastectomy, Hx Open Heart Surgery, Hx Pacemaker - Immunizations Immunizations up to date: Yes Hx Diphtheria, Pertussis, Tetanus Vaccination: Yes Hx Pneumococcal Vaccination: 08/06/12 Review of Systems - Review of Systems -: Yes All other systems reviewed and negative Physical Exam - Vital signs Vitals: Temp Pulse Resp BP Pulse Ox 98.9 F 108 H 20 186/95 H 97 08/21/18 14:47 08/21/18 14:47 08/21/18 14:47 08/21/18 14:47 08/21/18 14:47 - Notes Notes: PHYSICAL EXAMINATION: GENERAL: Well-appearing, well-nourished and in no acute distress. A&Ox4. Answers questions appropriately. HEAD: Atraumatic, normocephalic. Non-tender. EYES: Pupils equal round and reactive to light, extraocular movements intact, sclera anicteric, conjunctiva are normal. No nystagmus. vis clemons intact. + Arcus Senilis. ENT: EAC clear b/l. TM's intact b/l without erythema, fluid, or perforation. Nares patent and without discharge. oropharynx clear without exudates. No tonsilar hypertrophy or erythema. Moist mucous membranes. No sinus tenderness. NECK: Normal range of motion, supple without lymphadenopathy. No rigidity/meningismus. No midline tenderness. LUNGS: Breath sounds clear to auscultation bilaterally and equal. No wheezes rales or rhonchi. HEART: Regular rate and rhythm without murmurs, rubs, gallops. ABDOMEN: Soft, nontender, nondistended abdomen. No guarding, no rebound. Normal bowel sounds present. No CVA tenderness bilaterally. Musculoskeletal: Ext's b/l: FROM to passive/active. Strength 5+/5. No deficits noted. No bony tenderness of extremities. Extremities: No cyanosis, clubbing, or edema b/l. Peripheral pulses 2+. Capillary refill less than 2 seconds. NEUROLOGICAL: NIH 0. GCS 15. Cranial nerves grossly intact. Normal speech, normal gait with aide of SPC. Normal sensory, motor exams. Reflexes 2+ b/l. CALEB's negative. Pronator drift negative. Heel/moura, finger/nose wnl. Rhomberg neg. Pt ambulated to the bathroom and back right after my eval w/o difficulty, witnessed by myself. PSYCH: Normal mood, normal affect. SKIN: Warm, Dry, normal turgor, no rashes or lesions noted. Course - Re-evaluation Re-evalutation: 08/21/18 16:[address] Lomas who is in agreemend with admit/plan: Patient is an afebrile, well-hydrated, 83-year-old female who presents emergency department acute kidney injury, dizziness, and a lung nodule on chest x-ray. Vitals are acceptable although her blood pressure is mildly elevated. She does not have any other significant tachycardia, tachypnea, or hypoxia. She is nontoxic-appearing and is tolerating p.o. without difficulty. See lab results. CT of the chest is pending. I did speak with Dr. Price who accepted patient for admission to the telemetry floor. - Vital Signs Vital signs: Temp Pulse Resp BP Pulse Ox 98.9 F 97 18 186/95 H 97 08/21/18 14:47 08/21/18 16:20 08/21/18 16:20 08/21/18 16:20 08/21/18 16:20 - Laboratory Result Diagrams: 08/21/18 15:27 08/21/18 15:27 Laboratory results interpreted by me: 08/21/18 08/21/18 08/21/18 15:27 15:27 15:27 RBC 3.29 L Hgb 9.6 L Hct 28.7 L RDW 16.3 H APTT 36.8 H BUN 37 H Creatinine 3.31 H Est GFR ( Amer) 16 L Est GFR (Non-Af Amer) 13 L ALT < 6 L Total Protein 8.9 H Discharge - Discharge Clinical Impression: Dizziness, Lung nodule, Acute kidney injury Condition: Stable Disposition: ADMITTED INPATIENT Admitting Provider: [facility] Admitted: Telemetry Referrals: DMITRY MANJARREZ JR, MD [NO LOCAL MD] - Follow up as needed
[2018-08-21 16:02] LABS: ALANINE AMINOTRANSFERASE < 6 U/L (9-52); ALBUMIN 4.6 g/dL (3.5-5.0); ALKALINE PHOSPHATASE 67 U/L (38-126); ANION GAP 10 (5-19); ASPARTATE AMINO TRANSFERASE 24 U/L (14-36); BILIRUBIN,DIRECT 0.4 mg/dL (0.0-0.4); BILIRUBIN,TOTAL 0.5 mg/dL (0.2-1.3); BLOOD UREA NITROGEN 37 mg/dL (7-20); CALCIUM 10.2 mg/dL (8.4-10.2); CARBON DIOXIDE 25 mmol/L (22-30); CHLORIDE 106 mmol/L (98-107); CREATINE KINASE 74 U/L (30-135); GLUCOSE 83 mg/dL (75-110); POTASSIUM 4.9 mmol/L (3.6-5.0); SODIUM 140.9 mmol/L (137-145); TOTAL PROTEIN 8.9 g/dL (6.3-8.2)
[2018-08-21 16:20] LABS: CREATINE KINASE MB 0.29 ng/mL (<4.55); TROPONIN I 0.014 ng/mL
--- NOTE | 2018-08-21 16:36 | ER Document Report ---
Entered by STEPHANIE HARRELL SCRIBE 08/21/18 1539 Acting as scribe for:JEFFERSON ZAPATA DO ED Medical Screen (RME) - General Chief Complaint: Dizziness Stated Complaint: DIZZINES/BLURRED VISION Time Seen by Provider: 08/21/18 15:06 Primary Care Provider: DMITRY MANJARREZ JR, MD [Primary Care Provider] - Follow up as needed Notes: 83-year-old female who presents to the emergency department today with complaints of blurry vision and dizziness. Patient states she has had these symptoms for "a good while". Patient describes her dizziness as feeling off balance. Patient also complains of associated headache. Patient denies any chest pain or shortness of breath. Patient states she had cataract surgery 2-3 years ago. I have greeted and performed a rapid initial assessment of this patient. A comprehensive ED assessment and evaluation of the patient, analysis of test results, and completion of the medical decision making process will be conducted by additional ED providers. Review of systems: Constitutional: No symptoms reported EENT: Blurry vision. Cardiovascular: Dizziness. Denies chest pain. Respiratory: Denies shortness of breath. Gastrointestinal: No symptoms reported Genitourinary: No symptoms reported Musculoskeletal: No symptoms reported Skin: No symptoms reported Hematologic/Lymphatic: No symptoms reported Neurological/Psychological: No symptoms reported Yes All other systems reviewed and negative PHYSICAL EXAM GENERAL: Alert, interacts well. No acute distress. HEAD: Normocephalic, atraumatic. EYES: Pupils equal, round, and reactive to light. Extraocular movements intact. Arcus senilis. No visual field cuts ENT: Oral mucosa moist, tongue midline. NECK: Full range of motion. Supple. Trachea midline. LUNGS: No respiratory distress. EXTREMITIES: Moves all 4 extremities spontaneously. NEUROLOGICAL: Alert and oriented x3. Normal speech. 5 out of 5 muscular strength in all 4 extremities. No pronator drift. PSYCH: Normal affect, normal mood. SKIN: Warm and dry. TRAVEL OUTSIDE OF THE [place] IN LAST 30 DAYS: No - Related Data Allergies/Adverse Reactions: No Known Allergies Allergy (Verified 08/21/18 14:22) Past Medical History - Past Medical History Cardiac Medical History: Reports: Hx Atrial Fibrillation, Hx DVT, Hx Hypertension Denies: Hx Heart Attack Pulmonary Medical History: Reports: Hx COPD Denies: Hx Asthma, Hx Tuberculosis Neurological Medical History: Denies: Hx Cerebrovascular Accident, Hx Seizures Renal/ Medical History: Reports: Hx Renal Insufficiency. Denies: Hx Peritoneal Dialysis GI Medical History: Denies: Hx Hepatitis, Hx Hiatal Hernia, Hx Ulcer Musculoskeltal Medical History: Reports Hx Arthritis Psychiatric Medical History: Denies: Hx Depression Infectious Medical History: Denies: Hx Hepatitis Past Surgical History: Denies: Hx Hysterectomy, Hx Mastectomy, Hx Open Heart Surgery, Hx Pacemaker - Immunizations Immunizations up to date: Yes Hx Diphtheria, Pertussis, Tetanus Vaccination: Yes Physical Exam - Vital signs Vitals: Temp Pulse Resp BP Pulse Ox 98.9 F 108 H 20 186/95 H 97 08/21/18 14:47 08/21/18 14:47 08/21/18 14:47 08/21/18 14:47 08/21/18 14:47 Course - Vital Signs Vital signs: Temp Pulse Resp BP Pulse Ox 98.9 F 97 18 186/95 H 97 08/21/18 14:47 08/21/18 16:20 08/21/18 16:20 08/21/18 16:20 08/21/18 16:20 - Laboratory Result Diagrams: 08/21/18 15:27 08/21/18 15:27 Laboratory results interpreted by me: 08/21/18 08/21/18 08/21/18 15:27 15:27 15:27 RBC 3.29 L Hgb 9.6 L Hct 28.7 L RDW 16.3 H APTT 36.8 H BUN 37 H Creatinine 3.31 H Est GFR ( Amer) 16 L Est GFR (Non-Af Amer) 13 L ALT < 6 L Total Protein 8.9 H Doctor's Discharge - Discharge Referrals: DMITRY MANJARREZ JR, MD [Primary Care Provider] - Follow up as needed I personally performed the services described in the documentation, reviewed and edited the documentation which was dictated to the scribe in my presence, and it accurately records my words and actions.
--- NOTE | 2018-08-21 18:43 | RADIOLOGY REPORT (SQ) ---
EXAM DESCRIPTION: CT CHEST WITHOUT COMPLETED DATE/TIME: 08/21/2018 5:40 pm REASON FOR STUDY: lung nodule on XR COMPARISON: Chest x-ray 08/21/2018 CT chest 03/19/2011 TECHNIQUE: CT scan performed of the chest without intravenous contrast. Images reviewed with lung, soft tissue and bone windows. Reconstructed coronal and sagittal MPR images reviewed. All images st ored on PACS. All CT scanners at this facility use dose modulation, iterative reconstruction, and/or weight based d osing when appropriate to reduce radiation dose to as low as reasonably achievable (ALARA). [facility]: Dose Right [facility]: CareDose [facility]: Dose Right [facility]: Teradose 4D [facility]: Smart Oree RADIATION DOSE: CT Rad equipment meets quality standard of care and radiation dose reduction techniq ues were employed. CTDIvol: 5.0 mGy. DLP: 201 mGy-cm. mGy. LIMITATIONS: No technical limitations. FINDINGS: LUNGS AND PLEURA: There is mild pleural/ parenchymal scarring medial to the dome of the le ft hemidiaphragm. There is also pleural/parenchymal scarring in the left costophrenic angle. No def inable mass is present. HILAR AND MEDIASTINAL STRUCTURES: No identified masses or abnormal nodes. No obvious aneurysm. HEART AND VASCULAR STRUCTURES: No aneurysm. No pericardial effusion. UPPER ABDOMEN: No significant findings. Limited exam. THYROID AND OTHER SOFT TISSUES: No masses. No adenopathy. BONES: No significant finding. HARDWARE: None in the chest. OTHER: No other significant findings. IMPRESSION: There are areas of pleural/parenchymal scarring in the left base. No definable mass is seen. TECHNICAL DOCUMENTATION: JOB ID: [id number] Quality ID # [id number]: Final reports with documentation of one or more dose reduction techniques (e.g., Au tomated exposure control, adjustment of the mA and/or kV according to patient size, use of iterative reconstruction technique) 2010 [employer]- All Rights Reserved Reading location - IP/workstation name: [email or web address]
[2018-08-21] MEDS: HYDRALAZINE HCL 25 MG TABLET PO SCH (22:43)
[2018-08-21] MEDS: APIXABAN 2.5 MG TABLET PO SCH (22:43)
--- NOTE | 2018-08-21 22:55 | EKG REPORT ---
SEVERITY:- ABNORMAL ECG - SINUS TACHYCARDIA LEFT VENTRICULAR HYPERTROPHY : Confirmed by: Bre De La Torre MD 21-Aug-2018 22:55:10
[2018-08-21] MEDS: MEGESTROL ACETATE 20 MG TABLET PO SCH (23:31)
[2018-08-22] MEDS: MONTELUKAST SODIUM 10 MG TABLET PO SCH ×2 (00:22→17:37)
[2018-08-22] MEDS: METOPROLOL SUCCINATE 50 MG TAB.SR.24H PO SCH ×2 (00:23→09:06)
[2018-08-22] MEDS: DEXTROSE 5%-1/4 NORMAL SALINE 1,000 ML IV PRN ×3 (00:29→23:34)
[2018-08-22] MEDS: HYDRALAZINE HCL 25 MG TABLET PO SCH ×3 (05:38→21:42)
[2018-08-22 07:11] LABS: ABSOLUTE EOSINOPHILS # (AUTO) 0.2 10^3/uL (0.0-0.6); ABSOLUTE LYMPHOCYTES (AUTO) 0.7 10^3/uL (0.5-4.7); ABSOLUTE MONOCYTES (AUTO) 0.3 10^3/uL (0.1-1.4); ABSOLUTE NEUT (AUTO) 2.1 10^3/uL (1.7-8.2); BASOPHILS % (AUTO) 0.8 % (0-2); EOSINOPHILS % (AUTO) 5.6 % (0-6); HEMATOCRIT 23.5 % (36.0-47.0); LYMPHOCYTES % (AUTO) 19.8 % (13-45); MEAN CORPUSCULAR HEMOGLOBIN 28.9 pg (27.0-33.4); MEAN CORPUSCULAR HGB CONC 33.1 g/dL (32.0-36.0); MEAN CORPUSCULAR VOLUME 87 fl (80-97); MONOCYTES % (AUTO) 10.4 % (3-13); PLATELET COUNT 164 10^3/uL (150-450); RED BLOOD COUNT 2.68 10^6/uL (3.72-5.28); RED CELL DISTRIBUTION WIDTH 16.2 % (11.5-14.0); SEGMENTED NEUTROPHILS % (AUTO) 63.4 % (42-78); TOTAL CELLS COUNTED % (AUTO) 100 %; WHITE BLOOD COUNT 3.3 10^3/uL (4.0-10.5)
[2018-08-22 07:17] LABS: HEMOGLOBIN 7.8 g/dL (12.0-15.5)
[2018-08-22 07:23] LABS: ANION GAP 6 (5-19); BLOOD UREA NITROGEN 34 mg/dL (7-20); CALCIUM 9.2 mg/dL (8.4-10.2); CARBON DIOXIDE 23 mmol/L (22-30); CHLORIDE 108 mmol/L (98-107); GLUCOSE 155 mg/dL (75-110); POTASSIUM 4.6 mmol/L (3.6-5.0); SODIUM 136.6 mmol/L (137-145)
[2018-08-22] MEDS: MEGESTROL ACETATE 20 MG TABLET PO SCH ×2 (09:06→21:43)
[2018-08-22] MEDS: APIXABAN 2.5 MG TABLET PO SCH ×2 (09:06→21:43)
[2018-08-22] MEDS ORDERED: SERTRALINE HCL 12.5 MG PO SCH (10:00)
[2018-08-22] MEDS: SERTRALINE HCL 50 MG TABLET PO SCH ×2 (12:06→12:14)
[2018-08-22 13:30] LABS: ABSOLUTE RETICS # 0.031 10^6/uL (0.028-0.122); RETICULOCYTE COUNT (AUTO) 1.15 % (0.66-2.85)
[2018-08-22 14:10] LABS: ALANINE AMINOTRANSFERASE 18 U/L (9-52); ALBUMIN 3.8 g/dL (3.5-5.0); ALKALINE PHOSPHATASE 54 U/L (38-126); ASPARTATE AMINO TRANSFERASE 18 U/L (14-36); BILIRUBIN,DIRECT 0.2 mg/dL (0.0-0.4); BILIRUBIN,TOTAL 0.5 mg/dL (0.2-1.3); IRON(TIBC) 63.2 ug/dL (37-170); TOTAL PROTEIN 6.9 g/dL (6.3-8.2)
[2018-08-22 15:16] LABS: FOLATE 6.04 ng/mL (>2.76)
--- NOTE | 2018-08-22 17:35 | PDOC H&P ---
History of Present Illness Admission Date/PCP: 08/21/18 17:10 VICTORIANO MATTSON MD History of Present Illness: LOU CLEMENTE is a 83 year old female, Patient is well-known to me, she has h istory of chronic kidney disease with a baseline creatinine of 2 ,She complain of dizziness, blurry vision, this is chronic for this patient, she was evaluated extensively for possible etiology of the symptoms in the past without any cause identified. Blood work was drawn in the emergency room she was found to have serum creatinine of 3.3 which is significantly different from the baseline serum creatinine. The elevated serum creatinine could represent acute kidney injury or progression of chronic kidney disease. Physically she looks dehydrated it also seems that she has lost weight, she will be admitted she will be hydrated kidney function to be followed very closely the azotemia could be prerenal in nature if it is prerenal from dehydration IV fluid will correct that, if the serum creatinine remains elevated it could represent worsening kidney function from CKD or ATN or other causes of acute kidney injury. Past Medical History Cardiac Medical History: Reports: Atrial Fibrillation, DVT, Hypertension Pulmonary Medical History: Reports: Chronic Obstructive Pulmonary Disease (COPD) Renal/ Medical History: Reports: Chronic Kidney Disease, Other - Chronic kidney disease stage III Musculoskeltal Medical History: Reports: Arthritis Social History Smoking Status: Former Smoker Frequency of Alcohol Use: Rare Hx Recreational Drug Use: No Drugs: None Hx Prescription Drug Abuse: No - Advance Directive Resuscitation Status: Full Code Family History Family History: Reviewed & Not Pertinent Parental Family History Reviewed: Yes Children Family History Reviewed: Yes Sibling(s) Family History Reviewed.: Yes Medication/Allergy Home Medications: Apixaban [Eliquis 2.5 mg Tablet] 2.5 mg PO BID #180 tablet 04/19/18 Megestrol Acetate [Megace 20 mg Tablet] 20 mg PO BID #30 tablet 04/19/18 Metoprolol Succinate [Toprol XL 100 mg Tablet] 100 mg PO DAILY #90 tab.sr.24h 04/19/18 Montelukast Sodium [Singulair 10 mg Tablet] 10 mg PO QPM #90 tablet 04/19/18 Hydralazine HCl [Apresoline 25 mg Tablet] 75 mg PO Q8 08/21/18 Sertraline HCl [Zoloft] 12.5 mg PO DAILY 08/21/18 Allergies/Adverse Reactions: No Known Allergies Allergy (Verified 08/21/18 14:22) Review of Systems Constitutional: PRESENT: weight loss Eyes: ABSENT: visual disturbances Ears: ABSENT: hearing changes Cardiovascular: ABSENT: chest pain, dyspnea on exertion, edema, orthropnea, palpitations Respiratory: ABSENT: cough, hemoptysis Gastrointestinal: ABSENT: abdominal pain, constipation, diarrhea, hematemesis, hematochezia, nausea, vomiting Genitourinary: ABSENT: dysuria, hematuria Musculoskeletal: ABSENT: joint swelling Integumentary: ABSENT: rash, wounds Neurological: PRESENT: dizziness. ABSENT: abnormal gait, abnormal speech, confusion, focal weakness, syncope Psychiatric: ABSENT: anxiety, depression, homidical ideation, suicidal ideation Endocrine: ABSENT: cold intolerance, heat intolerance, menstrual abnormalities, polydipsia, polyuria Hematologic/Lymphatic: ABSENT: easy bleeding, easy bruising, lymphadenopathy Physical Exam Vital Signs: Temp Pulse Resp BP Pulse Ox 98.0 F 70 16 143/64 H 100 08/22/18 16:01 08/22/18 16:01 08/22/18 16:01 08/22/18 16:01 08/22/18 16:01 Intake & Output 08/21/18 08/22/18 08/23/18 06:59 06:59 06:59 Intake Total 1000 555 Balance 1000 555 Weight 43.9 kg General appearance: PRESENT: thin Eye exam: PRESENT: PERRLA Respiratory exam: PRESENT: clear to auscultation alexandro Cardiovascular exam: PRESENT: +S1, +S2 GI/Abdominal exam: PRESENT: soft Neurological exam: PRESENT: alert, CN II-XII grossly intact Results Laboratory Results: 08/22/18 06:40 08/22/18 06:40 08/22/18 08/22/18 08/22/18 06:40 06:40 06:40 WBC 3.3 L RBC 2.68 L Hgb 7.8 L Hct 23.5 L MCV 87 MCH 28.9 MCHC 33.1 RDW 16.2 H Plt Count 164 Seg Neutrophils % 63.4 Lymphocytes % 19.8 Monocytes % 10.4 Eosinophils % 5.6 Basophils % 0.8 Absolute Neutrophils 2.1 Absolute Lymphocytes 0.7 Absolute Monocytes 0.3 Absolute Eosinophils 0.2 Absolute Basophils 0.0 Retic Count (auto) 1.15 Absolute Retic 0.031 Sodium 136.6 L Potassium 4.6 Chloride 108 H Carbon Dioxide 23 Anion Gap 6 BUN 34 H Creatinine 2.86 H Est GFR ( Amer) 19 L Est GFR (Non-Af Amer) 16 L Glucose 155 H Calcium 9.2 Iron TIBC % Saturation Ferritin Total Bilirubin AST ALT Alkaline Phosphatase Total Protein Albumin Vitamin B12 Folate 08/22/18 13:29 WBC RBC Hgb Hct MCV MCH MCHC RDW Plt Count Seg Neutrophils % Lymphocytes % Monocytes % Eosinophils % Basophils % Absolute Neutrophils Absolute Lymphocytes Absolute Monocytes Absolute Eosinophils Absolute Basophils Retic Count (auto) Absolute Retic Sodium Potassium Chloride Carbon Dioxide Anion Gap BUN Creatinine Est GFR ( Amer) Est GFR (Non-Af Amer) Glucose Calcium Iron 63.2 TIBC 277 % Saturation 23 Ferritin 71.70 Total Bilirubin 0.5 AST 18 ALT 18 Alkaline Phosphatase 54 Total Protein 6.9 Albumin 3.8 Vitamin B12 > 1000.0 H Folate 6.04 08/21/18 08/21/18 15:27 15:27 Creatine Kinase 74 CK-MB (CK-2) 0.29 Troponin I 0.014 Impressions: Chest X-Ray 08/21/18 15:14 IMPRESSION: 2 cm left basilar lung nodule. Chest CT recommended for follow-up Head CT 08/21/18 15:14 IMPRESSION: No acute findings. EVIDENCE OF ACUTE STROKE: NO. Chest CT 08/21/18 16:54 IMPRESSION: There are areas of pleural/parenchymal scarring in the left base. No definable mass is seen. Assessment & Plan - Diagnosis (1) Acute kidney injury Is this a current diagnosis for this admission?: Yes Plan: The differential diagnosis includes ATN, interstitial nephritis, ATN, prerenal azotemia, the clinical setting does not favor ATN as the potential etiology of the acute kidney injury this is probably prerenal azotemia she will be treated with IV fluid, the clinical setting does not favor acute interstitial nephritis. (2) Undernutrition Is this a current diagnosis for this admission?: Yes (3) Chronic atrial fibrillation Is this a current diagnosis for this admission?: Yes (4) Chronic kidney disease, stage 3 Is this a current diagnosis for this admission?: Yes Plan: She has baseline chronic kidney disease stage III with a baseline serum creatinine of about 2, the worsening serum creatinine could represent progressi on of the CKD or acute on chronic kidney disease. (5) Hypertensive urgency Is this a current diagnosis for this admission?: Yes Plan: The blood pressure is in the hypertensive urgency range associated with acute kidney injury
--- NOTE | 2018-08-22 17:47 | PDOC PROGRESS REPORT ---
Subjective Progress Note for:: 08/22/18 Subjective:: Patient was seen by the bedside, the blood work from today's lab revealed hemoglobin of 7.8 there is no evidence of blood loss this is most likely dilutional and not a true anemia, the iron indices came back all normal the B12 was normal there is no evidence of hemolysis or underproduction of red blood cells there is no indication for blood transfusion, will continue to monitor patient Reason For Visit: ACUTE KIDNEY INJURY,DIZZINESS,LUNG NODULE Physical Exam Vital Signs: Temp Pulse Resp BP Pulse Ox 98.0 F 70 16 143/64 H 100 08/22/18 16:01 08/22/18 16:01 08/22/18 16:01 08/22/18 16:01 08/22/18 16:01 Intake & Output 08/21/18 08/22/18 08/23/18 06:59 06:59 06:59 Intake Total 1000 555 Balance 1000 555 Weight 43.9 kg General appearance: PRESENT: no acute distress Eye exam: PRESENT: PERRLA Respiratory exam: PRESENT: clear to auscultation alexandro Cardiovascular exam: PRESENT: +S1, +S2 GI/Abdominal exam: PRESENT: soft Neurological exam: PRESENT: alert Results Laboratory Results: 08/22/18 06:40 08/22/18 06:40 08/22/18 08/22/18 08/22/18 06:40 06:40 06:40 WBC 3.3 L RBC 2.68 L Hgb 7.8 L Hct 23.5 L MCV 87 MCH 28.9 MCHC 33.1 RDW 16.2 H Plt Count 164 Seg Neutrophils % 63.4 Lymphocytes % 19.8 Monocytes % 10.4 Eosinophils % 5.6 Basophils % 0.8 Absolute Neutrophils 2.1 Absolute Lymphocytes 0.7 Absolute Monocytes 0.3 Absolute Eosinophils 0.2 Absolute Basophils 0.0 Retic Count (auto) 1.15 Absolute Retic 0.031 Sodium 136.6 L Potassium 4.6 Chloride 108 H Carbon Dioxide 23 Anion Gap 6 BUN 34 H Creatinine 2.86 H Est GFR ( Amer) 19 L Est GFR (Non-Af Amer) 16 L Glucose 155 H Calcium 9.2 Iron TIBC % Saturation Ferritin Total Bilirubin AST ALT Alkaline Phosphatase Total Protein Albumin Vitamin B12 Folate 08/22/18 13:29 WBC RBC Hgb Hct MCV MCH MCHC RDW Plt Count Seg Neutrophils % Lymphocytes % Monocytes % Eosinophils % Basophils % Absolute Neutrophils Absolute Lymphocytes Absolute Monocytes Absolute Eosinophils Absolute Basophils Retic Count (auto) Absolute Retic Sodium Potassium Chloride Carbon Dioxide Anion Gap BUN Creatinine Est GFR ( Amer) Est GFR (Non-Af Amer) Glucose Calcium Iron 63.2 TIBC 277 % Saturation 23 Ferritin 71.70 Total Bilirubin 0.5 AST 18 ALT 18 Alkaline Phosphatase 54 Total Protein 6.9 Albumin 3.8 Vitamin B12 > 1000.0 H Folate 6.04 08/21/18 08/21/18 15:27 15:27 Creatine Kinase 74 CK-MB (CK-2) 0.29 Troponin I 0.014 Impressions: Chest X-Ray 08/21/18 15:14 IMPRESSION: 2 cm left basilar lung nodule. Chest CT recommended for follow-up Head CT 08/21/18 15:14 IMPRESSION: No acute findings. EVIDENCE OF ACUTE STROKE: NO. Chest CT 08/21/18 16:54 IMPRESSION: There are areas of pleural/parenchymal scarring in the left base. No definable mass is seen. Assessment & Plan - Diagnosis (1) Acute kidney injury Is this a current diagnosis for this admission?: Yes Plan: The serum creatinine is improved suggesting this is probably prerenal azotemia, will continue hydration to achieve baseline creatinine (2) Undernutrition Is this a current diagnosis for this admission?: Yes (3) Chronic atrial fibrillation Is this a current diagnosis for this admission?: Yes (4) Chronic kidney disease, stage 3 Is this a current diagnosis for this admission?: Yes (5) Hypertensive urgency Is this a current diagnosis for this admission?: Yes (6) Anemia Qualifiers: Anemia type: unspecified type Qualified Code(s): D64.9 - Anemia, unspecified Is this a current diagnosis for this admission?: Yes Plan: This is probably from dilution there is no evidence of acute blood loss, the iron indices was normal, B12 was normal, there is no evidence of hemolysis, there is no evidence of under production of red blood cells
[2018-08-23] MEDS: HYDRALAZINE HCL 25 MG TABLET PO SCH ×2 (05:56→14:28)
[2018-08-23] MEDS: MEGESTROL ACETATE 20 MG TABLET PO SCH (10:13)
[2018-08-23] MEDS: METOPROLOL SUCCINATE 50 MG TAB.SR.24H PO SCH (10:13)
[2018-08-23] MEDS: SERTRALINE HCL 50 MG TABLET PO SCH (10:13)
[2018-08-23] MEDS: APIXABAN 2.5 MG TABLET PO SCH (10:13)
[2018-08-23 13:51] LABS: ABSOLUTE EOSINOPHILS # (AUTO) 0.2 10^3/uL (0.0-0.6); ABSOLUTE LYMPHOCYTES (AUTO) 0.8 10^3/uL (0.5-4.7); ABSOLUTE MONOCYTES (AUTO) 0.5 10^3/uL (0.1-1.4); ABSOLUTE NEUT (AUTO) 3.1 10^3/uL (1.7-8.2); BASOPHILS % (AUTO) 0.9 % (0-2); HEMOGLOBIN 8.9 g/dL (12.0-15.5); LYMPHOCYTES % (AUTO) 17.2 % (13-45); MEAN CORPUSCULAR HEMOGLOBIN 28.2 pg (27.0-33.4); MEAN CORPUSCULAR HGB CONC 32.9 g/dL (32.0-36.0); MEAN CORPUSCULAR VOLUME 86 fl (80-97); PLATELET COUNT 217 10^3/uL (150-450); RED BLOOD COUNT 3.15 10^6/uL (3.72-5.28); RED CELL DISTRIBUTION WIDTH 15.9 % (11.5-14.0); SEGMENTED NEUTROPHILS % (AUTO) 65.9 % (42-78); TOTAL CELLS COUNTED % (AUTO) 100 %; WHITE BLOOD COUNT 4.6 10^3/uL (4.0-10.5)
[2018-08-23 14:01] LABS: ALANINE AMINOTRANSFERASE 11 U/L (9-52); ALBUMIN 3.9 g/dL (3.5-5.0); ALKALINE PHOSPHATASE 54 U/L (38-126); ANION GAP 7 (5-19); ASPARTATE AMINO TRANSFERASE 18 U/L (14-36); BILIRUBIN,DIRECT 0.2 mg/dL (0.0-0.4); BILIRUBIN,TOTAL 0.4 mg/dL (0.2-1.3); BLOOD UREA NITROGEN 33 mg/dL (7-20); CALCIUM 9.6 mg/dL (8.4-10.2); CARBON DIOXIDE 25 mmol/L (22-30); CHLORIDE 106 mmol/L (98-107); GLUCOSE 88 mg/dL (75-110); SODIUM 138.3 mmol/L (137-145); TOTAL PROTEIN 7.3 g/dL (6.3-8.2)
--- NOTE | 2018-08-23 17:21 | PDOC DISCHARGE SUMMARY ---
General - Admit/Disc Date/PCP Admission Date/Primary Care Provider: 08/21/18 17:10 VICTORIANO MATTSON MD Discharge Date: 08/23/18 - Discharge Diagnosis (1) Acute kidney injury Is this a current diagnosis for this admission?: Yes (2) Undernutrition Is this a current diagnosis for this admission?: Yes (3) Chronic atrial fibrillation Is this a current diagnosis for this admission?: Yes (4) Hypertensive urgency Is this a current diagnosis for this admission?: Yes (5) Chronic kidney disease, stage 4 (severe) Is this a current diagnosis for this admission?: Yes (6) Anemia in chronic kidney disease Is this a current diagnosis for this admission?: Yes - Additional Information Resuscitation Status: Full Code Home Medications: Apixaban [Eliquis 2.5 mg Tablet] 2.5 mg PO BID #180 tablet 04/19/18 Megestrol Acetate [Megace 20 mg Tablet] 20 mg PO BID #30 tablet 04/19/18 Metoprolol Succinate [Toprol XL 100 mg Tablet] 100 mg PO DAILY #90 tab.sr.24h 04/19/18 Montelukast Sodium [Singulair 10 mg Tablet] 10 mg PO QPM #90 tablet 04/19/18 Hydralazine HCl [Apresoline 25 mg Tablet] 75 mg PO Q8 08/21/18 Sertraline HCl [Zoloft] 12.5 mg PO DAILY 08/21/18 History of Present Illness History of Present Illness: LOU CLEMENTE is a 83 year old female, Patient is well-known to me, she has history of chronic kidney disease with a baseline creatinine of 2 ,She complain of dizziness, blurry vision, this is chronic for this patient, she was evaluated extensively for possible etiology of the symptoms in the past without any cause identified. Blood work was drawn in the emergency room she was found to have serum creatinine of 3.3 which is significantly different from the baseline serum creatinine. The elevated serum creatinine could represent acute kidney injury or progression of chronic kidney disease. Physically she looks dehydrated it also seems that she has lost weight, she will be admitted she will be hydrated kidney function to be followed very closely the azotemia could be prerenal in nature if it is prerenal from dehydration IV fluid will correct that, if the serum creatinine remains elevated it could represent worsening kidney function from CKD or ATN or other causes of acute kidney injury. Hospital Course Hospital Course: Patient was admitted because of concern for acute kidney injury she was treated with IV fluid, there was slight improvement in the serum creatinine that suggest a prerenal component, but today the serum creatinine is back to 3.1 suggesting a new baseline for the chronic kidney disease. The azotemia is probably due to progression of her CKD there is no immediate indication for renal Replacement therapy at this time she will follow outpatient with nephrology, I am not sure she wants to be on chronic hemodialysis, she expressed desire in the past not to be on chronic hemodialysis this is what she also need to discuss with database reporting consultant outpatient. She will be discharged home She has anemia of chronic kidney disease, the iron studies, B12 level all came back normal suggesting that the anemia is of chronic kidney disease Physical Exam Vital Signs: Temp Pulse Resp BP Pulse Ox 97.6 F 74 16 150/75 H 100 08/23/18 12:24 08/23/18 14:00 08/23/18 12:24 08/23/18 12:24 08/23/18 12:24 Intake & Output 08/22/18 08/23/18 08/24/18 06:59 06:59 06:59 Intake Total 1000 2392 Balance 1000 2392 Weight 43.9 kg General appearance: PRESENT: no acute distress Head exam: PRESENT: atraumatic, normocephalic Eye exam: PRESENT: PERRLA Ear exam: PRESENT: normal external ear exam Neck exam: PRESENT: full ROM Respiratory exam: PRESENT: clear to auscultation alexandro Cardiovascular exam: PRESENT: RRR, +S1, +S2 Vascular exam: PRESENT: normal capillary refill GI/Abdominal exam: PRESENT: normal bowel sounds, soft Rectal exam: PRESENT: deferred Neurological exam: PRESENT: alert, CN II-XII grossly intact Skin exam: PRESENT: dry, intact, warm Results Laboratory Results: 08/23/18 13:08 08/23/18 13:08 08/23/18 08/23/18 13:08 13:08 WBC 4.6 RBC 3.15 L Hgb 8.9 L Hct 27.0 L MCV 86 MCH 28.2 MCHC 32.9 RDW 15.9 H Plt Count 217 Seg Neutrophils % 65.9 Lymphocytes % 17.2 Monocytes % 11.0 Eosinophils % 5.0 Basophils % 0.9 Absolute Neutrophils 3.1 Absolute Lymphocytes 0.8 Absolute Monocytes 0.5 Absolute Eosinophils 0.2 Absolute Basophils 0.0 Sodium 138.3 Potassium 5.0 Chloride 106 Carbon Dioxide 25 Anion Gap 7 BUN 33 H Creatinine 3.13 H Est GFR ( Amer) 17 L Est GFR (Non-Af Amer) 14 L Glucose 88 Calcium 9.6 Total Bilirubin 0.4 AST 18 ALT 11 Alkaline Phosphatase 54 Total Protein 7.3 Albumin 3.9 08/21/18 08/21/18 15:27 15:27 Creatine Kinase 74 CK-MB (CK-2) 0.29 Troponin I 0.014 Impressions: Chest X-Ray 08/21/18 15:14 IMPRESSION: 2 cm left basilar lung nodule. Chest CT recommended for follow-up Head CT 08/21/18 15:14 IMPRESSION: No acute findings. EVIDENCE OF ACUTE STROKE: NO. Chest CT 08/21/18 16:54 IMPRESSION: There are areas of pleural/parenchymal scarring in the left base. No definable mass is seen. Qualifiers - * PATIENT BEING DISCHARGED WITH ANY OF THE FOLLOWING DIAGNOSIS: No
[2018-08-23] MEDS: MONTELUKAST SODIUM 10 MG TABLET PO SCH (18:14)
[2018-08-23 18:40] VITALS: BP 139/64
== END 2018-08-23 19:00 | disposition home or self-care (01) | DRG 683 ==
LOC: ER 14:20 → OBSVTOIN 17:10 → INTOOBSV 17:10 → EH 17:10 → 4S 08-22 02:24
PROVIDERS: ADMIT Internal Medicine; ATTEND Internal Medicine
DX: N17.0 Acute kidney failure with tubular necrosis (principal); E46 Unspecified protein-calorie malnutrition; I48.2 Chronic atrial fibrillation; I16.0 Hypertensive urgency; I12.9 Hypertensive chronic kidney disease with stage 1 through stage 4 chronic kidney disease, or unspecified chronic kidney disease; N18.4 Chronic kidney disease, stage 4 (severe); D63.1 Anemia in chronic kidney disease; M19.90 Unspecified osteoarthritis, unspecified site; Z86.718 Personal history of other venous thrombosis and embolism; Z87.891 Personal history of nicotine dependence; Z79.899 Other long term (current) drug therapy; Z79.01 Long term (current) use of anticoagulants
CPT/HCPCS: 36415; 70450; 71045; 71250; 80048; 80053; 80076; 82550; 82553; 82607; 82728; 82746; 82962; 83010; 83540; 83550; 83615; 84484; 85025; 85045; 85610; 85730; 93005; 93010; 96360; 99285; G0378; J7030

== ENCOUNTER → 2018-08-31 | Outpatient (CLI) | payer MEDICARE ==
[2018-08-31 13:48] LABS: IRON(TIBC) 36.4 ug/dL (37-170)
[2018-09-01 16:38] LABS: A/G RATIO 0.9 (0.7-1.7); ALBUMIN 2 3.4 g/dL (2.9-4.4); ALPHA-2-GLOBULIN 2 0.9 g/dL (0.4-1.0); BETA GLOBULINS 0.9 g/dL (0.7-1.3); GAMMA GLOBULIN 1.8 g/dL (0.4-1.8); GLOBULIN TOTAL 3.8 g/dL (2.2-3.9); MONOCLONAL SPIKE Not Observed g/dL (Not Observ); PROTEIN TOTAL SERUM 7.2 g/dL (6.0-8.5)
== END ==
LOC: OD 11:45
PROVIDERS: ATTEND Physician Assistant Medical
DX: I12.9 Hypertensive chronic kidney disease with stage 1 through stage 4 chronic kidney disease, or unspecified chronic kidney disease (principal); N18.4 Chronic kidney disease, stage 4 (severe); R80.9 Proteinuria, unspecified; D64.9 Anemia, unspecified
CPT/HCPCS: 36415; 82728; 83540; 83550; 84165

== ENCOUNTER 2018-09-08 11:41 | Outpatient (CLI) | payer MEDICARE ==
[~2018-09-08 11:41] MED LIST: FERRIC CARBOXYMALTOSE 750 MG in NORMAL SALINE 250 ML IV PRN
[2018-09-08 12:14] VITALS: BP 134/69
== END 2018-09-08 13:43 | disposition home or self-care (01) ==
LOC: II 11:41 → 5TH 11:45 → II 13:43
PROVIDERS: ATTEND Internal Medicine Nephrology
PROC: 3E033GC Introduction of Other Therapeutic Substance into Peripheral Vein, Percutaneous Approach (ICD-10-PCS; principal; 2018-09-08)
DX: D50.8 Other iron deficiency anemias (principal)
CPT/HCPCS: 96365; J7050; J1439

== ENCOUNTER 2018-09-15 11:44 | Outpatient (CLI) | payer MEDICARE ==
[2018-09-15 12:12] VITALS: BP 145/80
== END 2018-09-15 13:55 | disposition home or self-care (01) ==
LOC: II 11:44 → 5TH 11:54 → II 13:55
PROVIDERS: ATTEND Internal Medicine Nephrology
PROC: 3E033GC Introduction of Other Therapeutic Substance into Peripheral Vein, Percutaneous Approach (ICD-10-PCS; principal; 2018-09-15)
DX: D50.8 Other iron deficiency anemias (principal)
CPT/HCPCS: 96367; J7050; J1439; 96365

== ENCOUNTER → 2018-10-14 | Outpatient (CLI) | payer MEDICARE ==
[~2018-10-14] MED LIST changes: +ALBUTEROL SULFATE 0.083% NEB 2.5 MG/3 ML AMPUL NEB ONE; -FERRIC CARBOXYMALTOSE 750 MG in NORMAL SALINE 250 ML IV PRN
== END ==
LOC: RT 10:26
PROVIDERS: ATTEND Specialist
DX: J44.9 Chronic obstructive pulmonary disease, unspecified (principal)
CPT/HCPCS: 94729; 94727; 94060; A9270

== ENCOUNTER 2018-10-17 15:58 | Emergency (ER) | payer MEDICARE ==
--- NOTE | 2018-10-17 16:53 | ER Document Report ---
ED Medical Screen (RME) - General Chief Complaint: Dizziness Stated Complaint: BLOOD PRESSURE ISSUE, DIZZY Time Seen by Provider: 10/17/18 16:52 Primary Care Provider: VICTORIANO MATTSON MD [Primary Care Provider] - Follow up as needed Mode of Arrival: Wheelchair Information source: Patient, Relative TRAVEL OUTSIDE OF THE [place] IN LAST 30 DAYS: No - HPI Patient complains to provider of: weakness; dizziness Onset: Yesterday - pt with c/o weakness and dizziness for the past day. Feels her BP has not been normal - Related Data Allergies/Adverse Reactions: No Known Allergies Allergy (Verified 10/17/18 16:03) Past Medical History - Past Medical History Cardiac Medical History: Reports: Hx Atrial Fibrillation, Hx DVT, Hx Hypertension Denies: Hx Heart Attack Pulmonary Medical History: Reports: Hx COPD Denies: Hx Asthma, Hx Tuberculosis Neurological Medical History: Denies: Hx Cerebrovascular Accident, Hx Seizures Renal/ Medical History: Reports: Hx Renal Insufficiency. Denies: Hx Peritoneal Dialysis GI Medical History: Denies: Hx Hepatitis, Hx Hiatal Hernia, Hx Ulcer Musculoskeltal Medical History: Reports Hx Arthritis Psychiatric Medical History: Denies: Hx Depression Infectious Medical History: Denies: Hx Hepatitis Past Surgical History: Denies: Hx Hysterectomy, Hx Mastectomy, Hx Open Heart Surgery, Hx Pacemaker - Immunizations Immunizations up to date: Yes Hx Diphtheria, Pertussis, Tetanus Vaccination: Yes History of Influenza Vaccine for 04/2017 - 09/2017 Season: No Physical Exam - Vital signs Vitals: Temp Pulse Resp BP Pulse Ox 98.6 F 79 17 129/78 H 98 10/17/18 16:08 10/17/18 16:08 10/17/18 16:08 10/17/18 16:08 10/17/18 16:08 Course - Vital Signs Vital signs: Temp Pulse Resp BP Pulse Ox 98.6 F 79 17 129/78 H 98 10/17/18 16:08 10/17/18 16:08 10/17/18 16:08 10/17/18 16:08 10/17/18 16:08 Doctor's Discharge - Discharge Referrals: VICTORIANO MATTSON MD [Primary Care Provider] - Follow up as needed
[2018-10-17 18:22] LABS: ABSOLUTE EOSINOPHILS # (AUTO) 0.1 10^3/uL (0.0-0.6); ABSOLUTE LYMPHOCYTES (AUTO) 0.9 10^3/uL (0.5-4.7); ABSOLUTE MONOCYTES (AUTO) 0.5 10^3/uL (0.1-1.4); ABSOLUTE NEUT (AUTO) 3.2 10^3/uL (1.7-8.2); EOSINOPHILS % (AUTO) 2.9 % (0-6); HEMATOCRIT 28.6 % (36.0-47.0); HEMOGLOBIN 9.7 g/dL (12.0-15.5); LYMPHOCYTES % (AUTO) 18.4 % (13-45); MEAN CORPUSCULAR HEMOGLOBIN 30.9 pg (27.0-33.4); MEAN CORPUSCULAR HGB CONC 33.9 g/dL (32.0-36.0); MEAN CORPUSCULAR VOLUME 91 fl (80-97); PLATELET COUNT 171 10^3/uL (150-450); RED BLOOD COUNT 3.13 10^6/uL (3.72-5.28); RED CELL DISTRIBUTION WIDTH 20.1 % (11.5-14.0); SEGMENTED NEUTROPHILS % (AUTO) 66.7 % (42-78); TOTAL CELLS COUNTED % (AUTO) 100 %; WHITE BLOOD COUNT 4.9 10^3/uL (4.0-10.5)
[2018-10-17 18:29] LABS: APPEARANCE,URINE SLIGHTLY-CLOUDY; BILIRUBIN,URINE NEGATIVE (NEGATIVE); COLOR,URINE YELLOW; GLUCOSE, URINE NEGATIVE (NEGATIVE); KETONES,URINE NEGATIVE (NEGATIVE); LEUKOCYTE ESTERASE,URINE NEGATIVE (NEGATIVE); NITRITE,URINE NEGATIVE (NEGATIVE); PROTEIN,URINE >=500 mg/dL (NEGATIVE); URINE SPECIFIC GRAVITY 1.016; UROBILINOGEN,URINE NEGATIVE mg/dL (<2.0)
[2018-10-17 18:39] LABS: ALANINE AMINOTRANSFERASE 22 U/L (9-52); ALBUMIN 3.9 g/dL (3.5-5.0); ALKALINE PHOSPHATASE 66 U/L (38-126); ANION GAP 11 (5-19); ASPARTATE AMINO TRANSFERASE 19 U/L (14-36); BILIRUBIN,DIRECT 0.2 mg/dL (0.0-0.4); BILIRUBIN,TOTAL 0.2 mg/dL (0.2-1.3); BLOOD UREA NITROGEN 51 mg/dL (7-20); CALCIUM 9.9 mg/dL (8.4-10.2); CARBON DIOXIDE 19 mmol/L (22-30); CHLORIDE 109 mmol/L (98-107); GLUCOSE 105 mg/dL (75-110); POTASSIUM 5.8 mmol/L (3.6-5.0); SODIUM 139.3 mmol/L (137-145); TOTAL PROTEIN 7.6 g/dL (6.3-8.2)
[2018-10-17] MEDS ORDERED: NORMAL SALINE 1000 ML 500 ML IV ONE (19:00)
[2018-10-17] MEDS ORDERED: SODIUM POLYSTYRENE SULFONATE 15 GM/60 ML PO ONE (19:07)
[2018-10-17] MEDS ORDERED: FUROSEMIDE INJ/PF 20 MG/2 ML SDV IV ONE (19:07)
[2018-10-17] MEDS ORDERED: NORMAL SALINE 1000 ML 1,000 ML IV ONE (19:07)
--- NOTE | 2018-10-17 19:09 | ER Document Report ---
ED General - General Chief Complaint: Dizziness Stated Complaint: BLOOD PRESSURE ISSUE, DIZZY Time Seen by Provider: 10/17/18 16:52 Primary Care Provider: VICTORIANO MATTSON MD [Primary Care Provider] - Follow up as needed Mode of Arrival: Wheelchair Notes: Patient is an 83-year-old female with a past medical history of chronic kidney disease, hypertension, presents due to concerns of recurrent dizziness. The patient has a long-standing history of dizziness and/or lightheadedness. She has been evaluated extensively for this, has had it for at least 3-4 years, no etiology has been able to be identified. She notes that nothing is a so a new or different regarding her dizziness today but that because it was bothering her she decided to come to the hospital. She is actually asking to go home as soon as I walked into the room. She has not noted that he seems to improve or worsen her symptoms. Again, the symptoms are long-standing in nature and not necessarily different today. She has not seen her primary doctor regarding today's concerns. She denies any chest pain, shortness of breath, abdominal pain, weakness, numbness, headache or confusion. No falls or trauma. TRAVEL OUTSIDE OF THE [place] IN LAST 30 DAYS: No - Related Data Allergies/Adverse Reactions: No Known Allergies Allergy (Verified 10/17/18 16:03) Past Medical History - General Information source: Patient, Relative - Social History Smoking Status: Never Smoker Chew tobacco use (# tins/day): No Frequency of alcohol use: None Drug Abuse: None Lives with: Family Family History: Reviewed & Not Pertinent Patient has suicidal ideation: No Patient has homicidal ideation: No - Past Medical History Cardiac Medical History: Reports: Hx Atrial Fibrillation, Hx DVT, Hx Hypertension Denies: Hx Heart Attack Pulmonary Medical History: Reports: Hx COPD Denies: Hx Asthma, Hx Tuberculosis Neurological Medical History: Denies: Hx Cerebrovascular Accident, Hx Seizures Renal/ Medical History: Reports: Hx Renal Insufficiency. Denies: Hx Peritoneal Dialysis GI Medical History: Denies: Hx Hepatitis, Hx Hiatal Hernia, Hx Ulcer Musculoskeletal Medical History: Reports Hx Arthritis Psychiatric Medical History: Denies: Hx Depression Infectious Medical History: Denies: Hx Hepatitis Past Surgical History: Denies: Hx Hysterectomy, Hx Mastectomy, Hx Open Heart Surgery, Hx Pacemaker - Immunizations Immunizations up to date: Yes Hx Diphtheria, Pertussis, Tetanus Vaccination: Yes Hx Pneumococcal Vaccination: 08/06/12 Review of Systems - Review of Systems Notes: Constitutional: Negative for fever. Positive for chronic dizziness HENT: Negative for sore throat. Eyes: Negative for visual changes. Cardiovascular: Negative for chest pain. Respiratory: Negative for shortness of breath. Gastrointestinal: Negative for abdominal pain, vomiting or diarrhea. Genitourinary: Negative for dysuria. Musculoskeletal: Negative for back pain. Skin: Negative for rash. Neurological: Negative for headaches, weakness or numbness. 10 point ROS negative except as marked above and in HPI. Physical Exam - Vital signs Vitals: Temp Pulse Resp BP Pulse Ox 98.6 F 79 17 129/78 H 98 10/17/18 16:08 10/17/18 16:08 10/17/18 16:08 10/17/18 16:08 10/17/18 16:08 Interpretation: Normal Notes: PHYSICAL EXAMINATION: GENERAL: Somewhat frail, elderly female in no acute distress HEAD: Atraumatic, normocephalic. EYES: Pupils equal round and reactive to light, extraocular movements intact, sclera anicteric, conjunctiva are normal. ENT: nares patent, oropharynx clear without exudates. Moderately dry mucous membranes. NECK: Normal range of motion, supple without lymphadenopathy LUNGS: Breath sounds clear to auscultation bilaterally and equal. No wheezes rales or rhonchi. HEART: Regular rate and rhythm without murmurs ABDOMEN: Soft, nontender, normoactive bowel sounds. No guarding, no rebound. No masses appreciated. EXTREMITIES: Normal range of motion, no pitting or edema. No cyanosis. NEUROLOGICAL: Face symmetric. Tongue protrudes midline. Extraocular motions intact. Pupils are 2 mm and equally reactive. Normal speech. 5 out of 5 strength in both the distal and proximal upper and lower extremities bilaterally. Sensation is grossly intact throughout. Finger to nose testing normal. Pronator drift normal. PSYCH: Normal mood, normal affect. SKIN: Warm, Dry, normal turgor, no rashes or lesions noted. Course - Re-evaluation Re-evalutation: 10/17/18 19:11 Patient presents with chronic vertigo, unchanged from baseline. She is asking to leave immediately upon my evaluation stating that the vertigo has resolved and she would like to go home. I am however slightly alarmed regarding her elevated potassium at 5.8 as well as slight worsening renal dysfunction. Her EKG is without concerning changes. Patient was given 1 L of normal saline as w ell as 20 mg of intravenous furosemide as well as 15 g of Kayexalate. I did also discuss with the patient's primary care physician Dr. Mattson who is in agreement with the patient's preference to be discharged home which I also think is reasonable given the absence of EKG changes. She will go to the office on Friday for recheck of her potassium. At this time will discharge with return precautions and follow-up recommendations. Verbal discharge instructions given a the bedside and opportunity for questions given. Medication warnings reviewed. Patient is in agreement with this plan and has verbalized understanding of return precautions and the need for primary care follow-up on Friday. - Vital Signs Vital signs: Temp Pulse Resp BP Pulse Ox 98.6 F 79 17 129/78 H 98 10/17/18 16:08 10/17/18 16:08 10/17/18 16:08 10/17/18 16:08 10/17/18 16:08 - Laboratory Result Diagrams: 10/17/18 18:10 10/17/18 18:10 Laboratory results interpreted by me: 10/17/18 10/17/18 10/17/18 17:45 18:10 18:10 RBC 3.13 L Hgb 9.7 L Hct 28.6 L RDW 20.1 H Potassium 5.8 H Chloride 109 H Carbon Dioxide 19 L BUN 51 H Creatinine 3.62 H Est GFR ( Amer) 14 L Est GFR (Non-Af Amer) 12 L Urine Protein >=500 H Urine Blood MODERATE H Discharge - Discharge Clinical Impression: Chronic kidney disease, stage 3, Dizziness, Hyperkalemia Anemia Qualifiers: Anemia type: unspecified type Qualified Code(s): D64.9 - Anemia, unspecified Anemia in chronic kidney disease Qualifiers: Chronic kidney disease stage: unspecified stage Qualified Code(s): N18.9 - Chronic kidney disease, unspecified; D63.1 - Anemia in chronic kidney disease Condition: Good Disposition: HOME, SELF-CARE Additional Instructions: You were seen today for lightheadedness/dizziness. The exact cause of your symptoms is unclear but your workup here is reassuring. As we discussed, your kidney function has worsened slightly and your potassium is higher than it should be. You received medicines to lower this potassium here in the emergency department. I did discuss with Dr. Mattson and he and I are in agreement that she needs to follow-up in the office on Friday for recheck of your potassium levels. Return if you pass out, have additional episodes of lightheadedness, develop weakness/numbness, have persistent vomiting, chest pain, shortness of breath or any other symptoms that are concerning to you Referrals: VICTORIANO MATTSON MD [Primary Care Provider] - 10/19/18
[2018-10-17] MEDS ORDERED: SODIUM POLYSTYRENE SULFONATE 15 GM/60 ML ONE (21:11)
[2018-10-17 22:07] VITALS: BP 134/74
--- NOTE | 2018-10-17 22:07 | EKG REPORT ---
SEVERITY:- ABNORMAL ECG - SINUS RHYTHM LEFT VENTRICULAR HYPERTROPHY : Confirmed by: Taylor Landaverde 17-Oct-2018 22:05:57
== END 2018-10-17 22:17 | disposition home or self-care (01) ==
LOC: ER 15:58
DX: R42 Dizziness and giddiness (principal); I12.9 Hypertensive chronic kidney disease with stage 1 through stage 4 chronic kidney disease, or unspecified chronic kidney disease; N18.3 Chronic kidney disease, stage 3 (moderate); D63.1 Anemia in chronic kidney disease; E87.5 Hyperkalemia; I48.91 Unspecified atrial fibrillation; Z86.718 Personal history of other venous thrombosis and embolism
CPT/HCPCS: 93005; 99284; 96361; 96374; 36415; 85025; 80053; 81001; 93010; J1940; J7030

== ENCOUNTER → 2018-10-19 | Outpatient (CLI) | payer MEDICARE ==
--- NOTE | 2018-10-19 17:08 | RADIOLOGY REPORT (SQ) ---
EXAM DESCRIPTION: CT HEAD WITHOUT COMPLETED DATE/TIME: 10/19/2018 5:01 pm REASON FOR STUDY: I63.9 CEREBRAL INFARCTION, UNSPECIFIED I63.9 CEREBRAL INFARCTION, UNSPECIFIED COMPARISON: 08/21/2018 TECHNIQUE: Axial images acquired through the brain without intravenous contrast. Images reviewed wi th bone, brain and subdural windows. Additional sagittal and coronal reconstructions were generated. Images stored on PACS. All CT scanners at this facility use dose modulation, iterative reconstruction, and/or weight based d osing when appropriate to reduce radiation dose to as low as reasonably achievable (ALARA). [facility]: Dose Right [facility]: CareDose [facility]: Dose Right [facility]: Teradose 4D [facility]: Smart [employer] RADIATION DOSE: CT Rad equipment meets quality standard of care and radiation dose reduction techniq ues were employed. CTDIvol: 53.2 mGy. DLP: 937 mGy-cm. mGy. LIMITATIONS: None. FINDINGS: VENTRICLES: Prominent ventricles secondary to involutional atrophy. CEREBRUM: Cortical atrophy. No masses. No hemorrhage. No midline shift. No evidence for acute inf arction. Few scattered areas of low density in the white matter most likely chronic small vessel isch emic changes. CEREBELLUM: No masses. No hemorrhage. No alteration of density. No evidence for acute infarction. EXTRAAXIAL SPACES: No fluid collections. No masses. ORBITS AND GLOBE: No intra- or extraconal masses. Normal contour of globe without masses. CALVARIUM: No fracture. PARANASAL SINUSES: No fluid or mucosal thickening. SOFT TISSUES: No mass or hematoma. OTHER: No other significant finding. IMPRESSION: MICROVASCULAR ISCHEMIA AND GENERALIZED ATROPHY. NO ACUTE IMAGING FINDINGS IN THE BRAIN EVIDENCE OF ACUTE STROKE: NO. COMMENT: Quality ID # [id number]: Final reports with documentation of one or more dose reduction techniques (e.g., Automated exposure control, adjustment of the mA and/or kV according to patient size, use of iterative reconstruction technique) TECHNICAL DOCUMENTATION: JOB ID: [id number] [employer]- All Rights Reserved Reading location - IP/workstation name: [email or web address]
== END ==
LOC: RAD 18:31
PROVIDERS: ATTEND Internal Medicine
DX: I63.9 Cerebral infarction, unspecified (principal)
CPT/HCPCS: 70450

== ENCOUNTER → 2018-10-26 | Outpatient (CLI) | payer MEDICARE ==
--- NOTE | 2018-10-26 13:46 | RADIOLOGY REPORT (SQ) ---
EXAM DESCRIPTION: U/S RETROPERITON (RENAL/AORTA) COMPLETED DATE/TIME: 10/26/2018 1:37 pm REASON FOR STUDY: HTN W/CKD (I12.9) I47.1 SUPRAVENTRICULAR TACHYCARDIA I12.9 HYPERTENSIVE CHRONIC KIDNEY DISEASE W STG 1-4/UNSP CHR COMPARISON: 08/01/2013 TECHNIQUE: Dynamic and static grayscale images acquired of the kidneys and bladder and recorded on P ACS. Additional selected color Doppler and spectral images recorded. LIMITATIONS: None. FINDINGS: RIGHT KIDNEY: The right kidney measures 9.6 x 4.1 x 6.3 cm, normal size. Multiple cysts are again identified with one of the largest measuring 3.6 x 3.2 x 2.9 cm. On the prior examination one of the largest measured 2.7 x 2.1 x 2.3 cm. Diffuse increased echogenicity suggests medical henrry l disease, stable finding. No hydronephrosis. No calcifications. LEFT KIDNEY: The left kidney measures 10.1 x 3.3 x 3.9 cm, normal size. Diffuse increased echogenic ity of the kidney, suggests medical renal disease, unchanged finding. Multiple cysts are again ident ified. One of the largest measures 3.7 x 2.5 x 4.0 cm. One of the largest on the prior examination measured 2.7 x 1.9 x 2.2 cm. No hydronephrosis. No calcifications. BLADDER: No masses. Right ureteral jet visualized. OTHER FINDINGS: No other significant finding. IMPRESSION: 1. As on the prior examination dated 08/01/2013, bilateral multiple renal cysts. Several of the cysts appear to have slightly increased in size in the interval. 2. Diffuse increased echogenicity of the kidneys, suggests medical renal disease. This finding is s table since the prior examination. 3. No evidence of hydronephrosis. TECHNICAL DOCUMENTATION: JOB ID: [id number] [employer]- All Rights Reserved Reading location - IP/workstation name: [email or web address]
--- NOTE | 2018-10-28 01:16 | XCELERA REPORT ---
[address] [address] Transthoracic Echocardiogram Report Name: LOU CLEMENTE Age: 83 yrs Gender: Female : 1935 Patient Status: Outpatient Patient Location: Study Date: 10/26/2018 01:29 PM Height: 63 in Weight: 101 lb BSA: 1.4 m2 Procedure: A two-dimensional transthoracic echocardiogram with color flow Doppler was performed. The study was technically limited with all images being suboptimal in quality. Reason For Study: SVT History: SVT. Ordering Physician: CALEB FARMER Performed By: Deepa Culver Interpretation Summary The left ventricle is normal in size. There is normal left ventricular wall thickness. LV EF is 65% Left ventricular systolic function is normal. Doppler measurements suggest impaired left ventricular relaxation, which is associated with grade I/IV or mild diastolic dysfunction The left ventricular wall motion is normal. There is no thrombus. pROBABLY NO asd,vsd , OR pfo. The right ventricle is normal in size and function. The right atrium is normal. The left atrial size is normal. There is no evidence of mitral valve prolapse. There is no vegetation seen on the mitral valve. There is no mitral valve stenosis. There is a mild amount of mitral regurgitation There is no aortic valve stenosis There is aortic sclerosis without aortic stenosis. There is no LVOT obstruction. There is a mild amount of aortic regurgitation There is no tricuspid stenosis. There is a mild amount of tricuspid regurgitation There is mild pulmonary hypertension by echo rvsp IS 36 TO 41 MM OF hG , WITH ra MEAN OF 5 TO 10. There is no pulmonic valvular stenosis. There is a trace amount of pulmonic regurgitation The aortic root is normal size. The inferior vena cava appeared normal and decreased > 50% with respiration (RAP 5-10 mmHg) There is no pericardial effusion. MMode/2D Measurements & Calculations RVDd: 2.1 cm LVIDd: 4.4 cm FS: 45.1 % Ao root diam: 3.3 cm IVSd: 0.95 cm LVIDs: 2.4 cm EDV(Teich): Ao root area: LVPWd: 0.95 cm 87.1 ml 8.4 cm2 ESV(Teich): 20.3 ml EF(Teich): 76.7 % EDV(MOD-sp4): SV(MOD-sp4): 85.3 ml 48.4 ml ESV(MOD-sp4): 36.9 ml EF(MOD-sp4): 56.8 % Doppler Measurements & Calculations MV E max elizabeth: MV dec slope: Ao V2 max: AI max elizabeth: 76.4 cm/sec 144.3 cm/sec 523.8 cm/sec MV A max elizabeth: 534.4 cm/sec2 Ao max P.3 mmHg AI max P.0 cm/sec MV dec time: 109.8 mmHg MV E/A: 0.79 0.14 sec AI dec slope: 289.9 cm/sec2 AI P1/2t: 529.3 msec LV V1 max PG: PA V2 max: PI max elizabeth: TR max elizabeth: 5.0 mmHg 70.1 cm/sec 152.0 cm/sec 278.2 cm/sec LV V1 max: PA max P.0 mmHg PI max P.2 mmHg TR max P.5 cm/sec PI dec slope: 30.9 mmHg LV dP/dt: 1857 mmHg/s 105.4 cm/sec2 Left Ventricle The left ventricle is normal in size. There is normal left ventricular wall thickness. LV EF is 65%. Left ventricular systolic function is normal. Doppler measurements suggest impaired left ventricular relaxation, which is associated with grade I/IV or mild diastolic dysfunction. The left ventricular wall motion is normal. There is no thrombus. pROBABLY NO asd,vsd , OR pfo. Right Ventricle The right ventricle is normal in size and function. Atria The right atrium is normal. The left atrial size is normal. Mitral Valve There is no evidence of mitral valve prolapse. There is no vegetation seen on the mitral valve. There is no mitral valve stenosis. There is a mild amount of mitral regurgitation. Aortic Valve There is no aortic valvular vegetation. There is no aortic valve stenosis. There is aortic sclerosis without aortic stenosis. There is no LVOT obstruction. There is a mild amount of aortic regurgitation. Tricuspid Valve There is no tricuspid stenosis. There is a mild amount of tricuspid regurgitation. There is mild pulmonary hypertension by echo. rvsp IS 36 TO 41 MM OF hG , WITH ra MEAN OF 5 TO 10. Pulmonic Valve There is no pulmonic valvular stenosis. There is a trace amount of pulmonic regurgitation. Great Vessels The aortic root is normal size. The inferior vena cava appeared normal and decreased > 50% with respiration (RAP 5-10 mmHg). Effusions There is no pericardial effusion. : CALEB FARMER Lakshmi
== END ==
LOC: SP 12:19
PROVIDERS: ATTEND Internal Medicine Nephrology
DX: I47.1 Supraventricular tachycardia (principal); I12.9 Hypertensive chronic kidney disease with stage 1 through stage 4 chronic kidney disease, or unspecified chronic kidney disease; N18.9 Chronic kidney disease, unspecified; Q61.02 Congenital multiple renal cysts
CPT/HCPCS: 76770; 93306

== ENCOUNTER 2018-12-19 22:42 | Emergency (ER) | payer MEDICARE ==
--- NOTE | 2018-12-19 23:49 | ER Document Report ---
ED Medical Screen (RME) - General Chief Complaint: Dizziness Stated Complaint: EYE PROBLEM Time Seen by Provider: 12/19/18 23:44 Primary Care Provider: Tony WASHBURN MD [Primary Care Provider] - Follow up as needed Notes: 83-year-old female chief complaint of her eyes bothering her. She is a difficult historian. First she states her eyes just feel blurry and gritty, but then she also states that she feels unsteady on her feet, intermittently dizzy, and intermittently having headaches. She is on Eliquis. She states her eyes have been bothering her for "a while", but today they really began bothering her . She is on Polytrim and moisturizing eyedrops but states she is not taking them because they are not helping. TRAVEL OUTSIDE OF THE [place] IN LAST 30 DAYS: No - Related Data Allergies/Adverse Reactions: No Known Allergies Allergy (Verified 10/17/18 16:03) Past Medical History - Past Medical History Cardiac Medical History: Reports: Hx Atrial Fibrillation, Hx DVT, Hx Hypertension Denies: Hx Heart Attack Pulmonary Medical History: Reports: Hx COPD Denies: Hx Asthma, Hx Tuberculosis Neurological Medical History: Denies: Hx Cerebrovascular Accident, Hx Seizures Renal/ Medical History: Reports: Hx Renal Insufficiency. Denies: Hx Peritoneal Dialysis GI Medical History: Denies: Hx Hepatitis, Hx Hiatal Hernia, Hx Ulcer Musculoskeltal Medical History: Reports Hx Arthritis Psychiatric Medical History: Denies: Hx Depression Infectious Medical History: Denies: Hx Hepatitis Past Surgical History: Denies: Hx Hysterectomy, Hx Mastectomy, Hx Open Heart Surgery, Hx Pacemaker - Immunizations Immunizations up to date: Yes Hx Diphtheria, Pertussis, Tetanus Vaccination: Yes History of Influenza Vaccine for 04/2017 - 09/2017 Season: No Physical Exam - Vital signs Vitals: Temp Pulse Resp BP 98.1 F 99 18 174/94 H 12/19/18 22:59 12/19/18 22:59 12/19/18 22:59 12/19/18 22:59 - Neurological Neuro grossly intact: Yes Cognition: Normal Orientation: AAOx4 Abran Coma Scale Eye Opening: Spontaneous Abran Coma Scale Verbal: Oriented Abran Coma Scale Motor: Obeys Commands [place] Coma Scale Total: 15 Speech: Normal Cranial nerves: Normal. No: Facial palsy, Forehead sparing, Gaze palsy Motor strength normal: LUE, CHRISTOPHERE, LLE, RLE Course - Re-evaluation Re-evalutation: I have greeted and performed a rapid initial assessment of this patient. A comp rehensive ED assessment and evaluation of the patient, analysis of test results and completion of the medical decision making process will be conducted by additional ED providers. - Vital Signs Vital signs: Temp Pulse Resp BP Pulse Ox 98.1 F 99 18 174/94 H 12/19/18 22:59 12/19/18 22:59 12/19/18 22:59 12/19/18 22:59 Doctor's Discharge - Discharge Referrals: Tony WASHBURN MD [Primary Care Provider] - Follow up as needed
[2018-12-20 00:20] LABS: HEMATOCRIT 36.2 % (36.0-47.0); MEAN CORPUSCULAR HEMOGLOBIN 30.9 pg (27.0-33.4); MEAN CORPUSCULAR HGB CONC 33.2 g/dL (32.0-36.0); MEAN CORPUSCULAR VOLUME 93 fl (80-97); PLATELET COUNT 212 10^3/uL (150-450); RED BLOOD COUNT 3.89 10^6/uL (3.72-5.28); RED CELL DISTRIBUTION WIDTH 15.2 % (11.5-14.0); WHITE BLOOD COUNT 5.9 10^3/uL (4.0-10.5)
[2018-12-20 00:37] LABS: ABSOLUTE LYMPHOCYTES# (MANUAL) 1.4 10^3/uL (0.5-4.7); ABSOLUTE MONOCYTES # (MANUAL) 0.8 10^3/uL (0.1-1.4); ABSOLUTE NEUTROPHILS# (MANUAL) 3.7 10^3/uL (1.7-8.2); BAND NEUTROPHILS % (MANUAL) 1 % (3-5); BASOPHILS % (MANUAL) 0 % (0-2); EOSINOPHILS % (MANUAL) 1 % (0-6); LYMPHOCYTES % (MANUAL) 23 % (13-45); METAMYELOCYTES % (MANUAL) 1 % (0); MONOCYTES % (MANUAL) 13 % (3-13); PLATELET COMMENT ADEQUATE; SEGMENTED NEUTROPHILS % (MAN) 61 % (42-78); TOTAL CELLS COUNTED 100
[2018-12-20 00:39] LABS: ANISOCYTOSIS SLIGHT; TEAR DROP CELLS SLIGHT
[2018-12-20 00:46] LABS: ANION GAP 13 (5-19); BLOOD UREA NITROGEN 39 mg/dL (7-20); CALCIUM 10.7 mg/dL (8.4-10.2); CARBON DIOXIDE 21 mmol/L (22-30); CHLORIDE 108 mmol/L (98-107); GLUCOSE 98 mg/dL (75-110); POTASSIUM 4.9 mmol/L (3.6-5.0); SODIUM 141.5 mmol/L (137-145)
[2018-12-20] MEDS ORDERED: TETRACAINE HCL 0.5% OPH SOLN 4 ML OU ONE (00:50)
--- NOTE | 2018-12-20 01:10 | ER Document Report ---
ED General - General Chief Complaint: Dizziness Stated Complaint: EYE PROBLEM Time Seen by Provider: 12/19/18 23:44 Notes: Patient is a pleasant 83-year-old female presents with complaint of eye pain and watering in her eyes. This apparently is a chronic problem which that is worse tonight. She does have a history of glaucoma and does take drops for this. She says that she has been using eyedrops. She also has high blood pressure. She s ays she has been taking her blood pressure medications. She is followed by Dr. Price and Dr. Scott. She denies any recent fevers. No infections. She does have a slight headache. She complains of some dizziness however the dizziness is chronic and recurring and is not been ongoing now for years. She has been to the ER multiple times for the same dizziness. She denies any vomiting. No chest pain. No abdominal pain. No other complaints at this time. TRAVEL OUTSIDE OF THE [place] IN LAST 30 DAYS: No - Related Data Allergies/Adverse Reactions: No Known Allergies Allergy (Verified 10/17/18 16:03) Past Medical History - Social History Smoking Status: Never Smoker Frequency of alcohol use: None Drug Abuse: None Family History: Reviewed & Not Pertinent Patient has suicidal ideation: No Patient has homicidal ideation: No - Past Medical History Cardiac Medical History: Reports: Hx Atrial Fibrillation, Hx DVT, Hx Hypertension Denies: Hx Heart Attack Pulmonary Medical History: Reports: Hx COPD Denies: Hx Asthma, Hx Tuberculosis Neurological Medical History: Denies: Hx Cerebrovascular Accident, Hx Seizures Renal/ Medical History: Reports: Hx Renal Insufficiency. Denies: Hx Peritoneal Dialysis GI Medical History: Denies: Hx Hepatitis, Hx Hiatal Hernia, Hx Ulcer Musculoskeletal Medical History: Reports Hx Arthritis Psychiatric Medical History: Denies: Hx Depression Infectious Medical History: Denies: Hx Hepatitis Past Surgical History: Denies: Hx Hysterectomy, Hx Mastectomy, Hx Open Heart Surgery, Hx Pacemaker - Immunizations Immunizations up to date: Yes Hx Diphtheria, Pertussis, Tetanus Vaccination: Yes Hx Pneumococcal Vaccination: 08/06/12 Review of Systems - Review of Systems Notes: My Normal Review Basic REVIEW OF SYSTEMS: CONSTITUTIONAL : Denies fever, chills, or sweats. Denies recent illness. EENT: Pain in eyes. Increased watery drainage from eyes. CARDIOVASCULAR: Denies chest pain. RESPIRATORY: Denies cough, cold, or chest congestion. Denies shortness of breath, difficulty breathing, or wheezing. GASTROINTESTINAL: Denies abdominal pain. Denies nausea, vomiting, or diarrhea. MUSCULOSKELETAL: Denies neck or back pain or joint pain or swelling. SKIN: Denies rash or skin lesions. NEUROLOGICAL: Denies altered mental status or loss of consciousness. Mild headache. Denies weakness or paralysis or loss of use of either side. Denies problems with gait or speech. Denies sensory or motor loss. ALL OTHER SYSTEMS REVIEWED AND NEGATIVE. Physical Exam - Vital signs Vitals: Temp Pulse Resp BP 98.1 F 99 18 174/94 H 12/19/18 22:59 12/19/18 22:59 12/19/18 22:59 12/19/18 22:59 - Notes Notes: General Appearance: Well nourished, alert, cooperative, no acute distress, no obvious discomfort. Well-appearing. Vitals: reviewed, See vital signs table. Head: no swelling or tenderness to the head Eyes: PERRL, EOMI, Conjuctiva clear. Normal fluorescein staining without forcing uptake. Angel-Pen pressures are 19 in the right eye and 20 in the left eye. Mouth: No decreasd moisture Lungs: No wheezing, No rales, No rhonci, No accessory muscle use, good air exchange bilaterally. Heart: Normal rate, Regular rythm, No murmur, no rub Abdomen: Normal BS, soft, No rigidity, No abdominal tenderness, No guarding, no rebound, no abdominal masses, no organomegaly Extremities: strength 5/5 in all extremities, good pulses in all extremities, no swelling or tenderness in the extremities, no edema. Skin: warm, dry, appropriate color, no rash Neuro: speech clear, oriented x 3, normal affect, responds appropriately to questions. Cranial nerves II through XII are intact. Distal sensation intact. Patient has good strength in all 4 extremities. Normal coordination of movement. Course - Re-evaluation Re-evalutation: 12/20/18 05:51 I informed the patient that I do not know the exact cause of where she has chronic eye pain and watering. Her eye pressures are normal and therefore I do not think is related to her glaucoma. She just saw her eye doctor last week and informed her that she should follow-up with her eye doctor. Currently she does have some hypertension. I did give her an extra dose of hydralazine. I informed her to follow-up with her doctor about adjustment of her blood pressure medications. She has no concerning neurologic deficits on exam. She overall looks well. I feel that she is safe to be discharged home. I encouraged a low threshold to return to ER if she has worsening of her symptoms, severe headache, vomiting, chest pain, difficulty breathing, or she feels unwell in any way. Patient agrees with plan and will be discharged home. Dictation of this chart was performed using voice recognition software; therefore, there may be some unintended grammatical errors. - Vital Signs Vital signs: Temp Pulse Resp BP Pulse Ox 98.3 F 99 16 172/95 H 99 12/20/18 02:32 12/20/18 02:32 12/20/18 02:32 12/20/18 02:32 12/20/18 02:32 - Laboratory Result Diagrams: 12/19/18 23:50 12/19/18 23:50 Laboratory results interpreted by me: 12/19/18 12/19/18 23:50 23:50 RDW 15.2 H Band Neutrophils % 1 L Metamyelocytes % 1 H Chloride 108 H Carbon Dioxide 21 L BUN 39 H Creatinine 3.25 H Est GFR ( Amer) 16 L Est GFR (Non-Af Amer) 14 L Calcium 10.7 H - EKG Interpretation by Me Additional EKG results interpreted by me: 12/20/18 01:10 EKG is reviewed and interpreted by me. EKG shows sinus tachycardia with a rate of 108 bpm. No elevation or depression. No ischemic T wave inversions. OH interval, QRS duration, QT intervals are within normal range. Old EKG for comparison is from October 17, 2018. 12/20/18 01:10 Discharge - Discharge Clinical Impression: Eye pain, Hypertension Condition: Good Disposition: HOME, SELF-CARE Additional Instructions: The exact cause of why you have ongoing pain in her eyes is not 100% clear. The pressures in your eyes were normal at this time. Your CT scan of your head and your blood work did not show any acute concerning findings. Please follow-up closely with your eye doctor this coming week for reevaluation. Please return to ER if you have worsening of your symptoms, pain, severe headache, vomiting, or feel unwell.
--- NOTE | 2018-12-20 01:40 | RADIOLOGY REPORT (SQ) ---
CT HEAD WITHOUT IV CONTRAST HISTORY: Dizziness and blurred vision. COMPARISON: 10/19/2018 TECHNIQUE: CT scan of the brain without IV contrast. This exam was performed according to our departmental dose-optimization program, which includes automated exposure control, adjustment of the mA and/or kV according to patient size and/or use of iterative reconstruction technique. FINDINGS: Diffuse involutional changes are present. There is unchanged prominence of the left lateral ventricle. There are scattered areas of hypoattenuation within the periventricular white matter, which likely represent chronic microvascular ischemia. No evidence of acute infarction, intracranial hemorrhage, extra-axial fluid collection, or midline shift. No air-fluid levels are seen in the paranasal sinuses to suggest acute sinusitis. No depressed skull fracture. IMPRESSION: 1. No acute intracranial findings. 2. Senescent changes with chronic microvascular ischemia.
--- NOTE | 2018-12-20 01:43 | RADIOLOGY REPORT (SQ) ---
EXAM DESCRIPTION: XR CHEST 1 VIEW COMPLETED DATE/TME: 12/19/2018 23:45 CLINICAL HISTORY: 83 years, Female, dizziness COMPARISON: None. NUMBER OF VIEWS: TECHNIQUE: LIMITATIONS: None. FINDINGS: No evidence of pulmonary infiltrate or pleural effusion. The heart is top normal to mildly enlarged. Pulmonary vascularity appears normal. IMPRESSION: No acute finding. copyright 2010 [employer]- All Rights Reserved
[2018-12-20] MEDS ORDERED: HYDRALAZINE HCL INJ/PF 20 MG/1 ML SDV IV ONE (01:47)
[2018-12-20] MEDS ORDERED: HYDRALAZINE HCL 10 MG TABLET PO ONE (02:23)
[2018-12-20 02:33] VITALS: BP 172/95
--- NOTE | 2018-12-20 16:22 | EKG REPORT ---
SEVERITY:- ABNORMAL ECG - SINUS TACHYCARDIA WITH APCS LEFT AXIS DEVIATION PROBABLE LEFT VENTRICULAR HYPERTROPHY : Confirmed by: Taylor Landaverde 20-Dec-2018 16:21:39
== END 2018-12-20 02:45 | disposition home or self-care (01) ==
LOC: ER 22:42
DX: H57.13 Ocular pain, bilateral (principal); I10 Essential (primary) hypertension; R42 Dizziness and giddiness; R51 Headache; J44.9 Chronic obstructive pulmonary disease, unspecified
CPT/HCPCS: 93005; 99284; 36415; 85025; 80048; 84484; 71045; 70450; 93010; A9270; J3490

== ENCOUNTER → 2018-12-29 | Outpatient (CLI) | payer MEDICARE ==
[2018-12-29 13:29] LABS: HEMATOCRIT 33.5 % (36.0-47.0); HEMOGLOBIN 11.3 g/dL (12.0-15.5); MEAN CORPUSCULAR HGB CONC 33.6 g/dL (32.0-36.0); MEAN CORPUSCULAR VOLUME 92 fl (80-97); PLATELET COUNT 184 10^3/uL (150-450); RED BLOOD COUNT 3.63 10^6/uL (3.72-5.28); RED CELL DISTRIBUTION WIDTH 14.6 % (11.5-14.0)
[2018-12-29 13:32] LABS: APPEARANCE,URINE SLIGHTLY-CLOUDY; BILIRUBIN,URINE NEGATIVE (NEGATIVE); COLOR,URINE YELLOW; GLUCOSE, URINE NEGATIVE (NEGATIVE); KETONES,URINE NEGATIVE (NEGATIVE); LEUKOCYTE ESTERASE,URINE NEGATIVE (NEGATIVE); NITRITE,URINE NEGATIVE (NEGATIVE); PROTEIN,URINE 100 mg/dL (NEGATIVE); URINE SPECIFIC GRAVITY 1.015; UROBILINOGEN,URINE NEGATIVE mg/dL (<2.0)
[2018-12-29 13:45] LABS: ANION GAP 10 (5-19); BLOOD UREA NITROGEN 36 mg/dL (7-20); CALCIUM 10.7 mg/dL (8.4-10.2); CARBON DIOXIDE 24 mmol/L (22-30); CHLORIDE 107 mmol/L (98-107); GLUCOSE 94 mg/dL (75-110); POTASSIUM 4.5 mmol/L (3.6-5.0); SODIUM 141.2 mmol/L (137-145)
== END ==
LOC: OD 12:41
PROVIDERS: ATTEND Internal Medicine Nephrology
DX: I12.9 Hypertensive chronic kidney disease with stage 1 through stage 4 chronic kidney disease, or unspecified chronic kidney disease (principal); N18.4 Chronic kidney disease, stage 4 (severe); D63.1 Anemia in chronic kidney disease
CPT/HCPCS: 36415; 80048; 81001; 83970; 84100; 85027

== ENCOUNTER 2019-02-20 11:59 | Emergency (ER) | payer MEDICARE ==
--- NOTE | 2019-02-20 12:50 | ER Document Report ---
ED Medical Screen (RME) - General Chief Complaint: Eye Problem Stated Complaint: EYE PROBLEM Time Seen by Provider: 02/20/19 12:35 Primary Care Provider: Tony WASHBURN MD [Primary Care Provider] - Follow up as needed Notes: Patient 83-year-old female who presents the emergency department with a chief complaint of lightheadedness and blurry vision. Niece is at bedside to provide additional history. Patient states that this morning she noticed her vision was getting worse. States that when she blinks her vision gets worse. She has had problems with her vision in the past. She is currently on Latanoprost for her glaucoma. Also takes dry eyedrops. Patient wears glasses. Has stage V kidney disease. She has a history of atrial fibrillation is currently on Eliquis. Exam: Red reflex noted. Ocular movements all intact. I have greeted and performed a rapid initial assessment of this patient. A comprehensive ED assessment and evaluation of the patient, analysis of test results and completion of medical decision making process will be conducted by an additional ED providers. TRAVEL OUTSIDE OF THE [place] IN LAST 30 DAYS: No - Related Data Allergies/Adverse Reactions: No Known Allergies Allergy (Verified 02/20/19 12:00) Past Medical History - Past Medical History Cardiac Medical History: Reports: Hx Atrial Fibrillation, Hx DVT, Hx Hypertension Denies: Hx Heart Attack Pulmonary Medical History: Reports: Hx COPD Denies: Hx Asthma, Hx Tuberculosis Neurological Medical History: Denies: Hx Cerebrovascular Accident, Hx Seizures Renal/ Medical History: Reports: Hx Renal Insufficiency. Denies: Hx Peritoneal Dialysis GI Medical History: Denies: Hx Hepatitis, Hx Hiatal Hernia, Hx Ulcer Musculoskeltal Medical History: Reports Hx Arthritis Psychiatric Medical History: Denies: Hx Depression Infectious Medical History: Denies: Hx Hepatitis Past Surgical History: Denies: Hx Hysterectomy, Hx Mastectomy, Hx Open Heart Surgery, Hx Pacemaker - Immunizations Immunizations up to date: Yes Hx Diphtheria, Pertussis, Tetanus Vaccination: Yes History of Influenza Vaccine for 04/2017 - 09/2017 Season: No Physical Exam - Vital signs Vitals: Temp Pulse Resp BP Pulse Ox 98.2 F 108 H 19 146/77 H 97 02/20/19 12:05 02/20/19 12:05 02/20/19 12:05 02/20/19 12:05 07/27/19 12:05 Course - Vital Signs Vital signs: Temp Pulse Resp BP Pulse Ox 98.2 F 108 H 19 146/77 H 97 02/20/19 12:05 02/20/19 12:05 02/20/19 12:05 02/20/19 12:05 02/20/19 12:05 Doctor's Discharge - Discharge Referrals: Tony WASHBURN MD [Primary Care Provider] - Follow up as needed
[2019-02-20 14:02] LABS: ABSOLUTE BASOPHILS # (AUTO) 0.1 10^3/uL (0.0-0.2); ABSOLUTE EOSINOPHILS # (AUTO) 0.1 10^3/uL (0.0-0.6); ABSOLUTE LYMPHOCYTES (AUTO) 0.9 10^3/uL (0.5-4.7); ABSOLUTE MONOCYTES (AUTO) 0.6 10^3/uL (0.1-1.4); ABSOLUTE NEUT (AUTO) 3.6 10^3/uL (1.7-8.2); BASOPHILS % (AUTO) 1.1 % (0-2); EOSINOPHILS % (AUTO) 1.7 % (0-6); HEMATOCRIT 32.6 % (36.0-47.0); HEMOGLOBIN 10.8 g/dL (12.0-15.5); LYMPHOCYTES % (AUTO) 17.7 % (13-45); MEAN CORPUSCULAR HEMOGLOBIN 30.2 pg (27.0-33.4); MEAN CORPUSCULAR HGB CONC 33.2 g/dL (32.0-36.0); MEAN CORPUSCULAR VOLUME 91 fl (80-97); MONOCYTES % (AUTO) 11.7 % (3-13); PLATELET COUNT 219 10^3/uL (150-450); RED BLOOD COUNT 3.58 10^6/uL (3.72-5.28); RED CELL DISTRIBUTION WIDTH 14.3 % (11.5-14.0); SEGMENTED NEUTROPHILS % (AUTO) 67.8 % (42-78); TOTAL CELLS COUNTED % (AUTO) 100 %; WHITE BLOOD COUNT 5.3 10^3/uL (4.0-10.5)
--- NOTE | 2019-02-20 14:02 | ER Document Report ---
ED General - General Chief Complaint: Eye Problem Stated Complaint: EYE PROBLEM Time Seen by Provider: 02/20/19 12:35 Primary Care Provider: Tony WASHBURN MD [ACTIVE STAFF] - Follow up as needed Information source: Patient Notes: HPI: 83-year-old female that presents with her niece with multiple medical problems. Patient states she has some increased left eye irritation. Supposed to the patient has had eye irritation to this area for 5 to 6 years and has seen the local casino manager Dr. Horowitz. 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 She states she only intermittently takes the eyedrops because they "do not work". She denies any and all headache, nausea, vomiting, or fevers. She does state a little lightheadedness recently. She denies any chest pain, palpitations, abdominal pain, dysuria, or diarrhea. No weakness or numbness. No fevers. Patient also states mild tingling in bilateral feet. She has seen the primary care physician about this. She denies any swelling of the legs or feet. ROS: See HPI All other review of systems reviewed and otherwise negative Reviewed vital signs and nursing note as charted by RN. PHYSICAL EXAM: CONSTITUTIONAL: Alert and oriented and responds appropriately to questions. Well-appearing; well-nourished HEAD: Normocephalic; atraumatic EYES: PERRL; full extraocular range of motion, sclerae non-icteric; Angel-Pen pressures are normal bilaterally including a 15 of the left eye. No posterior vitreous hemorrhage or abnormal vasculature noted ENT: Normal nose; no rhinorrhea; moist mucous membranes; pharynx without lesions noted NECK: Supple without meningismus; non-tender; no carotid bruit; no cervical lymp hadenopathy, no masses CARD: Regular rate and rhythm; no murmurs; symmetric distal pulses RESP: Normal chest excursion without splinting or tachypnea; breath sounds clear and equal bilaterally; no wheezes, no rhonchi, no rales ABD/GI: Normal bowel sounds; non-distended; soft, non-tender; no palpable organomegaly or masses BACK: The back appears normal and is non-tender to palpation EXT: Normal ROM in all joints; non-tender to palpation; no edema SKIN: No acute lesions noted NEURO: CN 2-12 intact; 5/5 bilateral upper and lower extremity strength with sensation intact to light touch PSYCH: The patient's mood and manner are appropriate. Grooming and personal hygiene are appropriate. TRAVEL OUTSIDE OF THE [place] IN LAST 30 DAYS: No - Related Data Allergies/Adverse Reactions: No Known Allergies Allergy (Verified 02/20/19 12:00) Past Medical History - Social History Smoking Status: Unknown if Ever Smoked Family History: Reviewed & Not Pertinent Patient has suicidal ideation: No Patient has homicidal ideation: No - Past Medical History Cardiac Medical History: Reports: Hx Atrial Fibrillation, Hx DVT, Hx Hypertension Denies: Hx Heart Attack Pulmonary Medical History: Reports: Hx COPD Denies: Hx Asthma, Hx Tuberculosis Neurological Medical History: Denies: Hx Cerebrovascular Accident, Hx Seizures Renal/ Medical History: Reports: Hx Renal Insufficiency. Denies: Hx Peritoneal Dialysis GI Medical History: Denies: Hx Hepatitis, Hx Hiatal Hernia, Hx Ulcer Musculoskeletal Medical History: Reports Hx Arthritis Psychiatric Medical History: Denies: Hx Depression Infectious Medical History: Denies: Hx Hepatitis Past Surgical History: Denies: Hx Hysterectomy, Hx Mastectomy, Hx Open Heart Surgery, Hx Pacemaker - Immunizations Immunizations up to date: Yes Hx Diphtheria, Pertussis, Tetanus Vaccination: Yes Hx Pneumococcal Vaccination: 08/06/12 Physical Exam - Vital signs Vitals: Temp Pulse Resp BP Pulse Ox 98.2 F 108 H 19 146/77 H 97 02/20/19 12:05 02/20/19 12:05 02/20/19 12:05 02/20/19 12:05 02/20/19 12:05 Course - Re-evaluation Re-evalutation: Given the history and physical examination we will order basic labs, obtain Angel-Pen pressures, perform a fluorescein examination, obtain a CT scan of the head, cardiac panel, electrolyte level, and urine analysis. I would like to evaluate for the possibility of urinary tract infection, acute ankle closure glaucoma, cardiac etiology, or an intracranial mass or lesion. Patient has no temporal pain, headache, or tenderness to palpation of the temporal region. I do believe subarachnoid hemorrhage, temporal arteritis, ACS, PE, dissection, all to be extremely unlikely. 02/20/19 13:48 EKG shows a heart of 93, normal sinus rhythm, left axis deviation, poor R wave progression, no ST elevation or depression. PVC is present. PVC EKG in November 2018 shows no obvious appreciable change. 02/20/19 14:31 Angel-Pen pressures are normal. Labs as recorded. Patient still has no weakness or numbness. Creatinine is at baseline. Hemoglobin and white blood cell count is recorded. 02/20/19 17:14 CT scan of the head and urine analysis as recorded. Still no weakness or numbness. No change in eye complaint. Angel-Pen and fluorescein exams are normal. Patient does have an casino manager that she follows with. Her repeat EKG. No change. Still not in atrial fibrillation. Patient still denies any chest pain, weakness or numbness. Heart rate is currently 92 in the room. Patient has received a liter of fluid. Urine analysis does not show severe dehydration or infection. Given the above history and physical, patient will be discharged home with strict return precautions and follow-up with a local casino manager and primary care physician. Patient and niece understand the instructions to return. I do not believe any further imaging or laboratory work is necessary at this particular moment. - Vital Signs Vital signs: Temp Pulse Resp BP Pulse Ox 98.2 F 108 H 19 146/77 H 97 02/20/19 12:05 02/20/19 12:05 02/20/19 12:05 02/20/19 12:05 02/20/19 12:05 - Laboratory Result Diagrams: 02/20/19 13:38 02/20/19 13:38 Laboratory results interpreted by me: 02/20/19 02/20/19 02/20/19 13:38 13:38 16:30 RBC 3.58 L Hgb 10.8 L Hct 32.6 L RDW 14.3 H Carbon Dioxide 20 L BUN 29 H Creatinine 2.91 H Est GFR ( Amer) 19 L Est GFR (Non-Af Amer) 15 L Calcium 10.9 H Urine Protein 30 H Urine Ketones TRACE H Urine Blood MODERATE H Discharge - Discharge Clinical Impression: Eye irritation, Lightheadedness Condition: Good Disposition: HOME, SELF-CARE Additional Instructions: Come back immediately for any headache, chest pain, vomiting, fevers, weakness or numbness, increased eye irritation, swelling of the face, or any other acute problems. Please follow-up both with your casino manager and primary care physician as we have discussed. Referrals: Tony WASHBURN MD [ACTIVE STAFF] - Follow up as needed
[2019-02-20] MEDS ORDERED: NORMAL SALINE 1000 ML 1,000 ML IV ONE (14:03)
[2019-02-20 14:06] LABS: ALANINE AMINOTRANSFERASE 16 U/L (9-52); ALBUMIN 4.2 g/dL (3.5-5.0); ALKALINE PHOSPHATASE 67 U/L (38-126); ANION GAP 13 (5-19); ASPARTATE AMINO TRANSFERASE 23 U/L (14-36); BILIRUBIN,DIRECT 0.4 mg/dL (0.0-0.4); BILIRUBIN,TOTAL 0.5 mg/dL (0.2-1.3); BLOOD UREA NITROGEN 29 mg/dL (7-20); CALCIUM 10.9 mg/dL (8.4-10.2); CARBON DIOXIDE 20 mmol/L (22-30); CHLORIDE 105 mmol/L (98-107); GLUCOSE 87 mg/dL (75-110); POTASSIUM 4.7 mmol/L (3.6-5.0); TOTAL PROTEIN 7.3 g/dL (6.3-8.2)
--- NOTE | 2019-02-20 15:52 | RADIOLOGY REPORT (SQ) ---
EXAM DESCRIPTION: CT HEAD WITHOUT COMPLETED DATE/TIME: 02/20/2019 3:43 pm REASON FOR STUDY: 15; blurry vision COMPARISON: Multiple priors including 12/20/2018 TECHNIQUE: Axial images acquired through the brain without intravenous contrast. Images reviewed wi th bone, brain and subdural windows. Additional sagittal and coronal reconstructions were generated. Images stored on PACS. All CT scanners at this facility use dose modulation, iterative reconstruction, and/or weight based d osing when appropriate to reduce radiation dose to as low as reasonably achievable (ALARA). [facility]: Dose Right [facility]: CareDose [facility]: Dose Right [facility]: Teradose 4D [facility]: Hit Systems RADIATION DOSE: CT Rad equipment meets quality standard of care and radiation dose reduction techniq ues were employed. CTDIvol: 53.2 mGy. DLP: 1044 mGy-cm.mGy. LIMITATIONS: None. FINDINGS: VENTRICLES: Prominent. CEREBRUM: No masses. No hemorrhage. No midline shift. Areas of low density in the white matter mos t likely due to chronic micro-vascular ischemic change. No evidence for acute infarction. CEREBELLUM: No masses. No hemorrhage. No alteration of density. No evidence for acute infarction. EXTRAAXIAL SPACES: Age-related involutional change. No fluid collections. No masses. ORBITS AND GLOBE: No intra- or extraconal masses. Normal contour of globe without masses. CALVARIUM: No fracture. PARANASAL SINUSES: No fluid or mucosal thickening. SOFT TISSUES: No mass or hematoma. OTHER: No other significant finding. IMPRESSION: CHRONIC CHANGES OF ATROPHY AND MICROVASCULAR ISCHEMIA. NO ACUTE PROCESS. EVIDENCE OF ACUTE STROKE: NO. TECHNICAL DOCUMENTATION: JOB ID: [id number] Quality ID # [id number]: Final reports with documentation of one or more dose reduction techniques (e.g., Au tomated exposure control, adjustment of the mA and/or kV according to patient size, use of iterative reconstruction technique) 2010 [employer]- All Rights Reserved Reading location - IP/workstation name: [email or web address]
[2019-02-20 16:54] LABS: APPEARANCE,URINE CLEAR; BILIRUBIN,URINE NEGATIVE (NEGATIVE); COLOR,URINE STRAW; GLUCOSE, URINE NEGATIVE (NEGATIVE); KETONES,URINE TRACE mg/dL (NEGATIVE); LEUKOCYTE ESTERASE,URINE NEGATIVE (NEGATIVE); NITRITE,URINE NEGATIVE (NEGATIVE); PROTEIN,URINE 30 mg/dL (NEGATIVE); URINE SPECIFIC GRAVITY 1.006; UROBILINOGEN,URINE NEGATIVE mg/dL (<2.0)
[2019-02-20] MEDS ORDERED: NORMAL SALINE 1000 ML 500 ML IV ONE (17:22)
[2019-02-20 18:43] VITALS: BP 177/94
--- NOTE | 2019-02-20 23:11 | EKG REPORT ---
SEVERITY:- ABNORMAL ECG - SINUS RHYTHM VENTRICULAR PREMATURE COMPLEX LEFT VENTRICULAR HYPERTROPHY : Confirmed by: Taylor Landaverde 20-Feb-2019 23:10:20
--- NOTE | 2019-02-20 23:11 | EKG REPORT ---
SEVERITY:- ABNORMAL ECG - SINUS TACHYCARDIA PROBABLE LEFT ATRIAL ABNORMALITY LEFT AXIS DEVIATION LVH WITH SECONDARY REPOLARIZATION ABNORMALITY : Confirmed by: Taylor Landaverde 20-Feb-2019 23:10:07
== END 2019-02-20 18:43 | disposition home or self-care (01) ==
LOC: EDBD → ER 11:59
DX: H57.9 Unspecified disorder of eye and adnexa (principal); R42 Dizziness and giddiness; R20.2 Paresthesia of skin; I10 Essential (primary) hypertension; J44.9 Chronic obstructive pulmonary disease, unspecified; I49.3 Ventricular premature depolarization
CPT/HCPCS: 93005; 99284; 96360; 96361; 36415; 85025; 80053; 81001; 84484; 70450; 93010; J7030

== ENCOUNTER → 2019-02-22 | Outpatient (CLI) | payer MEDICARE ==
[2019-02-22 13:41] LABS: HEMATOCRIT 34.1 % (36.0-47.0); HEMOGLOBIN 11.5 g/dL (12.0-15.5); MEAN CORPUSCULAR HEMOGLOBIN 30.6 pg (27.0-33.4); MEAN CORPUSCULAR HGB CONC 33.7 g/dL (32.0-36.0); MEAN CORPUSCULAR VOLUME 91 fl (80-97); PLATELET COUNT 205 10^3/uL (150-450); RED BLOOD COUNT 3.77 10^6/uL (3.72-5.28); RED CELL DISTRIBUTION WIDTH 14.4 % (11.5-14.0); WHITE BLOOD COUNT 6.2 10^3/uL (4.0-10.5)
[2019-02-22 14:10] LABS: ANION GAP 10 (5-19); BLOOD UREA NITROGEN 26 mg/dL (7-20); CARBON DIOXIDE 25 mmol/L (22-30); CHLORIDE 104 mmol/L (98-107); GLUCOSE 90 mg/dL (75-110); PHOSPHORUS 3.2 mg/dL (2.5-4.5); POTASSIUM 4.5 mmol/L (3.6-5.0)
[2019-02-22 14:20] LABS: APPEARANCE,URINE CLEAR; BILIRUBIN,URINE NEGATIVE (NEGATIVE); COLOR,URINE YELLOW; GLUCOSE, URINE NEGATIVE (NEGATIVE); KETONES,URINE NEGATIVE (NEGATIVE); LEUKOCYTE ESTERASE,URINE NEGATIVE (NEGATIVE); NITRITE,URINE NEGATIVE (NEGATIVE); PROTEIN,URINE 100 mg/dL (NEGATIVE); URINE SPECIFIC GRAVITY 1.017; UROBILINOGEN,URINE NEGATIVE mg/dL (<2.0)
== END ==
LOC: EDBD 13:08 → OD 13:08
PROVIDERS: ATTEND Physician Assistant Medical
DX: I12.9 Hypertensive chronic kidney disease with stage 1 through stage 4 chronic kidney disease, or unspecified chronic kidney disease (principal); N18.4 Chronic kidney disease, stage 4 (severe); E87.5 Hyperkalemia; E87.2 Acidosis; D63.1 Anemia in chronic kidney disease
CPT/HCPCS: 36415; 80048; 81001; 83970; 84100; 85027

== ENCOUNTER 2019-03-02 03:14 | Emergency (ER) | payer MEDICARE ==
[2019-03-02] MEDS ORDERED: NORMAL SALINE 500 ML IV ONE (04:15)
[2019-03-02] MEDS ORDERED: ACETAMINOPHEN 325 MG TABLET PO ONE (04:16)
[2019-03-02] MEDS ORDERED: ONDANSETRON HCL INJ/PF 4 MG/2 ML SDV IV ONE (04:16)
--- NOTE | 2019-03-02 04:19 | ER Document Report ---
ED General - General Chief Complaint: Headache Stated Complaint: EYE PAIN Time Seen by Provider: 03/02/19 04:04 Primary Care Provider: KY HAAS PA-C [ALLIED HEALTH PROFESSIONAL] - Follow up as needed Notes: Patient is an 83-year-old female that comes emergency department by EMS from home for chief complaint of a headache. Headache is frontal, she states that she can feel it behind her eyes. She also states her eyes have been dry and she has occasional blurry vision but this is not new, this is been going on for 5 to 6 years, she is diagnosed with glaucoma and sees pen and pencil repairer Dr. Horowitz. She denies pain in her eyes, visual changes other than occasional blurry vision. She denies any current visual changes. She denies discharge/drainage from the eyes. She states sometimes they "feel gritty". She states she felt a burning sensation along her side towards her abdomen earlier today but not now. She states her only current problem is her headache. She denies head injury, vomiting, focal numbness or weakness, chest pain, dizziness, fever/chills. TRAVEL OUTSIDE OF THE [place] IN LAST 30 DAYS: No - Related Data Allergies/Adverse Reactions: No Known Allergies Allergy (Verified 02/20/19 12:00) Past Medical History - General Information source: Patient - Social History Smoking Status: Never Smoker Frequency of alcohol use: None Drug Abuse: None Lives with: Family Family History: Reviewed & Not Pertinent - Past Medical History Cardiac Medical History: Reports: Hx Atrial Fibrillation, Hx DVT, Hx Hypertension Denies: Hx Heart Attack Pulmonary Medical History: Reports: Hx COPD Denies: Hx Asthma, Hx Tuberculosis Neurological Medical History: Denies: Hx Cerebrovascular Accident, Hx Seizures Renal/ Medical History: Reports: Hx Renal Insufficiency. Denies: Hx Peritoneal Dialysis GI Medical History: Denies: Hx Hepatitis, Hx Hiatal Hernia, Hx Ulcer Musculoskeletal Medical History: Reports Hx Arthritis Psychiatric Medical History: Denies: Hx Depression Infectious Medical History: Denies: Hx Hepatitis Past Surgical History: Denies: Hx Hysterectomy, Hx Mastectomy, Hx Open Heart Surgery, Hx Pacemaker - Immunizations Immunizations up to date: Yes Hx Diphtheria, Pertussis, Tetanus Vaccination: Yes Hx Pneumococcal Vaccination: 08/06/12 Review of Systems - Review of Systems Constitutional: See HPI EENT: See HPI Cardiovascular: No symptoms reported Respiratory: No symptoms reported Gastrointestinal: No symptoms reported Genitourinary: No symptoms reported Female Genitourinary: No symptoms reported Musculoskeletal: No symptoms reported Skin: No symptoms reported Hematologic/Lymphatic: No symptoms reported Neurological/Psychological: No symptoms reported Physical Exam - Vital signs Vitals: Resp BP Pulse Ox 22 H 193/101 H 98 03/02/19 03:39 03/02/19 03:39 03/02/19 03:39 - Notes Notes: GENERAL: Alert, interacts well. No acute distress. HEAD: Normocephalic, atraumatic. EYES: Pupils equal, round, and reactive to light. Extraocular movements intact. Sclera clear and not injected. No discharge. No superficial foreign body, no fluorescein uptake, negative Timi sign. Right eye pressure average of 14, left eye pressure average of 16 with 95% confidence. ENT: Oral mucosa moist, tongue midline. Oropharynx unremarkable. Airway patent. Nares patent, no nasal septal hematoma LUNGS: Clear to auscultation bilaterally, no wheezes, rales, or rhonchi. No respiratory distress. HEART: Regular rate and rhythm. No murmur ABDOMEN: Soft, non-tender. Non-distended. EXTREMITIES: Moves all 4 extremities spontaneously. No edema, normal radial and dorsalis pedis pulses bilaterally. No cyanosis. BACK: no cervical, thoracic, lumbar midline tenderness. No saddle anesthesia, normal distal neurovascular exam. Moves all extremities in full range of motion. NEUROLOGICAL: Alert and oriented x3. Normal speech. Cranial nerves II through XII grossly intact. PSYCH: Normal affect, normal mood. SKIN: Warm, dry, normal turgor. No rashes or lesions noted. Course - Re-evaluation Re-evalutation: Patient is well-appearing on exam, no signs of distress. She is borderline tachycardic at times, at other times in the upper 90s. She is hypertensive. This did improve. She was given Zofran and offered Tylenol for her headache but she declined. On reevaluation she says she does not have a headache. CAT scan of the head is unremarkable either way (this was performed because of her age, reported headache, Eliquis use). Neurological exam is unremarkable. Eye examination is unremarkable with no concerning findings noted on fluorescein staining, gross examination, and Angel-Pen pressures. CBC, chemistry, urinalysis nonspecific and generally at patient's baseline. I discussed with patient again. She states that she feels fine now except her eyes keep feeling "gritty". She states she feels like her moisturizing eyedrops are not working and she needs something else. She does have ophthalmology follow-up. I discussed work-up, eye examination, patient does state satisfac tion with results. She will follow-up with her pen and pencil repairer for additional management of her eye symptoms, I did discuss return symptoms. Patient is still somewhat hypertensive and borderline tachycardic, however she is due for her hydralazine and Cardizem now, she will be taking these. She ag ain has no current complaints. Stable at time of discharge. - Vital Signs Vital signs: Temp Pulse Resp BP Pulse Ox 97.7 F 23 H 176/106 H 96 03/02/19 03:45 03/02/19 06:04 03/02/19 05:45 03/02/19 05:45 - Laboratory Result Diagrams: 03/02/19 04:25 03/02/19 04:25 Laboratory results interpreted by me: 03/02/19 03/02/19 03/02/19 03:40 04:25 04:25 Hgb 11.6 L Hct 35.4 L RDW 14.8 H BUN 21 H Creatinine 2.70 H Est GFR ( Amer) 20 L Est GFR (Non-Af Amer) 17 L Calcium 11.0 H Urine Protein 30 H Urine Blood MODERATE H Discharge - Discharge Clinical Impression: Elevated blood pressure reading, Blurry vision, bilateral, Eye irritation Headache Qualifiers: Headache type: unspecified Headache chronicity pattern: acute headache Intractability: not intractable Qualified Code(s): R51 - Headache Condition: Stable Disposition: HOME, SELF-CARE Additional Instructions: Your work-up and evaluation today are reassuring. The imaging of your head does not show any concerning findings, your laboratory work-up is at your baseline, and the exam and pressures of your eyes do not show any concerning findings. Discussed with your pen and pencil repairer different options for moisturizing your dry eyes. Return if you worsen including severe headache, passing out, loss of vision, severe eye pain, or any other concerning or worsening symptoms. Referrals: KY HAAS PA-C [ALLIED HEALTH PROFESSIONAL] - Follow up as needed
[2019-03-02 04:40] LABS: ABSOLUTE BASOPHILS # (AUTO) 0.1 10^3/uL (0.0-0.2); ABSOLUTE EOSINOPHILS # (AUTO) 0.2 10^3/uL (0.0-0.6); ABSOLUTE LYMPHOCYTES (AUTO) 1.4 10^3/uL (0.5-4.7); ABSOLUTE MONOCYTES (AUTO) 0.7 10^3/uL (0.1-1.4); ABSOLUTE NEUT (AUTO) 3.8 10^3/uL (1.7-8.2); BASOPHILS % (AUTO) 0.9 % (0-2); EOSINOPHILS % (AUTO) 2.8 % (0-6); HEMATOCRIT 35.4 % (36.0-47.0); HEMOGLOBIN 11.6 g/dL (12.0-15.5); LYMPHOCYTES % (AUTO) 23.4 % (13-45); MEAN CORPUSCULAR HEMOGLOBIN 29.8 pg (27.0-33.4); MEAN CORPUSCULAR HGB CONC 32.7 g/dL (32.0-36.0); MEAN CORPUSCULAR VOLUME 91 fl (80-97); MONOCYTES % (AUTO) 11.1 % (3-13); PLATELET COUNT 194 10^3/uL (150-450); RED BLOOD COUNT 3.88 10^6/uL (3.72-5.28); RED CELL DISTRIBUTION WIDTH 14.8 % (11.5-14.0); SEGMENTED NEUTROPHILS % (AUTO) 61.8 % (42-78); TOTAL CELLS COUNTED % (AUTO) 100 %; WHITE BLOOD COUNT 6.1 10^3/uL (4.0-10.5)
[2019-03-02 04:48] LABS: APPEARANCE,URINE CLEAR; BILIRUBIN,URINE NEGATIVE (NEGATIVE); COLOR,URINE STRAW; GLUCOSE, URINE NEGATIVE (NEGATIVE); KETONES,URINE NEGATIVE (NEGATIVE); LEUKOCYTE ESTERASE,URINE NEGATIVE (NEGATIVE); NITRITE,URINE NEGATIVE (NEGATIVE); PROTEIN,URINE 30 mg/dL (NEGATIVE); URINE SPECIFIC GRAVITY 1.004; UROBILINOGEN,URINE NEGATIVE mg/dL (<2.0)
[2019-03-02 05:27] LABS: ANION GAP 12 (5-19); BLOOD UREA NITROGEN 21 mg/dL (7-20); CARBON DIOXIDE 25 mmol/L (22-30); CHLORIDE 101 mmol/L (98-107); GLUCOSE 96 mg/dL (75-110); POTASSIUM 3.9 mmol/L (3.6-5.0)
--- NOTE | 2019-03-02 06:02 | RADIOLOGY REPORT (SQ) ---
EXAM DESCRIPTION: CT HEAD WITHOUT IV CONTRAST COMPLETED DATE/TME: 03/02/2019 04:15 CLINICAL HISTORY: headache, hypertension COMPARISON: 02/20/2019 TECHNIQUE: Axial CT of the head obtained from the skull apex to the skull base without contrast. FINDINGS: No acute intracranial hemorrhage identified. No mass, mass effect, shift of the midline, abnormal extra-axial fluid collection or CT evidence of acute ischemic change identified. The ventricular system and sulcal spaces are mildly enlarged compatible with mild cerebral atrophy. Stable enlargement of the left lateral ventricle may be related to periventricular encephalomalacia. Scattered areas of hypodensity throughout the supratentorial white matter are nonspecific and may be related to chronic small vessel ischemic change. The visualized paranasal sinuses and the mastoids are clear. No skull fracture identified. Visualized orbits and globes are unremarkable. Atherosclerotic calcification of the intracranial internal carotid arteries. DLP: 1001.17 mGy-cm IMPRESSION: 1. No acute intracranial abnormality by CT criteria. This exam was performed according to our departmental dose-optimization program, which includes automated exposure control, adjustment of the mA and/or kV according to patient size and/or use of iterative reconstruction technique.
[2019-03-02 07:09] VITALS: BP 176/106
== END 2019-03-02 07:41 | disposition home or self-care (01) ==
LOC: ER 03:14
DX: R51 Headache (principal); H40.9 Unspecified glaucoma; H53.8 Other visual disturbances; I10 Essential (primary) hypertension; J44.9 Chronic obstructive pulmonary disease, unspecified
CPT/HCPCS: 99284; 96374; 36415; 85025; 80048; 81001; 70450; J2405

== ENCOUNTER 2019-04-18 13:16 | Emergency (ER) | payer MEDICARE ==
--- NOTE | 2019-04-18 13:30 | ER Document Report ---
ED Medical Screen (RME) - General Chief Complaint: Constipation Stated Complaint: ABDOMINAL PAIN Time Seen by Provider: 04/18/19 13:27 Primary Care Provider: VICTORIANO MATTSON MD [Primary Care Provider] - Follow up as needed Mode of Arrival: Medic Information source: Patient Notes: 84-year-old female presents emergency department with left side feeling hot constipation no BM for 4 days even though she is taking stool softeners. Patient abdomen tender to palpate. Reports history of chronic kidney disease. No complaints of fever vomiting diarrhea. Reports it does burn when she voids. I have greeted and performed a rapid initial assessment of this patient. A comprehensive ED assessment and evaluation of the patient, analysis of test results and completion of the medical decision making process will be conducted by additional ED providers. Dictation of this chart was performed using voice recognition software; therefore, there may be some unintended grammatical errors. TRAVEL OUTSIDE OF THE [place] IN LAST 30 DAYS: No - Related Data Allergies/Adverse Reactions: No Known Allergies Allergy (Verified 02/20/19 12:00) Past Medical History - Past Medical History Cardiac Medical History: Reports: Hx Atrial Fibrillation, Hx DVT, Hx Hypertension Denies: Hx Heart Attack Pulmonary Medical History: Reports: Hx COPD Denies: Hx Asthma, Hx Tuberculosis Neurological Medical History: Denies: Hx Cerebrovascular Accident, Hx Seizures Renal/ Medical History: Reports: Hx Renal Insufficiency. Denies: Hx Peritoneal Dialysis GI Medical History: Denies: Hx Hepatitis, Hx Hiatal Hernia, Hx Ulcer Musculoskeltal Medical History: Reports Hx Arthritis Psychiatric Medical History: Denies: Hx Depression Infectious Medical History: Denies: Hx Hepatitis Past Surgical History: Denies: Hx Hysterectomy, Hx Mastectomy, Hx Open Heart Surgery, Hx Pacemaker - Immunizations Immunizations up to date: Yes Hx Diphtheria, Pertussis, Tetanus Vaccination: Yes History of Influenza Vaccine for 04/2017 - 09/2017 Season: No Physical Exam - Vital signs Vitals: Temp Pulse Resp BP Pulse Ox 97.8 F 108 H 16 147/87 H 99 04/18/19 13:23 04/18/19 13:23 04/18/19 13:23 04/18/19 13:23 04/18/19 13:23 Course - Vital Signs Vital signs: Temp Pulse Resp BP Pulse Ox 97.8 F 108 H 16 147/87 H 99 04/18/19 13:23 04/18/19 13:23 04/18/19 13:23 04/18/19 13:23 04/18/19 13:23 Doctor's Discharge - Discharge Referrals: VICTORIANO MATTSON MD [Primary Care Provider] - Follow up as needed
[2019-04-18 13:58] LABS: ABSOLUTE BASOPHILS # (AUTO) 0.1 10^3/uL (0.0-0.2); ABSOLUTE EOSINOPHILS # (AUTO) 0.1 10^3/uL (0.0-0.6); ABSOLUTE LYMPHOCYTES (AUTO) 0.7 10^3/uL (0.5-4.7); ABSOLUTE MONOCYTES (AUTO) 0.6 10^3/uL (0.1-1.4); ABSOLUTE NEUT (AUTO) 4.3 10^3/uL (1.7-8.2); BASOPHILS % (AUTO) 0.9 % (0-2); HEMATOCRIT 35.8 % (36.0-47.0); HEMOGLOBIN 11.9 g/dL (12.0-15.5); LYMPHOCYTES % (AUTO) 12.7 % (13-45); MEAN CORPUSCULAR HEMOGLOBIN 29.2 pg (27.0-33.4); MEAN CORPUSCULAR HGB CONC 33.3 g/dL (32.0-36.0); MEAN CORPUSCULAR VOLUME 88 fl (80-97); MONOCYTES % (AUTO) 10.1 % (3-13); PLATELET COUNT 199 10^3/uL (150-450); RED BLOOD COUNT 4.08 10^6/uL (3.72-5.28); RED CELL DISTRIBUTION WIDTH 15.9 % (11.5-14.0); SEGMENTED NEUTROPHILS % (AUTO) 75.3 % (42-78); TOTAL CELLS COUNTED % (AUTO) 100 %; WHITE BLOOD COUNT 5.7 10^3/uL (4.0-10.5)
--- NOTE | 2019-04-18 14:11 | RADIOLOGY REPORT (SQ) ---
EXAM DESCRIPTION: KUB/ABDOMEN (SINGLE VIEW) COMPLETED DATE/TIME: 04/18/2019 1:55 pm REASON FOR STUDY: ABD PAIN, NO BM 4 DAYS COMPARISON: None. NUMBER OF VIEWS: One view. TECHNIQUE: Supine radiographic image of the abdomen acquired. LIMITATIONS: None. FINDINGS: BOWEL GAS PATTERN: Large amount of stool in the colon. Stomach, small bowel decompressed. CALCIFICATIONS: Calcified pelvic phleboliths SOFT TISSUES: No gross mass or suggestion of organomegaly. HARDWARE: None in the abdomen. BONES: No acute fracture. No worrisome bone lesions. OTHER: No other significant finding. IMPRESSION: Large amount of stool in the colon. No dilated small bowel loops. TECHNICAL DOCUMENTATION: JOB ID: [id number] [employer]- All Rights Reserved Reading location - IP/workstation name: [email or web address]
[2019-04-18 14:14] LABS: ALBUMIN 4.5 g/dL (3.5-5.0); ALKALINE PHOSPHATASE 64 U/L (38-126); ANION GAP 11 (5-19); ASPARTATE AMINO TRANSFERASE 24 U/L (14-36); BILIRUBIN,DIRECT 0.3 mg/dL (0.0-0.4); BILIRUBIN,TOTAL 0.6 mg/dL (0.2-1.3); BLOOD UREA NITROGEN 22 mg/dL (7-20); CALCIUM 10.8 mg/dL (8.4-10.2); CARBON DIOXIDE 26 mmol/L (22-30); CHLORIDE 99 mmol/L (98-107); GLUCOSE 115 mg/dL (75-110); POTASSIUM 4.1 mmol/L (3.6-5.0); TOTAL PROTEIN 7.6 g/dL (6.3-8.2)
[2019-04-18] MEDS ORDERED: FENTANYL CITRATE INJ/PF 100 MCG/2 ML AMPUL IV ONE (14:33)
--- NOTE | 2019-04-18 14:34 | ER Document Report ---
ED GI/ - General Mode of Arrival: Medic Information source: Patient TRAVEL OUTSIDE OF THE [place] IN LAST 30 DAYS: No <KATELYNN COULTER - Last Filed: 04/18/19 22:21> <TEVIN CASTANEDA - Last Filed: 04/19/19 07:19> - General Chief Complaint: Constipation Stated Complaint: ABDOMINAL PAIN Time Seen by Provider: 04/18/19 13:27 Primary Care Provider: VICTORIANO MATTSON MD [Primary Care Provider] - Follow up as needed Notes: This is an 84-year-old female presenting to the emergency department with chief complaints of left-sided abdominal pain, patient reports she has had no bowel movement in at least 4 days. Patient also reports burning to the left side of her abdomen. Her family member states this is been ongoing for several months. They state that she has seen her primary care provider, Dr. Mattson for this and he has tried multiple medications but have never resolved her symptoms. Clemencia douglas does have chronic constipation. Patient and family member state the patient has not had any vomiting or fever. (KATELYNN COULTER) - Related Data Allergies/Adverse Reactions: No Known Allergies Allergy (Verified 02/20/19 12:00) Past Medical History - General Information source: Patient - Social History Smoking Status: Former Smoker Frequency of alcohol use: None Drug Abuse: None Family History: Reviewed & Not Pertinent Patient has suicidal ideation: No Patient has homicidal ideation: No - Past Medical History Cardiac Medical History: Reports: Hx Atrial Fibrillation, Hx DVT, Hx Hypertension Denies: Hx Heart Attack Pulmonary Medical History: Reports: Hx COPD Denies: Hx Asthma, Hx Tuberculosis Neurological Medical History: Denies: Hx Cerebrovascular Accident, Hx Seizures Renal/ Medical History: Reports: Hx Renal Insufficiency. Denies: Hx Peritoneal Dialysis GI Medical History: Denies: Hx Hepatitis, Hx Hiatal Hernia, Hx Ulcer Musculoskeletal Medical History: Reports Hx Arthritis Psychiatric Medical History: Denies: Hx Depression Infectious Medical History: Denies: Hx Hepatitis Past Surgical History: Denies: Hx Hysterectomy, Hx Mastectomy, Hx Open Heart Surgery, Hx Pacemaker - Immunizations Immunizations up to date: Yes Hx Diphtheria, Pertussis, Tetanus Vaccination: Yes Hx Pneumococcal Vaccination: 08/06/12 <KATELYNN COULTER - Last Filed: 04/18/19 22:21> Review of Systems - Review of Systems Constitutional: No symptoms reported. denies: Chills, Fever EENT: No symptoms reported Cardiovascular: No symptoms reported Respiratory: No symptoms reported Gastrointestinal: Abdominal pain, Constipation. denies: Diarrhea, Nausea, Vomiting, Blood streaked bowels, Black stools Genitourinary: No symptoms reported Female Genitourinary: No symptoms reported Musculoskeletal: No symptoms reported Skin: No symptoms reported Hematologic/Lymphatic: No symptoms reported Neurological/Psychological: No symptoms reported <KATELYNN COULTER - Last Filed: 04/18/19 22:21> Physical Exam <KATELYNN COULTER - Last Filed: 04/18/19 22:21> - Vital signs Vitals: Temp Pulse Resp BP Pulse Ox 97.8 F 108 H 16 147/87 H 99 04/18/19 13:23 04/18/19 13:23 04/18/19 13:23 04/18/19 13:23 04/18/19 13:23 - Notes Notes: PHYSICAL EXAMINATION: GENERAL: Cachectic but alert and oriented and in no acute distress. HEAD: Atraumatic, normocephalic. EYES: Pupils equal round and reactive to light, extraocular movements intact, conjunctiva are normal. ENT: Nares patent, oropharynx clear without exudates. Moist mucous membranes. NECK: Normal range of motion, supple without lymphadenopathy LUNGS: Breath sounds clear to auscultation bilaterally and equal. No wheezes rales or rhonchi. HEART: Regular rate and rhythm without murmurs ABDOMEN: Soft, nondistended abdomen. Tenderness to palpation over the left upper and lower quadrants. No guarding, no rebound. No masses appreciated. Female : No CVA tenderness Musculoskeletal: Normal range of motion, no pitting or edema. No cyanosis. NEUROLOGICAL: Cranial nerves grossly intact. Normal speech. Normal sensory, motor exams PSYCH: Normal mood, normal affect. SKIN: Warm, Dry, normal turgor, no rashes or lesions noted. No rash over left upper or lower quadrants for patient is complaining of a "burning pain". (KATELYNN COULTER) Course - Laboratory Result Diagrams: 04/18/19 13:37 04/18/19 13:37 <KATELYNN COULTER - Last Filed: 04/18/19 22:21> - Laboratory Result Diagrams: 04/18/19 13:37 04/18/19 13:37 <TEVIN CASTANEDA - Last Filed: 04/19/19 07:19> - Re-evaluation Re-evalutation: Labs as recorded below. Patient does have chronic renal failure, and she does not want dialysis. Her creatinine is at its baseline. No obvious electrolyte derangements, leukocytosis or other abnormal findings. X-ray of abdomen shows constipation. Due to patient's age and complaint I also ordered a CT of the abdomen and pelvis without contrast due to her renal dysfunction. This also showed no acute findings other than the constipation. Laboratory 04/18/19 04/18/19 04/18/19 13:37 13:37 14:20 WBC 5.7 RBC 4.08 Hgb 11.9 L Hct 35.8 L MCV 88 MCH 29.2 MCHC 33.3 RDW 15.9 H Plt Count 199 Lymph % (Auto) 12.7 L [place] % (Auto) 10.1 Eos % (Auto) 1.0 Baso % (Auto) 0.9 Absolute Neuts (auto) 4.3 Absolute Lymphs (auto) 0.7 Absolute Monos (auto) 0.6 Absolute Eos (auto) 0.1 Absolute Basos (auto) 0.1 Seg Neutrophils % 75.3 Sodium 136.0 L Potassium 4.1 Chloride 99 Carbon Dioxide 26 Anion Gap 11 BUN 22 H Creatinine 2.52 H Est GFR ( Amer) 22 L Est GFR (MDRD) Non-Af 18 L Glucose 115 H Calcium 10.8 H Total Bilirubin 0.6 Direct Bilirubin 0.3 Neonat Total Bilirubin Not Reportable Neonat Direct Bilirubin Not Reportable Neonat Indirect Bili Not Reportable AST 24 ALT 11 Alkaline Phosphatase 64 Total Protein 7.6 Albumin 4.5 Urine Color YELLOW Urine Appearance CLEAR Urine pH 6.0 Ur Specific Gunter 1.017 Urine Protein 100 H Urine Glucose (UA) NEGATIVE Urine Ketones TRACE H Urine Blood SMALL H Urine Nitrite NEGATIVE Urine Bilirubin NEGATIVE Urine Urobilinogen NEGATIVE Ur Leukocyte Esterase NEGATIVE Urine WBC (Auto) 4 Urine RBC (Auto) 45 Squamous Epi Cells Auto <1 Urine Mucus (Auto) RARE Urine Ascorbic Acid NEGATIVE KUB X-Ray 04/18/19 13:29 IMPRESSION: Large amount of stool in the colon. No dilated small bowel loops. Abdomen/Pelvis CT 04/18/19 14:32 IMPRESSION: Constipation Patient does have some mild tachycardia noted with a heart rate in the 105 range. After reviewing patient's charts patient always has a baseline tachycardia in the low 100s. She denies any chest pain or shortness of breath. Patient was given soapsuds enema here in the emergency department and she did have a small bowel movement. She was also given mag citrate to drink. Patient reported no change in her pain after administration of IM fentanyl. Unfortunately patient's family will not be able to come pick her up until 7:30 in the morning and we will be unable to send her home via transport as there will be no one home to help care for her. Patient's niece will be here after work to pick her up. (KATELYNN COULTER) - Vital Signs Vital signs: Temp Pulse Resp BP Pulse Ox 98.3 F 106 H 17 163/92 H 93 04/19/19 05:20 04/19/19 05:20 04/19/19 05:20 04/19/19 05:20 04/19/19 05:20 - Laboratory Laboratory results interpreted by me: 04/18/19 04/18/19 04/18/19 13:37 13:37 14:20 Hgb 11.9 L Hct 35.8 L RDW 15.9 H Lymph % (Auto) 12.7 L Sodium 136.0 L BUN 22 H Creatinine 2.52 H Est GFR ( Amer) 22 L Est GFR (MDRD) Non-Af 18 L Glucose 115 H Calcium 10.8 H Urine Protein 100 H Urine Ketones TRACE H Urine Blood SMALL H Discharge <KATELYNN COULTER - Last Filed: 04/18/19 22:21> <TEVIN CASTANEDA - Last Filed: 04/19/19 07:19> - Discharge Clinical Impression: Constipation Qualifiers: Constipation type: unspecified constipation type Qualified Code(s): K59.00 - Constipation, unspecified Condition: Stable Disposition: HOME, SELF-CARE Additional Instructions: Constipation Constipation is a common problem. It is especially likely as you get older. Constipation is a common cause of abdominal pain, but sometimes causes no symptoms at all. Causes of constipation include certain medications, dehydration, diets, inactivity, and low-fiber intake. Rarely, it can be a symptom of underlying disease. The physician has evaluated you for this. Avoid constipation by eating a diet high in fiber, fruits, and vegetables. Drink plenty of liquids. Get regular exercise. If possible, avoid constipating medicines like narcotic pain medication. Some vitamin tablets can cause constipation. Stool softeners may be needed for difficult cases. An excellent stool softener is Konsyl which is available at [employer]), and [employer]. Just add a teaspoon to a glass of pineapple or orange juice daily or twice a day if needed. Laxatives are useful for occasional constipation. You should use them only when necessary. Too-frequent use can make your bowels dependent on them. Some over the counter laxatives available without prescription are: Milk of Magnesia, 1-2 tablespoons twice a day Dulcolax, 5 mg pill or 10 mg suppository. Citrate of Magnesia, 4-5 ounces a day for a day or two For acute constipation, Fleet's Enemas and Dulcolax suppositories are helpful. Chronic, mcfp use of laxatives or enemas is not a good idea. Your bowel may become dependant on them. You do not need to have a bowel movement every day. Many people do fine with a bowel movement every three or four days. You should call your doctor or return for re-evaluation if you pass blood in the stool, or if you develop fever or increasing abdominal pain. You were seen in the emergency department today with concerns for constipation and left upper sided abdominal pain. The CAT scan and x-ray both showed constipation but no other acute findings. You were given an enema here which did produce some results. Please follow-up with your primary care provi gerard regarding today's visit. Follow the above directions for management of your constipation. Return to the emergency department with any new or worsening symptoms, development of worsening abdominal pain, development of fever, vomiting. Referrals: VICTORIANO MATTSON MD [Primary Care Provider] - Follow up as needed
[2019-04-18 14:36] LABS: APPEARANCE,URINE CLEAR; BILIRUBIN,URINE NEGATIVE (NEGATIVE); COLOR,URINE YELLOW; GLUCOSE, URINE NEGATIVE (NEGATIVE); KETONES,URINE TRACE mg/dL (NEGATIVE); LEUKOCYTE ESTERASE,URINE NEGATIVE (NEGATIVE); NITRITE,URINE NEGATIVE (NEGATIVE); PROTEIN,URINE 100 mg/dL (NEGATIVE); URINE SPECIFIC GRAVITY 1.017; UROBILINOGEN,URINE NEGATIVE mg/dL (<2.0)
--- NOTE | 2019-04-18 15:17 | RADIOLOGY REPORT (SQ) ---
EXAM DESCRIPTION: CT ABD/PELVIS NO ORAL OR IV COMPLETED DATE/TIME: 04/18/2019 2:43 pm REASON FOR STUDY: LUQ pain COMPARISON: CT chest 08/21/2018 KUB 04/18/2019 TECHNIQUE: CT scan of the abdomen and pelvis performed without intravenous or oral contrast. Images reviewed with lung, soft tissue, and bone windows. Reconstructed coronal and sagittal MPR images revi ewed. All images stored on PACS. All CT scanners at this facility use dose modulation, iterative reconstruction, and/or weight based d osing when appropriate to reduce radiation dose to as low as reasonably achievable (ALARA). [facility]: Dose Right [facility]: CareDose [facility]: Dose Right [facility]: Teradose 4D [facility]: Smart [employer] RADIATION DOSE: CT Rad equipment meets quality standard of care and radiation dose reduction techniq ues were employed. CTDIvol: 4.8 mGy. DLP: 236 mGy-cm.mGy. LIMITATIONS: No oral or IV contrast in a slender patient FINDINGS: LOWER CHEST: No significant findings. No nodules or infiltrates. NON-CONTRASTED LIVER, SPLEEN, ADRENALS: Evaluation limited by lack of IV contrast. No identified sign ificant masses. PANCREAS: No masses. No peripancreatic inflammatory changes. GALLBLADDER: No identified stones by CT criteria. No inflammatory changes to suggest cholecystitis. RIGHT KIDNEY AND URETER: No suspicious masses. Multiple right renal cortical cysts, the largest 4 cm diameter right upper pole kidney. Assessment limited by lack of IV contrast. No significant calci fications. No hydronephrosis or hydroureter. LEFT KIDNEY AND URETER: No suspicious masses. Multiple left renal cortical cysts, the largest is 3.6 cm diameter in the left mid pole kidney. Assessment limited by lack of IV contrast. No significan t calcifications. No hydronephrosis or hydroureter. AORTA AND RETROPERITONEUM: No aneurysm. No retroperitoneal masses or adenopathy. BOWEL AND PERITONEAL CAVITY: No obvious masses or inflammatory changes. No free fluid. Large amount of stool throughout the colon APPENDIX: Not identified normal size female pelvic organs PELVIS, BLADDER, AND ABDOMINAL WALL:No abnormal masses. No free fluid. Bladder normal. BONES: No significant findings. OTHER: No other significant finding. IMPRESSION: Constipation COMMENT: Quality ID # [id number]: Final reports with documentation of one or more dose reduction techniques (e.g., Automated exposure control, adjustment of the mA and/or kV according to patient size, use of iterative reconstruction technique) TECHNICAL DOCUMENTATION: JOB ID: [id number] [employer]- All Rights Reserved Reading location - IP/workstation name: [email or web address]
[2019-04-18] MEDS ORDERED: MINERAL OIL 30 ML UDCUP PR ONE (15:36)
[2019-04-18] MEDS ORDERED: MAGNESIUM CITRATE 296 ML BOTTLE PO ONE (17:30)
[2019-04-18] MEDS ORDERED: LORAZEPAM 0.5 MG TABLET PO ONE (21:42)
[2019-04-19 09:38] VITALS: BP 151/98
== END 2019-04-19 09:44 | disposition home or self-care (01) ==
LOC: ER 13:16
DX: K59.00 Constipation, unspecified (principal); R20.8 Other disturbances of skin sensation; R00.0 Tachycardia, unspecified; I12.9 Hypertensive chronic kidney disease with stage 1 through stage 4 chronic kidney disease, or unspecified chronic kidney disease; N18.9 Chronic kidney disease, unspecified; J44.9 Chronic obstructive pulmonary disease, unspecified; Z87.891 Personal history of nicotine dependence
CPT/HCPCS: 99284; 96374; 36415; 87086; 83690; 85025; 80053; 81001; 74018; 74176; J3490 ×2; J3010; A9270

== ENCOUNTER 2019-05-08 11:05 | Emergency (ER) | payer MEDICARE ==
--- NOTE | 2019-05-08 11:21 | ER Document Report ---
ED Medical Screen (RME) - General Chief Complaint: Flank Pain Stated Complaint: FLANK PAIN Time Seen by Provider: 05/08/19 11:19 Primary Care Provider: VICTORIANO MATTSON MD [Primary Care Provider] - Follow up as needed TRAVEL OUTSIDE OF THE [place] IN LAST 30 DAYS: No - HPI Notes: 05/08/19 11:20 Patient is an 84-year-old female who presents complaining of left side pain that is been ongoing for a few months. Patient was seen about 3 weeks ago here in emergency department had a CT scan that was unremarkable. It was noted in that visit that her family has reported this pain to be ongoing for months at that time. Last bowel movement was 3 days ago. She does have chronic issues with constipation. She has noticed some burning with urination as well recently. Denies drug allergies. No fever. I have treated and performed a rapid initial assessment of this patient. A comprehensive ED assessment and evaluation of the patient, analysis of test results and completion of medical decision making process will be conducted by additional ED providers. PHYSICAL EXAMINATION: GENERAL: cachectic in no acute distress. A&Ox4. Answers questions appropriately. Abd: + mild left CVA tenderness and left lateral abd tenderness. - Related Data Allergies/Adverse Reactions: No Known Allergies Allergy (Verified 02/20/19 12:00) Past Medical History - Past Medical History Cardiac Medical History: Reports: Hx Atrial Fibrillation, Hx DVT, Hx Hypertension Denies: Hx Heart Attack Pulmonary Medical History: Reports: Hx COPD Denies: Hx Asthma, Hx Tuberculosis Neurological Medical History: Denies: Hx Cerebrovascular Accident, Hx Seizures Renal/ Medical History: Reports: Hx Renal Insufficiency. Denies: Hx Peritoneal Dialysis GI Medical History: Denies: Hx Hepatitis, Hx Hiatal Hernia, Hx Ulcer Musculoskeltal Medical History: Reports Hx Arthritis Psychiatric Medical History: Denies: Hx Depression Infectious Medical History: Denies: Hx Hepatitis Past Surgical History: Denies: Hx Hysterectomy, Hx Mastectomy, Hx Open Heart Surgery, Hx Pacemaker - Immunizations Immunizations up to date: Yes Hx Diphtheria, Pertussis, Tetanus Vaccination: Yes Physical Exam - Vital signs Vitals: Temp Pulse Resp BP Pulse Ox 97.6 F 92 16 185/91 H 98 05/08/19 11:12 05/08/19 11:12 05/08/19 11:12 05/08/19 11:12 05/08/19 11:12 Course - Vital Signs Vital signs: Temp Pulse Resp BP Pulse Ox 97.6 F 92 16 185/91 H 98 05/08/19 11:12 05/08/19 11:12 05/08/19 11:12 05/08/19 11:12 05/08/19 11:12 Doctor's Discharge - Discharge Referrals: VICTORIANO MATTSON MD [Primary Care Provider] - Follow up as needed
[2019-05-08 11:49] LABS: APPEARANCE,URINE CLEAR; BILIRUBIN,URINE NEGATIVE (NEGATIVE); COLOR,URINE STRAW; GLUCOSE, URINE NEGATIVE (NEGATIVE); KETONES,URINE TRACE mg/dL (NEGATIVE); PROTEIN,URINE 100 mg/dL (NEGATIVE); URINE SPECIFIC GRAVITY 1.006; UROBILINOGEN,URINE NEGATIVE mg/dL (<2.0)
--- NOTE | 2019-05-08 12:12 | RADIOLOGY REPORT (SQ) ---
EXAM DESCRIPTION: KUB/ABDOMEN (SINGLE VIEW) COMPLETED DATE/TIME: 05/08/2019 11:55 am REASON FOR STUDY: abd pain, constipation hx COMPARISON: 04/18/2019 NUMBER OF VIEWS: One view. TECHNIQUE: Supine radiographic image of the abdomen acquired. LIMITATIONS: None. FINDINGS: BOWEL GAS PATTERN: Abundant gas and fecal material within nondilated colon. No dilated lo ops. CALCIFICATIONS: No suspicious calcifications. SOFT TISSUES: No gross mass or suggestion of organomegaly. HARDWARE: None. BONES: No bone lesions or fracture. OTHER: No other significant finding. IMPRESSION: Constipation. No obstruction. Reading location - IP/workstation name: [email or web address]
[2019-05-08 12:47] LABS: ABSOLUTE LYMPHOCYTES (AUTO) 0.5 10^3/uL (0.5-4.7); ABSOLUTE MONOCYTES (AUTO) 0.3 10^3/uL (0.1-1.4); ABSOLUTE NEUT (AUTO) 2.3 10^3/uL (1.7-8.2); BASOPHILS % (AUTO) 1.2 % (0-2); HEMATOCRIT 34.7 % (36.0-47.0); HEMOGLOBIN 11.5 g/dL (12.0-15.5); LYMPHOCYTES % (AUTO) 16.8 % (13-45); MEAN CORPUSCULAR HEMOGLOBIN 28.7 pg (27.0-33.4); MEAN CORPUSCULAR HGB CONC 33.2 g/dL (32.0-36.0); MEAN CORPUSCULAR VOLUME 87 fl (80-97); MONOCYTES % (AUTO) 10.8 % (3-13); PLATELET COUNT 173 10^3/uL (150-450); RED CELL DISTRIBUTION WIDTH 16.8 % (11.5-14.0); SEGMENTED NEUTROPHILS % (AUTO) 70.2 % (42-78); TOTAL CELLS COUNTED % (AUTO) 100 %; WHITE BLOOD COUNT 3.3 10^3/uL (4.0-10.5)
[2019-05-08] MEDS ORDERED: MINERAL OIL 30 ML UDCUP PR ONE (12:49)
[2019-05-08 12:58] LABS: ALBUMIN 4.3 g/dL (3.5-5.0); ALKALINE PHOSPHATASE 58 U/L (38-126); ANION GAP 12 (5-19); ASPARTATE AMINO TRANSFERASE 22 U/L (14-36); BILIRUBIN,DIRECT 0.3 mg/dL (0.0-0.4); BILIRUBIN,TOTAL 0.6 mg/dL (0.2-1.3); BLOOD UREA NITROGEN 18 mg/dL (7-20); CALCIUM 10.6 mg/dL (8.4-10.2); CARBON DIOXIDE 25 mmol/L (22-30); CHLORIDE 96 mmol/L (98-107); GLUCOSE 83 mg/dL (75-110); POTASSIUM 4.1 mmol/L (3.6-5.0); TOTAL PROTEIN 7.4 g/dL (6.3-8.2)
[2019-05-08 13:27] LABS: PHOSPHORUS 3.5 mg/dL (2.5-4.5)
[2019-05-08] MEDS ORDERED: MAGNESIUM CITRATE 296 ML BOTTLE PO ONE (13:47)
[2019-05-08] MEDS ORDERED: ONDANSETRON HCL INJ/PF 4 MG/2 ML SDV IV ONE (13:48)
--- NOTE | 2019-05-08 15:52 | ER Document Report ---
ED General - General Chief Complaint: Flank Pain Stated Complaint: FLANK PAIN Time Seen by Provider: 05/08/19 11:19 Primary Care Provider: VICTORIANO MATTSON MD [Primary Care Provider] - Follow up as needed Notes: 84 year old female complaining of several months of left sided burning flank and abdominal pain that Dr. Samuel has been treating with "a capsule" whose name the patient does not know. Patient has been seen in this emergency department previously for this complaint. Patient and niece both state that they have never been given a satisfactory answer for this pain. Patient states that the pain has intensified today. Denies any fevers, nausea, vomiting, diarrhea. She did vomit once a week ago after eating turnips. Patient described to me as a left-sided abdominal pain, niece stated that she has never called her to pain before and always calls it a burning. Patient now clarifies that it is a burning pain. Patient states that in the past this is temporarily relieved with a bowel movement but never completely relieved. Niece at bedside disagrees. TRAVEL OUTSIDE OF THE [place] IN LAST 30 DAYS: No - Related Data Allergies/Adverse Reactions: No Known Allergies Allergy (Verified 02/20/19 12:00) Past Medical History - General Information source: Patient, Relative - Social History Smoking Status: Never Smoker Chew tobacco use (# tins/day): No Frequency of alcohol use: None Drug Abuse: None Family History: Reviewed & Not Pertinent Patient has suicidal ideation: No Patient has homicidal ideation: No - Past Medical History Cardiac Medical History: Reports: Hx Atrial Fibrillation, Hx DVT, Hx Hypertension Denies: Hx Heart Attack Pulmonary Medical History: Reports: Hx COPD Denies: Hx Asthma, Hx Tuberculosis Neurological Medical History: Denies: Hx Cerebrovascular Accident, Hx Seizures Renal/ Medical History: Reports: Hx Renal Insufficiency. Denies: Hx Peritoneal Dialysis GI Medical History: Denies: Hx Hepatitis, Hx Hiatal Hernia, Hx Ulcer Musculoskeletal Medical History: Reports Hx Arthritis Psychiatric Medical History: Denies: Hx Depression Infectious Medical History: Denies: Hx Hepatitis Past Surgical History: Denies: Hx Hysterectomy, Hx Mastectomy, Hx Open Heart Surgery, Hx Pacemaker - Immunizations Immunizations up to date: Yes Hx Diphtheria, Pertussis, Tetanus Vaccination: Yes Hx Pneumococcal Vaccination: 08/06/12 Review of Systems - Review of Systems Constitutional: No symptoms reported EENT: No symptoms reported Gastrointestinal: See HPI Genitourinary: No symptoms reported Musculoskeletal: See HPI -: Yes All other systems reviewed and negative Physical Exam - Vital signs Vitals: Temp Pulse Resp BP Pulse Ox 97.6 F 92 16 185/91 H 98 05/08/19 11:12 05/08/19 11:12 05/08/19 11:12 05/08/19 11:12 05/08/19 11:12 Interpretation: Hypertensive - Notes Notes: GENERAL: Alert, interacts well. No acute distress. HEAD: Normocephalic, atraumatic EYES: Pupils equal, round and reactive to light, extraocular movements intact. ENT: Oral mucosa moist, tongue midline. NECK: Full range of motion, supple, trachea midline. LUNGS: Clear to auscultation bilaterally, no wheezes, rales or rhonchi, no respiratory distress. HEART: Regular rate and rhythm, no murmurs, gallops, rubs. ABDOMEN: Soft, mildly tender to palpation diffusely with no guarding, rigidity or rebounding, nondistended, bowel sounds present in all 4 quadrants. EXTREMITIES: Moves all 4 extremities spontaneously, no edema, radial and dorsalis pedis pulses 2/4 bilaterally. No cyanosis. NEUROLOGICAL: Alert and oriented x3, normal speech. PSYCH: Normal mood, normal affect. SKIN: Warm, Dry, normal turgor, no rashes or lesions noted. No evidence of shingles over top of the area where she describes the burning pain. Course - Re-evaluation Re-evalutation: 05/08/19 16:33 CBC shows slight low white count of 3.3, anemia with hemoglobin 11.5, renal function is actually improved compared to prior, calcium elevated at 10.6 but does not need to be treated, phosphorus and magnesium are normal, lipase normal, urinalysis shows moderate blood, only 32 RBCs, not enough to merit a CAT scan looking for kidney stone. KUB shows a significant amount of stool, I discussed with the patient and her niece that I do not know if fixing her constipation will fix the burning pain that she is complaining about however I think it is worth a shot. Also discussed the constipation is common problem in renal failure patients and that I strongly recommend she start taking MiraLAX at least once a day if not more often as she has been seen in this emergency department several times for constipation. Recommend she continue to follow-up with her primary care physician as an outpatient for this burning pain. No indication for CAT scan at this time, CAT scan last month for same symptoms was negative except for constipation. Patient was given enema here with some results. Patient was also given magnesium citrate. Discussed with patient and niece that this will not be a 1 time quick fix but she will need to take MiraLAX once twice a day every day for several weeks until she is having soft bowel movements every single day before the constipation will truly be resolved. Patient will now be discharged home. - Vital Signs Vital signs: Temp Pulse Resp BP Pulse Ox 98.5 F 92 21 H 190/95 H 98 05/08/19 11:28 05/08/19 11:12 05/08/19 12:01 05/08/19 12:01 05/08/19 11:12 - Laboratory Result Diagrams: 05/08/19 12:28 05/08/19 12:28 Laboratory results interpreted by me: 05/08/19 05/08/19 05/08/19 11:24 12:28 12:28 WBC 3.3 L Hgb 11.5 L Hct 34.7 L RDW 16.8 H Sodium 132.8 L Chloride 96 L Creatinine 1.96 H Est GFR ( Amer) 29 L Est GFR (MDRD) Non-Af 24 L Calcium 10.6 H Urine Protein 100 H Urine Ketones TRACE H Urine Blood MODERATE H Discharge - Discharge Clinical Impression: Burning pain Constipation Qualifiers: Constipation type: unspecified constipation type Qualified Code(s): K59.00 - Constipation, unspecified Condition: Stable Disposition: HOME, SELF-CARE Additional Instructions: I do not know exactly what is causing her burning pain. I suspect some of this is related to the large amount of stool in your intestines. Please use the MiraLAX as directed below. Please dissolve 1 scoop of MiraLAX or its generic equivalent in a glass of water once a day to treat constipation. You may increase to twice a day if needed to create soft bowel movements and you may decrease to every other day if you develop diarrhea. If this does not improve your burning sensation at all please continue to follow-up with Dr. Mattson as an outpatient. Please return for vomiting, blood in your stool, fevers or any new or concerning symptoms. Today your kidney function was improved compared to prior visits. Referrals: VICTORIANO MATTSON MD [Primary Care Provider] - Follow up as needed
[2019-05-08 17:11] VITALS: BP 158/105
== END 2019-05-08 17:13 | disposition home or self-care (01) ==
LOC: ER 11:05
DX: K59.00 Constipation, unspecified (principal); R10.9 Unspecified abdominal pain; I48.91 Unspecified atrial fibrillation; I10 Essential (primary) hypertension; J44.9 Chronic obstructive pulmonary disease, unspecified
CPT/HCPCS: 36415; 83690; 83735; 84100; 85025; 80053; 81001; 74018; J3490 ×2; J2405; 96374; 99284

== ENCOUNTER 2019-05-16 13:38 | Inpatient (IN) | payer MEDICARE ==
[2019-05-16 15:21] LABS: ABSOLUTE LYMPHOCYTES (AUTO) 0.7 10^3/uL (0.5-4.7); ABSOLUTE MONOCYTES (AUTO) 0.5 10^3/uL (0.1-1.4); ABSOLUTE NEUT (AUTO) 3.1 10^3/uL (1.7-8.2); BASOPHILS % (AUTO) 1.1 % (0-2); HEMATOCRIT 33.8 % (36.0-47.0); HEMOGLOBIN 11.1 g/dL (12.0-15.5); LYMPHOCYTES % (AUTO) 16.5 % (13-45); MEAN CORPUSCULAR HEMOGLOBIN 28.8 pg (27.0-33.4); MEAN CORPUSCULAR HGB CONC 32.9 g/dL (32.0-36.0); MEAN CORPUSCULAR VOLUME 88 fl (80-97); MONOCYTES % (AUTO) 11.9 % (3-13); PLATELET COUNT 203 10^3/uL (150-450); RED BLOOD COUNT 3.86 10^6/uL (3.72-5.28); RED CELL DISTRIBUTION WIDTH 16.7 % (11.5-14.0); SEGMENTED NEUTROPHILS % (AUTO) 69.5 % (42-78); TOTAL CELLS COUNTED % (AUTO) 100 %; WHITE BLOOD COUNT 4.5 10^3/uL (4.0-10.5)
[2019-05-16 15:38] LABS: ANION GAP 8 (5-19); BLOOD UREA NITROGEN 22 mg/dL (7-20); CALCIUM 10.6 mg/dL (8.4-10.2); CARBON DIOXIDE 31 mmol/L (22-30); CHLORIDE 94 mmol/L (98-107); GLUCOSE 95 mg/dL (75-110)
--- NOTE | 2019-05-16 15:53 | RADIOLOGY REPORT (SQ) ---
EXAM DESCRIPTION: CT HEAD WITHOUT COMPLETED DATE/TIME: 05/16/2019 3:36 pm REASON FOR STUDY: 20; ams COMPARISON: 03/02/2019. TECHNIQUE: Axial images acquired through the brain without intravenous contrast. Images reviewed wi th bone, brain and subdural windows. Additional sagittal and coronal reconstructions were generated. Images stored on PACS. All CT scanners at this facility use dose modulation, iterative reconstruction, and/or weight based d osing when appropriate to reduce radiation dose to as low as reasonably achievable (ALARA). [facility]: Dose Right [facility]: CareDose [facility]: Dose Right [facility]: Teradose 4D [facility]: Smart [employer] RADIATION DOSE: CT Rad equipment meets quality standard of care and radiation dose reduction techniq ues were employed. CTDIvol: 53.2 mGy. DLP: 1097 mGy-cm.mGy. LIMITATIONS: None. FINDINGS: VENTRICLES: Prominent. Chronic ex vacuo change involving the left lateral ventricle. CEREBRUM: No masses. No hemorrhage. No midline shift. Areas of low density in the white matter mos t likely due to chronic micro-vascular ischemic change. No evidence for acute infarction. CEREBELLUM: No masses. No hemorrhage. No alteration of density. No evidence for acute infarction. EXTRAAXIAL SPACES: Age-related involutional change. No fluid collections. No masses. ORBITS AND GLOBE: No intra- or extraconal masses. Normal contour of globe without masses. CALVARIUM: No fracture. PARANASAL SINUSES: No fluid or mucosal thickening. SOFT TISSUES: No mass or hematoma. OTHER: No other significant finding. IMPRESSION: CHRONIC CHANGES OF ATROPHY AND MICROVASCULAR ISCHEMIA. NO ACUTE PROCESS. EVIDENCE OF ACUTE STROKE: NO. TECHNICAL DOCUMENTATION: JOB ID: [id number] Quality ID # [id number]: Final reports with documentation of one or more dose reduction techniques (e.g., Au tomated exposure control, adjustment of the mA and/or kV according to patient size, use of iterative reconstruction technique) 2010 [employer]- All Rights Reserved Reading location - IP/workstation name: [email or web address]
--- NOTE | 2019-05-16 16:11 | ER Document Report ---
ED General - General Chief Complaint: Weakness Stated Complaint: WEAKNESS Time Seen by Provider: 05/16/19 15:09 Information source: Patient Notes: HPI: 84-year-old female that woke up today stating multiple episodes of urinating without pain. No nausea, vomiting, or fevers. Patient states she has increased frequency and continued urgency. She has urinated 4 times here in the emergency department. She however denies any abdominal pain. She does states she feels a little lightheaded. She lives with family normally is able to walk without assistance but feels too lightheaded. She is able to walk here with as sistance. She denies any blurry vision, chest pain, palpitations, or focal weakness or numbness of the arms or legs. ROS: See HPI All other review of systems reviewed and otherwise negative Reviewed vital signs and nursing note as charted by RN. PHYSICAL EXAM: CONSTITUTIONAL: Alert and oriented and responds appropriately to questions. Well-appearing; well-nourished HEAD: Normocephalic; atraumatic EYES: PERRL; full extraocular range of motion ENT: Normal nose; no rhinorrhea; moist mucous membranes; pharynx without lesions noted NECK: Supple without meningismus; non-tender; no carotid bruit; no cervical lymphadenopathy, no masses CARD: Regular rate and rhythm; no murmurs; symmetric distal pulses RESP: Normal chest excursion without splinting or tachypnea; breath sounds clear and equal bilaterally; no wheezes, no rhonchi, no rales ABD/GI: Normal bowel sounds; non-distended; soft, non-tender currently to deep palpation of all 4 quadrants of the abdomen; no abdominal bruits or palpable masses; no palpable organomegaly or masses BACK: The back appears normal and is non-tender to palpation EXT: Normal ROM in all joints; non-tender to palpation; no edema SKIN: No acute lesions noted NEURO: CN 2-12 intact; 5/5 bilateral upper and lower extremity strength with sensation intact to light touch PSYCH: The patient's mood and manner are appropriate. Grooming and personal h ygiene are appropriate. TRAVEL OUTSIDE OF THE [place] IN LAST 30 DAYS: No - Related Data Allergies/Adverse Reactions: No Known Allergies Allergy (Verified 02/20/19 12:00) Past Medical History - Social History Smoking Status: Unknown if Ever Smoked Frequency of alcohol use: None Drug Abuse: None Family History: Reviewed & Not Pertinent Patient has suicidal ideation: No Patient has homicidal ideation: No - Past Medical History Cardiac Medical History: Reports: Hx Atrial Fibrillation, Hx DVT, Hx Hyp ertension Denies: Hx Heart Attack Pulmonary Medical History: Reports: Hx COPD Denies: Hx Asthma, Hx Tuberculosis Neurological Medical History: Denies: Hx Cerebrovascular Accident, Hx Seizures Renal/ Medical History: Reports: Hx Renal Insufficiency. Denies: Hx Peritoneal Dialysis GI Medical History: Denies: Hx Hepatitis, Hx Hiatal Hernia, Hx Ulcer Musculoskeletal Medical History: Reports Hx Arthritis Psychiatric Medical History: Denies: Hx Depression Infectious Medical History: Denies: Hx Hepatitis Past Surgical History: Denies: Hx Hysterectomy, Hx Mastectomy, Hx Open Heart Surgery, Hx Pacemaker - Immunizations Immunizations up to date: Yes Hx Diphtheria, Pertussis, Tetanus Vaccination: Yes Hx Pneumococcal Vaccination: 08/06/12 Physical Exam - Vital signs Vitals: Temp Pulse Resp BP 98.2 F 92 24 H 148/100 H 05/16/19 13:52 05/16/19 13:52 05/16/19 13:52 05/16/19 13:52 Course - Re-evaluation Re-evalutation: 05/16/19 16:11 EKG shows a heart rate of 91, normal sinus rhythm, LVH, poor R wave progression, no ST elevation or depression. No change appreciable from previous 05/16/19 16:50 Given the history and physical examination, I ordered basic labs, urine analysis, urine culture, electrolytes, EKG, troponin, and a CT scan of the head. EKG as recorded showing no appreciable change. Patient has no chest pain. Patient has urinated 5 times here in the emergency department. Despite any obvious infection in the urine analysis, I will provide a liter of fluid and a gram of Rocephin. Given the excessive fatigue for the patient, I will most like admit the patient for observation. Patient currently has no pain and has no focal neurological deficits. 05/16/19 17:16 Covering primary care physician is asked me to order a renal colic CT scan of the abdomen and pelvis to assess for the possibility of a kidney stone as well as repeat troponin. Patient will be admitted to the telemetry floor. - Vital Signs Vital signs: Temp Pulse Resp BP Pulse Ox 98.0 F 92 20 176/88 H 05/16/19 16:01 05/16/19 13:52 05/16/19 16:30 05/16/19 16:30 - Laboratory Result Diagrams: 05/16/19 14:34 05/16/19 14:34 Laboratory results interpreted by me: 05/16/19 05/16/19 05/16/19 14:34 14:34 14:34 Hgb 11.1 L Hct 33.8 L RDW 16.7 H Sodium 133.2 L Chloride 94 L Carbon Dioxide 31 H BUN 22 H Creatinine 2.03 H Est GFR ( Amer) 28 L Est GFR (MDRD) Non-Af 23 L Calcium 10.6 H Urine Protein 100 H Urine Ketones TRACE H Discharge - Discharge Clinical Impression: Urinary frequency Fatigue Qualifiers: Fatigue type: unspecified Qualified Code(s): R53.83 - Other fatigue Condition: Fair Disposition: ADMITTED OBSERVATION Admitting Provider: Albert Unit Admitted: Telemetry
[2019-05-16 16:17] LABS: APPEARANCE,URINE SLIGHTLY-CLOUDY; BILIRUBIN,URINE NEGATIVE (NEGATIVE); COLOR,URINE YELLOW; GLUCOSE, URINE NEGATIVE (NEGATIVE); KETONES,URINE TRACE mg/dL (NEGATIVE); LEUKOCYTE ESTERASE,URINE NEGATIVE (NEGATIVE); NITRITE,URINE NEGATIVE (NEGATIVE); PROTEIN,URINE 100 mg/dL (NEGATIVE); URINE SPECIFIC GRAVITY 1.013; UROBILINOGEN,URINE NEGATIVE mg/dL (<2.0)
[2019-05-16] MEDS ORDERED: CEFTRIAXONE 1 GM/D5W RTU 1 GM/50 ML RTUPB IV ONE (16:43)
[2019-05-16] MEDS ORDERED: NORMAL SALINE 1000 ML 1,000 ML IV ONE (16:44)
[2019-05-16] MEDS ORDERED: IPRATROPIUM/ALBUTEROL 0.5-2.5 MG/3 ML AMPUL NEB PRN (17:16)
[2019-05-16] MEDS ORDERED: ACETAMINOPHEN 325 MG TABLET PO PRN (17:16)
--- NOTE | 2019-05-16 18:58 | RADIOLOGY REPORT (SQ) ---
EXAM DESCRIPTION: CT ABD/PELVIS NO ORAL OR IV COMPLETED DATE/TIME: 05/16/2019 6:37 pm REASON FOR STUDY: 20; urinary frequency with hematuria N39.9 DISORDER OF URINARY SYSTEM, UNSPECIFIE D R31.9 HEMATURIA, UNSPECIFIED COMPARISON: 03/29/2019. TECHNIQUE: CT scan of the abdomen and pelvis performed without intravenous or oral contrast. Images reviewed with lung, soft tissue, and bone windows. Reconstructed coronal and sagittal MPR images revi ewed. All images stored on PACS. All CT scanners at this facility use dose modulation, iterative reconstruction, and/or weight based d osing when appropriate to reduce radiation dose to as low as reasonably achievable (ALARA). [facility]: Dose Right [facility]: CareDose [facility]: Dose Right [facility]: Teradose 4D [facility]: [address] RADIATION DOSE: CT Rad equipment meets quality standard of care and radiation dose reduction techniq ues were employed. CTDIvol: 4.8 mGy. DLP: 215 mGy-cm.mGy. LIMITATIONS: None. FINDINGS: LOWER CHEST: No significant findings. No nodules or infiltrates. NON-CONTRASTED LIVER, SPLEEN, ADRENALS: Evaluation limited by lack of IV contrast. No identified sign ificant masses. PANCREAS: No masses. No peripancreatic inflammatory changes. GALLBLADDER: No identified stones by CT criteria. No inflammatory changes to suggest cholecystitis. RIGHT KIDNEY AND URETER: Multiple cortical cysts. Assessment limited by lack of IV contrast. No sig nificant calcifications. No hydronephrosis or hydroureter. LEFT KIDNEY AND URETER: Multiple cortical cysts. Assessment limited by lack of IV contrast. No sign ificant calcifications. No hydronephrosis or hydroureter. AORTA AND RETROPERITONEUM: No aneurysm. No retroperitoneal masses or adenopathy. BOWEL AND PERITONEAL CAVITY: No obvious masses or inflammatory changes. No free fluid. APPENDIX: Not visualized. PELVIS, BLADDER, AND ABDOMINAL WALL:No abnormal masses. No free fluid. Bladder normal. BONES: No significant findings. Degenerative changes in the spine. OTHER: No other significant finding. IMPRESSION: MULTIPLE CORTICAL CYSTS IN BOTH KIDNEYS. NO OTHER SIGNIFICANT OR ACUTE PROCESS IN THE A BDOMEN OR PELVIS. COMMENT: Quality ID # [id number]: Final reports with documentation of one or more dose reduction techniques (e.g., Automated exposure control, adjustment of the mA and/or kV according to patient size, use of iterative reconstruction technique) TECHNICAL DOCUMENTATION: JOB ID: [id number] [employer]- All Rights Reserved Reading location - IP/workstation name: [email or web address]
[2019-05-16] MEDS: NORMAL SALINE 1000 ML 1,000 ML IV PRN (19:00)
[2019-05-16 19:35] LABS: ANION GAP 13 (5-19); BLOOD UREA NITROGEN 19 mg/dL (7-20); CARBON DIOXIDE 27 mmol/L (22-30); CHLORIDE 97 mmol/L (98-107); GLUCOSE 92 mg/dL (75-110)
[2019-05-16] MEDS ORDERED: HEPARIN SOD (PORCINE) 5,000 UNIT/ML 1 ML VIAL SUBCUT SCH (22:00)
[2019-05-16] MEDS ORDERED: HYDRALAZINE HCL 25 MG TABLET PO ONE (23:59)
[2019-05-16] MEDS ORDERED: APIXABAN 2.5 MG TABLET PO ONE (23:59)
[2019-05-16] MEDS ORDERED: DILTIAZEM HCL 60 MG TABLET PO ONE (23:59)
[2019-05-17] MEDS: FAMOTIDINE 20 MG TABLET PO SCH ×3 (00:02→22:06)
--- NOTE | 2019-05-17 02:16 | EKG REPORT ---
SEVERITY:- ABNORMAL ECG - SINUS RHYTHM LEFT VENTRICULAR HYPERTROPHY : Confirmed by: Taylor Landaverde 17-May-2019 02:15:33
[2019-05-17 04:21] LABS: ABSOLUTE BASOPHILS # (AUTO) 0.1 10^3/uL (0.0-0.2); ABSOLUTE EOSINOPHILS # (AUTO) 0.1 10^3/uL (0.0-0.6); ABSOLUTE LYMPHOCYTES (AUTO) 0.9 10^3/uL (0.5-4.7); ABSOLUTE MONOCYTES (AUTO) 0.6 10^3/uL (0.1-1.4); ABSOLUTE NEUT (AUTO) 2.8 10^3/uL (1.7-8.2); BASOPHILS % (AUTO) 1.3 % (0-2); EOSINOPHILS % (AUTO) 2.1 % (0-6); HEMATOCRIT 31.9 % (36.0-47.0); HEMOGLOBIN 10.7 g/dL (12.0-15.5); LYMPHOCYTES % (AUTO) 19.6 % (13-45); MEAN CORPUSCULAR HGB CONC 33.5 g/dL (32.0-36.0); MEAN CORPUSCULAR VOLUME 87 fl (80-97); MONOCYTES % (AUTO) 13.6 % (3-13); PLATELET COUNT 193 10^3/uL (150-450); RED BLOOD COUNT 3.67 10^6/uL (3.72-5.28); SEGMENTED NEUTROPHILS % (AUTO) 63.4 % (42-78); TOTAL CELLS COUNTED % (AUTO) 100 %; WHITE BLOOD COUNT 4.5 10^3/uL (4.0-10.5)
[2019-05-17] MEDS: SODIUM BICARBONATE 650 MG TABLET PO SCH ×3 (09:09→17:29)
[2019-05-17] MEDS: DULOXETINE HCL 30 MG CAPSULE.DR PO SCH (09:09)
[2019-05-17] MEDS: HYDRALAZINE HCL 25 MG TABLET PO SCH ×2 (09:09→14:00)
[2019-05-17] MEDS: DILTIAZEM HCL 60 MG TABLET PO SCH ×3 (09:09→17:29)
[2019-05-17] MEDS: APIXABAN 2.5 MG TABLET PO SCH ×2 (09:09→17:29)
[2019-05-17] MEDS: NORMAL SALINE 1000 ML 1,000 ML IV PRN ×2 (14:01→22:09)
[2019-05-17] MEDS: CEFTRIAXONE 1 GM/D5W RTU 1 GM/50 ML RTUPB IV SCH (17:29)
[2019-05-17] MEDS: HYDRALAZINE HCL 50 MG TABLET PO SCH (17:29)
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
[2019-05-17] MEDS: PREGABALIN 50 MG CAPSULE PO SCH (22:06)
[2019-05-18 05:19] LABS: ABSOLUTE EOSINOPHILS # (AUTO) 0.1 10^3/uL (0.0-0.6); ABSOLUTE LYMPHOCYTES (AUTO) 0.6 10^3/uL (0.5-4.7); ABSOLUTE MONOCYTES (AUTO) 0.4 10^3/uL (0.1-1.4); ABSOLUTE NEUT (AUTO) 2.2 10^3/uL (1.7-8.2); BASOPHILS % (AUTO) 0.8 % (0-2); HEMATOCRIT 28.4 % (36.0-47.0); HEMOGLOBIN 9.5 g/dL (12.0-15.5); LYMPHOCYTES % (AUTO) 18.3 % (13-45); MEAN CORPUSCULAR HEMOGLOBIN 29.1 pg (27.0-33.4); MEAN CORPUSCULAR HGB CONC 33.4 g/dL (32.0-36.0); MEAN CORPUSCULAR VOLUME 87 fl (80-97); MONOCYTES % (AUTO) 12.6 % (3-13); PLATELET COUNT 169 10^3/uL (150-450); RED BLOOD COUNT 3.27 10^6/uL (3.72-5.28); RED CELL DISTRIBUTION WIDTH 17.3 % (11.5-14.0); SEGMENTED NEUTROPHILS % (AUTO) 65.3 % (42-78); TOTAL CELLS COUNTED % (AUTO) 100 %; WHITE BLOOD COUNT 3.4 10^3/uL (4.0-10.5)
[2019-05-18] MEDS: PREGABALIN 50 MG CAPSULE PO SCH ×3 (05:35→21:40)
[2019-05-18] MEDS ORDERED: INFLUENZA QUAD (6MOS+) 2019-20 VAC 0.5 ML SYR IM ONE (08:00)
[2019-05-18] MEDS: DILTIAZEM HCL 60 MG TABLET PO SCH ×3 (10:08→18:08)
[2019-05-18] MEDS: SODIUM BICARBONATE 650 MG TABLET PO SCH ×3 (10:08→18:07)
[2019-05-18] MEDS: FAMOTIDINE 20 MG TABLET PO SCH ×2 (10:08→21:40)
[2019-05-18] MEDS: DULOXETINE HCL 30 MG CAPSULE.DR PO SCH (10:09)
[2019-05-18] MEDS: APIXABAN 2.5 MG TABLET PO SCH ×2 (10:09→18:08)
[2019-05-18] MEDS: HYDRALAZINE HCL 50 MG TABLET PO SCH ×3 (10:23→18:08)
[2019-05-18] MEDS: NORMAL SALINE 1000 ML 1,000 ML IV PRN (11:39)
[2019-05-18] MEDS: CEFTRIAXONE 1 GM/D5W RTU 1 GM/50 ML RTUPB IV SCH (18:09)
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
[2019-05-19] MEDS: PREGABALIN 50 MG CAPSULE PO SCH ×3 (05:22→23:06)
[2019-05-19 06:51] LABS: ABSOLUTE EOSINOPHILS # (AUTO) 0.1 10^3/uL (0.0-0.6); ABSOLUTE LYMPHOCYTES (AUTO) 0.7 10^3/uL (0.5-4.7); ABSOLUTE MONOCYTES (AUTO) 0.5 10^3/uL (0.1-1.4); ABSOLUTE NEUT (AUTO) 2.3 10^3/uL (1.7-8.2); EOSINOPHILS % (AUTO) 3.7 % (0-6); HEMATOCRIT 31.1 % (36.0-47.0); HEMOGLOBIN 10.2 g/dL (12.0-15.5); LYMPHOCYTES % (AUTO) 18.7 % (13-45); MEAN CORPUSCULAR HEMOGLOBIN 28.5 pg (27.0-33.4); MEAN CORPUSCULAR HGB CONC 32.9 g/dL (32.0-36.0); MEAN CORPUSCULAR VOLUME 87 fl (80-97); MONOCYTES % (AUTO) 12.7 % (3-13); PLATELET COUNT 163 10^3/uL (150-450); RED BLOOD COUNT 3.59 10^6/uL (3.72-5.28); RED CELL DISTRIBUTION WIDTH 17.1 % (11.5-14.0); SEGMENTED NEUTROPHILS % (AUTO) 63.9 % (42-78); TOTAL CELLS COUNTED % (AUTO) 100 %; WHITE BLOOD COUNT 3.6 10^3/uL (4.0-10.5)
[2019-05-19] MEDS: APIXABAN 2.5 MG TABLET PO SCH ×2 (10:24→17:30)
[2019-05-19] MEDS: DILTIAZEM HCL 60 MG TABLET PO SCH ×3 (10:24→17:30)
[2019-05-19] MEDS: DULOXETINE HCL 30 MG CAPSULE.DR PO SCH (10:24)
[2019-05-19] MEDS: FAMOTIDINE 20 MG TABLET PO SCH ×2 (10:24→23:06)
[2019-05-19] MEDS: HYDRALAZINE HCL 50 MG TABLET PO SCH ×3 (10:24→17:30)
[2019-05-19] MEDS: SODIUM BICARBONATE 650 MG TABLET PO SCH ×3 (10:24→17:30)
[2019-05-19] MEDS: CEFTRIAXONE 1 GM/D5W RTU 1 GM/50 ML RTUPB IV SCH (17:30)
--- NOTE | 2019-05-19 18:32 | PDOC PROGRESS REPORT ---
Subjective Progress Note for:: 05/19/19 Subjective:: Patient seen by the bedside, she remains confused, delirium, antipsychotics is not recommended for the treatment of delirium, the apparent etiology is not clear, she probably have underlying dementia, this could represent progression of underlining cognitive impairment. Patient is not safe for discharge, she was brought initially for observation because of dehydration and confusion, she continues to receive IV fluid therapy Reason For Visit: UTI Physical Exam Vital Signs: Temp Pulse Resp BP Pulse Ox 98.2 F 93 14 160/74 H 100 05/19/19 15:58 05/19/19 15:58 05/19/19 15:58 05/19/19 15:58 05/19/19 15:58 Intake & Output 05/18/19 05/19/19 05/20/19 06:59 06:59 06:59 Intake Total 2217 1708 709 Output Total 200 100 Balance 2016 1608 709 Weight 60.3 kg 43 kg General appearance: PRESENT: no acute distress Respiratory exam: PRESENT: clear to auscultation alexandro Cardiovascular exam: PRESENT: +S1, +S2 GI/Abdominal exam: PRESENT: soft Neurological exam: PRESENT: alert Results Laboratory Results: 05/19/19 06:15 05/16/19 19:00 05/19/19 06:15 WBC 3.6 L RBC 3.59 L Hgb 10.2 L Hct 31.1 L MCV 87 MCH 28.5 MCHC 32.9 RDW 17.1 H Plt Count 163 Seg Neutrophils % 63.9 05/16/19 14:34 Clean Catch Midstream Urine Culture - Final Staphylococcus Aureus 05/16/19 05/16/19 14:34 19:00 Troponin I 0.080 0.083 Impressions: Head CT 05/16/19 15:14 IMPRESSION: CHRONIC CHANGES OF ATROPHY AND MICROVASCULAR ISCHEMIA. NO ACUTE PROCESS. EVIDENCE OF ACUTE STROKE: NO. Abdomen/Pelvis CT 05/16/19 17:30 IMPRESSION: MULTIPLE CORTICAL CYSTS IN BOTH KIDNEYS. NO OTHER SIGNIFICANT OR ACUTE PROCESS IN THE ABDOMEN OR PELVIS. Assessment & Plan - Diagnosis (1) Dehydration Is this a current diagnosis for this admission?: Yes Plan: Continue fluid therapy (2) Chronic kidney disease, stage 4 (severe) Is this a current diagnosis for this admission?: Yes (3) Adult failure to thrive Is this a current diagnosis for this admission?: Yes (4) Acquired polycystic kidney disease Is this a current diagnosis for this admission?: Yes (5) Underweight Is this a current diagnosis for this admission?: Yes (6) Chronic atrial fibrillation Is this a current diagnosis for this admission?: Yes (7) Delirium Is this a current diagnosis for this admission?: Yes Plan: The etiology is not clear - Time Time Spent with patient: 25-34 minutes
[2019-05-19 18:51] LABS: ABSOLUTE EOSINOPHILS # (AUTO) 0.1 10^3/uL (0.0-0.6); ABSOLUTE LYMPHOCYTES (AUTO) 0.8 10^3/uL (0.5-4.7); ABSOLUTE MONOCYTES (AUTO) 0.6 10^3/uL (0.1-1.4); ABSOLUTE NEUT (AUTO) 3.5 10^3/uL (1.7-8.2); BASOPHILS % (AUTO) 0.8 % (0-2); EOSINOPHILS % (AUTO) 2.8 % (0-6); HEMATOCRIT 32.6 % (36.0-47.0); HEMOGLOBIN 10.8 g/dL (12.0-15.5); LYMPHOCYTES % (AUTO) 15.4 % (13-45); MEAN CORPUSCULAR HEMOGLOBIN 28.9 pg (27.0-33.4); MEAN CORPUSCULAR HGB CONC 33.1 g/dL (32.0-36.0); MEAN CORPUSCULAR VOLUME 87 fl (80-97); PLATELET COUNT 206 10^3/uL (150-450); RED BLOOD COUNT 3.74 10^6/uL (3.72-5.28); RED CELL DISTRIBUTION WIDTH 17.5 % (11.5-14.0); TOTAL CELLS COUNTED % (AUTO) 100 %
[2019-05-19 19:10] LABS: ALBUMIN 3.3 g/dL (3.5-5.0); ALKALINE PHOSPHATASE 51 U/L (38-126); ANION GAP 10 (5-19); ASPARTATE AMINO TRANSFERASE 19 U/L (14-36); BILIRUBIN,DIRECT 0.2 mg/dL (0.0-0.4); BILIRUBIN,TOTAL 0.2 mg/dL (0.2-1.3); BLOOD UREA NITROGEN 32 mg/dL (7-20); CALCIUM 10.2 mg/dL (8.4-10.2); CARBON DIOXIDE 26 mmol/L (22-30); CHLORIDE 103 mmol/L (98-107); GLUCOSE 95 mg/dL (75-110); POTASSIUM 4.8 mmol/L (3.6-5.0)
[2019-05-20 04:51] LABS: ABSOLUTE EOSINOPHILS # (AUTO) 0.1 10^3/uL (0.0-0.6); ABSOLUTE LYMPHOCYTES (AUTO) 0.8 10^3/uL (0.5-4.7); ABSOLUTE MONOCYTES (AUTO) 0.7 10^3/uL (0.1-1.4); BASOPHILS % (AUTO) 0.7 % (0-2); EOSINOPHILS % (AUTO) 2.6 % (0-6); HEMATOCRIT 30.3 % (36.0-47.0); HEMOGLOBIN 10.1 g/dL (12.0-15.5); LYMPHOCYTES % (AUTO) 17.6 % (13-45); MEAN CORPUSCULAR HEMOGLOBIN 29.1 pg (27.0-33.4); MEAN CORPUSCULAR HGB CONC 33.3 g/dL (32.0-36.0); MEAN CORPUSCULAR VOLUME 87 fl (80-97); MONOCYTES % (AUTO) 14.6 % (3-13); PLATELET COUNT 180 10^3/uL (150-450); RED BLOOD COUNT 3.47 10^6/uL (3.72-5.28); RED CELL DISTRIBUTION WIDTH 17.6 % (11.5-14.0); SEGMENTED NEUTROPHILS % (AUTO) 64.5 % (42-78); TOTAL CELLS COUNTED % (AUTO) 100 %; WHITE BLOOD COUNT 4.6 10^3/uL (4.0-10.5)
[2019-05-20 05:06] LABS: ALKALINE PHOSPHATASE 54 U/L (38-126); ANION GAP 6 (5-19); ASPARTATE AMINO TRANSFERASE 17 U/L (14-36); BLOOD UREA NITROGEN 33 mg/dL (7-20); CARBON DIOXIDE 30 mmol/L (22-30); CHLORIDE 103 mmol/L (98-107); GLUCOSE 86 mg/dL (75-110); TOTAL PROTEIN 5.5 g/dL (6.3-8.2)
[2019-05-20] MEDS: PREGABALIN 50 MG CAPSULE PO SCH ×3 (05:16→22:05)
[2019-05-20 05:18] LABS: BILIRUBIN,TOTAL < 0.1 mg/dL (0.2-1.3)
[2019-05-20] MEDS: HYDRALAZINE HCL 50 MG TABLET PO SCH ×3 (10:21→17:38)
[2019-05-20] MEDS: DILTIAZEM HCL 60 MG TABLET PO SCH ×3 (10:21→17:38)
[2019-05-20] MEDS: APIXABAN 2.5 MG TABLET PO SCH ×2 (10:21→17:38)
[2019-05-20] MEDS: SODIUM BICARBONATE 650 MG TABLET PO SCH ×3 (10:21→17:38)
[2019-05-20] MEDS: FAMOTIDINE 20 MG TABLET PO SCH ×2 (10:21→22:05)
[2019-05-20] MEDS: DULOXETINE HCL 30 MG CAPSULE.DR PO SCH (10:21)
[2019-05-20] MEDS: CEFTRIAXONE 1 GM/D5W RTU 1 GM/50 ML RTUPB IV SCH (17:37)
--- NOTE | 2019-05-20 19:56 | PDOC PROGRESS REPORT ---
Subjective Progress Note for:: 05/20/19 Subjective:: Patient seen by the bedside she continues to be confused, the plan is to get her transferred to senior living home on discharge Reason For Visit: UTI Physical Exam Vital Signs: Temp Pulse Resp BP Pulse Ox 97.7 F 98 16 166/85 H 99 05/20/19 11:49 05/20/19 14:00 05/20/19 11:49 05/20/19 11:49 05/20/19 11:49 Intake & Output 05/19/19 05/20/19 05/21/19 06:59 06:59 06:59 Intake Total 2950 885 1508 Output Total 100 Balance 7596 372 8790 Weight 43 kg 42.3 kg General appearance: PRESENT: no acute distress Eye exam: PRESENT: PERRLA Respiratory exam: PRESENT: clear to auscultation alexandro Cardiovascular exam: PRESENT: +S1, +S2 GI/Abdominal exam: PRESENT: soft Neurological exam: PRESENT: alert Results Laboratory Results: 05/20/19 04:08 05/20/19 04:08 05/20/19 05/20/19 04:08 04:08 WBC 4.6 RBC 3.47 L Hgb 10.1 L Hct 30.3 L MCV 87 MCH 29.1 MCHC 33.3 RDW 17.6 H Plt Count 180 Seg Neutrophils % 64.5 Sodium 138.7 Potassium 5.0 Chloride 103 Carbon Dioxide 30 Anion Gap 6 BUN 33 H Creatinine 1.98 H Est GFR ( Amer) 29 L Glucose 86 Calcium 10.0 Total Bilirubin < 0.1 L AST 17 Alkaline Phosphatase 54 Total Protein 5.5 L Albumin 3.0 L 05/16/19 05/16/19 14:34 19:00 Troponin I 0.080 0.083 Impressions: Head CT 05/16/19 15:14 IMPRESSION: CHRONIC CHANGES OF ATROPHY AND MICROVASCULAR ISCHEMIA. NO ACUTE PROCESS. EVIDENCE OF ACUTE STROKE: NO. Abdomen/Pelvis CT 05/16/19 17:30 IMPRESSION: MULTIPLE CORTICAL CYSTS IN BOTH KIDNEYS. NO OTHER SIGNIFICANT OR ACUTE PROCESS IN THE ABDOMEN OR PELVIS. Assessment & Plan - Diagnosis (1) Dehydration Is this a current diagnosis for this admission?: Yes Plan: Continue fluid therapy (2) Chronic kidney disease, stage 4 (severe) Is this a current diagnosis for this admission?: Yes (3) Adult failure to thrive Is this a current diagnosis for this admission?: Yes (4) Acquired polycystic kidney disease Is this a current diagnosis for this admission?: Yes (5) Underweight Is this a current diagnosis for this admission?: Yes (6) Chronic atrial fibrillation Is this a current diagnosis for this admission?: Yes (7) Delirium Is this a current diagnosis for this admission?: Yes - Time Time Spent with patient: 25-34 minutes
[2019-05-21] MEDS: PREGABALIN 50 MG CAPSULE PO SCH ×3 (05:31→22:31)
[2019-05-21] MEDS: HYDRALAZINE HCL 50 MG TABLET PO SCH ×3 (10:22→22:37)
[2019-05-21] MEDS: FAMOTIDINE 20 MG TABLET PO SCH ×2 (10:23→22:32)
[2019-05-21] MEDS: SODIUM BICARBONATE 650 MG TABLET PO SCH ×3 (10:23→17:19)
[2019-05-21] MEDS: DULOXETINE HCL 30 MG CAPSULE.DR PO SCH (10:23)
[2019-05-21] MEDS: APIXABAN 2.5 MG TABLET PO SCH ×2 (10:23→17:19)
[2019-05-21] MEDS: DILTIAZEM HCL 60 MG TABLET PO SCH ×3 (10:23→22:36)
[2019-05-21] MEDS: CEFTRIAXONE 1 GM/D5W RTU 1 GM/50 ML RTUPB IV SCH (17:19)
[2019-05-21] MEDS: NORMAL SALINE 1000 ML 1,000 ML IV PRN (17:20)
--- NOTE | 2019-05-21 19:58 | PDOC PROGRESS REPORT ---
Subjective Progress Note for:: 05/21/19 Subjective:: Patient seen by the bedside she continues to be confused, the plan is to get her transferred to retirement home on discharge Reason For Visit: UTI Physical Exam Vital Signs: Temp Pulse Resp BP Pulse Ox 98.0 F 95 16 144/71 H 100 05/21/19 08:02 05/21/19 14:00 05/21/19 08:02 05/21/19 08:02 05/21/19 08:02 Intake & Output 05/20/19 05/21/19 05/22/19 06:59 06:59 06:59 Intake Total 709 1999 168 Balance 709 1999 168 Weight 42.3 kg 41.7 kg 41.7 kg General appearance: PRESENT: no acute distress Eye exam: PRESENT: PERRLA Respiratory exam: PRESENT: clear to auscultation alexandro Cardiovascular exam: PRESENT: +S1, +S2 Neurological exam: PRESENT: alert Results Laboratory Results: 05/20/19 04:08 05/20/19 04:08 05/16/19 18:30 Blood Blood Culture - Final NO GROWTH IN 5 DAYS 05/16/19 19:08 Blood Blood Culture - Final NO GROWTH IN 5 DAYS 05/16/19 05/16/19 14:34 19:00 Troponin I 0.080 0.083 Impressions: Head CT 05/16/19 15:14 IMPRESSION: CHRONIC CHANGES OF ATROPHY AND MICROVASCULAR ISCHEMIA. NO ACUTE PROCESS. EVIDENCE OF ACUTE STROKE: NO. Abdomen/Pelvis CT 05/16/19 17:30 IMPRESSION: MULTIPLE CORTICAL CYSTS IN BOTH KIDNEYS. NO OTHER SIGNIFICANT OR ACUTE PROCESS IN THE ABDOMEN OR PELVIS. Assessment & Plan - Diagnosis (1) Dehydration Is this a current diagnosis for this admission?: Yes Plan: Continue fluid therapy (2) Chronic kidney disease, stage 4 (severe) Is this a current diagnosis for this admission?: Yes (3) Adult failure to thrive Is this a current diagnosis for this admission?: Yes (4) Acquired polycystic kidney disease Is this a current diagnosis for this admission?: Yes (5) Underweight Is this a current diagnosis for this admission?: Yes (6) Chronic atrial fibrillation Is this a current diagnosis for this admission?: Yes (7) Delirium Is this a current diagnosis for this admission?: Yes - Time Time Spent with patient: 25-34 minutes
[2019-05-22] MEDS: DILTIAZEM HCL 60 MG TABLET PO SCH ×3 (06:55→21:46)
[2019-05-22] MEDS: PREGABALIN 50 MG CAPSULE PO SCH ×3 (06:58→21:46)
[2019-05-22] MEDS: HYDRALAZINE HCL 50 MG TABLET PO SCH ×3 (06:58→21:46)
[2019-05-22] MEDS: NORMAL SALINE 1000 ML 1,000 ML IV PRN ×2 (08:46→21:47)
[2019-05-22] MEDS: APIXABAN 2.5 MG TABLET PO SCH ×2 (10:24→18:37)
[2019-05-22] MEDS: FAMOTIDINE 20 MG TABLET PO SCH ×2 (10:24→21:46)
[2019-05-22] MEDS: SODIUM BICARBONATE 650 MG TABLET PO SCH ×3 (10:24→18:37)
[2019-05-22] MEDS: DULOXETINE HCL 30 MG CAPSULE.DR PO SCH (10:24)
--- NOTE | 2019-05-22 15:44 | PDOC PROGRESS REPORT ---
Subjective Progress Note for:: 05/22/19 Subjective:: Patient seen by the bedside, her condition is about the same, awaiting placement in a halfway home. Reason For Visit: UTI Physical Exam Vital Signs: Temp Pulse Resp BP Pulse Ox 97.5 F 89 16 161/74 H 99 05/22/19 13:00 05/22/19 14:00 05/22/19 13:00 05/22/19 13:00 05/22/19 13:00 Intake & Output 05/21/19 05/22/19 05/23/19 06:59 06:59 06:59 Intake Total 1999 378 1360 Balance 1999 378 1360 Weight 41.7 kg 42.6 kg General appearance: PRESENT: no acute distress Eye exam: PRESENT: PERRLA Respiratory exam: PRESENT: clear to auscultation alexandro Cardiovascular exam: PRESENT: +S1, +S2 GI/Abdominal exam: PRESENT: soft Neurological exam: PRESENT: alert Results Laboratory Results: 05/20/19 04:08 05/20/19 04:08 05/16/19 18:30 Blood Blood Culture - Final NO GROWTH IN 5 DAYS 05/16/19 19:08 Blood Blood Culture - Final NO GROWTH IN 5 DAYS 05/16/19 05/16/19 14:34 19:00 Troponin I 0.080 0.083 Impressions: Head CT 05/16/19 15:14 IMPRESSION: CHRONIC CHANGES OF ATROPHY AND MICROVASCULAR ISCHEMIA. NO ACUTE PROCESS. EVIDENCE OF ACUTE STROKE: NO. Abdomen/Pelvis CT 05/16/19 17:30 IMPRESSION: MULTIPLE CORTICAL CYSTS IN BOTH KIDNEYS. NO OTHER SIGNIFICANT OR ACUTE PROCESS IN THE ABDOMEN OR PELVIS. Assessment & Plan - Diagnosis (1) Dehydration Is this a current diagnosis for this admission?: Yes (2) Chronic kidney disease, stage 4 (severe) Is this a current diagnosis for this admission?: Yes (3) Adult failure to thrive Is this a current diagnosis for this admission?: Yes (4) Acquired polycystic kidney disease Is this a current diagnosis for this admission?: Yes (5) Underweight Is this a current diagnosis for this admission?: Yes (6) Chronic atrial fibrillation Is this a current diagnosis for this admission?: Yes (7) Delirium Is this a current diagnosis for this admission?: Yes - Time Time Spent with patient: Less than 15 minutes
[2019-05-22] MEDS: CEFTRIAXONE 1 GM/D5W RTU 1 GM/50 ML RTUPB IV SCH (18:37)
[2019-05-23] MEDS: DILTIAZEM HCL 60 MG TABLET PO SCH ×3 (06:16→22:12)
[2019-05-23] MEDS: HYDRALAZINE HCL 50 MG TABLET PO SCH ×3 (06:16→22:12)
[2019-05-23] MEDS: PREGABALIN 50 MG CAPSULE PO SCH ×3 (06:16→22:12)
[2019-05-23] MEDS: SODIUM BICARBONATE 650 MG TABLET PO SCH ×3 (09:50→17:35)
[2019-05-23] MEDS: FAMOTIDINE 20 MG TABLET PO SCH ×2 (09:50→22:12)
[2019-05-23] MEDS: DULOXETINE HCL 30 MG CAPSULE.DR PO SCH (09:50)
[2019-05-23] MEDS: APIXABAN 2.5 MG TABLET PO SCH ×2 (09:50→17:35)
--- NOTE | 2019-05-23 13:25 | PDOC PROGRESS REPORT ---
Subjective Progress Note for:: 05/23/19 Subjective:: Patient seen by the bedside very sleepy but arousable Reason For Visit: UTI Physical Exam Vital Signs: Temp Pulse Resp BP Pulse Ox 97.8 F 82 15 138/67 H 99 05/23/19 12:13 05/23/19 12:13 05/23/19 12:13 05/23/19 12:13 05/23/19 12:13 Intake & Output 05/22/19 05/23/19 05/24/19 06:59 06:59 06:59 Intake Total 378 3131 237 Balance 378 3131 237 Weight 42.6 kg 42.9 kg General appearance: PRESENT: no acute distress Eye exam: PRESENT: PERRLA Respiratory exam: PRESENT: clear to auscultation alexandro Cardiovascular exam: PRESENT: +S1, +S2 GI/Abdominal exam: PRESENT: soft Neurological exam: PRESENT: alert Results Laboratory Results: 05/20/19 04:08 05/20/19 04:08 05/16/19 05/16/19 14:34 19:00 Troponin I 0.080 0.083 Impressions: Head CT 05/16/19 15:14 IMPRESSION: CHRONIC CHANGES OF ATROPHY AND MICROVASCULAR ISCHEMIA. NO ACUTE PROCESS. EVIDENCE OF ACUTE STROKE: NO. Abdomen/Pelvis CT 05/16/19 17:30 IMPRESSION: MULTIPLE CORTICAL CYSTS IN BOTH KIDNEYS. NO OTHER SIGNIFICANT OR ACUTE PROCESS IN THE ABDOMEN OR PELVIS. Assessment & Plan - Diagnosis (1) Dehydration Is this a current diagnosis for this admission?: Yes (2) Chronic kidney disease, stage 4 (severe) Is this a current diagnosis for this admission?: Yes (3) Adult failure to thrive Is this a current diagnosis for this admission?: Yes (4) Acquired polycystic kidney disease Is this a current diagnosis for this admission?: Yes (5) Underweight Is this a current diagnosis for this admission?: Yes (6) Chronic atrial fibrillation Is this a current diagnosis for this admission?: Yes (7) Delirium Is this a current diagnosis for this admission?: Yes - Time Time Spent with patient: 15-24 minutes Level of Care: MEDICAL
[2019-05-23 15:05] LABS: ABSOLUTE EOSINOPHILS # (AUTO) 0.1 10^3/uL (0.0-0.6); ABSOLUTE LYMPHOCYTES (AUTO) 0.5 10^3/uL (0.5-4.7); ABSOLUTE MONOCYTES (AUTO) 0.6 10^3/uL (0.1-1.4); ABSOLUTE NEUT (AUTO) 2.4 10^3/uL (1.7-8.2); EOSINOPHILS % (AUTO) 2.5 % (0-6); HEMATOCRIT 30.3 % (36.0-47.0); HEMOGLOBIN 10.1 g/dL (12.0-15.5); LYMPHOCYTES % (AUTO) 14.2 % (13-45); MEAN CORPUSCULAR HEMOGLOBIN 29.3 pg (27.0-33.4); MEAN CORPUSCULAR HGB CONC 33.3 g/dL (32.0-36.0); MEAN CORPUSCULAR VOLUME 88 fl (80-97); PLATELET COUNT 169 10^3/uL (150-450); RED BLOOD COUNT 3.45 10^6/uL (3.72-5.28); RED CELL DISTRIBUTION WIDTH 18.2 % (11.5-14.0); SEGMENTED NEUTROPHILS % (AUTO) 65.3 % (42-78); TOTAL CELLS COUNTED % (AUTO) 100 %; WHITE BLOOD COUNT 3.7 10^3/uL (4.0-10.5)
[2019-05-23 15:23] LABS: ANION GAP 10 (5-19); BLOOD UREA NITROGEN 49 mg/dL (7-20); CALCIUM 10.2 mg/dL (8.4-10.2); CARBON DIOXIDE 24 mmol/L (22-30); CHLORIDE 108 mmol/L (98-107); GLUCOSE 110 mg/dL (75-110); POTASSIUM 5.2 mmol/L (3.6-5.0)
[2019-05-23] MEDS: NORMAL SALINE 1000 ML 1,000 ML IV PRN (16:20)
[2019-05-23] MEDS: CEFTRIAXONE 1 GM/D5W RTU 1 GM/50 ML RTUPB IV SCH (17:34)
[2019-05-24] MEDS: NORMAL SALINE 1000 ML 1,000 ML IV PRN ×2 (03:54→18:15)
[2019-05-24] MEDS: DILTIAZEM HCL 60 MG TABLET PO SCH ×3 (05:49→21:59)
[2019-05-24] MEDS: PREGABALIN 50 MG CAPSULE PO SCH ×3 (05:49→21:59)
[2019-05-24] MEDS: HYDRALAZINE HCL 50 MG TABLET PO SCH ×3 (05:49→21:59)
[2019-05-24] MEDS: APIXABAN 2.5 MG TABLET PO SCH ×2 (09:27→17:29)
[2019-05-24] MEDS: DULOXETINE HCL 30 MG CAPSULE.DR PO SCH (09:27)
[2019-05-24] MEDS: SODIUM BICARBONATE 650 MG TABLET PO SCH ×3 (09:27→17:29)
[2019-05-24] MEDS: FAMOTIDINE 20 MG TABLET PO SCH (09:27)
[2019-05-24] MEDS ORDERED: ACETAMINOPHEN 325 MG TABLET PO PRN (15:12)
--- NOTE | 2019-05-24 20:53 | PDOC PROGRESS REPORT ---
Subjective Progress Note for:: 05/24/19 Subjective:: Patient is ready for discharge as soon as discharge planning get a place for her to go to Reason For Visit: UTI Physical Exam Vital Signs: Temp Pulse Resp BP Pulse Ox 97.9 F 93 16 148/77 H 97 05/24/19 15:55 05/24/19 15:55 05/24/19 15:55 05/24/19 15:55 05/24/19 15:55 Intake & Output 05/23/19 05/24/19 05/25/19 06:59 06:59 06:59 Intake Total 3131 3148 1473 Output Total 800 600 Balance 3131 2348 873 Weight 42.9 kg 43.8 kg General appearance: PRESENT: no acute distress Eye exam: PRESENT: PERRLA Respiratory exam: PRESENT: clear to auscultation alexandro Cardiovascular exam: PRESENT: +S1, +S2 GI/Abdominal exam: PRESENT: soft Neurological exam: PRESENT: alert Results Laboratory Results: 05/23/19 14:54 05/23/19 14:54 05/16/19 05/16/19 14:34 19:00 Troponin I 0.080 0.083 Impressions: Head CT 05/16/19 15:14 IMPRESSION: CHRONIC CHANGES OF ATROPHY AND MICROVASCULAR ISCHEMIA. NO ACUTE PROCESS. EVIDENCE OF ACUTE STROKE: NO. Abdomen/Pelvis CT 05/16/19 17:30 IMPRESSION: MULTIPLE CORTICAL CYSTS IN BOTH KIDNEYS. NO OTHER SIGNIFICANT OR ACUTE PROCESS IN THE ABDOMEN OR PELVIS. Assessment & Plan - Diagnosis (1) Dehydration Is this a current diagnosis for this admission?: Yes (2) Chronic kidney disease, stage 4 (severe) Is this a current diagnosis for this admission?: Yes (3) Adult failure to thrive Is this a current diagnosis for this admission?: Yes (4) Acquired polycystic kidney disease Is this a current diagnosis for this admission?: Yes (5) Underweight Is this a current diagnosis for this admission?: Yes (6) Chronic atrial fibrillation Is this a current diagnosis for this admission?: Yes (7) Delirium Is this a current diagnosis for this admission?: Yes - Time Time Spent with patient: 15-24 minutes
[2019-05-25] MEDS: HYDRALAZINE HCL 50 MG TABLET PO SCH ×3 (05:29→21:53)
[2019-05-25] MEDS: PREGABALIN 50 MG CAPSULE PO SCH ×3 (05:29→21:53)
[2019-05-25] MEDS: DILTIAZEM HCL 60 MG TABLET PO SCH ×3 (05:29→21:53)
[2019-05-25] MEDS: NORMAL SALINE 1000 ML 1,000 ML IV PRN ×2 (09:36→22:43)
[2019-05-25] MEDS: FAMOTIDINE 20 MG TABLET PO SCH (09:36)
[2019-05-25] MEDS: DULOXETINE HCL 30 MG CAPSULE.DR PO SCH (09:36)
[2019-05-25] MEDS: APIXABAN 2.5 MG TABLET PO SCH ×2 (09:36→18:31)
[2019-05-25] MEDS: SODIUM BICARBONATE 650 MG TABLET PO SCH ×3 (09:36→18:31)
[2019-05-25] MEDS ORDERED: FAMOTIDINE 20 MG TABLET PO SCH (10:00)
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
[2019-05-26] MEDS: PREGABALIN 50 MG CAPSULE PO SCH (05:18)
[2019-05-26] MEDS: DILTIAZEM HCL 60 MG TABLET PO SCH (05:18)
[2019-05-26] MEDS: HYDRALAZINE HCL 50 MG TABLET PO SCH (05:18)
[2019-05-26] MEDS: DULOXETINE HCL 30 MG CAPSULE.DR PO SCH (10:03)
[2019-05-26] MEDS: SODIUM BICARBONATE 650 MG TABLET PO SCH (10:03)
[2019-05-26] MEDS: APIXABAN 2.5 MG TABLET PO SCH (10:03)
[2019-05-26] MEDS: FAMOTIDINE 20 MG TABLET PO SCH (10:03)
[2019-05-26 19:28] VITALS: BP 152/69
== END 2019-05-26 13:08 | DRG 690 ==
LOC: ER 13:38 → EH 16:56 → 4N 18:52 → OBSVTOIN 05-20 09:25
PROVIDERS: ADMIT Internal Medicine; ATTEND Internal Medicine
DX: N39.0 Urinary tract infection, site not specified (principal); N18.4 Chronic kidney disease, stage 4 (severe); I48.20 Chronic atrial fibrillation, unspecified; N17.9 Acute kidney failure, unspecified; E86.0 Dehydration; R62.7 Adult failure to thrive; N28.9 Disorder of kidney and ureter, unspecified; R63.6 Underweight; R41.0 Disorientation, unspecified; Z68.1 Body mass index [BMI] 19.9 or less, adult; Z79.01 Long term (current) use of anticoagulants
CPT/HCPCS: 36415; 70450; 74176; 80048; 80053; 81001; 84484; 85025; 87040; 87086; 87088; 87186; 90686; 93005; 93010; 96365; 99285; G0378; J0696; J3490; J7030

== ENCOUNTER 2019-06-07 15:02 | Inpatient (IN) | payer MEDICARE ==
[2019-06-07 15:52] LABS: ABSOLUTE EOSINOPHILS # (AUTO) 0.1 10^3/uL (0.0-0.6); ABSOLUTE LYMPHOCYTES (AUTO) 0.8 10^3/uL (0.5-4.7); ABSOLUTE MONOCYTES (AUTO) 0.4 10^3/uL (0.1-1.4); ABSOLUTE NEUT (AUTO) 2.6 10^3/uL (1.7-8.2); EOSINOPHILS % (AUTO) 1.8 % (0-6); HEMATOCRIT 35.2 % (36.0-47.0); HEMOGLOBIN 11.7 g/dL (12.0-15.5); LYMPHOCYTES % (AUTO) 21.4 % (13-45); MEAN CORPUSCULAR HEMOGLOBIN 29.4 pg (27.0-33.4); MEAN CORPUSCULAR HGB CONC 33.3 g/dL (32.0-36.0); MEAN CORPUSCULAR VOLUME 88 fl (80-97); MONOCYTES % (AUTO) 10.5 % (3-13); PLATELET COUNT 271 10^3/uL (150-450); RED BLOOD COUNT 3.99 10^6/uL (3.72-5.28); RED CELL DISTRIBUTION WIDTH 18.8 % (11.5-14.0); SEGMENTED NEUTROPHILS % (AUTO) 65.3 % (42-78); TOTAL CELLS COUNTED % (AUTO) 100 %; WHITE BLOOD COUNT 3.9 10^3/uL (4.0-10.5)
[2019-06-07 16:24] LABS: ALBUMIN 4.4 g/dL (3.5-5.0); ALKALINE PHOSPHATASE 74 U/L (38-126); ANION GAP 12 (5-19); ASPARTATE AMINO TRANSFERASE 26 U/L (14-36); BILIRUBIN,DIRECT 0.2 mg/dL (0.0-0.4); BILIRUBIN,TOTAL 0.4 mg/dL (0.2-1.3); BLOOD UREA NITROGEN 61 mg/dL (7-20); CALCIUM 11.3 mg/dL (8.4-10.2); CARBON DIOXIDE 26 mmol/L (22-30); CHLORIDE 103 mmol/L (98-107); GLUCOSE 129 mg/dL (75-110); TOTAL PROTEIN 8.4 g/dL (6.3-8.2)
[2019-06-07 16:28] LABS: POTASSIUM 6.3 mmol/L (3.6-5.0)
[2019-06-07] MEDS ORDERED: DEXTROSE 50%-WATER 25 GM/50 ML DISP.SYRIN IV ONE ×2 (16:31→22:00)
[2019-06-07] MEDS ORDERED: INSULIN REG, HUMAN 100 UNIT/ML 3 ML VIAL (PYX) IV ONE ×2 (16:31→22:00)
[2019-06-07] MEDS ORDERED: NORMAL SALINE 1000 ML 1,000 ML IV ONE (16:31)
--- NOTE | 2019-06-07 16:58 | ER Document Report ---
ED General - General Chief Complaint: Abnormal Lab Results Stated Complaint: ABNORMAL LABS Time Seen by Provider: 06/07/19 16:29 Primary Care Provider: VICTORIANO MATTSON MD [Primary Care Provider] - Follow up as needed Notes: Patient is an 84-year-old female from [facility] who presents to the emergency department with a 6.4 potassium via outpatient labs. She was referred here to the emergency department. Patient denies any chest pain, difficulty breathing, or any other symptoms. Patient's past medical history includes urinary tract infection, congestive heart failure, atrial fibrillation, chronic kidney disease stage III, hypertension, and dehydration. TRAVEL OUTSIDE OF THE [place] IN LAST 30 DAYS: No - Related Data Allergies/Adverse Reactions: No Known Allergies Allergy (Verified 02/20/19 12:00) Home Medications: apixaban 2.5mg bid. hydralazine 50mg q8hr. diltiazem 60mg q8hr. duloxetine 30mg. sodium bicarbonate 650mg tid. calcitriol 0.25mcg. latanoprost 1 drop ou Past Medical History - General Information source: Patient, [facility] Records - Social History Smoking Status: Unknown if Ever Smoked Family History: Reviewed & Not Pertinent Patient has suicidal ideation: No Patient has homicidal ideation: No - Past Medical History Cardiac Medical History: Reports: Hx Atrial Fibrillation, Hx DVT, Hx Hypertension Denies: Hx Heart Attack Pulmonary Medical History: Reports: Hx COPD Denies: Hx Asthma, Hx Tuberculosis Neurological Medical History: Denies: Hx Cerebrovascular Accident, Hx Seizures Renal/ Medical History: Reports: Hx Renal Insufficiency. Denies: Hx Peritoneal Dialysis GI Medical History: Denies: Hx Hepatitis, Hx Hiatal Hernia, Hx Ulcer Musculoskeletal Medical History: Reports Hx Arthritis Psychiatric Medical History: Denies: Hx Depression Infectious Medical History: Denies: Hx Hepatitis Past Surgical History: Denies: Hx Hysterectomy, Hx Mastectomy, Hx Open Heart Surgery, Hx Pacemaker - Immunizations Immunizations up to date: Yes Hx Diphtheria, Pertussis, Tetanus Vaccination: Yes Hx Pneumococcal Vaccination: 08/06/12 Review of Systems - Review of Systems Notes: REVIEW OF SYSTEMS: CONSTITUTIONAL : Denies recent illness. Denies recent unintentional weight loss. Denies fever, chills, or sweats. EENT: Denies eye, ear, throat, or mouth pain, discharge, or symptoms. Denies nasal or sinus congestion. CARDIOVASCULAR: Denies chest pain. RESPIRATORY: Denies shortness of breath, cough, congestion, difficulty breathing, or wheezing. GASTROINTESTINAL: Denies nausea, vomiting, and diarrhea. Denies abdominal pain. Denies constipation. GENITOURINARY: Denies difficulty urinating, burning, blood in urine, urgency or frequency. MUSCULOSKELETAL: Denies neck and back pain. Denies joint pain or swelling. SKIN: Denies rash, itchiness, or lesions HEMATOLOGIC : Denies easy bruising or bleeding. LYMPHATIC: Denies swollen, painful, enlarged glands. NEUROLOGICAL: Denies no numbness or tingling denies weakness. Denies headache. Denies altered mental status. Denies alteration in speech. PSYCHIATRIC: Denies stress, anxiety, alteration in sleep patterns, or depression. All other systems reviewed and negative. Physical Exam - Vital signs Vitals: Resp Pulse Ox 20 100 06/07/19 15:10 06/07/19 15:10 - Notes Notes: PHYSICAL EXAMINATION: GENERAL: Appears well, healthy, well-nourished, no acute distress. HEAD: Normocephalic, atraumatic. EYES: PERRL, conjunctiva normal, all extraocular movements intact, sclera nonicteric ENT: Moist mucous membranes. NECK: Supple, no noticeable swelling, redness, rash. Normal range of motion. LUNGS: Equal breath sounds bilaterally and clear to auscultation. No wheezes rales or rhonchi. CARDIOVASCULAR: S1-S2, regular rate, regular rhythm. Radial pulses 2+, normal. ABDOMEN: Normoactive bowel sounds. Soft, nontender, no guarding, no rebound tenderness, and no masses palpated. EXTREMITIES: Normal strength and range of motion, no pitting or edema. No cyanosis. NEUROLOGICAL: Moves all extremities upon command. Strength 5/5 in all extremities. PSYCH: Normal mood, normal affect. SKIN: Warm, dry. No rash, lesions, ulcerations noted. Normal skin turgor. Course - Re-evaluation Re-evalutation: 06/07/19 16:59 Patient's potassium is 6.3. Her creatinine is 3.6 and her previous creatinine done on 23 May was 1.96. Patient has worsening renal function. She will be given insulin, D50, and a liter of fluids. Hematology is unremarkable. No anemia noted. 06/07/19 17:[address] Mattson, the patient will be admitted to [facility]. - Vital Signs Vital signs: Temp Pulse Resp BP Pulse Ox 97.9 F 22 H 154/81 H 100 06/07/19 15:36 06/07/19 17:01 06/07/19 17:00 06/07/19 17:01 - Laboratory Result Diagrams: 06/07/19 15:15 06/07/19 15:15 Laboratory results interpreted by me: 06/07/19 06/07/19 15:15 15:15 WBC 3.9 L Hgb 11.7 L Hct 35.2 L RDW 18.8 H Potassium 6.3 H* BUN 61 H Creatinine 3.60 H Est GFR ( Amer) 15 L Est GFR (MDRD) Non-Af 12 L Glucose 129 H Calcium 11.3 H Total Protein 8.4 H - EKG Interpretation by Me Additional EKG results interpreted by me: 06/07/19 17:02 Discharge - Discharge Clinical Impression: Hyperkalemia Acute on chronic renal failure Qualifiers: Acute renal failure type: unspecified Chronic kidney disease stage: unspecified stage Qualified Code(s): N17.9 - Acute kidney failure, unspecified Condition: Stable Disposition: ADMITTED INPATIENT Admitting Provider: [facility] Unit Admitted: [facility] Referrals: VICTORIANO MATTSON MD [Primary Care Provider] - Follow up as needed
[2019-06-07 20:38] LABS: CREATINE KINASE MB 0.47 ng/mL (<4.55); TROPONIN I 0.014 ng/mL
[2019-06-07 20:50] LABS: INTERNATIONAL RATION (INR) 1.17; PROTHROMBIN TIME 14.9 SEC (11.4-15.4)
[2019-06-07 21:01] LABS: ALBUMIN 3.4 g/dL (3.5-5.0); ALKALINE PHOSPHATASE 64 U/L (38-126); AMYLASE 244 U/L (30-110); ANION GAP 8 (5-19); ASPARTATE AMINO TRANSFERASE 21 U/L (14-36); BILIRUBIN,DIRECT 0.1 mg/dL (0.0-0.4); BILIRUBIN,TOTAL 0.2 mg/dL (0.2-1.3); BLOOD UREA NITROGEN 56 mg/dL (7-20); CALCIUM 10.2 mg/dL (8.4-10.2); CARBON DIOXIDE 23 mmol/L (22-30); CHLORIDE 108 mmol/L (98-107); PHOSPHORUS 4.2 mg/dL (2.5-4.5); TOTAL PROTEIN 6.5 g/dL (6.3-8.2)
[2019-06-07 21:05] LABS: GLUCOSE 66 mg/dL (75-110)
[2019-06-07 21:17] LABS: FREE T4 (FREE THYROXINE) 1.05 ng/dL (0.78-2.19)
[2019-06-07 21:28] LABS: ABSOLUTE EOSINOPHILS # (AUTO) 0.1 10^3/uL (0.0-0.6); ABSOLUTE LYMPHOCYTES (AUTO) 0.4 10^3/uL (0.5-4.7); ABSOLUTE MONOCYTES (AUTO) 0.4 10^3/uL (0.1-1.4); ABSOLUTE NEUT (AUTO) 4.2 10^3/uL (1.7-8.2); BASOPHILS % (AUTO) 0.2 % (0-2); EOSINOPHILS % (AUTO) 1.2 % (0-6); HEMATOCRIT 30.5 % (36.0-47.0); LYMPHOCYTES % (AUTO) 8.2 % (13-45); MEAN CORPUSCULAR HEMOGLOBIN 29.3 pg (27.0-33.4); MEAN CORPUSCULAR HGB CONC 32.8 g/dL (32.0-36.0); MEAN CORPUSCULAR VOLUME 89 fl (80-97); MONOCYTES % (AUTO) 8.6 % (3-13); PLATELET COUNT 208 10^3/uL (150-450); RED BLOOD COUNT 3.42 10^6/uL (3.72-5.28); RED CELL DISTRIBUTION WIDTH 17.5 % (11.5-14.0); SEGMENTED NEUTROPHILS % (AUTO) 81.8 % (42-78); TOTAL CELLS COUNTED % (AUTO) 100 %; WHITE BLOOD COUNT 5.2 10^3/uL (4.0-10.5)
[2019-06-07 21:31] LABS: THYROID STIMULATING HORMONE 1.14 uIU/mL (0.47-4.68)
--- NOTE | 2019-06-07 21:48 | PDOC H&P ---
History of Present Illness Admission Date/PCP: 06/07/19 17:12 VICTORIANO MATTSON MD History of Present Illness: LOU CLEMENTE is a 84 year old female,, She has a history of chronic kidney disease stage III, chronic atrial fibrillation, she was transferred from the senior care at [facility] to the emergency room for evaluation of acute kidney injury associated with hyperkalemia, the serum creatinine was 3.60 with a potassium of 6.3, the serum creatinine back on May 23, 2019 was 1.96 so clearly there is worsening kidney function. She has underlining chronic kidney disease, she does not want renal replacement therapy that is no dialysis or kidney transplant. She is not symptomatic from this abnormal lab data Past Medical History Cardiac Medical History: Reports: Atrial Fibrillation, DVT, Hypertension Pulmonary Medical History: Reports: Chronic Obstructive Pulmonary Disease (COPD) Neurological Medical History: Denies: Seizures Musculoskeltal Medical History: Reports: Arthritis Psychiatric Medical History: Denies: Depression Social History Smoking Status: Unknown if Ever Smoked Frequency of Alcohol Use: None Hx Recreational Drug Use: No Drugs: None Hx Prescription Drug Abuse: No Family History Family History: Reviewed & Not Pertinent Parental Family History Reviewed: Yes Children Family History Reviewed: Yes Sibling(s) Family History Reviewed.: Yes Medication/Allergy Home Medications: Acetaminophen [Tylenol 325 mg Tablet] 650 mg PO Q6HP PRN 06/07/19 Apixaban [Eliquis 2.5 mg Tablet] 2.5 mg PO Q12 06/07/19 Calcitriol [Rocaltrol 0.25 Mcg Capsule] 1 cap PO DAILY 06/07/19 Diltiazem HCl [Cardizem 60 mg Tablet] 60 mg PO Q8 06/07/19 Duloxetine HCl [Cymbalta 30 mg Capsule.dr] 30 mg PO DAILY 06/07/19 Famotidine [Pepcid 20 mg Tablet] 20 mg PO DAILY 06/07/19 Hydralazine HCl [Apresoline 50 mg Tablet] 50 mg PO Q8 06/07/19 Ipratropium/Albuterol Sulfate [Duoneb 3 ml Ampul] 3 ml NEB RTQ6HP PRN 06/07/19 Latanoprost [Xalatan 0.005% Oph Soln 2.5 ml] 1 drop OU QHS 06/07/19 Pregabalin [Lyrica 50 Mg Capsule] 50 mg PO Q8 06/07/19 Sodium Bicarbonate [Sodium Bicarbonate 650 mg Tablet] 650 mg PO Q8 06/07/19 Allergies/Adverse Reactions: No Known Allergies Allergy (Verified 02/20/19 12:00) Review of Systems Constitutional: ABSENT: chills, fever(s), headache(s), weight gain, weight loss Eyes: ABSENT: visual disturbances Ears: ABSENT: hearing changes Cardiovascular: ABSENT: chest pain, dyspnea on exertion, edema, orthropnea, palpitations Respiratory: ABSENT: cough, hemoptysis Gastrointestinal: ABSENT: abdominal pain, constipation, diarrhea, hematemesis, hematochezia, nausea, vomiting Genitourinary: ABSENT: dysuria, hematuria Musculoskeletal: ABSENT: joint swelling Integumentary: ABSENT: rash, wounds Neurological: ABSENT: abnormal gait, abnormal speech, confusion, dizziness, focal weakness, syncope Psychiatric: ABSENT: anxiety, depression, homidical ideation, suicidal ideation Endocrine: ABSENT: cold intolerance, heat intolerance, menstrual abnormalities, polydipsia, polyuria Hematologic/Lymphatic: ABSENT: easy bleeding, easy bruising, lymphadenopathy Physical Exam Vital Signs: Temp Pulse Resp BP Pulse Ox 97.3 F 87 16 119/78 96 06/07/19 19:16 06/07/19 19:16 06/07/19 19:16 06/07/19 19:16 06/07/19 19:16 Intake & Output 06/06/19 06/07/19 06/08/19 06:59 06:59 06:59 Intake Total 1000 Balance 1000 Weight 40.3 kg General appearance: PRESENT: no acute distress, thin Head exam: PRESENT: atraumatic, normocephalic Eye exam: PRESENT: conjunctiva pink, EOMI, PERRLA Ear exam: PRESENT: normal external ear exam Mouth exam: PRESENT: moist, tongue midline Neck exam: PRESENT: full ROM Cardiovascular exam: PRESENT: RRR, +S1, +S2 Pulses: PRESENT: normal dorsalis pedis pul, +2 pedal pulses bilateral Vascular exam: PRESENT: normal capillary refill GI/Abdominal exam: PRESENT: normal bowel sounds, soft Rectal exam: PRESENT: deferred Neurological exam: PRESENT: alert, CN II-XII grossly intact Psychiatric exam: PRESENT: appropriate affect, normal mood Skin exam: PRESENT: dry, intact, warm Results Laboratory Results: 06/07/19 21:15 06/07/19 20:30 06/07/19 06/07/19 06/07/19 15:15 15:15 20:30 WBC 3.9 L Cancelled RBC 3.99 Cancelled Hgb 11.7 L Cancelled Hct 35.2 L Cancelled MCV 88 Cancelled MCH 29.4 Cancelled MCHC 33.3 Cancelled RDW 18.8 H Cancelled Plt Count 271 Cancelled Seg Neutrophils % 65.3 Cancelled Sodium 140.6 Potassium 6.3 H* Chloride 103 Carbon Dioxide 26 Anion Gap 12 BUN 61 H Creatinine 3.60 H Est GFR ( Amer) 15 L Glucose 129 H Calcium 11.3 H Phosphorus Magnesium Total Bilirubin 0.4 AST 26 Alkaline Phosphatase 74 Ammonia Total Protein 8.4 H Albumin 4.4 Amylase Lipase TSH Free T4 06/07/19 06/07/19 06/07/19 20:30 20:30 20:30 WBC RBC Hgb Hct MCV MCH MCHC RDW Plt Count Seg Neutrophils % Sodium 138.7 Potassium 6.0 H* Chloride 108 H Carbon Dioxide 23 Anion Gap 8 BUN 56 H Creatinine 3.13 H Est GFR ( Amer) 17 L Glucose 66 L Calcium 10.2 Phosphorus 4.2 Magnesium 2.4 H Total Bilirubin 0.2 AST 21 Alkaline Phosphatase 64 Ammonia < 8.7 L Total Protein 6.5 Albumin 3.4 L Amylase 244 H Lipase 640.1 H TSH 1.14 Free T4 1.05 06/07/19 21:15 WBC 5.2 RBC 3.42 L Hgb 10.0 L Hct 30.5 L MCV 89 MCH 29.3 MCHC 32.8 RDW 17.5 H Plt Count 208 Seg Neutrophils % 81.8 H Sodium Potassium Chloride Carbon Dioxide Anion Gap BUN Creatinine Est GFR ( Amer) Glucose Calcium Phosphorus Magnesium Total Bilirubin AST Alkaline Phosphatase Ammonia Total Protein Albumin Amylase Lipase TSH Free T4 06/07/19 06/07/19 06/07/19 15:15 15:15 15:15 Creatine Kinase 37 CK-MB (CK-2) 0.47 Troponin I 0.014 NT-Pro-B Natriuret Pep 236 Assessment & Plan - Diagnosis (1) Acute kidney injury Is this a current diagnosis for this admission?: Yes Plan: She has worsening kidney function this could represent worsening CKD or acute on chronic kidney disease (2) Hyperkalemia Is this a current diagnosis for this admission?: Yes Plan: The hyperkalemia will be treated per protocol she is not acidotic (3) Chronic kidney disease, stage 4 (severe) Is this a current diagnosis for this admission?: Yes (4) Chronic atrial fibrillation Is this a current diagnosis for this admission?: Yes
[2019-06-07] MEDS ORDERED: CALCIUM GLUCONATE 1000 MG/10 ML INJ IV ONE (22:00)
[2019-06-07] MEDS: SODIUM POLYSTYRENE SULFONATE 15 GM/60 ML PO SCH (23:02)
--- NOTE | 2019-06-08 00:05 | EKG REPORT ---
SEVERITY:- ABNORMAL ECG - SINUS RHYTHM LEFT VENTRICULAR HYPERTROPHY : Confirmed by: Bre De La Torre MD 08-Jun-2019 00:04:49
[2019-06-08 02:09] LABS: CREATINE KINASE MB 0.41 ng/mL (<4.55)
[2019-06-08 02:11] LABS: TROPONIN I < 0.012 ng/mL
[2019-06-08 08:17] LABS: ABSOLUTE EOSINOPHILS # (AUTO) 0.1 10^3/uL (0.0-0.6); ABSOLUTE LYMPHOCYTES (AUTO) 0.8 10^3/uL (0.5-4.7); ABSOLUTE MONOCYTES (AUTO) 0.5 10^3/uL (0.1-1.4); ABSOLUTE NEUT (AUTO) 2.3 10^3/uL (1.7-8.2); BASOPHILS % (AUTO) 0.4 % (0-2); EOSINOPHILS % (AUTO) 2.8 % (0-6); HEMATOCRIT 28.9 % (36.0-47.0); HEMOGLOBIN 9.6 g/dL (12.0-15.5); LYMPHOCYTES % (AUTO) 22.6 % (13-45); MEAN CORPUSCULAR HEMOGLOBIN 29.5 pg (27.0-33.4); MEAN CORPUSCULAR HGB CONC 33.2 g/dL (32.0-36.0); MEAN CORPUSCULAR VOLUME 89 fl (80-97); MONOCYTES % (AUTO) 13.5 % (3-13); PLATELET COUNT 212 10^3/uL (150-450); RED BLOOD COUNT 3.26 10^6/uL (3.72-5.28); RED CELL DISTRIBUTION WIDTH 17.8 % (11.5-14.0); SEGMENTED NEUTROPHILS % (AUTO) 60.7 % (42-78); TOTAL CELLS COUNTED % (AUTO) 100 %; WHITE BLOOD COUNT 3.7 10^3/uL (4.0-10.5)
[2019-06-08 08:40] LABS: ALBUMIN 3.4 g/dL (3.5-5.0); ALKALINE PHOSPHATASE 59 U/L (38-126); ANION GAP 6 (5-19); ASPARTATE AMINO TRANSFERASE 23 U/L (14-36); CALCIUM 10.6 mg/dL (8.4-10.2); CARBON DIOXIDE 26 mmol/L (22-30); CHLORIDE 105 mmol/L (98-107); GLUCOSE 76 mg/dL (75-110); TOTAL PROTEIN 6.4 g/dL (6.3-8.2)
[2019-06-08 08:42] LABS: BILIRUBIN,DIRECT 0.1 mg/dL (0.0-0.4); BILIRUBIN,TOTAL 0.3 mg/dL (0.2-1.3); BLOOD UREA NITROGEN 49 mg/dL (7-20); CHOLESTEROL 165.47 mg/dL (0-200); TRIGLYCERIDES 46 mg/dL (<150)
[2019-06-08 08:50] LABS: CREATINE KINASE MB 0.44 ng/mL (<4.55); TROPONIN I 0.016 ng/mL
[2019-06-08 08:50] LABS: POTASSIUM 6.1 mmol/L (3.6-5.0)
[2019-06-08 08:51] LABS: DIRECT LDL 70 mg/dL (<100)
[2019-06-08] MEDS: SODIUM POLYSTYRENE SULFONATE 15 GM/60 ML PO SCH ×3 (10:23→18:46)
[2019-06-08 11:10] LABS: APPEARANCE,URINE CLEAR; BILIRUBIN,URINE NEGATIVE (NEGATIVE); COLOR,URINE YELLOW; GLUCOSE, URINE NEGATIVE (NEGATIVE); KETONES,URINE NEGATIVE (NEGATIVE); LEUKOCYTE ESTERASE,URINE NEGATIVE (NEGATIVE); NITRITE,URINE NEGATIVE (NEGATIVE); PROTEIN,URINE NEGATIVE (NEGATIVE); URINE SPECIFIC GRAVITY 1.013; UROBILINOGEN,URINE NEGATIVE mg/dL (<2.0)
[2019-06-08 11:21] LABS: URINE AMPHETAMINES SCREEN NEGATIVE; URINE BARBITURATES SCREEN NEGATIVE; URINE BENZODIAZEPINES SCREEN NEGATIVE; URINE COCAINE SCREEN NEGATIVE; URINE MARIJUANA (THC) SCREEN NEGATIVE; URINE METHADONE SCREEN NEGATIVE; URINE PHENCYCLIDINE SCREEN NEGATIVE
[2019-06-08 14:51] LABS: ALBUMIN 3.9 g/dL (3.5-5.0); ALKALINE PHOSPHATASE 64 U/L (38-126); ANION GAP 10 (5-19); ASPARTATE AMINO TRANSFERASE 28 U/L (14-36); BILIRUBIN,DIRECT 0.1 mg/dL (0.0-0.4); BILIRUBIN,TOTAL 0.3 mg/dL (0.2-1.3); BLOOD UREA NITROGEN 50 mg/dL (7-20); CALCIUM 11.2 mg/dL (8.4-10.2); CARBON DIOXIDE 25 mmol/L (22-30); CHLORIDE 105 mmol/L (98-107); GLUCOSE 91 mg/dL (75-110); TOTAL PROTEIN 7.1 g/dL (6.3-8.2)
[2019-06-08] MEDS ORDERED: INFLUENZA QUAD (6MOS+) 2019-20 VAC 0.5 ML SYR IM ONE (15:54)
[2019-06-08] MEDS ORDERED: ACETAMINOPHEN 325 MG TABLET PO PRN (22:15)
[2019-06-08] MEDS ORDERED: IPRATROPIUM/ALBUTEROL 0.5-2.5 MG/3 ML AMPUL NEB PRN (22:15)
--- NOTE | 2019-06-08 22:15 | PDOC PROGRESS REPORT ---
Subjective Progress Note for:: 06/08/19 Subjective:: Patient seen by the bedside she was admitted yesterday for the management of hyperkalemia, acute kidney injury Reason For Visit: ACUTE ON CHRONIC KIDNEY FAILURE, HYPERKALEMIA Physical Exam Vital Signs: Temp Pulse Resp BP Pulse Ox 98.2 F 101 H 20 130/77 H 99 06/08/19 19:28 06/08/19 19:28 06/08/19 19:28 06/08/19 19:28 06/08/19 19:28 Intake & Output 06/07/19 06/08/19 06/09/19 06:59 06:59 06:59 Intake Total 1100 828 Output Total 0 100 Balance 1100 728 Weight 40.5 kg 40.5 kg General appearance: PRESENT: no acute distress Eye exam: PRESENT: PERRLA Respiratory exam: PRESENT: crackles Cardiovascular exam: PRESENT: +S1, +S2 GI/Abdominal exam: PRESENT: soft Neurological exam: PRESENT: alert Results Laboratory Results: 06/08/19 07:50 06/08/19 13:36 06/08/19 06/08/19 06/08/19 06:00 07:50 10:40 WBC 3.7 L RBC 3.26 L Hgb 9.6 L Hct 28.9 L MCV 89 MCH 29.5 MCHC 33.2 RDW 17.8 H Plt Count 212 Seg Neutrophils % 60.7 Sodium 137.0 Potassium 6.1 H* Chloride 105 Carbon Dioxide 26 Anion Gap 6 BUN 49 H Creatinine 3.04 H Est GFR ( Amer) 18 L Glucose 76 Calcium 10.6 H Total Bilirubin 0.3 AST 23 Alkaline Phosphatase 59 Total Protein 6.4 Albumin 3.4 L Triglycerides 46 Cholesterol 165.47 LDL Cholesterol Direct 70 VLDL Cholesterol 9.0 L HDL Cholesterol 57 Urine Color YELLOW Urine Appearance CLEAR Urine pH 6.0 Ur Specific [place] 1.013 Urine Protein NEGATIVE Urine Glucose (UA) NEGATIVE Urine Ketones NEGATIVE Urine Blood NEGATIVE Urine Nitrite NEGATIVE Ur Leukocyte Esterase NEGATIVE Urine WBC (Auto) 1 Urine RBC (Auto) 4 06/08/19 06/08/19 13:36 13:36 WBC RBC Hgb Hct MCV MCH MCHC RDW Plt Count Seg Neutrophils % Sodium 140.1 Potassium Cancelled 6.0 H* Chloride 105 Carbon Dioxide 25 Anion Gap 10 BUN 50 H Creatinine 3.02 H Est GFR ( Amer) 18 L Glucose 91 Calcium 11.2 H Total Bilirubin 0.3 AST 28 Alkaline Phosphatase 64 Total Protein 7.1 Albumin 3.9 Triglycerides Cholesterol LDL Cholesterol Direct VLDL Cholesterol HDL Cholesterol Urine Color Urine Appearance Urine pH Ur Specific [place] Urine Protein Urine Glucose (UA) Urine Ketones Urine Blood Urine Nitrite Ur Leukocyte Esterase Urine WBC (Auto) Urine RBC (Auto) 06/07/19 06/07/19 06/07/19 15:15 15:15 15:15 Creatine Kinase 37 CK-MB (CK-2) 0.47 Troponin I 0.014 NT-Pro-B Natriuret Pep 236 06/08/19 06/08/19 06/08/19 01:24 01:24 07:50 Creatine Kinase 25 L 26 L CK-MB (CK-2) 0.41 Troponin I < 0.012 NT-Pro-B Natriuret Pep 06/08/19 07:50 Creatine Kinase CK-MB (CK-2) 0.44 Troponin I 0.016 NT-Pro-B Natriuret Pep Assessment & Plan - Diagnosis (1) Acute kidney injury Is this a current diagnosis for this admission?: Yes Plan: IV fluid normal saline at 100 (2) Hyperkalemia Is this a current diagnosis for this admission?: Yes Plan: Continue Kayexalate (3) Chronic kidney disease, stage 4 (severe) Is this a current diagnosis for this admission?: Yes (4) Chronic atrial fibrillation Is this a current diagnosis for this admission?: Yes - Time Time Spent with patient: 35 or more minutes
[2019-06-08 22:42] LABS: ANION GAP 8 (5-19); BLOOD UREA NITROGEN 52 mg/dL (7-20); CALCIUM 10.2 mg/dL (8.4-10.2); CARBON DIOXIDE 29 mmol/L (22-30); CHLORIDE 103 mmol/L (98-107); GLUCOSE 103 mg/dL (75-110); POTASSIUM 5.4 mmol/L (3.6-5.0)
[2019-06-08] MEDS: PREGABALIN 50 MG CAPSULE PO SCH (22:45)
[2019-06-08] MEDS: DILTIAZEM HCL 60 MG TABLET PO SCH (22:45)
[2019-06-08] MEDS: SODIUM BICARBONATE 650 MG TABLET PO SCH (22:46)
[2019-06-08] MEDS: APIXABAN 2.5 MG TABLET PO SCH (22:46)
[2019-06-08] MEDS: HYDRALAZINE HCL 50 MG TABLET PO SCH (22:46)
[2019-06-08] MEDS: LATANOPROST 0.005% OPH SOLN 2.5 ML OU SCH (22:48)
[2019-06-08] MEDS: NORMAL SALINE 1000 ML 1,000 ML IV PRN (22:54)
[2019-06-09] MEDS: DILTIAZEM HCL 60 MG TABLET PO SCH ×3 (06:45→23:13)
[2019-06-09] MEDS: PREGABALIN 50 MG CAPSULE PO SCH ×3 (06:50→23:14)
[2019-06-09] MEDS: SODIUM BICARBONATE 650 MG TABLET PO SCH ×3 (06:50→23:13)
[2019-06-09] MEDS: HYDRALAZINE HCL 50 MG TABLET PO SCH ×3 (06:50→23:15)
[2019-06-09 08:19] LABS: ABSOLUTE EOSINOPHILS # (AUTO) 0.1 10^3/uL (0.0-0.6); ABSOLUTE LYMPHOCYTES (AUTO) 0.9 10^3/uL (0.5-4.7); ABSOLUTE MONOCYTES (AUTO) 0.4 10^3/uL (0.1-1.4); BASOPHILS % (AUTO) 0.4 % (0-2); HEMATOCRIT 27.7 % (36.0-47.0); HEMOGLOBIN 9.2 g/dL (12.0-15.5); LYMPHOCYTES % (AUTO) 20.9 % (13-45); MEAN CORPUSCULAR HEMOGLOBIN 29.5 pg (27.0-33.4); MEAN CORPUSCULAR HGB CONC 33.3 g/dL (32.0-36.0); MEAN CORPUSCULAR VOLUME 89 fl (80-97); MONOCYTES % (AUTO) 9.2 % (3-13); PLATELET COUNT 191 10^3/uL (150-450); RED BLOOD COUNT 3.12 10^6/uL (3.72-5.28); RED CELL DISTRIBUTION WIDTH 17.5 % (11.5-14.0); SEGMENTED NEUTROPHILS % (AUTO) 67.5 % (42-78); TOTAL CELLS COUNTED % (AUTO) 100 %; WHITE BLOOD COUNT 4.5 10^3/uL (4.0-10.5)
[2019-06-09 09:16] LABS: ALBUMIN 3.1 g/dL (3.5-5.0); ALKALINE PHOSPHATASE 69 U/L (38-126); ANION GAP 9 (5-19); ASPARTATE AMINO TRANSFERASE 28 U/L (14-36); BILIRUBIN,DIRECT 0.2 mg/dL (0.0-0.4); BILIRUBIN,TOTAL 0.2 mg/dL (0.2-1.3); BLOOD UREA NITROGEN 58 mg/dL (7-20); CALCIUM 9.9 mg/dL (8.4-10.2); CARBON DIOXIDE 29 mmol/L (22-30); CHLORIDE 104 mmol/L (98-107); GLUCOSE 89 mg/dL (75-110)
[2019-06-09] MEDS: APIXABAN 2.5 MG TABLET PO SCH ×2 (09:24→23:14)
[2019-06-09] MEDS: DULOXETINE HCL 30 MG CAPSULE.DR PO SCH (09:24)
[2019-06-09] MEDS: FAMOTIDINE 20 MG TABLET PO SCH (09:24)
[2019-06-09] MEDS: NORMAL SALINE 1000 ML 1,000 ML IV PRN (16:34)
--- NOTE | 2019-06-09 20:38 | PDOC PROGRESS REPORT ---
Subjective Progress Note for:: 06/09/19 Subjective:: Patient seen by the bedside, she will continue hydration, it seems that the kidney function is establishing a new baseline creatinine, will hydrate for few more days to determine the new baseline before discharge the serum potassium is corrected Reason For Visit: ACUTE ON CHRONIC KIDNEY FAILURE, HYPERKALEMIA Physical Exam Vital Signs: Temp Pulse Resp BP Pulse Ox 97.5 F 90 16 132/70 H 97 06/09/19 15:31 06/09/19 15:31 06/09/19 15:31 06/09/19 15:31 06/09/19 15:31 Intake & Output 06/08/19 06/09/19 06/10/19 06:59 06:59 06:59 Intake Total 2215 163 5522 Output Total 0 100 Balance 3780 289 0743 Weight 40.5 kg 42.2 kg General appearance: PRESENT: no acute distress Eye exam: PRESENT: PERRLA Respiratory exam: PRESENT: clear to auscultation alexandro Cardiovascular exam: PRESENT: +S1, +S2 GI/Abdominal exam: PRESENT: soft Neurological exam: PRESENT: alert Results Laboratory Results: 06/09/19 03:51 06/09/19 03:51 06/08/19 06/09/19 06/09/19 22:12 03:51 03:51 WBC 4.5 RBC 3.12 L Hgb 9.2 L Hct 27.7 L MCV 89 MCH 29.5 MCHC 33.3 RDW 17.5 H Plt Count 191 Seg Neutrophils % 67.5 Sodium 140.2 142.3 Potassium 5.4 H 5.0 Chloride 103 104 Carbon Dioxide 29 29 Anion Gap 8 9 BUN 52 H 58 H Creatinine 3.09 H 2.99 H Est GFR ( Amer) 17 L 18 L Glucose 103 89 Calcium 10.2 9.9 Total Bilirubin 0.2 AST 28 Alkaline Phosphatase 69 Total Protein 6.0 L Albumin 3.1 L 06/07/19 06/07/19 06/07/19 15:15 15:15 15:15 Creatine Kinase 37 CK-MB (CK-2) 0.47 Troponin I 0.014 NT-Pro-B Natriuret Pep 236 06/08/19 06/08/19 06/08/19 01:24 01:24 07:50 Creatine Kinase 25 L 26 L CK-MB (CK-2) 0.41 Troponin I < 0.012 NT-Pro-B Natriuret Pep 06/08/19 07:50 Creatine Kinase CK-MB (CK-2) 0.44 Troponin I 0.016 NT-Pro-B Natriuret Pep Assessment & Plan - Diagnosis (1) Acute kidney injury Is this a current diagnosis for this admission?: Yes Plan: Improving (2) Hyperkalemia Is this a current diagnosis for this admission?: Yes Plan: Resolved (3) Chronic kidney disease, stage 4 (severe) Is this a current diagnosis for this admission?: Yes Plan: The kidney function is reestablishing a new baseline (4) Chronic atrial fibrillation Is this a current diagnosis for this admission?: Yes Plan: Continue anticoagulant - Time Time Spent with patient: 35 or more minutes Level of Care: CU
[2019-06-09] MEDS: LATANOPROST 0.005% OPH SOLN 2.5 ML OU SCH (23:14)
[2019-06-10 05:08] LABS: ABSOLUTE EOSINOPHILS # (AUTO) 0.1 10^3/uL (0.0-0.6); ABSOLUTE LYMPHOCYTES (AUTO) 0.8 10^3/uL (0.5-4.7); ABSOLUTE MONOCYTES (AUTO) 0.5 10^3/uL (0.1-1.4); ABSOLUTE NEUT (AUTO) 2.4 10^3/uL (1.7-8.2); BASOPHILS % (AUTO) 0.3 % (0-2); EOSINOPHILS % (AUTO) 3.4 % (0-6); HEMATOCRIT 25.5 % (36.0-47.0); HEMOGLOBIN 8.6 g/dL (12.0-15.5); LYMPHOCYTES % (AUTO) 20.5 % (13-45); MEAN CORPUSCULAR HEMOGLOBIN 29.5 pg (27.0-33.4); MEAN CORPUSCULAR HGB CONC 33.6 g/dL (32.0-36.0); MEAN CORPUSCULAR VOLUME 88 fl (80-97); MONOCYTES % (AUTO) 12.7 % (3-13); PLATELET COUNT 168 10^3/uL (150-450); RED BLOOD COUNT 2.91 10^6/uL (3.72-5.28); RED CELL DISTRIBUTION WIDTH 17.7 % (11.5-14.0); SEGMENTED NEUTROPHILS % (AUTO) 63.1 % (42-78); TOTAL CELLS COUNTED % (AUTO) 100 %; WHITE BLOOD COUNT 3.8 10^3/uL (4.0-10.5)
[2019-06-10 05:27] LABS: ALKALINE PHOSPHATASE 68 U/L (38-126); ANION GAP 6 (5-19); ASPARTATE AMINO TRANSFERASE 25 U/L (14-36); BILIRUBIN,TOTAL 0.2 mg/dL (0.2-1.3); BLOOD UREA NITROGEN 45 mg/dL (7-20); CALCIUM 9.3 mg/dL (8.4-10.2); CARBON DIOXIDE 29 mmol/L (22-30); CHLORIDE 106 mmol/L (98-107); GLUCOSE 85 mg/dL (75-110); POTASSIUM 3.9 mmol/L (3.6-5.0); TOTAL PROTEIN 5.9 g/dL (6.3-8.2)
[2019-06-10] MEDS: HYDRALAZINE HCL 50 MG TABLET PO SCH ×3 (05:46→22:07)
[2019-06-10] MEDS: DILTIAZEM HCL 60 MG TABLET PO SCH ×3 (05:46→22:07)
[2019-06-10] MEDS: SODIUM BICARBONATE 650 MG TABLET PO SCH ×3 (05:46→22:08)
[2019-06-10] MEDS: PREGABALIN 50 MG CAPSULE PO SCH ×3 (05:46→22:07)
[2019-06-10] MEDS: NORMAL SALINE 1000 ML 1,000 ML IV PRN ×2 (05:52→17:06)
[2019-06-10] MEDS: DULOXETINE HCL 30 MG CAPSULE.DR PO SCH (09:08)
[2019-06-10] MEDS: FAMOTIDINE 20 MG TABLET PO SCH (09:08)
[2019-06-10] MEDS: APIXABAN 2.5 MG TABLET PO SCH ×2 (09:08→22:08)
--- NOTE | 2019-06-10 19:48 | PDOC PROGRESS REPORT ---
Subjective Progress Note for:: 06/10/19 Subjective:: Patient seen by the bedside, will continue present line of management until the kidney function reestablishes baseline creatinine Reason For Visit: ACUTE ON CHRONIC KIDNEY FAILURE, HYPERKALEMIA Physical Exam Vital Signs: Temp Pulse Resp BP Pulse Ox 98.0 F 77 16 109/50 L 95 06/10/19 11:19 06/10/19 14:00 06/10/19 11:19 06/10/19 11:19 06/10/19 11:19 Intake & Output 06/09/19 06/10/19 06/11/19 06:59 06:59 06:59 Intake Total 828 2800 1480 Output Total 100 Balance 728 2800 1480 Weight 42.2 kg General appearance: PRESENT: no acute distress Eye exam: PRESENT: PERRLA Respiratory exam: PRESENT: clear to auscultation alexandro Cardiovascular exam: PRESENT: +S1, +S2 GI/Abdominal exam: PRESENT: soft Results Laboratory Results: 06/10/19 04:57 06/10/19 04:57 06/10/19 06/10/19 04:57 04:57 WBC 3.8 L RBC 2.91 L Hgb 8.6 L Hct 25.5 L MCV 88 MCH 29.5 MCHC 33.6 RDW 17.7 H Plt Count 168 Seg Neutrophils % 63.1 Sodium 141.4 Potassium 3.9 Chloride 106 Carbon Dioxide 29 Anion Gap 6 BUN 45 H Creatinine 2.42 H Est GFR ( Amer) 23 L Glucose 85 Calcium 9.3 Total Bilirubin 0.2 AST 25 Alkaline Phosphatase 68 Total Protein 5.9 L Albumin 3.0 L 06/08/19 10:40 Clean Catch Midstream Urine Culture - Final NO GROWTH 2 DAYS 06/07/19 06/07/19 06/07/19 15:15 15:15 15:15 Creatine Kinase 37 CK-MB (CK-2) 0.47 Troponin I 0.014 NT-Pro-B Natriuret Pep 236 06/08/19 06/08/19 06/08/19 01:24 01:24 07:50 Creatine Kinase 25 L 26 L CK-MB (CK-2) 0.41 Troponin I < 0.012 NT-Pro-B Natriuret Pep 06/08/19 07:50 Creatine Kinase CK-MB (CK-2) 0.44 Troponin I 0.016 NT-Pro-B Natriuret Pep Assessment & Plan - Diagnosis (1) Acute kidney injury Is this a current diagnosis for this admission?: Yes Plan: Improving (2) Hyperkalemia Is this a current diagnosis for this admission?: Yes Plan: Resolved (3) Chronic kidney disease, stage 4 (severe) Is this a current diagnosis for this admission?: Yes Plan: The kidney function is reestablishing a new baseline (4) Chronic atrial fibrillation Is this a current diagnosis for this admission?: Yes Plan: Continue anticoagulant (5) Body mass index (BMI) 19.9 or less, adult Is this a current diagnosis for this admission?: Yes (6) Protein-calorie undernutrition Qualifiers: Protein-calorie malnutrition severity: severe Qualified Code(s): E43 - Unspecified severe protein-calorie malnutrition Is this a current diagnosis for this admission?: Yes (7) Acquired polycystic kidney disease Is this a current diagnosis for this admission?: Yes - Time Time Spent with patient: 35 or more minutes Level of Care: IMCU
[2019-06-10] MEDS: LATANOPROST 0.005% OPH SOLN 2.5 ML OU SCH (22:08)
[2019-06-11] MEDS: NORMAL SALINE 1000 ML 1,000 ML IV PRN ×2 (03:37→13:42)
[2019-06-11] MEDS: DILTIAZEM HCL 60 MG TABLET PO SCH ×3 (05:15→21:22)
[2019-06-11] MEDS: HYDRALAZINE HCL 50 MG TABLET PO SCH ×3 (05:15→21:22)
[2019-06-11] MEDS: SODIUM BICARBONATE 650 MG TABLET PO SCH ×3 (05:15→23:44)
[2019-06-11] MEDS: PREGABALIN 50 MG CAPSULE PO SCH ×3 (05:15→21:22)
[2019-06-11] MEDS: APIXABAN 2.5 MG TABLET PO SCH ×2 (09:39→21:22)
[2019-06-11] MEDS: DULOXETINE HCL 30 MG CAPSULE.DR PO SCH (09:39)
[2019-06-11] MEDS: FAMOTIDINE 20 MG TABLET PO SCH (09:39)
[2019-06-11 11:16] LABS: ANION GAP 10 (5-19); BLOOD UREA NITROGEN 39 mg/dL (7-20); CALCIUM 9.8 mg/dL (8.4-10.2); CARBON DIOXIDE 23 mmol/L (22-30); CHLORIDE 110 mmol/L (98-107); GLUCOSE 115 mg/dL (75-110)
--- NOTE | 2019-06-11 20:08 | PDOC TRANSFER SUMMARY ---
Impression - Admit/DC Date/PCP Admission Date/Primary Care Provider: 06/07/19 17:12 VICTORIANO MATTSON MD Discharge Date: 06/12/19 - Discharge Diagnosis (1) Acute kidney injury Is this a current diagnosis for this admission?: Yes (2) Hyperkalemia Is this a current diagnosis for this admission?: Yes (3) Chronic kidney disease, stage 4 (severe) Is this a current diagnosis for this admission?: Yes (4) Chronic atrial fibrillation Is this a current diagnosis for this admission?: Yes (5) Body mass index (BMI) 19.9 or less, adult Is this a current diagnosis for this admission?: Yes (6) Protein-calorie undernutrition Is this a current diagnosis for this admission?: Yes (7) Acquired polycystic kidney disease Is this a current diagnosis for this admission?: Yes - Additional Information Referrals: VICTORIANO MATTSON MD [Primary Care Provider] - Follow up as needed Home Medications: Acetaminophen [Tylenol 325 mg Tablet] 650 mg PO Q6HP PRN 06/07/19 Apixaban [Eliquis 2.5 mg Tablet] 2.5 mg PO Q12 06/07/19 Calcitriol [Rocaltrol 0.25 mcg Capsule] 1 cap PO DAILY 06/07/19 Diltiazem HCl [Cardizem 60 mg Tablet] 60 mg PO Q8 06/07/19 Duloxetine HCl [Cymbalta 30 mg Capsule.dr] 30 mg PO DAILY 06/07/19 Famotidine [Pepcid 20 mg Tablet] 20 mg PO DAILY 06/07/19 Hydralazine HCl [Apresoline 50 mg Tablet] 50 mg PO Q8 06/07/19 Ipratropium/Albuterol Sulfate [Duoneb 3 ml Ampul] 3 ml NEB RTQ6HP PRN 06/07/19 Latanoprost [Xalatan 0.005% Oph Soln 2.5 ml] 1 drop OU QHS 06/07/19 Pregabalin [Lyrica 50 mg Capsule] 50 mg PO Q8 06/07/19 Sodium Bicarbonate [Sodium Bicarbonate 650 mg Tablet] 650 mg PO Q8 06/07/19 History of Present Illiness History of Present Illness: LOU CLMEENTE is a 84 year old female,, She has a history of chronic kidney disease stage III, chronic atrial fibrillation, she was transferred from the jail at [place] to the emergency room for evaluation of acute kidney injury associated with hyperkalemia, the serum creatinine was 3.60 with a potassium of 6.3, the serum creatinine back on May 23, 2019 was 1.96 so cl early there is worsening kidney function. She has underlining chronic kidney disease, she does not want renal replacement therapy that is no dialysis or kidney transplant. She is not symptomatic from this abnormal lab data Hospital Course Hospital Course: Patient was admitted for the management of acute kidney injury on a superimposed chronic kidney disease stage IV with associated hyperkalemia. She was treated with Kayexalate, calcium gluconate, 50% dextrose with insulin, it took about 2 days to ultimately correct the hyperkalemia. She was also treated with IV fluid to correct any prerenal azotemia that could be contributing to the acute kidney injury. Patient is very underweight with poor food intake. She does not want any renal replacement therapy including hemodialysis or transplant. It is felt that patient has optimized inpatient care the plan is to transfer back to jail for rehabilitation and continuity of care. Physical Exam Vital Signs: Temp Pulse Resp BP Pulse Ox 98.4 F 78 20 127/60 H 97 06/11/19 15:28 06/11/19 15:28 06/11/19 15:28 06/11/19 15:28 06/11/19 15:28 Intake & Output 06/10/19 06/11/19 06/12/19 06:59 06:59 06:59 Intake Total 2800 2480 1832 Balance 2800 2480 1832 Weight 42.5 kg General appearance: PRESENT: no acute distress Eye exam: PRESENT: PERRLA Mouth exam: PRESENT: moist Respiratory exam: PRESENT: clear to auscultation alexandro Cardiovascular exam: PRESENT: +S1, +S2 GI/Abdominal exam: PRESENT: soft Neurological exam: PRESENT: alert, CN II-XII grossly intact Results Laboratory Results: WBC 3.8 10^3/uL (4.0-10.5) L 06/10/19 04:57 RBC 2.91 10^6/uL (3.72-5.28) L 06/10/19 04:57 Hgb 8.6 g/dL (12.0-15.5) L 06/10/19 04:57 Hct 25.5 % (36.0-47.0) L 06/10/19 04:57 MCV 88 fl (80-97) 06/10/19 04:57 MCH 29.5 pg (27.0-33.4) 06/10/19 04:57 MCHC 33.6 g/dL (32.0-36.0) 06/10/19 04:57 RDW 17.7 % (11.5-14.0) H 06/10/19 04:57 Plt Count 168 10^3/uL (150-450) 06/10/19 04:57 Lymph % (Auto) 20.5 % (13-45) 06/10/19 04:57 Wright % (Auto) 12.7 % (3-13) 06/10/19 04:57 Eos % (Auto) 3.4 % (0-6) 06/10/19 04:57 Baso % (Auto) 0.3 % (0-2) 06/10/19 04:57 Absolute Neuts (auto) 2.4 10^3/uL (1.7-8.2) 06/10/19 04:57 Absolute Lymphs (auto) 0.8 10^3/uL (0.5-4.7) 06/10/19 04:57 Absolute Monos (auto) 0.5 10^3/uL (0.1-1.4) 06/10/19 04:57 Absolute Eos (auto) 0.1 10^3/uL (0.0-0.6) 06/10/19 04:57 Absolute Basos (auto) 0.0 10^3/uL (0.0-0.2) 06/10/19 04:57 Seg Neutrophils % 63.1 % (42-78) 06/10/19 04:57 Platelet Estimate Cancelled 06/07/19 20:30 PT 14.9 SEC (11.4-15.4) 06/07/19 20:30 INR 1.17 06/07/19 20:30 APTT 35.0 SEC (23.5-35.8) 06/07/19 20:30 Sodium 143.3 mmol/L (137-145) 06/11/19 09:57 Potassium 4.0 mmol/L (3.6-5.0) 06/11/19 09:57 Chloride 110 mmol/L (98-107) H 06/11/19 09:57 Carbon Dioxide 23 mmol/L (22-30) 06/11/19 09:57 Anion Gap 10 (5-19) 06/11/19 09:57 BUN 39 mg/dL (7-20) H 06/11/19 09:57 Creatinine 2.15 mg/dL (0.52-1.25) H 06/11/19 09:57 Est GFR ( Amer) 26 (>60) L 06/11/19 09:57 Est GFR (MDRD) Non-Af 22 (>60) L 06/11/19 09:57 Glucose 115 mg/dL (75-110) H 06/11/19 09:57 POC Glucose 82 mg/dL (70-110) 06/08/19 03:06 Hemoglobin A1c % 5.2 % (4.7-6.0) 06/08/19 07:50 Calcium 9.8 mg/dL (8.4-10.2) 06/11/19 09:57 Phosphorus 4.2 mg/dL (2.5-4.5) 06/07/19 20:30 Magnesium 2.4 mg/dL (1.6-2.3) H 06/07/19 20:30 Total Bilirubin 0.2 mg/dL (0.2-1.3) 06/10/19 04:57 Direct Bilirubin 0.0 mg/dL (0.0-0.4) 06/10/19 04:57 Neonat Total Bilirubin Not Reportable 06/10/19 04:57 Neonat Direct Bilirubin Not Reportable 06/10/19 04:57 Neonat Indirect Bili Not Reportable 06/10/19 04:57 AST 25 U/L (14-36) 06/10/19 04:57 ALT 21 U/L (<35) 06/10/19 04:57 Alkaline Phosphatase 68 U/L (38-126) 06/10/19 04:57 Ammonia < 8.7 umol/L (9-33) L 06/07/19 20:30 Creatine Kinase 26 U/L (30-135) L 06/08/19 07:50 CK-MB (CK-2) 0.44 ng/mL (<4.55) 06/08/19 07:50 Troponin I 0.016 ng/mL 06/08/19 07:50 NT-Pro-B Natriuret Pep 236 pg/mL (<450) 06/07/19 15:15 Total Protein 5.9 g/dL (6.3-8.2) L 06/10/19 04:57 Albumin 3.0 g/dL (3.5-5.0) L 06/10/19 04:57 Triglycerides 46 mg/dL (<150) 06/08/19 06:00 Cholesterol 165.47 mg/dL (0-200) 06/08/19 06:00 LDL Cholesterol Direct 70 mg/dL (<100) 06/08/19 06:00 VLDL Cholesterol 9.0 mg/dL (10-31) L 06/08/19 06:00 HDL Cholesterol 57 mg/dL (>40) 06/08/19 06:00 Amylase 244 U/L (30-110) H 06/07/19 20:30 Lipase 640.1 U/L (23-300) H 06/07/19 20:30 TSH 1.14 uIU/mL (0.47-4.68) 06/07/19 20:30 Free T4 1.05 ng/dL (0.78-2.19) 06/07/19 20:30 Urine Color YELLOW 06/08/19 10:40 Urine Appearance CLEAR 06/08/19 10:40 Urine pH 6.0 (5.0-9.0) 06/08/19 10:40 Ur Specific [place] 1.013 06/08/19 10:40 Urine Protein NEGATIVE mg/dL (NEGATIVE) 06/08/19 10:40 Urine Glucose (UA) NEGATIVE mg/dL (NEGATIVE) 06/08/19 10:40 Urine Ketones NEGATIVE mg/dL (NEGATIVE) 06/08/19 10:40 Urine Blood NEGATIVE (NEGATIVE) 06/08/19 10:40 Urine Nitrite NEGATIVE (NEGATIVE) 06/08/19 10:40 Urine Bilirubin NEGATIVE (NEGATIVE) 06/08/19 10:40 Urine Urobilinogen NEGATIVE mg/dL (<2.0) 06/08/19 10:40 Ur Leukocyte Esterase NEGATIVE (NEGATIVE) 06/08/19 10:40 Urine WBC (Auto) 1 /HPF 06/08/19 10:40 Urine RBC (Auto) 4 /HPF 06/08/19 10:40 U Hyaline Cast (Auto) 1 /LPF 06/08/19 10:40 Urine Bacteria (Auto) TRACE /HPF 06/08/19 10:40 Squamous Epi Cells Auto 2 /HPF 06/08/19 10:40 Urine Mucus (Auto) RARE /LPF 06/08/19 10:40 Urine Ascorbic Acid 40 (NEGATIVE) H 06/08/19 10:40 Urine Opiates Screen NEGATIVE 06/08/19 10:40 Urine Methadone Screen NEGATIVE 06/08/19 10:40 Ur Barbiturates Screen NEGATIVE 06/08/19 10:40 Ur Phencyclidine Scrn NEGATIVE 06/08/19 10:40 Ur Amphetamines Screen NEGATIVE 06/08/19 10:40 U Benzodiazepines Scrn NEGATIVE 06/08/19 10:40 Urine Cocaine Screen NEGATIVE 06/08/19 10:40 U Marijuana (THC) Screen NEGATIVE 06/08/19 10:40 Slides for Path Review Cancelled 06/07/19 20:30 06/07/19 06/07/19 06/08/19 15:15 15:15 01:24 CK-MB (CK-2) 0.47 0.41 Troponin I 0.014 < 0.012 NT-Pro-B Natriuret Pep 236 06/08/19 07:50 CK-MB (CK-2) 0.44 Troponin I 0.016 NT-Pro-B Natriuret Pep Stroke Is this a Stroke Patient?: No Acute Heart Failure - Is this a Heart Failure Patient?: No
[2019-06-11] MEDS: LATANOPROST 0.005% OPH SOLN 2.5 ML OU SCH (23:44)
[2019-06-12] MEDS: NORMAL SALINE 1000 ML 1,000 ML IV PRN ×2 (01:42→10:26)
[2019-06-12] MEDS: SODIUM BICARBONATE 650 MG TABLET PO SCH ×2 (05:27→14:21)
[2019-06-12] MEDS: PREGABALIN 50 MG CAPSULE PO SCH ×2 (05:28→14:21)
[2019-06-12] MEDS: DILTIAZEM HCL 60 MG TABLET PO SCH ×2 (05:28→14:21)
[2019-06-12] MEDS: HYDRALAZINE HCL 50 MG TABLET PO SCH ×2 (05:28→14:21)
[2019-06-12] MEDS: FAMOTIDINE 20 MG TABLET PO SCH (09:21)
[2019-06-12] MEDS: APIXABAN 2.5 MG TABLET PO SCH (09:21)
[2019-06-12] MEDS: DULOXETINE HCL 30 MG CAPSULE.DR PO SCH (09:21)
[2019-06-12 13:57] VITALS: BP 146/76
== END 2019-06-12 14:35 | DRG 682 ==
LOC: ER 15:02 → EH 17:12 → 3W 19:39 → 3N 06-10 23:41
PROVIDERS: ADMIT Internal Medicine; ATTEND Internal Medicine
DX: N17.9 Acute kidney failure, unspecified (principal); E43 Unspecified severe protein-calorie malnutrition; I48.20 Chronic atrial fibrillation, unspecified; Z68.1 Body mass index [BMI] 19.9 or less, adult; E87.5 Hyperkalemia; N18.4 Chronic kidney disease, stage 4 (severe); E28.2 Polycystic ovarian syndrome; I12.9 Hypertensive chronic kidney disease with stage 1 through stage 4 chronic kidney disease, or unspecified chronic kidney disease; Z79.01 Long term (current) use of anticoagulants; Z79.899 Other long term (current) drug therapy; Z86.718 Personal history of other venous thrombosis and embolism
CPT/HCPCS: 36415; 80048; 80053; 80061; 80307; 81001; 82140; 82150; 82550; 82553; 82962; 83036; 83690; 83735; 83880; 83970; 84100; 84439; 84443; 84484; 85025; 85610; 85730; 87040; 87070; 87086; 93005; 93010; 96374; 99285; J0610; J1815; J3490; J7030

== ENCOUNTER → 2019-06-07 | Outpatient (CLI) | payer MEDICARE ==
[2019-06-07 13:44] LABS: ANION GAP 10 (5-19); BLOOD UREA NITROGEN 55 mg/dL (7-20); CARBON DIOXIDE 26 mmol/L (22-30); CHLORIDE 104 mmol/L (98-107); GLUCOSE 78 mg/dL (75-110); PHOSPHORUS 4.5 mg/dL (2.5-4.5)
[2019-06-07 13:48] LABS: POTASSIUM 6.4 mmol/L (3.6-5.0)
== END ==
LOC: LAB 13:13
PROVIDERS: ATTEND Physician Assistant Medical
DX: I12.9 Hypertensive chronic kidney disease with stage 1 through stage 4 chronic kidney disease, or unspecified chronic kidney disease (principal); N18.4 Chronic kidney disease, stage 4 (severe); D63.1 Anemia in chronic kidney disease; E87.5 Hyperkalemia; E87.2 Acidosis
CPT/HCPCS: 36415; 80048; 83970; 84100

== ENCOUNTER → 2020-03-06 | Outpatient (CLI) | payer MEDICARE, OTHER ==
[2020-03-06 17:54] LABS: ABSOLUTE EOSINOPHILS # (AUTO) 0.1 10^3/uL (0.0-0.6); ABSOLUTE LYMPHOCYTES (AUTO) 1.5 10^3/uL (0.5-4.7); ABSOLUTE MONOCYTES (AUTO) 0.4 10^3/uL (0.1-1.4); ABSOLUTE NEUT (AUTO) 3.1 10^3/uL (1.7-8.2); BASOPHILS % (AUTO) 0.7 % (0-2); EOSINOPHILS % (AUTO) 1.3 % (0-6); HEMATOCRIT 36.8 % (36.0-47.0); LYMPHOCYTES % (AUTO) 29.6 % (13-45); MEAN CORPUSCULAR HEMOGLOBIN 29.9 pg (27.0-33.4); MEAN CORPUSCULAR HGB CONC 32.7 g/dL (32.0-36.0); MEAN CORPUSCULAR VOLUME 91 fl (80-97); MONOCYTES % (AUTO) 8.2 % (3-13); PLATELET COUNT 211 10^3/uL (150-450); RED BLOOD COUNT 4.03 10^6/uL (3.72-5.28); RED CELL DISTRIBUTION WIDTH 15.7 % (11.5-14.0); SEGMENTED NEUTROPHILS % (AUTO) 60.2 % (42-78); TOTAL CELLS COUNTED % (AUTO) 100 %; WHITE BLOOD COUNT 5.2 10^3/uL (4.0-10.5)
[2020-03-06 17:58] LABS: APPEARANCE,URINE SLIGHTLY-CLOUDY; BILIRUBIN,URINE NEGATIVE (NEGATIVE); COLOR,URINE YELLOW; GLUCOSE, URINE NEGATIVE (NEGATIVE); KETONES,URINE NEGATIVE (NEGATIVE); LEUKOCYTE ESTERASE,URINE NEGATIVE (NEGATIVE); NITRITE,URINE NEGATIVE (NEGATIVE); PROTEIN,URINE 30 mg/dL (NEGATIVE); URINE SPECIFIC GRAVITY 1.017; UROBILINOGEN,URINE NEGATIVE mg/dL (<2.0)
[2020-03-06 18:14] LABS: ALBUMIN 4.7 g/dL (3.5-5.0); ANION GAP 8 (5-19); BLOOD UREA NITROGEN 47 mg/dL (7-20); CALCIUM 11.4 mg/dL (8.4-10.2); CARBON DIOXIDE 25 mmol/L (22-30); CHLORIDE 103 mmol/L (98-107); GLUCOSE 96 mg/dL (75-110); PHOSPHORUS 3.3 mg/dL (2.5-4.5); POTASSIUM 5.1 mmol/L (3.6-5.0)
== END ==
LOC: OD 16:55
PROVIDERS: ATTEND Physician Assistant Medical
DX: I12.9 Hypertensive chronic kidney disease with stage 1 through stage 4 chronic kidney disease, or unspecified chronic kidney disease (principal); N18.4 Chronic kidney disease, stage 4 (severe); E87.5 Hyperkalemia; E83.52 Hypercalcemia; E87.2 Acidosis; N25.0 Renal osteodystrophy
CPT/HCPCS: 36415; 80069; 81001; 83970; 85025

== ENCOUNTER 2020-03-07 13:04 | Emergency (ER) | payer MEDICARE, OTHER ==
--- NOTE | 2020-03-07 13:31 | ER Document Report ---
ED Medical Screen (RME) - General Stated Complaint: DIZZY Time Seen by Provider: 03/07/20 13:17 Primary Care Provider: VICTORIANO MATTSON MD [Primary Care Provider] - Follow up as needed TRAVEL OUTSIDE OF THE [place] IN LAST 30 DAYS: No - HPI Notes: 03/07/20 13:27 84-year-old female with a history of chronic kidney disease, chronic A. fib presents to the emergency room from [facility] for hypercalcemia of 11.4 patient also is complaining today of dizziness, weakness and somnolence. Patient has been evaluated by Dr. Mattson, her PCP, for dizziness and has been placed on meclizine which is not helping her. Patient states her dizziness has been for "a while" which roughly over a month. her niece is present to help give a history. Denies any chest pain shortness of breath nausea vomiting or diarrhea, fevers or chills. I have greeted and performed a rapid initial assessment of this patient. A comprehensive ED assessment and evaluation of the patient, analysis of test results and completion of the medical decision making process will be conducted by additional ED providers. PHYSICAL EXAMINATION: GENERAL: Chronically ill malnourished and in no acute distress. HEAD: Atraumatic, normocephalic. EYES: Pupils equal round extraocular movements intact, conjunctiva are normal. NECK: Normal range of motion CV: s1, s2 regular LUNGS: No respiratory distress NEUROLOGICAL: Normal speech, normal gait. - Related Data Allergies/Adverse Reactions: No Known Allergies Allergy (Verified 02/20/19 12:00) Past Medical History - Past Medical History Cardiac Medical History: Reports: Hx Atrial Fibrillation, Hx DVT, Hx Hypertension Denies: Hx Heart Attack Pulmonary Medical History: Reports: Hx COPD Denies: Hx Asthma, Hx Tuberculosis Neurological Medical History: Denies: Hx Cerebrovascular Accident, Hx Seizures Renal/ Medical History: Reports: Hx Renal Insufficiency. Denies: Hx Peritoneal Dialysis GI Medical History: Denies: Hx Hepatitis, Hx Hiatal Hernia, Hx Ulcer Musculoskeltal Medical History: Reports Hx Arthritis Psychiatric Medical History: Denies: Hx Depression Infectious Medical History: Denies: Hx Hepatitis Past Surgical History: Denies: Hx Hysterectomy, Hx Mastectomy, Hx Open Heart Surgery, Hx Pacemaker - Immunizations Immunizations up to date: Yes Hx Diphtheria, Pertussis, Tetanus Vaccination: Yes Physical Exam - Vital signs Vitals: Temp Pulse Resp BP Pulse Ox 98.5 F 109 H 16 142/77 H 98 03/07/20 13:07 03/07/20 13:07 03/07/20 13:07 03/07/20 13:07 03/07/20 13:07 Course - Vital Signs Vital signs: Temp Pulse Resp BP Pulse Ox 98.5 F 109 H 16 142/77 H 98 03/07/20 13:07 03/07/20 13:07 03/07/20 13:07 03/07/20 13:07 03/07/20 13:07 Doctor's Discharge - Discharge Referrals: VICTORIANO MATTSON MD [Primary Care Provider] - Follow up as needed
[2020-03-07 14:30] LABS: ABSOLUTE EOSINOPHILS # (AUTO) 0.1 10^3/uL (0.0-0.6); ABSOLUTE LYMPHOCYTES (AUTO) 1.2 10^3/uL (0.5-4.7); ABSOLUTE MONOCYTES (AUTO) 0.4 10^3/uL (0.1-1.4); ABSOLUTE NEUT (AUTO) 3.4 10^3/uL (1.7-8.2); BASOPHILS % (AUTO) 0.9 % (0-2); EOSINOPHILS % (AUTO) 1.3 % (0-6); HEMATOCRIT 36.1 % (36.0-47.0); LYMPHOCYTES % (AUTO) 23.4 % (13-45); MEAN CORPUSCULAR HEMOGLOBIN 30.3 pg (27.0-33.4); MEAN CORPUSCULAR HGB CONC 33.1 g/dL (32.0-36.0); MEAN CORPUSCULAR VOLUME 92 fl (80-97); MONOCYTES % (AUTO) 8.2 % (3-13); PLATELET COUNT 212 10^3/uL (150-450); RED BLOOD COUNT 3.94 10^6/uL (3.72-5.28); RED CELL DISTRIBUTION WIDTH 16.2 % (11.5-14.0); SEGMENTED NEUTROPHILS % (AUTO) 66.2 % (42-78); TOTAL CELLS COUNTED % (AUTO) 100 %; WHITE BLOOD COUNT 5.1 10^3/uL (4.0-10.5)
[2020-03-07 14:41] LABS: APPEARANCE,URINE SLIGHTLY-CLOUDY; BILIRUBIN,URINE NEGATIVE (NEGATIVE); COLOR,URINE YELLOW; GLUCOSE, URINE NEGATIVE (NEGATIVE); KETONES,URINE NEGATIVE (NEGATIVE); LEUKOCYTE ESTERASE,URINE NEGATIVE (NEGATIVE); NITRITE,URINE NEGATIVE (NEGATIVE); PROTEIN,URINE 30 mg/dL (NEGATIVE); URINE SPECIFIC GRAVITY 1.017; UROBILINOGEN,URINE NEGATIVE mg/dL (<2.0)
[2020-03-07 14:51] LABS: ALBUMIN 4.7 g/dL (3.5-5.0); ALKALINE PHOSPHATASE 59 U/L (38-126); ANION GAP 7 (5-19); ASPARTATE AMINO TRANSFERASE 24 U/L (14-36); BILIRUBIN,DIRECT 0.1 mg/dL (0.0-0.4); BILIRUBIN,TOTAL 0.5 mg/dL (0.2-1.3); BLOOD UREA NITROGEN 55 mg/dL (7-20); CALCIUM 11.4 mg/dL (8.4-10.2); CARBON DIOXIDE 25 mmol/L (22-30); CHLORIDE 105 mmol/L (98-107); GLUCOSE 85 mg/dL (75-110); POTASSIUM 5.4 mmol/L (3.6-5.0); TOTAL PROTEIN 8.2 g/dL (6.3-8.2)
[2020-03-07] MEDS ORDERED: NORMAL SALINE 1000 ML 1,000 ML IV ONE (15:20)
--- NOTE | 2020-03-07 19:27 | EKG REPORT ---
SEVERITY:- ABNORMAL ECG - SINUS RHYTHM LEFT VENTRICULAR HYPERTROPHY : Confirmed by: Percy Atkinson MD 07-Mar-2020 19:27:37
--- NOTE | 2020-03-07 20:23 | ER Document Report ---
ED Dizziness/Weakness - General Chief Complaint: Dizziness Stated Complaint: DIZZY Time Seen by Provider: 03/07/20 13:17 Primary Care Provider: VICTORIANO MATTSON MD [Primary Care Provider] - Follow up as needed Mode of Arrival: Ambulatory Information source: Patient TRAVEL OUTSIDE OF THE [place] IN LAST 30 DAYS: No - HPI Notes: Patient presents complaining of dizziness. She states this dizziness occurs randomly and causes her to have some trouble walking. It seems to be worse with exertion and better with rest. There is no radiation of the symptom. She denies any significant pain. No shortness of breath. No vomiting or diarrhea. Patient's daughter is in the room with her. Patient's daughter states that the patient went to have her standard blood draw before her nephrology visit yesterday. At the blood draw was seen that her calcium was high and the degree clerk called today and asked that the patient come the emergency room for evaluation. The dizziness symptoms do seem to be mild to moderate. - Related Data Allergies/Adverse Reactions: No Known Allergies Allergy (Verified 02/20/19 12:00) Past Medical History - General Information source: Patient - Social History Smoking Status: Never Smoker Frequency of alcohol use: None Drug Abuse: None Family History: Reviewed & Not Pertinent - Past Medical History Cardiac Medical History: Reports: Hx Atrial Fibrillation, Hx DVT, Hx Hypertension Denies: Hx Heart Attack Pulmonary Medical History: Reports: Hx COPD Denies: Hx Asthma, Hx Tuberculosis Neurological Medical History: Denies: Hx Cerebrovascular Accident, Hx Seizures Renal/ Medical History: Reports: Hx Renal Insufficiency. Denies: Hx Peritoneal Dialysis GI Medical History: Denies: Hx Hepatitis, Hx Hiatal Hernia, Hx Ulcer Musculoskeletal Medical History: Reports Hx Arthritis Psychiatric Medical History: Denies: Hx Depression Infectious Medical History: Denies: Hx Hepatitis Past Surgical History: Denies: Hx Hysterectomy, Hx Mastectomy, Hx Open Heart Surgery, Hx Pacemaker - Immunizations Immunizations up to date: Yes Hx Diphtheria, Pertussis, Tetanus Vaccination: Yes Hx Pneumococcal Vaccination: 08/06/12 Review of Systems - Review of Systems Constitutional: denies: Chills, Fever Cardiovascular: denies: Chest pain, Palpitations Respiratory: denies: Cough, Short of breath -: Yes All other systems reviewed and negative Physical Exam - Vital signs Vitals: Temp Pulse Resp BP Pulse Ox 98.5 F 109 H 16 142/77 H 98 03/07/20 13:07 03/07/20 13:07 03/07/20 13:07 03/07/20 13:07 03/07/20 13:07 Interpretation: Normal - General General appearance: Appears well, Alert - HEENT Head: Normocephalic, Atraumatic Eyes: Normal Pupils: PERRL - Respiratory Respiratory status: No respiratory distress Chest status: Nontender Breath sounds: Normal Chest palpation: Normal - Cardiovascular Rhythm: Regular Heart sounds: Normal auscultation Murmur: No - Abdominal Inspection: Normal Distension: No distension Bowel sounds: Normal Tenderness: Nontender Organomegaly: No organomegaly - Back Back: Normal, Nontender - Extremities General upper extremity: Normal inspection, Nontender, Normal color, Normal ROM, Normal temperature General lower extremity: Normal inspection, Nontender, Normal color, Normal ROM, Normal temperature, Normal weight bearing. No: Galina's sign - Neurological Cognition: Confused Abran Coma Scale Eye Opening: Spontaneous Chambers Coma Scale Verbal: Confused Abran Coma Scale Motor: Obeys Commands Chambers Coma Scale Total: 14 Speech: Normal Motor strength normal: LUE, RUE, LLE, RLE Sensory: Normal - Psychological Associated symptoms: Normal affect, Normal mood - Skin Skin Temperature: Warm Skin Moisture: Dry Skin Color: Normal Course - Re-evaluation Re-evalutation: 03/07/20 20:21 Patient presents with a complaint of dizziness but with further investigation appears patient was sent here for a elevated calcium on a blood draw. Patient's calcium is 11.4 here initially. Looking back at previous calciums patient runs a standard calcium of approximately 10.5-11. I discussed this with the patient's degree clerk, Dr. Dior. She recommended giving the patient a liter of fluid and rechecking the calcium. She states if it was below 11 the patient could be discharged home to follow-up with nephrology. On repeat calcium it is 10.9. Patient be discharged home and instructed to follow-up with nephrology. - Vital Signs Vital signs: Temp Pulse Resp BP Pulse Ox 98.5 F 109 H 16 142/77 H 98 03/07/20 13:07 03/07/20 13:07 03/07/20 13:07 03/07/20 13:07 03/07/20 13:07 - Laboratory Result Diagrams: 03/07/20 14:09 03/07/20 14:09 Laboratory results interpreted by me: 03/07/20 03/07/20 03/07/20 14:09 14:09 14:09 RDW 16.2 H Potassium 5.4 H BUN 55 H Creatinine 2.93 H Est GFR ( Amer) 18 L Est GFR (MDRD) Non-Af 15 L Calcium 11.4 H Urine Protein 30 H 03/07/20 19:02 RDW Potassium BUN Creatinine Est GFR ( Amer) Est GFR (MDRD) Non-Af Calcium 10.9 H Urine Protein - EKG Interpretation by Or EKG shows normal: Sinus rhythm Rate: Normal - 96 Rhythm: NSR Voltage: Consistent with [facility] Discharge - Discharge Clinical Impression: Hypercalcemia Condition: Stable Disposition: HOME, SELF-CARE Additional Instructions: Please follow-up with your degree clerk as scheduled Referrals: Tony WASHBURN MD [ACTIVE STAFF] - Follow up tomorrow
[2020-03-07 20:49] VITALS: BP 168/97
== END 2020-03-07 20:49 | disposition home or self-care (01) ==
LOC: ER 13:04
DX: E83.52 Hypercalcemia (principal); R42 Dizziness and giddiness; R41.0 Disorientation, unspecified; I10 Essential (primary) hypertension; J44.9 Chronic obstructive pulmonary disease, unspecified
CPT/HCPCS: 93005; 99285; 36415; 82310; 85025; 80053; 81001; 93010; J7030

== ENCOUNTER → 2020-04-27 | Outpatient (CLI) | payer MEDICARE, MEDICAID | LOC: OD 15:57 | PROVIDERS: ATTEND Physician Assistant Medical | DX: E87.5 Hyperkalemia (principal) | CPT/HCPCS: 36415; 84132 ==

== ENCOUNTER → 2020-05-01 | Outpatient (CLI) | payer MEDICARE, MEDICAID | LOC: OD 13:19 | PROVIDERS: ATTEND Physician Assistant Medical | DX: E87.5 Hyperkalemia (principal) | CPT/HCPCS: 36415; 84132 ==

== ENCOUNTER 2020-05-20 14:28 | Emergency (ER) | payer MEDICARE, MEDICAID ==
--- NOTE | 2020-05-20 14:44 | ER Document Report ---
ED Medical Screen (RME) - General Stated Complaint: ABNORMAL LAB RESULT Time Seen by Provider: 05/20/20 14:39 Primary Care Provider: VICTORIANO MATTSON MD [Primary Care Provider] - Follow up as needed Information source: Relative Notes: Patient presents with reported elevated potassium. Patient had outpatient lab work yesterday and was advised to come here for management of her hyperkalemia. Patient denies any complaints at this time. Patient denies any dizziness, chest pain, nausea or vomiting. Patient does have a history of hypertension as well as chronic kidney disease. Patient does not receive dialysis. I have greeted and performed a rapid initial assessment of this patient. A comprehensive ED assessment and evaluation of the patient, analysis of test results and completion of the medical decision making process will be conducted by additional ED providers. TRAVEL OUTSIDE OF THE [place] IN LAST 30 DAYS: No - Related Data Allergies/Adverse Reactions: No Known Allergies Allergy (Verified 05/20/20 14:39) Past Medical History - Past Medical History Cardiac Medical History: Reports: Hx Atrial Fibrillation, Hx DVT, Hx Hypertension Denies: Hx Heart Attack Pulmonary Medical History: Reports: Hx COPD Denies: Hx Asthma, Hx Tuberculosis Neurological Medical History: Denies: Hx Cerebrovascular Accident, Hx Seizures Renal/ Medical History: Reports: Hx Renal Insufficiency. Denies: Hx Peritoneal Dialysis GI Medical History: Denies: Hx Hepatitis, Hx Hiatal Hernia, Hx Ulcer Musculoskeltal Medical History: Reports Hx Arthritis Psychiatric Medical History: Denies: Hx Depression Infectious Medical History: Denies: Hx Hepatitis Past Surgical History: Denies: Hx Hysterectomy, Hx Mastectomy, Hx Open Heart Surgery, Hx Pacemaker - Immunizations Immunizations up to date: Yes Hx Diphtheria, Pertussis, Tetanus Vaccination: Yes Physical Exam - Vital signs Vitals: Temp Pulse Resp BP Pulse Ox 98.2 F 111 H 16 133/80 H 100 05/20/20 14:35 05/20/20 14:35 05/20/20 14:35 05/20/20 14:35 05/20/20 14:35 - General General appearance: Appears well, Alert In distress: None Course - Vital Signs Vital signs: Temp Pulse Resp BP Pulse Ox 98.2 F 111 H 16 133/80 H 100 05/20/20 14:35 05/20/20 14:35 05/20/20 14:35 05/20/20 14:35 05/20/20 14:35 Doctor's Discharge - Discharge Referrals: VICTORIANO MATTSON MD [Primary Care Provider] - Follow up as needed
--- NOTE | 2020-05-20 15:06 | ER Document Report ---
ED General - General Chief Complaint: Abnormal Lab Results Stated Complaint: ABNORMAL LAB RESULT Time Seen by Provider: 05/20/20 14:39 Primary Care Provider: VICTORIANO MATTSON MD [Primary Care Provider] - Follow up as needed Mode of Arrival: Ambulatory Information source: Patient Notes: 05/20/20 14:39 - ED Nursing Note by CLAUDIA GARCIA [facility] Num: [id number] : 1935 Patient Age: 85 pt reports she is being seen for abnormal labs. caregiver reports potassium is elevated. was told it was 6.5. ED Medical Screen (Doug notes) - General Stated Complaint: ABNORMAL LAB RESULT Time Seen by Provider: 05/20/20 14:39 Primary Care Provider: VICTORIANO MATTSON MD [Primary Care Provider] - Follow up as needed Information source: Relative Notes: Patient presents with reported elevated potassium. Patient had outpatient lab work yesterday and was advised to come here for management of her hyperkalemia. Patient denies any complaints at this time. Patient denies any dizziness, chest pain, nausea or vomiting. Patient does have a history of hypertension as well as chronic kidney disease. Patient does not receive dialysis. TRAVEL OUTSIDE OF THE [place] IN LAST 30 DAYS: No - Related Data Allergies/Adverse Reactions: No Known Allergies Allergy (Verified 05/20/20 14:39) Past Medical History - Past Medical History Cardiac Medical History: Reports: Hx Atrial Fibrillation, Hx DVT, Hx Hypertension Denies: Hx Heart Attack Pulmonary Medical History: Reports: Hx COPD Denies: Hx Asthma, Hx Tuberculosis Neurological Medical History: Denies: Hx Cerebrovascular Accident, Hx Seizures Renal/ Medical History: Reports: Hx Renal Insufficiency. Denies: Hx Perito sana Dialysis GI Medical History: Denies: Hx Hepatitis, Hx Hiatal Hernia, Hx Ulcer Musculoskeltal Medical History: Reports Hx Arthritis Psychiatric Medical History: Denies: Hx Depression Infectious Medical History: Denies: Hx Hepatitis Past Surgical History: Denies: Hx Hysterectomy, Hx Mastectomy, Hx Open Heart Surgery, Hx Pacemaker MY NOTES 85 year old female with abnl labs /elevated K+; patient otherwise is doing well. She reports "3 months ago she had high potassium levels as well and received some p.o. medication that did not taste good." TRAVEL OUTSIDE OF THE [place] IN LAST 30 DAYS: No - HPI Onset: This morning Onset/Duration: Sudden Quality of pain: No pain Severity: None Pain Level: Denies Associated symptoms: Other - Blurry vision only - Related Data Allergies/Adverse Reactions: No Known Allergies Allergy (Verified 05/20/20 14:39) Home Medications: htn. kidney. lokelma. meclizine. megase. diltiazem. duloxetine. famotidine Past Medical History - General Information source: Relative - Social History Smoking Status: Unknown if Ever Smoked Cigarette use (# per day): No Chew tobacco use (# tins/day): No Smoking Education Provided: No Frequency of alcohol use: None Drug Abuse: None Lives with: Family Family History: Reviewed & Not Pertinent Patient has suicidal ideation: No Patient has homicidal ideation: No - Past Medical History Cardiac Medical History: Reports: Hx Atrial Fibrillation, Hx DVT, Hx Hypertensio n Denies: Hx Heart Attack Pulmonary Medical History: Reports: Hx COPD Denies: Hx Asthma, Hx Tuberculosis Neurological Medical History: Denies: Hx Cerebrovascular Accident, Hx Seizures Renal/ Medical History: Reports: Hx Renal Insufficiency. Denies: Hx Peritoneal Dialysis GI Medical History: Denies: Hx Hepatitis, Hx Hiatal Hernia, Hx Ulcer Musculoskeletal Medical History: Reports Hx Arthritis Psychiatric Medical History: Denies: Hx Depression Infectious Medical History: Denies: Hx Hepatitis Past Surgical History: Denies: Hx Hysterectomy, Hx Mastectomy, Hx Open Heart Surgery, Hx Pacemaker - Immunizations Immunizations up to date: Yes Hx Diphtheria, Pertussis, Tetanus Vaccination: Yes Hx Pneumococcal Vaccination: 08/06/12 Review of Systems - Review of Systems Constitutional: No symptoms reported EENT: No symptoms reported Cardiovascular: See HPI, Lightheaded Respiratory: No symptoms reported Gastrointestinal: No symptoms reported Genitourinary: No symptoms reported Female Genitourinary: No symptoms reported Musculoskeletal: No symptoms reported Skin: No symptoms reported Hematologic/Lymphatic: No symptoms reported Neurological/Psychological: No symptoms reported, Other - blurry vision Physical Exam - Vital signs Vitals: Temp Pulse Resp BP Pulse Ox 98.2 F 111 H 16 133/80 H 100 05/20/20 14:35 05/20/20 14:35 05/20/20 14:35 05/20/20 14:35 05/20/20 14:35 Interpretation: Normal - General General appearance: Appears well, Alert - HEENT Head: Normocephalic, Atraumatic Eyes: Normal Pupils: PERRL - Respiratory Respiratory status: No respiratory distress Chest status: Nontender Breath sounds: Normal Chest palpation: Normal - Cardiovascular Rhythm: Tachycardia Heart sounds: Normal auscultation Murmur: No Friction rub: No Kandi's crunch: No - Abdominal Inspection: Normal Distension: No distension Bowel sounds: Normal Tenderness: Nontender Organomegaly: No organomegaly - Rectal Hemorrhoids: Other - deferred - Genitourinary Bimanuel exam: Other - deferred - Back Back: Normal, Nontender - Extremities General upper extremity: Normal inspection, Nontender, Normal color, Normal ROM, Normal temperature General lower extremity: Normal inspection, Nontender, Normal color, Normal ROM, Normal temperature, Normal weight bearing. No: Galina's sign - Neurological Neuro grossly intact: Yes Cognition: Normal Orientation: AAOx4 Abran Coma Scale Eye Opening: Spontaneous Abran Coma Scale Verbal: Oriented Blachly Coma Scale Motor: Obeys Commands Blachly Coma Scale Total: 15 Speech: Normal Motor strength normal: LUE, RUE, LLE, RLE Sensory: Normal - Psychological Associated symptoms: Normal affect, Normal mood - Skin Skin Temperature: Warm Skin Moisture: Dry Skin Color: Normal Course - Vital Signs Vital signs: Temp Pulse Resp BP Pulse Ox 98.2 F 111 H 16 133/80 H 99 05/20/20 14:39 05/20/20 14:35 05/20/20 14:35 05/20/20 14:35 05/20/20 15:13 - Laboratory Result Diagrams: 05/20/20 15:40 05/20/20 15:40 Laboratory results interpreted by me: 05/20/20 05/20/20 05/20/20 15:40 15:40 16:05 RBC 3.48 L Hgb 11.2 L Hct 32.6 L RDW 16.6 H Potassium 5.3 H Chloride 112 H Carbon Dioxide 16 L BUN 59 H Creatinine 2.69 H Est GFR ( Amer) 20 L Est GFR (MDRD) Non-Af 17 L ALT 40 H Urine Protein 100 H Urine Blood SMALL H Discharge - Discharge Clinical Impression: History of hyperkalemia, no hyperkalemia today on labs, Tachycardia Condition: Stable Disposition: HOME, SELF-CARE Additional Instructions: Follow-up with personal doctor on Friday return to ER as needed take medicines as directed and you may want to get a recheck on your potassium. Encourage fluids avoid bananas and orange juice and potatoes for the next few days. Also avoid taking any potassium [id number] Referrals: VICTORIANO MATTSON MD [Primary Care Provider] - Follow up as needed
[2020-05-20] MEDS ORDERED: NORMAL SALINE 500 ML IV ONE (15:35)
[2020-05-20 16:06] LABS: HEMATOCRIT 32.6 % (36.0-47.0); HEMOGLOBIN 11.2 g/dL (12.0-15.5); MEAN CORPUSCULAR HEMOGLOBIN 32.1 pg (27.0-33.4); MEAN CORPUSCULAR HGB CONC 34.3 g/dL (32.0-36.0); MEAN CORPUSCULAR VOLUME 94 fl (80-97); PLATELET COUNT 185 10^3/uL (150-450); RED BLOOD COUNT 3.48 10^6/uL (3.72-5.28); RED CELL DISTRIBUTION WIDTH 16.6 % (11.5-14.0); WHITE BLOOD COUNT 6.2 10^3/uL (4.0-10.5)
[2020-05-20 16:16] LABS: ALBUMIN 3.7 g/dL (3.5-5.0); ALKALINE PHOSPHATASE 48 U/L (38-126); ANION GAP 11 (5-19); ASPARTATE AMINO TRANSFERASE 26 U/L (14-36); BILIRUBIN,DIRECT 0.2 mg/dL (0.0-0.4); BILIRUBIN,TOTAL 0.5 mg/dL (0.2-1.3); BLOOD UREA NITROGEN 59 mg/dL (7-20); CARBON DIOXIDE 16 mmol/L (22-30); CHLORIDE 112 mmol/L (98-107); GLUCOSE 91 mg/dL (75-110); POTASSIUM 5.3 mmol/L (3.6-5.0); TOTAL PROTEIN 6.4 g/dL (6.3-8.2)
[2020-05-20 16:19] LABS: APPEARANCE,URINE SLIGHTLY-CLOUDY; BILIRUBIN,URINE NEGATIVE (NEGATIVE); COLOR,URINE YELLOW; GLUCOSE, URINE NEGATIVE (NEGATIVE); KETONES,URINE NEGATIVE (NEGATIVE); LEUKOCYTE ESTERASE,URINE NEGATIVE (NEGATIVE); NITRITE,URINE NEGATIVE (NEGATIVE); PROTEIN,URINE 100 mg/dL (NEGATIVE); URINE SPECIFIC GRAVITY 1.016; UROBILINOGEN,URINE NEGATIVE mg/dL (<2.0)
[2020-05-20 16:30] LABS: ABSOLUTE LYMPHOCYTES# (MANUAL) 1.3 10^3/uL (0.5-4.7); ABSOLUTE MONOCYTES # (MANUAL) 0.7 10^3/uL (0.1-1.4); BASOPHILS % (MANUAL) 0 % (0-2); EOSINOPHILS % (MANUAL) 4 % (0-6); LYMPHOCYTES % (MANUAL) 21 % (13-45); MONOCYTES % (MANUAL) 11 % (3-13); SEGMENTED NEUTROPHILS % (MAN) 64 % (42-78); TOTAL CELLS COUNTED 100
[2020-05-20 16:32] LABS: ANISOCYTOSIS 1+; OVALOCYTES 1+; PLATELET COMMENT ADEQUATE
[2020-05-20] MEDS ORDERED: LABETALOL HCL INJ 20 MG/4 ML DISP.SYRIN IV ONE ×2 (17:59→18:49)
[2020-05-20] MEDS ORDERED: DILTIAZEM HCL INJ 25 MG/5 ML VIAL IV ONE (19:20)
[2020-05-20 19:56] VITALS: BP 187/98
--- NOTE | 2020-05-21 19:15 | EKG REPORT ---
SEVERITY:- ABNORMAL ECG - SINUS TACHYCARDIA LEFT VENTRICULAR HYPERTROPHY : Confirmed by: Percy Atkinson MD 21-May-2020 19:14:44
== END 2020-05-20 19:59 | disposition home or self-care (01) ==
LOC: ER 14:28
DX: E87.5 Hyperkalemia (principal); R00.0 Tachycardia, unspecified; R42 Dizziness and giddiness; H53.8 Other visual disturbances; I11.9 Hypertensive heart disease without heart failure; J44.9 Chronic obstructive pulmonary disease, unspecified; I48.91 Unspecified atrial fibrillation; Z79.899 Other long term (current) drug therapy
CPT/HCPCS: 93005; 99284; 96374; 96375; 36415; 87086; 85025; 80053; 81001; 93010; J3490 ×2; J7040